=== PATIENT | female | born 1960 | race Caucasian/White ===

== ENCOUNTER → 2019-10-25 09:19 | Outpatient (CLI) | payer BC, SELFPAY | PROVIDERS: PCP Family Medicine; Referring Provider Urology; Visit Provider Urology | DX: R30.0 Dysuria (principal) | CPT/HCPCS: 87086; 87088 ==

== ENCOUNTER 2021-04-03 06:16 | Day surgery (SDC) | payer BC, SELFPAY ==
[2021-04-03] VITALS (7 sets, daily range): BP systolic 119–138; BP diastolic 66–76; PULSE 67–78; RESP 16; TEMP 36.2–36.6; O2SAT 93–96; BMI 23.5
[2021-04-03] MEDS: Lactated Ringers 1,000 ML 100 ML IV (06:46)
--- NOTE | 2021-04-03 07:21 | PCM.HP.BLA ---
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 Accompanied by: self Is patient in pain?: No Allergies methenamine Allergy (Intermediate, Verified 03/20/21 14:17) unknown Medications albuterol sulfate 90 mcg/actuation aerosol inhaler 1 inh INHALATION ONCE 01/07/20 [History Confirmed 03/20/21] ascorbate calcium (vitamin C) 500 mg tablet 500 mg PO DAILY 01/07/20 [History Confirmed 03/20/21] budesonide-formoterol HFA 160 mcg-4.5 mcg/actuation aerosol inhaler INHALATION 01/07/20 [History Confirmed 03/20/21] famotidine 20 mg tablet 20 mg PO DAILY 01/07/20 [History Confirmed 01/07/20] loratadine 5 mg-pseudoephedrine ER 120 mg tablet,extended release,12hr 1 tab PO Q12H 01/07/20 [History Confirmed 01/07/20] montelukast 10 mg tablet 10 mg PO DAILY 01/07/20 [History Confirmed 01/07/20] estradiol 1 appful VAGINAL ONCE 03/20/21 [History Confirmed 03/20/21] gabapentin 800 mg tablet 800 mg PO DAILY 03/20/21 [History Confirmed 03/20/21] verapamil 240 mg tablet,extended release 240 mg PO DAILY 03/20/21 [History Confirmed 03/20/21] PFSH Medical History Abnormal bruising Anemia Arthritis Asthma Environmental allergies Fatigue Hay fever HTN (hypertension) Kidney disease Knee pain Neck pain Seasonal allergies Severe headache Shoulder pain SOB (shortness of breath) Surgical History History of bladder surgery History of carpal tunnel release History of cholecystectomy History of hysterectomy History of neck surgery Hx of section Family History (Updated 03/20/21 @ 14:10 by Casie Roy) Mother Arthritis Cancer bladder Diabetes Heart disease Hypertension High cholesterol Father Cancer Bladder Social History Smoking Status: Never smoker alcohol intake: never HPI HPI HPI: DENNY OWENS, is a 60 F who presents to the office today for colonoscopy due to fecal incontinence. Patient states her last colonoscopy she believes was about 5 to 6 years ago states she gets on every 5 to 6 years denies any family history of colon cancer denies history of polyps. Patient did see Dr. Rainey due to frequent UTIs and mentioned having some fecal incontinence over the last year. Patient states that she does have urgency to go if she is unable to make it to the restroom she will have incontinence. Patient states she will especially have incontinence if her stools are soft or diarrhea. If her stools are hard/formed she will not have the incontinence. Patient states she will occasionally have incontinence without the urgency as well. Patient is unsure where she last had a colonoscopy previously. Patient denies any immediate family history of colon cancer states her maternal aunt did have colon cancer. Patient states she has had 3-4 previous colonoscopies in the past. Patient is not sure how much fiber she gets in her diet. ROS General General: Yes fatigue; No weight change, appetite, colon cancer, breast cancer or weakness HEENT HEENT: No difficulty swallowing, eye injury, eye surgery, swollen glands or hoarseness Endo Endocrine: No thyroid disease, diabetes mellitus, thyroid cancer, Hair loss, heat intolerance or cold intolerance Skin Skin: No rash or changing moles Breast Breast: No left breast lump, right breast lump, nipple discharge, breast pain, abnormal mammogram, abnormal US or breast enlargement Musc Musculoskeletal: Yes arthritis; No back problems, rheumatoid arthritis, gout or joint pain Cardio Cardiovascular: Yes high blood pressure; No murmur, pacemaker, heart disease, atrial fibrillation, heart attack, heart stent, palpitations, shortness of breat with exertion or chest pain Psych Psychiatric: No depression, anxiety or hearing voices Resp Respiratory: No shortness of breath, No sleep apnea, No cough, No COPD, Yes asthma, No emphysema and No wheezing Gastro Gastrointestinal: No abdominal pain, Yes nausea or vomiting, Yes diarrhea, Yes constipation, No blood in stool, Yes acid reflux, No hemorrhoids, No ulcers, No gallbladder problem and Yes black,tarry stools Rafael Hematologic: No blood thinners, No blood disorders, No bleeding, Yes anemia and No blood clots Neuro Neurologic: No system reviewed and no additional complaints, except as documented, No as per HPI, No abnormal gait, No abnormal hearing, No abnormal movements, No abnormal speech, No behavioral changes, No burning sensations, No confusion, No convulsions, No disequilibrium, No dizziness, No localized weakness, No frequent falls, No headache(s), No lack of coordination, No loss of vision, No memory loss, No numbness, No other visual disturbances, No radicular pain, No restless legs, No sensory deficit, No syncope, No tingling, No tremor(s), No weakness and No other Exam Const General: cooperative, healthy appearing, comfortable and no acute distress Neck Neck: normal visual inspection Resp Effort & Inspection: normal respiratory effort Cardio Rate: regular rate GI Inspection: non-distended Palpation: soft, no guarding and nontender Rectal Exam: abnormal sphincter tone decreased, No hemorrhoids and No mass Skin General: no rashes or lesions noted Neuro General: patient oriented x3 Psych Affect: normal affect Assessment and Plan Assessment and Plan (1) Fecal incontinence: Status: Acute Plan - Dr. Yue Briggs MD: On exam patient does have a weak anal sphincter. Patient states her last colonoscopy was 5 years ago discussed with patient she normally does not need colonoscopies every 5 years as she does not have a family history however since she is having a new problem it is worth taking a look with a colonoscopy. Discussed with patient that if there is no obvious cause on colonoscopy would recommend a physical therapy for pelvic floor strengthening which Dr. Rainey has already recommended. If that still would not work would recommend a referral to a colorectal surgeon if it continues. Did give patient sheet going over fiber recommend getting 20 g of fiber daily. Did caution patient about not advancing too quickly as that could give her abdominal pain/bloating/diarrhea. I have discussed the above with the patient. I have offered the patient colonoscopy for evaluation. We will plan to try to arrange the same time as procedure with Dr. Rainey I have explained the risks/benefits of the procedure and described the procedure. I have discussed the risks with the patient, including but not limited to: infection, bleeding, perforation of the GI tract requiring emergency surgery, inability to complete the procedure, injury to any internal organs, complications of anesthesia, etc. - the patient understands and agrees to proceed. I have answered all the patient's questions to the patient's satisfaction and the patient has no further questions. The patient has been given instructions for the colon cleansing preparation. MiraLAX Dulcolax prep, 1 day of clears Yue Briggs M.D. Pager: [phone] [facility] [address] [place] [address], [address] [place] [address] Office: [phone] Plan Details Other Orders: Orders: Colonoscopy Today Coding Level of Care Code Off vis,new,level 3 Diagnoses Fecal incontinence R15.9 03/20/21 1514<Electronically signed by Yue Briggs MD>Date Yue Briggs MD
--- NOTE | 2021-04-03 08:03 | OP.CCLET_ITS ---
04/03/2021 Esha Rodriguez Re : Colonoscopy procedure for Maria Teresa Torrez Dear Michael This procedure was performed on March. My impressions and recommendations are as follows: Impressions : - Diverticulosis in the sigmoid colon. - The entire examined colon is normal on direct and retroflexion views. - No specimens collected. Recommendations : - Discharge patient to home. - High fiber diet. - Continue present medications. - Repeat colonoscopy 7-8 years for screening purposes due to fibrous debris in part of transverse and descending colon. My findings are described in the full procedure note, which is enclosed. If I can be of further assistance, please feel free to contact me at Doctor phone number(s): , Work: . Sincerely, MD Yue Gomez MD 04/03/2021 8:02:38 AM This report has been signed electronically.
--- NOTE | 2021-04-03 08:03 | OP.COLON_ITS ---
Patient Name: Maria Teresa Torrez Procedure Date: 04/03/2021 7:16 AM Date of : 1960 Age: 60 Procedure: Colonoscopy Indications: Fecal incontinence Providers: Yue Briggs MD Referring MD: Yue Briggs MD Medicines: Monitored Anesthesia Care Patient Profile: This is a 60 year old female. Last Colonoscopy: 5 years ago. Complications: No immediate complications. Procedure: Pre-Anesthesia Assessment: - Prior to the procedure, a History and Physical was performed, and patient medications and allergies were reviewed. The patient's tolerance of previous anesthesia was also reviewed. The risks and benefits of the procedure and the sedation options and risks were discussed with the patient. All questions were answered, and informed consent was obtained. Prior Anticoagulants: The patient has taken no previous anticoagulant or antiplatelet agents. ASA Grade Assessment: Per anesthesia. After reviewing the risks and benefits, the patient was deemed in satisfactory condition to undergo the procedure. After I obtained informed consent, the scope was passed under direct vision. Throughout the procedure, the patient's blood pressure, pulse, and oxygen saturations were monitored continuously. The Colonoscope was introduced through the anus and advanced to the cecum, identified by the appendiceal orifice, ileocecal valve and palpation. The colonoscopy was somewhat difficult due to a tortuous colon. The patient tolerated the procedure well. The quality of the bowel preparation was good except there was fibrous debris in transverse & descending. Scope In: 7:26:29 AM Scope Withdrawal Time 0 hours 8 minutes 47 seconds Scope Out: 7:53:02 AM Total Procedure Duration Time 0 hours 26 minutes 33 seconds Findings: The perianal examination was normal. Multiple small-mouthed diverticula were found in the sigmoid colon. The entire examined colon appeared normal on direct and retroflexion views. Impression: - Diverticulosis in the sigmoid colon. - The entire examined colon is normal on direct and retroflexion views. - No specimens collected. Recommendation: - Discharge patient to home. - High fiber diet. - Continue present medications. - Repeat colonoscopy 7-8 years for screening purposes due to fibrous debris in part of transverse and descending colon. Procedure Code(s): --- Professional --- 45377, Colonoscopy, flexible; diagnostic, including collection of specimen(s) by brushing or washing, when performed (separate procedure) Diagnosis Code(s): --- Professional --- R15.9, Full incontinence of feces K57.30, Diverticulosis of large intestine without perforation or abscess without bleeding CPT copyright 2017 [employer]. All rights reserved. The codes documented in this report are preliminary and upon certified medical coder review may be revised to meet current compliance requirements. MD Yue Gomez MD 04/03/2021 8:02:38 AM This report has been signed electronically. Number of Addenda: 0 Note Initiated On: 04/03/2021 7:16 AM
== END 2021-04-03 09:00 ==
LOC: EN 06:16 → AC 06:16
PROVIDERS: PCP Family Medicine; Referring Provider Surgery; Visit Provider Surgery
PROC: 0DJD8ZZ Inspection of Lower Intestinal Tract, Via Natural or Artificial Opening Endoscopic (ICD-10-PCS; CPT 45378; principal; 2021-04-03 07:25)
DX: K57.30 Diverticulosis of large intestine without perforation or abscess without bleeding (principal); R15.9 Full incontinence of feces; I10 Essential (primary) hypertension; Z87.440 Personal history of urinary (tract) infections
CPT/HCPCS: 45378; 87426; C9803; J7120

== ENCOUNTER 2021-05-26 07:04 | Day surgery (SDC) | payer BC, SELFPAY ==
[2021-05-26] VITALS (7 sets, daily range): BP systolic 105–142; BP diastolic 66–86; PULSE 69–85; RESP 16; TEMP 36.3–36.8; O2SAT 93–97; BMI 23.8
[2021-05-26] MEDS: Lactated Ringers 1,000 ML 15 ML IV (07:15)
[2021-05-26] MEDS: Cefazolin 2 GM in 0.9% Normal Saline 100 ML IV (09:43)
--- NOTE | 2021-05-26 10:10 | PCM.DC ---
Discharge Instructions Diet Discharge Diet: No restrictions Activity Discharge Activity: Return to Normal Activity May resume sexual activity in: No Restrictions Dressing / Incision Call your doctor if you observe: Fever of 101 or Higher, Inability to urinate, Inability to have a bowel movement and Uncontrolled pain Follow Up Care Please Follow Up With: Radha Rainey MD When: 2-3 weeks Test Results: Test results from this visit will be discussed in further detail at your follow-up appointment, if applicable. Discharge Plan Admission Attending Provider: Radha Rainey Primary Care Provider: Esha Rodriguez Discharge Orders/Prescriptions Prescriptions: New phenazopyridine [Pyridium] 200 MG tablet 200 mg PO TID PRN PRN (Reason: Bladder Spasms) 7 Days Qty: 30 RF: 0 acetaminophen-codeine [acetaminophen-codeine] 1 TABLET tablet 1 - 2 tab PO Q6H PRN PRN (Reason: Pain Score 6-10/10) 3 Days Qty: 10 RF: 0 Continued budesonide-formoterol [Symbicort] 160-4.5 mcg/actuation HFA aerosol inhaler 1 puff INHALATION BID RF: 0 albuterol sulfate [ProAir HFA] 90 mcg/actuation HFA aerosol inhaler 1 inh INHALATION DAILY RF: 0 Claritin-D 12 Hour 5-120 mg tablet extended release 12 hr 1 tab PO Q12H PRN (Reason: ALLERGIES) RF: 0 estradiol 0.01 % (0.1 mg/gram) cream 1 appful vaginal ONCE RF: 0 verapamil 240 mg tablet extended release 240 mg PO DAILY RF: 0 gabapentin 800 mg tablet 800 mg PO TID RF: 0 azelastine 137 mcg (0.1 %) aerosol,spray 1 spray INTRANASAL DAILY PRN PRN (Reason: seasonal allergies) RF: 0 d-mannose 500 mg Capsule 500 mg PO DAILY RF: 0 amoxicillin-pot clavulanate 875-125 mg tablet PO DAILY RF: 0 Referrals / Follow Up: Esha Rodriguez DO [Primary Care Provider] - Disposition Disposition (needs filled in before D/C Order can be placed): Home, Self Care
--- NOTE | 2021-05-26 10:14 | PCM.OPRPT ---
Problems Associated Problem List Diagnoses (1) Urinary tract infection: (2) Interstitial cystitis: Report of Operation Date of Procedure: 05/26/21 Pre-Operative Diagnosis: Recurrent urinary tract infections, interstitial cystitis Post-Operative Diagnosis: Same Surgery/Procedure Performed:: Cystoscopy, hydrodistention Surgeon: Radha Rainey Type of Anesthesia: MAC Description of Procedure: The patient is a 60-year-old female with recurrent urinary tract infections and a working diagnosis of interstitial cystitis who presents for further evaluation under anesthesia. Informed consent was obtained. The patient was taken in the operating room and placed on the operating room table. Anesthesia monitored the head, neck, airway, IV access and vital signs throughout the case. Once anesthesia was appropriately administered, the patient was positioned in dorsal lithotomy and was prepped and draped in usual sterile fashion. At this time the cystoscope was inserted through the urethra under direct visualization into the urinary bladder. The bladder mucosa was injected but there were no Hunner's ulcers, masses areas of abnormality or foreign body identified. The bladder mucosa was visualized in its entirety with a 70 degree lens. At this time the bladder was filled to capacity and was allowed to sit for 2 minutes. It was then measured at 1 L. No further hydrodistention was performed. The cystoscope was reinserted through the urethra and the bladder mucosa was visualized again. No changes were identified. Patient's bladder was then emptied and the case was terminated. She was awakened and taken to the recovery room in good condition. There were no complications during this procedure. Grafts/Implants Used: None Complications None Admit VTE Documentation VTE Present on Admission: Yes VTE Mechan Device Prophylaxis: SCD's VTE Pharm Prophylaxis ordered?: No Reason prophylaxis not ordered:: Treatment Not Indicated
[2021-05-26] MEDS: Acetaminophen/Codeine #3 Tablet PO (11:54)
== END 2021-05-26 12:10 ==
LOC: SDC 07:06 → AC 07:06
PROVIDERS: PCP Family Medicine; Referring Provider Urology; Visit Provider Urology
PROC: 0T7B7ZZ Dilation of Bladder, Via Natural or Artificial Opening (ICD-10-PCS; CPT 52260; principal; 2021-05-26 08:30)
DX: N30.10 Interstitial cystitis (chronic) without hematuria (principal); Z87.440 Personal history of urinary (tract) infections; Z87.891 Personal history of nicotine dependence; I10 Essential (primary) hypertension; J45.909 Unspecified asthma, uncomplicated; N95.2 Postmenopausal atrophic vaginitis; R15.1 Fecal smearing
CPT/HCPCS: 00910; 52260; 87426; C9803; J7120; J2405

== ENCOUNTER → 2021-11-03 | Outpatient (CLI) | payer BC, SELFPAY ==
[2021-11-03 10:29] LABS: Mucous, Urine 0 SEEN /hpf (<or=2+)
[2021-11-03 10:32] LABS: Color, Urine Yellow (Yellow); Glucose, Dipstick Normal (Normal); Ketone-Dipstick Negative (Negative); Leukocyte Esterase-Dipstick 500 /ul (Negative); Nitrite-Dipstick Positive (Negative); Occult Blood-Urine 10 /ul (Negative); Protein-Dipstick Negative (Negative); Specific Gravity, Urine 1.005 (1.002-1.030); Urine Bilirubin Dipstick 1 mg/dL (Negative); Urine Clarity Sl. Cloudy (Clear); Urine Urobilinogen 1 mg/dl (Normal)
[2021-11-03 10:44] LABS: Bacteria 1+ /hpf (None Seen); Red Blood Cells-Urine 0-5 SEEN /hpf (0-5); Squamous Epithelial Cells - UA 0-5 SEEN /hpf (5-10); White Blood Cells 25-50 SEEN /hpf (0-5)
== END | disposition home or self-care (01) ==
LOC: LABSPEC 10:25
PROVIDERS: PCP Family Medicine; Visit Provider Physician Assistant
DX: R30.9 Painful micturition, unspecified (principal)
CPT/HCPCS: 81001; 87077; 87086; 87088; 87186

== ENCOUNTER → 2023-07-30 | Outpatient (CLI) | payer BC, SELFPAY ==
--- OUTSIDE RECORDS SUMMARY | 2023-07-30 17:37 | XMS RPT_ITS | CCD ---
Author Name Unknown Address [id number] [place] [address] Organization [facility] Care Team Providers Care Chassis Engineer Name Role Phone MichaelMaria Esther mata Primary Care Provider Betina Sifuentes Attending Unavailable PROVIDER, UNKNOWN Referring Unavailable [facility] [place] [facility] Unavailable [facility] [place] [facility] Unavailable [facility] [place] Attending Unavailable PROVIDER, UNKNOWN Referring Unavailable [facility] [place] [facility] Unavailable Michael, [place] Attending Unavailable PROVIDER, UNKNOWN Referring Unavailable Betina Sifuentes Attending Unavailable PROVIDER, UNKNOWN Referring Unavailable [facility] [place] Primary Care Unavailable Michael, [place] Primary [facility] Unavailable Betina Sifuentes Attending Unavailable PROVIDER, UNKNOWN Referring Unavailable Michael NICK [place] S[place] Primary Care Provid er Michael NICK [place] Primary Care Provider Brendon COSTA - MINING ENGINEER, Nura Unavailable [facility] [place] Primary Care Provider Brendon SALES COMMUNICATIONS MANAGER - MINING ENGINEER, Nura Unavailable [phone] Brendon SALES COMMUNICATIONS MANAGER - MINING ENGINEER, Nura Unavailable MICHAEL, [facility] Primary Care Unavanima labamol RODRIGUEZ, [employer] [employer] Attending Unamilton RODRIGUEZ, [facility] Primary Care Unavanima RODRIGUEZ [facility] Referring Unavanima labamol RODRIGUEZ, [facility] [employer] Primary Care Unavanima labamol RODRIGUEZ, [facility] [employer] [employer] Attending Unamilton RODRIGUEZ, [facility] [employer] [employer] Attending Unavanima labamol RODRIGUEZ, [facility] [employer] Primary Care Unavanima labamol RODRIGUEZ, [employer] [employer] Attending Unavanima RODRIGUEZ [facility] Primary Care Unavai lable MICHAEL, [facility] Attending Unavai lable [facility] Unavai lable MICHAEL, [facility] [employer] Attending Unavai lable MICHAEL, [facility] Primary Care Unavai lable MICHAEL, [facility] Primary Care Unavai lable MICHAEL, [facility] [employer] [employer] Attending PAO Gómez Referring Unavailable [facility] PAO Gómez Referring Unavailable [facility], [facility] NURA Schaeffer Attending Unavailable NURA JAIN Referring Unavailable [facility] Unavailable [facility] Unavailable ANA PAULA CASTANEDA Admitting Unavailable BETH ARMSTRONG Consulting Unavailable CINTIA SILVA Attending Unavailable [facility] Unavailable GIANNA ELLIS Attending Unavailable [facility] Attending Unavailable [facility] Referring Unavailable [facility] Unavailable [facility] Referring Unavailable [facility] Unavailable NURA JAIN Attending Unavailable NURA JAIN Referring Unavailable [facility] Unavailable NURA JAIN Attending Unavailable [facility] Unavailable [facility] UnavaENID Aguilera Referring Unavailable [facility] Referring Unavai lable MICHAEL, [facility] Noei ENID Connell Attending Unavailable [facility] Referring Unavai lable MICHAEL, [facility] Primary Care Unavai lable MICHAEL, [facility] Primary Care Unavai ENID Connell Referring Unavailable [facility] Primary Care ENID Herrera Attending Unavailable PAO ROSA Referring Unavailable [facility] Primary Care NIMCO Bah Attending Unavaila PAO Lisa Attending Unavailable [facility] Unavai lable MICHAEL, [facility] Primary Care Noei labENID Wooten Attending Unavailable Allergies Allergy Classification Reported Allergen(s) Allergy Type Date of Onset Reaction(s) Facility (20 sources) Methenamine; Translations: [METHENAMINE HIPPURATE] Drug Allergy 07-03-2020 [facility] (20 sources) Methenamine; Translations: [METHENAMINE] Drug Allergy 07-03-2020 Unknown, [facility] Medications Current Medications Medication Drug Class(es) Dates Sig (Normalized) Sig (Original) acetaminophen 325 mg / HYDROcodone bitartrate 5 mg oral tablet (2 sources) Opioid Agonist take 1 tablet by mouth every six hours as needed for pain HYDROcodone-acet aminophen (NORCO) 5-325 MG per tablet Take 1 tablet by mouth every 6 hours as needed for Pain 0 Active amoxicillin 875 mg / clavulanate 125 mg oral tablet (5 sources) Penicillin-class Antibacterial Start: 10-15-2022 End: 10-18-2022 take 1 tablet by mouth in the morning amoxicillin-clav ulanate (Augmentin) 875-125 MG tablet Take 1 tablet by mouth in the morning and 1 tablet before bedtime. Do all this for 3 days. 6 tablet 0 10/15/2022 10/18/2022 Active Completed/Discontinued Medications Medication Drug Class(es) Dates Sig (Normalized) Sig (Original) Acetaminophen (2 sources) Start: 10-11-2022 End: 10-15-2022 take 1 tablet by mouth every six hours as needed for pain and fever acetaminophen (Tylenol) tablet 650 mg [id number] actuat albuterol 0.09 mg/actuat metered dose inhaler (20 sources) beta2-Adrenergic Agonist Start: 10-13-2022 End: 10-15-2022 take 2 puff(s) by inhalation every six hours as needed for wheezing 2 puff, Inhalation, Every 6 hours PRN, shortness of breath, wheezing, Starting on Wed10/13/22 at 0959 Problems Active Problems Problem Classification Problem Date Documented Da te Episodic/Chronic Abdominal pain (4 sources) Recurrent abdominal pain; Translations: [Unspecified abdominal pain] Onset: 3 Episodic Anxiety disorders (20 sources) Generalized anxiety disorder; Translations: [Generalized anxiety disorder] Onset: 1 11-28-2020 Chronic Aortic; peripheral; and visceral artery aneurysms (20 sources) Aneurysm of renal artery; Translations: [Aneurysm of renal artery] Onset: 5 05-16-2015 Chronic Asthma (20 sources) Mild intermittent asthma; Translations: [Mild intermittent asthma with (acute) exacerbation] Onset: 0 07-03-2020 Chronic Deficiency and other anemia (1 source) Anemia; Translations: [Anemia, unspecified] Episodic Disorders of lipid metabolism (20 sources) Mixed hyperlipidemia; Translations: [Mixed hyperlipidemia] Onset: 2 Chronic Esophageal disorders (4 sources) Gastroesophageal reflux disease without esophagitis; Translations: [Gastro-esophageal reflux disease without esophagitis] Chronic Essential hypertension (20 sources) Essential hypertension; Translations: [Essential (primary) hypertension] Onset: 0 07-03-2020 Chronic Miscellaneous mental health disorders (9 sources) Feeling of lump in throat; Translations: [Other somatoform disorders] Onset: 1 11-28-2020 Chronic Osteoarthritis (20 sources) Arthritis; Translations: [Unspecified osteoarthritis, unspecified site] Onset: 2 Chronic Other connective tissue disease (2 sources) Swelling of left lower limb; Translations: [Other specified soft tissue disorders] Episodic Other connective tissue disease (1 source) Pain of toe of left foot; Translations: [Pain in left toe(s)] 04-05-2023 Episodic Other female genital disorders (2 sources) Other specified conditions associated with female genital organs and menstrual cycle; Translations: [Oth cond assoc w female genital organs and menstrual cycle] Onset: 2 Episodic Other gastrointestinal disorders (3 sources) Irritable bowel syndrome characterized by constipation; Translations: [Irritable bowel syndrome with constipation] Chronic Other gastrointestinal disorders (2 sources) Irritable bowel syndrome with constipation; Translations: [Irritable bowel syndrome with constipation] Onset: 3 Chronic Other gastrointestinal disorders (2 sources) Irritable bowel syndrome; Translations: [Mixed irritable bowel syndrome] Onset: 3 06-02-2023 Chronic Other gastrointestinal disorders (5 sources) Chronic constipation; Translations: [Other constipation] Episodic Other gastrointestinal disorders (2 sources) Pharyngeal dysphagia; Translations: [Dysphagia, pharyngeal phase] 04-27-2023 Episodic Other gastrointestinal disorders (1 source) Dysphagia, pharyngeal phase; Translations: [Pharyngeal dysphagia] Onset: 3 Episodic Other gastrointestinal disorders (1 source) Abdominal distension (gaseous); Translations: [Abdominal bloating] Onset: 3 Episodic Other liver diseases (1 source) Elevated liver enzymes level; Translations: [Abnormal levels of other serum enzymes] Episodic Other lower respiratory disease (1 source) Wheezing; Translations: [Wheezing] Episodic Other nervous system disorders (20 sources) Neuropathy; Translations: [Polyneuropathy, unspecified] Onset: 1 11-28-2020 Chronic Other screening for suspected conditions (not mental disorders or infectious disease) (4 sources) Encounter for screening mammogram for malignant neoplasm of breast; Translations: [Encntr screen mammogram for malignant neoplasm of breast] Onset: 2 Episodic Other upper respiratory disease (20 sources) Allergic rhinitis due to pollen; Translations: [Allergic rhinitis due to pollen] 01-02-2021 Chronic Peripheral and visceral atherosclerosis (2 sources) Atherosclerosis of other arteries; Translations: [Atherosclerosis of other arteries] Onset: 2 Chronic Residual codes; unclassified (2 sources) Acquired absence of other specified parts of digestive tract; Translations: [Acquired absence of other specified parts of digestive tract] Onset: 2 Episodic Residual codes; unclassified (1 source) Body mass index (BMI) 23.0-23.9, adult; Translations: [BMI 23.0-23.9, adult] Onset: 3 Episodic Spondylosis; intervertebral disc disorders; other back problems (4 sources) Spondylosis, unspecified; Translations: [Lumbar arthritis] Onset: 2 Chronic Spondylosis; intervertebral disc disorders; other back problems (2 sources) Spasm of back muscles; Translations: [Muscle spasm of back] Onset: 3 04-05-2023 Episodic Unclassified (2 sources) Acute cough; Translations: [Acute cough] Onset: 2 Unclassified (1 source) Recurrent cough; Translations: [Recurrent cough] Onset: 2 Past or Other Problems Problem Classification Problem Date Documented Da te Episodic/Chronic Acute bronchitis (3 sources) Acute bronchitis; Translations: [Acute bronchitis, unspecified] Onset: 10-02-2022 Episodic Deficiency and other anemia (2 sources) Anemia, unspecified; Translations: [Anemia, unspecified type] Onset: 10-20-2022 Episodic Immunizations and screening for infectious disease (20 sources) Patient encounter status; Translations: [Encounter for immunization] Onset: 07-03-2020 07-03-2020 Episodic Other circulatory disease (20 sources) Feeling of lump in throat; Translations: [Other specified symptoms and signs involving the circulatory and respiratory systems] Onset: 11-28-2020 11-28-2020 Episodic Other connective tissue disease (20 sources) Cramp in lower limb; Translations: [Cramp and spasm] Onset: 07-03-2020 07-03-2020 Episodic Other connective tissue disease (20 sources) Pain in left lower limb; Translations: [Pain in left leg] Onset: 02-05-2021 02-05-2021 Episodic Other connective tissue disease (1 source) Pain in left leg; Translations: [Left leg pain] Onset: 01-15-2023 Episodic Other connective tissue disease (1 source) Other specified soft tissue disorders; Translations: [Left leg swelling] Onset: 01-15-2023 Episodic Other gastrointestinal disorders (20 sources) Incontinence of feces; Translations: [Full incontinence of feces] Onset: 07-07-2021 07-07-2021 Episodic Other infections; including parasitic (20 sources) Personal history of other infectious and parasitic diseases; Translations: [History of COVID-19] Onset: 10-22-2020 10-22-2020 Episodic Other liver diseases (2 sources) Abnormal levels of other serum enzymes; Translations: [Elevated liver enzymes] Onset: 10-20-2022 Episodic Other lower respiratory disease (20 sources) Cough; Translations: [Cough] Onset: 07-31-2021 07-31-2021 Episodic Other lower respiratory disease (20 sources) Cough; 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] Onset: 10-08-2021 Episodic Other lower respiratory disease (1 source) Wheezing; Translations: [Wheezing] Onset: 06-08-2022 Episodic Other skin disorders (1 source) Other nail disorders; Translations: [Discolored nails] Onset: 09-14-2022 Episodic Other skin disorders (1 source) Onychogryphosis; Translations: [Thickened nails] Onset: 09-14-2022 Episodic Other upper respiratory infections (20 sources) Acute maxillary sinusitis; Translations: [Acute maxillary sinusitis, unspecified] Onset: 12-17-2021 12-17-2021 Episodic Phlebitis; thrombophlebitis and thromboembolism (20 sources) Deep venous thrombosis; Translations: [Acute embolism and thrombosis of unspecified deep veins of unspecified lower extremity] Onset: 02-05-2021 02-05-2021 Episodic Septicemia (except in labor) (17 sources) Sepsis; Translations: [Sepsis, unspecified organism] Onset: 10-11-2022 Episodic Superficial injury; contusion (20 sources) Abrasion and/or friction burn of lower limb without infection; Translations: [Abrasion, unspecified lower leg, initial encounter] Onset: 02-05-2021 02-05-2021 Episodic Unclassified (1 source) Acute cough; Translations: [Acute cough] Onset: 10-02-2022 Urinary tract infections (20 sources) Acute urinary tract infection; Translations: [Urinary tract infection, site not specified] Onset: 12-17-2021 12-17-2021 Episodic Viral infection (20 sources) Disease caused by 2019-nCoV; Translations: [COVID-19] Onset: 07-31-2021 07-31-2021 Episodic Results Test Name Value Interpretation Reference Range Facil ity Vital Signs Date Time Vital Sign Value Performing Clinician Loren [email or web address] 06-29-2023 14:24-0500 Body height 160 cm Enid Milligan PA-C Work Phone: [facility] 06-29-2023 14:24-0500 Body weight 60.69 kg Enid Milligan PA-C Work Phone: [facility] 06-29-2023 14:24-0500 Diastolic blood pressure 70 mm[Hg] Enid Milligan PA-C Work Phone: [facility] 06-29-2023 14:24-0500 Heart rate 70 /min Enid Milligan PA-C Work Phone: [facility] 06-29-2023 14:24-0500 Systolic blood pressure 124 mm[Hg] Enid Milligan PA-C Work Phone: [facility] 06-22-2023 14:05-0500 Body height 160 cm Nura Jain SALES COMMUNICATIONS MANAGER - MINING ENGINEER Work Phone: [facility] 06-22-2023 14:05-0500 Body mass index (BMI) [Ratio] 23.03 kg/m2 Nura Jain SALES COMMUNICATIONS MANAGER - MINING ENGINEER Work Phone: [facility] 06-22-2023 14:05-0500 Body weight 58.97 kg Nura Jain SALES COMMUNICATIONS MANAGER - MINING ENGINEER Work Phone: [facility] 06-22-2023 14:05-0500 Diastolic blood pressure 68 mm[Hg] Nura Jain SALES COMMUNICATIONS MANAGER - MINING ENGINEER Work Phone: [facility] 06-22-2023 14:05-0500 Respiratory rate 18 /min Nura Jain SALES COMMUNICATIONS MANAGER - MINING ENGINEER Work Phone: [facility] 06-22-2023 14:05-0500 Systolic blood pressure 122 mm[Hg] Nura Jain SALES COMMUNICATIONS MANAGER - MINING ENGINEER Work Phone: [facility] 06-08-2023 11:34-0500 Body height 160 cm Maria Esther Michael DO Work Phone: [facility] 06-08-2023 11:34-0500 Body mass index (BMI) [Ratio] 23.03 kg/m2 Maria Esther Michael DO Work Phone: [facility] 06-08-2023 11:34-0500 Body weight 58.97 kg [place] Michael DO Work Phone: [facility] 04-05-2023 09:00-0400 Body height 160 cm [place] Michael DO Work Phone: [facility] 04-05-2023 09:00-0400 Body temperature 98.01 [degF] Maria Esther Michael DO Work Phone: [facility] 04-05-2023 09:00-0400 Body weight 59.88 kg [place] Michael DO Work Phone: [facility] 04-05-2023 09:00-0400 Diastolic blood pressure 92 mm[Hg] Maria Esther Mihcael DO Work Phone: [facility] 04-05-2023 09:00-0400 Heart rate 85 /min Maria Esther Michael DO Work Phone: [facility] 04-05-2023 09:00-0400 SaO2% (BldA) [Mass fraction] 97 % Maria Esther Michael DO Work Phone: [facility] 04-05-2023 09:00-0400 Systolic blood pressure 150 mm[Hg] Maria Esther Michael DO Work Phone: [facility] 03-16-2023 14:37-0400 Body height [address] PA-C Work Phone: [facility] 03-16-2023 14:37-0400 Body weight 60.[address] PA-C Work Phone: [facility] 03-16-2023 14:37-0400 Diastolic blood pressure 72 mm[Hg] [address] Rd PA-C Work Phone: [facility] 03-16-2023 14:37-0400 Heart rate 76 /min [address] PA-C Work Phone: [facility] 03-16-2023 14:37-0400 Systolic blood pressure 130 mm[Hg] [address] Rd PA-C Work Phone: [facility] 01-14-2023 15:07-0400 Body height 160 cm [place] Michael DO Work Phone: [facility] 01-14-2023 15:07-0400 Body weight 57.61 kg [place] Michael DO Work Phone: [facility] 01-14-2023 15:07-0400 Diastolic blood pressure 70 mm[Hg] [place] Michael DO Work Phone: [facility] 01-14-2023 15:07-0400 Heart rate 89 /min [place] Michael DO Work Phone: [facility] 01-14-2023 15:07-0400 SaO2% (BldA) [Mass fraction] 94 % [place] Michael DO Work Phone: [facility] 01-14-2023 15:07-0400 Systolic blood pressure 120 mm[Hg] [place] Michael DO Work Phone: [facility] 10-20-2022 10:40-0400 Body height 160 cm [place] Michael DO Work Phone: [facility] 10-20-2022 10:40-0400 Body weight 58.06 kg Maria Esther Michael DO Work Phone: [facility] 10-20-2022 10:40-0400 Diastolic blood pressure 70 mm[Hg] Maria Esther Michael DO Work Phone: [facility] 10-20-2022 10:40-0400 Heart rate 92 /min Maria Esther Michael DO Work Phone: [facility] 10-20-2022 10:40-0400 SaO2% (BldA) [Mass fraction] 97 % Maria Esther Michael DO Work Phone: [facility] 10-20-2022 10:40-0400 Systolic blood pressure 102 mm[Hg] Maria Esther Michael DO Work Phone: [facility] 10-15-2022 11:10-0400 Body temperature 98.6 [degF] Clarence Pinto MD Work Phone: [facility] 10-15-2022 11:10-0400 Diastolic blood pressure 90 mm[Hg] Clarence Pinto MD Work Phone: [facility] 10-15-2022 11:10-0400 Heart rate 74 /min Clarence Pinto MD Work Phone: [facility] 10-15-2022 11:10-0400 Respiratory rate 18 /min Clarence Pinto MD Work Phone: [facility] 10-15-2022 11:10-0400 Systolic blood pressure 151 mm[Hg] Clarence Pinto MD Work Phone: [facility] 10-15-2022 08:37-0400 SaO2% (BldA) [Mass fraction] 97 % Clarence Pinto MD Work Phone: [facility] 10-15-2022 05:00-0400 Body mass index (BMI) [Ratio] 23.42 kg/m2 Clarence Pinto MD Work Phone: [facility] 10-15-2022 05:00-0400 Body weight 59.96 kg Clarence Pinto MD Work Phone: [facility] 10-14-2022 09:09-0400 Body height 160 cm Clarence Pinto MD Work Phone: [facility] 10-02-2022 11:02-0400 Body height 160 cm Maria Esther Michael DO Work Phone: [facility] 10-02-2022 11:02-0400 Body temperature 98.49 [degF] Maria Esther Michael DO Work Phone: [facility] 10-02-2022 11:02-0400 Body weight 58.06 kg Maria Esther Michael DO Work Phone: [facility] 10-02-2022 11:02-0400 Diastolic blood pressure 84 mm[Hg] Maria Esther Michael DO Work Phone: [facility] 10-02-2022 11:02-0400 Heart rate 87 /min [place] Michael DO Work Phone: [facility] 10-02-2022 11:02-0400 SaO2% (BldA) [Mass fraction] 94 % Maria Esther Michael DO Work Phone: [facility] 10-02-2022 11:02-0400 Systolic blood pressure 130 mm[Hg] Maria Esther Michael DO Work Phone: [facility] 06-08-2022 13:10-0500 Body height 160 cm [place] Michael DO Work Phone: [facility] 06-08-2022 13:10-0500 Body temperature 98.2 [degF] [place] Michael DO Work Phone: [facility] 06-08-2022 13:10-0500 Body weight 57.15 kg Maria Esther Michael DO Work Phone: [facility] 06-08-2022 13:10-0500 Diastolic blood pressure 78 mm[Hg] [place] Michael DO Work Phone: [facility] 06-08-2022 13:10-0500 Heart rate 82 /min [place] Michael DO Work Phone: [facility] 06-08-2022 13:10-0500 Respiratory rate 24 /min Maria Esther Michael DO Work Phone: [facility] 06-08-2022 13:10-0500 SaO2% (BldA) [Mass fraction] 94 % [place] Michael DO Work Phone: [facility] 06-08-2022 13:10-0500 Systolic blood pressure 120 mm[Hg] [place] Michael DO Work Phone: [facility] 05-26-2022 14:07-0500 Body height 160 cm [employer] SALES COMMUNICATIONS MANAGER - MINING ENGINEER Work Phone: [facility] 05-26-2022 14:07-0500 Body mass index (BMI) [Ratio] 22.67 kg/m2 Nura Jain SALES COMMUNICATIONS MANAGER - MINING ENGINEER Work Phone: [facility] 05-26-2022 14:07-0500 Body weight 58.06 kg [employer] SALES COMMUNICATIONS MANAGER - MINING ENGINEER Work Phone: [facility] 05-26-2022 14:07-0500 Diastolic blood pressure 69 mm[Hg] [employer] SALES COMMUNICATIONS MANAGER - MINING ENGINEER Work Phone: [facility] 05-26-2022 14:07-0500 Heart rate 71 /min [employer] SALES COMMUNICATIONS MANAGER - MINING ENGINEER Work Phone: [facility] 05-26-2022 14:07-0500 Systolic blood pressure 128 mm[Hg] [employer] SALES COMMUNICATIONS MANAGER - MINING ENGINEER Work Phone: [facility] 03-18-2022 10:19-0400 Body height 160 cm Maria Esther Michael DO Work Phone: [facility] 03-18-2022 10:19-0400 Body temperature 97.39 [degF] Maria Esther Michael DO Work Phone: [facility] 03-18-2022 10:19-0400 Body weight 59.88 kg Maria Esther Michael DO Work Phone: [facility] 03-18-2022 10:19-0400 Diastolic blood pressure 82 mm[Hg] Maria Esther Michael DO Work Phone: [facility] 03-18-2022 10:19-0400 Heart rate 77 /min Maria Esther Michael DO Work Phone: [facility] 03-18-2022 10:19-0400 SaO2% (BldA) [Mass fraction] 94 % [place] Michael DO Work Phone: [facility] 03-18-2022 10:19-0400 Systolic blood pressure 136 mm[Hg] [place] Michael DO Work Phone: [facility] 10-08-2021 09:18-0400 Body height 160 cm [place] Michael DO Work Phone: [facility] 10-08-2021 09:18-0400 Body temperature 97.59 [degF] [place] Michael DO Work Phone: [facility] 10-08-2021 09:18-0400 Body weight 58.97 kg Maria Esther Michael DO Work Phone: [facility] 10-08-2021 09:18-0400 Diastolic blood pressure 78 mm[Hg] Maria Esther Michael DO Work Phone: [facility] 10-08-2021 09:18-0400 Heart rate 83 /min Maria Esther Michael DO Work Phone: [facility] 10-08-2021 09:18-0400 SaO2% (BldA) [Mass fraction] 93 % Maria Esther Michael DO Work Phone: [facility] 10-08-2021 09:18-0400 Systolic blood pressure 130 mm[Hg] [facility] DO Work Phone: [facility] 04-04-2020 09:04-0400 Body Temperature 96.69 [degF] [facility] 04-04-2020 09:04-0400 Body weight 60.33 kg [facility] ic 04-04-2020 09:04-0400 BP Diastolic 70 mm[Hg] [facility] ic 04-04-2020 09:04-0400 BP Systolic 120 mm[Hg] [facility] ic 04-04-2020 09:04-0400 Height 160 cm [facility] ic 04-04-2020 09:04-0400 Pulse (Heart Rate) 93 /min [facility] 04-04-2020 09:04-0400 Pulse Oximetry 98 % [facility] ic 04-04-2020 09:04-0400 Respiratory Rate 24 /min [facility] sammy Encounters Encounter Date Encounter Type Care Provider Facility Start: 07-05-2023 End: 07-05-[address] [facility] Facility:[facility] Start: 06-29-2023 End: 06-29-[address] [facility] Facility:[facility] Start: 06-29-2023 End: 06-29-2023 Patient encounter procedure Enid Milligan PA-C Work Phone: [facility] [place] Procedures Date Procedure Procedure Detail Performing Clinician Start: 06-22-2023 Follow-up visit Follow-up NURA JAIN Start: 06-08-2023 End: 06-08-2023 Screening digital breast tomosynthesis bi [facility] Work Phone: Start: 05-26-2023 Ct angiography abdom en w/contrast/noncontrast Nura Jain SALES COMMUNICATIONS MANAGER - MINING ENGINEER Work Phone: Start: 04-27-2023 Radiologic exam esop hagus single contrast study Pao Rosa PA-C Work Phone: Start: 01-15-2023 Dup-scan xtr veins unilateral/limited study [place] Suleiman Rodriguez DO Work Phone: Start: 10-15-2022 Comprehensive metabo lic panel Cintia Silva MD Work Phone: Start: 10-14-2022 Comprehensive metabo lic panel Cintia Silva MD Work Phone: Start: 10-13-2022 Culture bacterial quanttative colony count urine Tiffany Updyke PA-C Work Phone: Start: 10-13-2022 Comprehensive metabo lic panel Cintia Silva MD Work Phone: Start: 10-13-2022 Hepatitis b surf ant ibody hbsab Tiffany Wheelrightyke PA-C Work Phone: Start: 10-12-2022 Us retroperitoneal r eal time w/image complete Beba Michele SALES COMMUNICATIONS MANAGER - MINING ENGINEER Work Phone: Start: 10-12-2022 End: 10-12-2022 Comprehensive metabolic panel Beba Ortizs SALES COMMUNICATIONS MANAGER - MINING ENGINEER Work Phone: Start: 10-12-2022 Drug screen quantita tive vancomycin Beba Michele SALES COMMUNICATIONS MANAGER - MINING ENGINEER Work Phone: Start: 10-12-2022 EXTRA TUBES Ana Paula subramanian MD Work Phone: Start: 10-12-2022 LAVENDER TOP Ana Paula subramanian MD Work Phone: Start: 10-12-2022 LIGHT GREEN TOP Ana Paula Castaneda MD Work Phone: Start: 10-11-2022 Assay of lactate Beba Ortizs SALES COMMUNICATIONS MANAGER - MINING ENGINEER Work Phone: Start: 10-11-2022 SARS-COV-2, FLU A/B, AND RSV COMBO Clarence Pinto MD Work Phone: Start: 10-11-2022 Urinalysis complete panel - Urine Clarence Pinto MD Work Phone: Start: 10-11-2022 Urnls dip stick/tabl et rgnt auto w/o microscopy Clarence Pinto MD Work Phone: Start: 10-11-2022 Ct abdomen & pelvis w/o contrast material Clarence Pinto MD Work Phone: Start: 10-11-2022 Ecg routine ecg w/le ast 12 lds trcg only w/o i&r Clarence Pinto MD Work Phone: Start: 10-11-2022 End: 10-11-2022 Bacteria identified in Blood by Culture Clarence Pinto MD Work Phone: Start: 10-11-2022 Comprehensive metabo lic panel Clarence Pinto MD Work Phone: Start: 05-11-2022 Creatinine blood Betina Sifuentes MD Work Phone: Start: 05-01-2022 Mammography Clarence grajeda MD Work Phone: Start: 04-30-2022 Mammography [place] O liverio DO Work Phone: Start: 03-18-2022 Adult depression scr eening assessment Maria Esther Michael DO Work Phone: Start: 03-22-2021 Dup-scan artl trent abdl/pel/scrot&/rpr orgn com Betina Sifuentes MD Work Phone: Start: 11-28-2020 Adult depression scr eening assessment Maria Esther Michael DO Work Phone: Start: 02-24-2020 Mammography [place] O liverio Start: 02-21-2020 Dup-scan artl trent abdl/pel/scrot&/rpr orgn com Betina Sifuentes Work Phone: Start: 06-07-2019 CMP EXTERNAL QAI [facility] Start: 06-07-2019 Lipid panel [facility] Start: 06-07-2019 Lipid 1996 [facility] - [facility] Work Phone: Start: 07-23-2017 Colonoscopy [place] O liverio DO Work Phone: Plan of Treatment Date Care Activity Detail Author Start: 07-23-2027 Screening for malign ant neoplasm of colon [facility] Start: 10-20-2025 [facility]AB[facility] Start: 10-20-2025 Diabetes Screening Diabetes Screenin g [facility] Start: 06-29-2024 BP Controlled (<130/80) BP Controlle d (<130/80) [facility] Start: 06-08-2024 Screening for malign ant neoplasm of breast [facility] Start: 06-07-2024 Lipid 1996 panel - S raquel or Plasma Lipid Screening [facility] Start: 06-07-2024 Lipid panel Lipid Screening [facility] Start: 06-07-2024 LIPID SCREEN LIPID SCREEN [facility] Start: 06-01-2024 End: 06-01-2024 Creatinine [Mass/volume] in Serum or Plasma Creatinine, Serum Lab Routine 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) Expected: 06/01/2024 (Approximate), Expires: 06/01/2024 [facility] Immunizations Immunization Date Immunization Notes Care Provider Mally vasquez 07-03-2020 influenza, injectabl e, quadrivalent, contains preservative Maria Esther Michael DO Work Phone: [facility] 07-03-2020 influenza virus vacc ine, unspecified formulation Clarence Pinto MD Work Phone: [facility] 05-27-2019 influenza, injectabl e, quadrivalent, contains preservative [place] Michael DO Work Phone: [facility] 05-26-2019 Influenza, injectabl e, Madin Moosic Canine Kidney, preservative free, quadrivalent Maria Esther Michael DO Work Phone: [facility] 05-09-2018 influenza, injectabl e, quadrivalent, preservative free [place] Michael DO Work Phone: [facility] 06-30-2017 influenza, injectabl e, quadrivalent, preservative free [place] Michael DO Work Phone: [facility] 05-18-2016 influenza, seasonal, injectable, preservative free [place] Michael DO Work Phone: [facility] 05-02-2015 influenza, injectabl e, quadrivalent, preservative free [facility] 04-30-2014 influenza, seasonal, injectable, preservative free [facility] 04-12-2013 influenza, seasonal, injectable, preservative free [facility] 04-29-2012 influenza, seasonal, injectable, preservative free [facility] 04-15-2011 influenza, seasonal, injectable, preservative free [facility] Payers Date Payer Category Payer Unknown [id number] 2019 Unknown [id number] 2019 Unknown BCBS [place] P PO [id number] 2019-Present [address] [place] [address] [id number] 2019 Unknown [id number] 1959 Unknown [id number] 1959 Unknown [id number] 1959 Unknown [id number] 1959 Unknown [id number] 1959 Unknown [id number] Social History Date Type Detail Facility Start: 12-24-2017 End: 03-20-2020 Tobacco smoking status MNIS Never smoker [facility] Start: 12-24-2017 End: 12-08-2022 Tobacco use and exposure Never used [facility] Start: 12-24-2017 End: 06-22-2023 Alcohol intake [facility] Start: 1960 [facility]igned At [facility] Start: 06-10-2020 End: 12-08-2022 Tobacco smoking status NHIS Former smoker [facility] Start: 06-10-2020 End: 06-29-2023 Alcohol intake Lifetime non-drinker (finding) [facility] Start: 06-10-2020 End: 10-01-2022 History SDOH Alcohol Frequency 1 [facility] Start: 09-28-2021 End: 10-11-2022 Exposure to SARS-CoV-2 (event) Not sure [facility] Start: 07-03-2020 End: 12-08-2022 Tobacco Comment smoked for 9 months as a teenager [facility] History of tobacco use Current smoker [facility] Start: 10-01-2022 History SDOH Alcohol Std Drinks 0 [facility] Start: 10-12-2022 History SDOH Transport Med 2 [facility] Start: 10-01-2022 End: 12-08-2022 History of Social function [facility] Start: 10-01-2022 End: 12-08-2022 Alcohol Use Disorder Identification Test - Consumption [AUDIT-C] [facility] How often to you hav e a drink containing alcohol? Never [facility] How many standard dr inks containing alcohol do you have on a typical day? Patient does not drink [facility] In the past 12 month s, was there a time when you were not able to pay the mortgage or rent on time? No [facility] Clinical Notes 07-07-2021 to 07-05-2023 Enid Milligan PA-C - 06/29/2023 2:23 PM JULISSA Mendiola CNP - 06/22/2023 2:00 PM ESTTelephone Encounter - Mary White - 05/27/2023 1:46 PM ESTPatient InstructionsAttachments Note Date & Type Note Facility 07-05-2023 Note HNO ID: [id number] Author: TierraAle james RT(R) Service: ? Author Type: Tug Captain Type: Progress Notes Filed: 07/05/2023 3:38 PM Note Text: Radiology Service Progress Note PATIENT NAME: Denny Owens DATE OF SERVICE: July 05, 2023 TIME: 3:15 PM PATIENT IDENTITY VERIFICATION COMPLETED USING TWO (2) IDENTIFIERS: Name and Date of confirmed by patient verbally. FALL SCREENING: Has the patient had 2 falls in the last year or 1 fall with injury or currently using an Ambulatory Assistive Device (Walker, Cane, Wheelchair, Crutches, etc.)? No PATIENT GENDER DATA: Female. status: : No status: NO. PATIENT RELEVANT IMPLANT DATA REVIEWED: Yes RADIOLOGY DEPARTMENT: General X-ray: Exam(s) Completed: Abdomen X-Ray: Abdomen PERIPHERAL IV DATA: Not applicable SIGNED BY: RT Rose(R) July 05, 2023 3:15 PM [facility] 06-29-2023 Note HNO ID: [id number] Author: Enid Milligan PA-C Service: ? Author Type: Physician Database Security Administrator Type: Progress Notes Filed: 06/29/2023 3:04 PM Note Text: CHIEF COMPLAINT: Patient presents with: Recheck: Constipation HPI Denny Owens is a 62 year old female here today for Recheck (Constipation ) Patient tells me that she developed severe diarrhea with the IBSRELA 50 mg BID. Stopped taking this. Only going like once every few weeks. Notes she gets severely bloated when she doesn't go. Eating very bland. Notes she is still having trouble swallowing but this is not frequently. Thinks this is the way she eats. Last OV with Pao Rosa PA-C 04/20/2023: Assessment/Plan (R10.10) Upper abdominal pain (primary encounter diagnosis) (R14.0) Abdominal bloating (R13.13) Pharyngeal dysphagia (K58.1) Irritable bowel syndrome with constipation 1. Upper abdominal pain - EGD DIAGNOSTIC; Future - Likely 2/2 uncontrolled constipation. However due to h/o bloating, chronic GERD, dysphagia, will plan for updated EGD to r/o PUD, H. Pylori, Celiac - Discussed swallowing, GERD precautions and provided printed edu handout - Has chronically been on Prilosec 40 mg daily with relief in GERD - Consider GES pending results of EGD 2. Abdominal bloating - EGD DIAGNOSTIC; Future 3. Pharyngeal dysphagia - XR ESOPHAGRAM; Future - Check esophagram 4. Irritable bowel syndrome with constipation - XR ABDOMEN 1V SUPINE; Future - tenapanor (IBSRELA) 50 mg tablet; Take 1 tablet (50 mg) by mouth two times a day. Take 5-10 minutes before eating. Dispense: 180 tablet; Refill: 2 - Obtain KUB to assess stool burden - Start Ibsrela BID, is to continue Linzess until approved for new med - Drink plenty of fluids - Pt will mychart with updates Current Outpatient Medications Medication Sig gabapentin (NEURONTIN) 100 mg capsule Take 1 capsule by mouth three times a day for 90 days. verapamil SR (CALAN SR) 240 mg CR tablet Take 1 tablet by mouth daily at bedtime. gabapentin (NEURONTIN) 800 mg tablet take 1 tablet by mouth three times a day omeprazole (PRILOSEC) 40 mg capsule TAKE 1 CAPSULE BY MOUTH EVERY DAY naproxen (NAPROSYN) 500 mg tablet Take 1 tablet by mouth twice daily as needed for breakthrough pain or pain (FOR PAIN - TAKE WITH FOOD.). cyclobenzaprine (FLEXERIL) 10 mg tablet Take 1 tablet by mouth three times daily as needed for muscle spasm. nitrofurantoin monohydrate and macrocrystal (MACROBID) 100 mg capsule TAKE 1 BY MOUTH BEFORE BED ascorbic acid, vitamin C, (VITAMIN C) 500 mg tablet Take 500 mg by mouth once daily. Lactobac no.41/Bifidobact no.7 (PROBIOTIC-10 ORAL) Take by mouth. ferrous sulfate (FEOSOL) 325 mg (65 mg iron) tablet Take 1 tablet by mouth once daily. SYMBICORT 160-4.5 mcg/actuation inhaler INHALE 2 PUFFS INSTRUCTED TWICE DAILY. ipratropium-albuterol (DUONEB) 0.5 mg-3 mg(2.5 mg base)/3 mL nebu Inhale 3 mL as instructed every 4 hours as needed (tightness in chest, coughing, wheezing, shortness of breath). tenapanor (IBSRELA) 50 mg tablet Take 1 tablet (50 mg) by mouth two times a day. Take 5-10 minutes before eating. (Patient not taking: Reported on 06/29/2023) linaCLOtide (LINZESS) 290 mcg capsule Take 1 capsule by mouth once daily. (Patient not taking: Reported on 05/31/2023) azelastine (ASTELIN) 0.1% nasal spray Use 1 [facility] in each nostril twice daily. (Patient not taking: Reported on 06/29/2023) No current facility-administered medications for this visit. Facility-Administered Medications Ordered in Other Visits Medication Dose Route Frequency lidocaine (PF) 10 mg/mL (1 %) 1-2 mg injection (XYLOCAINE) 0.1-0.2 mL INTRADERMAL PRN ALLERGIES Allergen Reactions Methenamine Unknown, Hives Other reaction(s): Unknown Methenamine Hippura* Hives Social History Tobacco Use Smoking status: Former Smokeless tobacco: Never Tobacco comments: smoked for 9 months as a teenager Vaping Use Vaping Use: Never used Substance Use Topics Alcohol use: Never Drug use: Never PAST MEDICAL HISTORY Diagnosis Date Abdominal pain Acute bronchitis due to other specified organisms Acute otitis media Acute upper respiratory infection Allergic rhinitis due to pollen Anemia Blood in urine Body mass index (BMI) 25.0-25.9, adult Cervical disc disorder with myelopathy, high cervical region Cervical radiculitis Cervical spondylosis Cervicalgia Chest pain Constipation Disorder of bursae of shoulder region Disorders of smell Dysuria Essential (primary) hypertension Generalized anxiety disorder Herpes simplex Major depressive disorder, recurrent episode, moderate (HCC) Malaise and fatigue Mild intermittent asthma with acute exacerbation Mixed hyperlipidemia Neck sprain Other fatigue Other insomnia Polyneuropathy, unspecified Primary generalized (osteo)arthritis Psychogenic headache Renal impairment Trigeminal ne (more content not included)... [facility] 06-29-2023 History of Present illness Narrative CHIEF COMPLAINT: Patient presents with: Recheck: Constipation HPI Denny Owens is a 62 year old female here today for Recheck (Constipation ) Patient tells me that she developed severe diarrhea with the IBSRELA 50 mg BID. Stopped taking this. Only going like once every few weeks. Notes she gets severely bloated when she doesn't go. Eating very bland. Notes she is still having trouble swallowing but this is not frequently. Thinks this is the way she eats. Last OV with Pao Rosa PA-C 04/20/2023: Assessment/Plan (R10.10) Upper abdominal pain (primary encounter diagnosis) (R14.0) Abdominal bloating (R13.13) Pharyngeal dysphagia (K58.1) Irritable bowel syndrome with constipation 1. Upper abdominal pain - EGD DIAGNOSTIC; Future - Likely 2/2 uncontrolled constipation. However due to h/o bloating, chronic GERD, dysphagia, will plan for updated EGD to r/o PUD, H. Pylori, Celiac - Discussed swallowing, GERD precautions and provided printed edu handout - Has chronically been on Prilosec 40 mg daily with relief in GERD - Consider GES pending results of EGD 2. Abdominal bloating - EGD DIAGNOSTIC; Future 3. Pharyngeal dysphagia - XR ESOPHAGRAM; Future - Check esophagram 4. Irritable bowel syndrome with constipation - XR ABDOMEN 1V SUPINE; Future - tenapanor (IBSRELA) 50 mg tablet; Take 1 tablet (50 mg) by mouth two times a day. Take 5-10 minutes before eating. Dispense: 180 tablet; Refill: 2 - Obtain KUB to assess stool burden - Start Ibsrela BID, is to continue Linzess until approved for new med - Drink plenty of fluids - Pt will mychart with updates Current Outpatient Medications Medication Sig gabapentin (NEURONTIN) 100 mg capsule Take 1 capsule by mouth three times a day for 90 days. verapamil SR (CALAN SR) 240 mg CR tablet Take 1 tablet by mouth daily at bedtime. gabapentin (NEURONTIN) 800 mg tablet take 1 tablet by mouth three times a day omeprazole (PRILOSEC) 40 mg capsule TAKE 1 CAPSULE BY MOUTH EVERY DAY naproxen (NAPROSYN) 500 mg tablet Take 1 tablet by mouth twice daily as needed for breakthrough pain or pain (FOR PAIN - TAKE WITH FOOD.). cyclobenzaprine (FLEXERIL) 10 mg tablet Take 1 tablet by mouth three times daily as needed for muscle spasm. nitrofurantoin monohydrate and macrocrystal (MACROBID) 100 mg capsule TAKE 1 BY MOUTH BEFORE BED ascorbic acid, vitamin C, (VITAMIN C) 500 mg tablet Take 500 mg by mouth once daily. Lactobac no.41/Bifidobact no.7 (PROBIOTIC-10 ORAL) Take by mouth. ferrous sulfate (FEOSOL) 325 mg (65 mg iron) tablet Take 1 tablet by mouth once daily. SYMBICORT 160-4.5 mcg/actuation inhaler INHALE 2 PUFFS INSTRUCTED TWICE DAILY. ipratropium-albuterol (DUONEB) 0.5 mg-3 mg(2.5 mg base)/3 mL nebu Inhale 3 mL as instructed every 4 hours as needed (tightness in chest, coughing, wheezing, shortness of breath). tenapanor (IBSRELA) 50 mg tablet Take 1 tablet (50 mg) by mouth two times a day. Take 5-10 minutes before eating. (Patient not taking: Reported on 06/29/2023) linaCLOtide (LINZESS) 290 mcg capsule Take 1 capsule by mouth once daily. (Patient not taking: Reported on 05/31/2023) azelastine (ASTELIN) 0.1% nasal spray Use 1 [facility] in each nostril twice daily. (Patient not taking: Reported on 06/29/2023) No current facility-administered medications for this visit. Facility-Administered Medications Ordered in Other Visits Medication Dose Route Frequency lidocaine (PF) 10 mg/mL (1 %) 1-2 mg injection (XYLOCAINE) 0.1-0.2 mL INTRADERMAL PRN ALLERGIES Allergen Reactions Methenamine Unknown, Hives Other reaction(s): Unknown Methenamine Hippura* Hives Social History Tobacco Use Smoking status: Former Smokeless tobacco: Never Tobacco comments: smoked for 9 months as a teenager Vaping Use Vaping Use: Never used Substance Use Topics Alcohol use: Never Drug use: Never PAST MEDICAL HISTORY Diagnosis Date Abdominal pain Acute bronchitis due to other specified organisms Acute otitis media Acute upper respiratory infection Allergic rhinitis due to pollen Anemia Blood in urine Body mass index (BMI) 25.0-25.9, adult Cervical disc disorder with myelopathy, high cervical region Cervical radiculitis Cervical spondylosis Cervicalgia Chest pain Constipation Disorder of bursae of shoulder region Disorders of smell Dysuria Essential (primary) hypertension Generalized anxiety disorder Herpes simplex Major depressive disorder, recurrent episode, moderate (HCC) Malaise and fatigue Mild intermittent asthma with acute exacerbation Mixed hyperlipidemia Neck sprain Other fatigue Other insomnia Polyneuropathy, unspecified Primary generalized (osteo)arthritis Psychogenic headache Renal impairment Trigeminal neuralgia Urinary tract infection, site not specified Vertigo Vitamin D deficiency PAST SURGICAL HISTORY Procedure Laterality Date CARPAL TUNNEL SECTION HX x 3 COLONOSCOPY 02/09/2012 loose anal sphincter, unremarkable random biopsies COLONOSCOPY SCREENING 04/03/2021 CYSTOSCOPY 11/16/2016 EGD W/O BRSH SPEC VARICIES INJ 05/19/2023 HYSTERECTOMY HX FAMILY HISTORY Problem Relation Age of Onset Heart disease Mother Diabetes Mother Colon Cancer Maternal Aunt REVIEW OF SYSTEMS Review of Systems Constitutional: Positive for appetite change. Respiratory: Positive for cough, shortness of breath and wheezing. Cardiovascular: Positive for leg swelling. Gastrointestinal: Positive for abdominal distention, abdominal pain, constipation, diarrhea and nausea. Gas, Heartburn All other systems reviewed and are negative. PHYSICAL EXAM BP 124/70 Pulse 70 Ht 5' 3 (1.60m) Wt 133 lb 12.8 oz (60.7kg) BMI 23.71 kg/(m^2). Physical Exam Constitutional: Appearance: Normal appearance. She is normal weight. HENT: Head: Normocephalic and atraumatic. Eyes: General: No scleral icterus. Extraocular Movements: Extraocular movements intact. Conjunctiva/sclera: Conjunctivae normal. Pupils: Pupils are equal, round, and reactive to light. Cardiovascular: Rate and Rhythm: Normal rate and regular rhythm. Pulses: Normal pulses. Heart sounds: Normal heart sounds. Pulmonary: Effort: Pulmonary effort is normal. Breath sounds: Normal breath sounds. Abdominal: General: Abdomen is flat. Bowel sounds are normal. Palpations: Abdomen is soft. Tenderness: There is no abdominal tenderness. Musculoskeletal: General: Normal range of motion. Cervical back: Normal range of motion and neck supple. Skin: General: Skin is warm and dry. Coloration: Skin is not jaundiced. Neurological: General: No focal deficit present. Mental Status: She is alert and oriented to person, place, and time. Psychiatric: Mood and Affect: Mood normal. Behavior: Behavior normal. Thought Content: Thought content normal. Judgment: Judgment normal. Assessment/Plan (K58.1) Irritable bowel syndrome with constipation (primary encounter diagnosis) (R13.13) Pharyngeal dysphagia 1. Irritable bowel syndrome with constipation -- Patient with ongoing constipation. Did try the IBSRELA BID but caused severe diarrhea. -- I am going to get a sitz marker test, KUB ordered -- Plan to restart IBSRELA once daily once sitz marker test is done. - XR ABDOMEN 1V SUPINE; Future 2. Pharyngeal dysphagia -- Discussed esophagram/EGD in detail. Still having some dysphagia but thinks it is lifestyle. -- Discussed esophageal manometry, she would like to hold off. Follow up in office 3 months/PRN. Recommended to please call office/go to ER if fever, chills, chest pain, SOB, diarrhea, nausea, emesis, worsening abdominal pain, dehydration occurs I spent a total of 25 minutes on the date of the service which included preparing to see the patient, [id number] patient care, completing clinical documentation, obtaining and/or reviewing separately obtained history, performing a medically appropriate examination, counseling and educating the patient/family/caregiver, ordering medications, tests, or procedures, and communicating results to the patient/family/caregiver. Enid Milligan PA-C June 29, 2023 2:55 PM documented in this encounter [facility] 06-22-2023 History of Present illness Narrative [facility] Vascular Surgery Follow-up Office Visit CHIEF COMPLAINT: Chief Complaint Patient presents with Follow-up recall CTA abdomen 05/26/23 HISTORY OF PRESENT ILLNESS: Denny Owens is a 62 y.o. 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 Pt here for recall appointment. Pt was hospitalized earlier this year with UTI/URI. She states it took a lot out of her and she used a lot of her sick days at work. She is doing much better now. 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 She is hoping to find a new job with better hours in the upcoming year. She is asking if we can push out repeat CT scans to every 2 years if everything is remaining stable. Recent CTA abdomen notes stable left renal artery and splenic artery aneurysms. BP today 122/68 Recent creatinine 04/28/23 0.69 with a GFR >90.0 She has never smoked Past Medical History: Past Medical History: Diagnosis Date Arthritis Asthma Hematuria Hypertension Renal artery aneurysm (HCC) UTI (urinary tract infection) Past Surgical History: Past Surgical History: Procedure Laterality Date BLADDER SURGERY 11/23/2016 hydrodistension BLADDER SUSPENSION CARPAL TUNNEL RELEASE Bilateral CATARACT EXTRACTION Bilateral 2022-mar SECTION (HISTORICAL) CHOLECYSTECTOMY CYSTOSCOPY with hydrodistention HYSTERECTOMY N/A 1998 NECK SURGERY 05/28/2015 ACDF RECTOCELE REPAIR TONSILLECTOMY (HISTORICAL) Current Medications: Current Outpatient Medications: albuterol 108 (90 Base) MCG/ACT inhaler, Inhale 2 puffs every 6 hours as needed., Disp: , Rfl: budesonide-formoterol (Symbicort) 160-4.5 MCG/ACT inhaler, Inhale 2 puffs in the morning and 2 puffs before bedtime., Disp: , Rfl: cephalexin (Keflex) 500 MG capsule, Take 500 mg by mouth 3 times daily., Disp: , Rfl: cyclobenzaprine (Flexeril) 10 MG tablet, Take 10 mg by mouth 3 times daily as needed., Disp: , Rfl: ferrous sulfate 325 (65 Fe) MG tablet, Take 1 tablet by mouth daily., Disp: , Rfl: gabapentin (Neurontin) 300 MG capsule, 800 mg 3 times daily., Disp: , Rfl: naproxen (Naprosyn) 500 MG tablet, TAKE 1 TABLET BY MOUTH TWICE DAILY NEEDED FOR BREAKTHROUGH PAIN OR FOR PAIN TAKE WITH FOOD, Disp: , Rfl: omeprazole (PriLOSEC) [address] capsule, Take 40 mg by mouth daily., Disp: , Rfl: verapamil SR (Calan SR) 240 MG ER tablet, , Disp: , Rfl: Allergies: Methenamine Social History: Social History Socioeconomic History Marital status: Spouse name: Not on file Number of children: Not on file Years of education: Not on file Highest education level: Not on file Occupational History Not on file Tobacco Use Smoking status: Never Smokeless tobacco: Never Vaping Use Vaping Use: Never used Substance and Sexual Activity Alcohol use: No Drug use: No Sexual activity: Not on file Other Topics Concern Not on file Social History Narrative Not on file Social Determinants of Health Financial Resource Strain: Not on file Food Insecurity: Not on file Transportation Needs: No Transportation Needs (10/11/2022) PRAPARE - Transportation Lack of Transportation (Medical): No Lack of Transportation (Non-Medical): No Physical Activity: Not on file Stress: Not on file Social Connections: Not on file Intimate Partner Violence: Not on file Housing Stability: Unknown (10/11/2022) Housing Stability Vital Sign Unable to Pay for Housing in the Last Year: No Number of Places Lived in the Last Year: Not on file Unstable Housing in the Last Year: No Family History: Family History Problem Relation Name Age of Onset Diabetes Mother Heart disease Mother Bladder Cancer Mother 70 Cancer Father unknown type and age? Colon cancer Mother's Sister 60 REVIEW OF SYSTEMS: Review of Systems Constitutional: Negative. HENT: Negative. Eyes: Negative. Respiratory: Positive for shortness of breath (asthma). Cardiovascular: Positive for palpitations ( flutters ) and leg swelling. Gastrointestinal: Negative. Endocrine: Negative. Genitourinary: Negative. Musculoskeletal: Positive for back pain. Skin: Negative. Allergic/Immunologic: Negative. Neurological: Positive for weakness (legs, occasional). Hematological: Negative. Psychiatric/Behavioral: Negative. LABS: Lab Results Component Value Date CREATININE 0.69 04/28/2023 Lab Results Component Value Date WBC 4.8 10/15/2022 HGB 10.9 (L) 10/15/2022 HCT 33.6 (L) 10/15/2022 MCV 88.4 10/15/2022 PLT 226 10/15/2022 No results found for: INR , PROTIME No results found for: VLDL PHYSICAL EXAM: Vitals: 06/22/23 1405 BP: 122/68 Resp: 18 Physical Exam Constitutional: Appearance: Normal appearance. She is well-groomed. Neck: Vascular: No carotid bruit. Cardiovascular: Rate and Rhythm: Normal rate and regular rhythm. Pulses: Carotid pulses are 2+ on the right side and 2+ on the left side. Radial pulses are 2+ on the right side and 2+ on the left side. Popliteal pulses are 0 on the right side and 0 on the left side. Dorsalis pedis pulses are 2+ on the right side and 2+ on the left side. Posterior tibial pulses are 2+ on the right side and 2+ on the left side. Pulmonary: Effort: Pulmonary effort is normal. No respiratory distress. Breath sounds: Normal breath sounds. Abdominal: General: Abdomen is flat. There is no distension. Palpations: There is no pulsatile mass. Tenderness: There is no abdominal tenderness. There is no guarding. Musculoskeletal: General: Normal range of motion. Cervical back: Normal range of motion and neck supple. Skin: General: Skin is warm and dry. Neurological: Mental Status: She is alert and oriented to person, place, and time. Psychiatric: Mood and Affect: Mood normal. Behavior: Behavior normal. Behavior is cooperative. Imaging CTA Abd 05/26/2023 IMPRESSION: 1. 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 2. Stable subcentimeter distal splenic artery aneurysms of the splenic hilum, unchanged from prior exams. 3. Hepatic cysts. ASSESSMENT/PLAN: Problem List Items Addressed This Visit Circulatory Splenic artery aneurysm (HCC) Renal artery aneurysm (HCC) - Primary 1. Stable follow up of left renal artery aneurysm and splenic artery aneurysm -Small left renal and splenic artery aneurysms have been stable for several years. Given stability plan repeat CTA Abdomen in 2 years. -Discussed importance of maintaining normal blood pressure -Advised at least 30 minutes of safe aerobic activity daily. -Discussed signs and symptoms of aneurysm rupture and the patient understands that they should call 911 and immediately to the emergency department if they develop. . documented in this encounter [facility] 05-31-2023 Note HNO ID: [id number] Author: Maria Esther Rodriguez DO Service: ? Author Type: Physician Type: Progress Notes Filed: 06/02/2023 7:10 PM Note Text: [facility] Lucien Maria Esther Rodriguez DO [address] [place] [address] Date of Evaluation: 05/31/2023 Patient Name: Denny Owens : 1960 Chief Complaint: Patient presents with: Hypertension Follow Up: After testing. Still having bowel issues. Mostly constipation. Sometimes diarrhea Nursing Intake: There are no exam notes on file for this visit. Subjective Ms. Owens is a 62 year old female who presents with the following complaint(s): The history is provided by the patient. No speech language pathologist travel was used. Hypertension This is a chronic problem. The current episode started more than 1 year ago. Pertinent negatives include no chest pain, headaches, palpitations or shortness of breath. Review of Systems Constitutional: Negative for fatigue and unexpected weight change. HENT: Negative for nosebleeds. Eyes: Negative for redness and visual disturbance. Respiratory: Negative for apnea, cough and shortness of breath. Cardiovascular: Negative for chest pain, palpitations and leg swelling. Genitourinary: Negative for hematuria. Neurological: Negative for dizziness, weakness, light-headedness, numbness and headaches. Hematological: Does not bruise/bleed easily. Psychiatric/Behavioral: The patient is not nervous/anxious. PAST MEDICAL HISTORY Diagnosis Date Abdominal pain Acute bronchitis due to other specified organisms Acute otitis media Acute upper respiratory infection Allergic rhinitis due to pollen Anemia Blood in urine Body mass index (BMI) 25.0-25.9, adult Cervical disc disorder with myelopathy, high cervical region Cervical radiculitis Cervical spondylosis Cervicalgia Chest pain Constipation Disorder of bursae of shoulder region Disorders of smell Dysuria Essential (primary) hypertension Generalized anxiety disorder Herpes simplex Major depressive disorder, recurrent episode, moderate (HCC) Malaise and fatigue Mild intermittent asthma with acute exacerbation Mixed hyperlipidemia Neck sprain Other fatigue Other insomnia Polyneuropathy, unspecified Primary generalized (osteo)arthritis Psychogenic headache Renal impairment Trigeminal neuralgia Urinary tract infection, site not specified Vertigo Vitamin D deficiency PAST SURGICAL HISTORY Procedure Laterality Date CARPAL TUNNEL SECTION HX x 3 COLONOSCOPY 02/09/2012 loose anal sphincter, unremarkable random biopsies COLONOSCOPY SCREENING 04/03/2021 CYSTOSCOPY 11/16/2016 HYSTERECTOMY HX FAMILY HISTORY Problem Relation Age of Onset Heart disease Mother Diabetes Mother Colon Cancer Maternal Aunt Social History Tobacco Use Smoking status: Former Smokeless tobacco: Never Tobacco comments: smoked for 9 months as a teenager Vaping Use Vaping Use: Never used Substance Use Topics Alcohol use: Never Drug use: Never Current Outpatient Medications Medication Sig gabapentin (NEURONTIN) 800 mg tablet take 1 tablet by mouth three times a day omeprazole (PRILOSEC) 40 mg capsule TAKE 1 CAPSULE BY MOUTH EVERY DAY tenapanor (IBSRELA) 50 mg tablet Take 1 tablet (50 mg) by mouth two times a day. Take 5-10 minutes before eating. naproxen (NAPROSYN) 500 mg tablet Take 1 tablet by mouth twice daily as needed for breakthrough pain or pain (FOR PAIN - TAKE WITH FOOD.). cyclobenzaprine (FLEXERIL) 10 mg tablet Take 1 tablet by mouth three times daily as needed for muscle spasm. nitrofurantoin monohydrate and macrocrystal (MACROBID) 100 mg capsule TAKE 1 BY MOUTH BEFORE BED gabapentin (NEURONTIN) 100 mg capsule Take 1 capsule by mouth three times daily for 90 days. ascorbic acid, vitamin C, (VITAMIN C) 500 mg tablet Take 500 mg by mouth once daily. Lactobac no.41/Bifidobact no.7 (PROBIOTIC-10 ORAL) Take by mouth. ferrous sulfate (FEOSOL) 325 mg (65 mg iron) tablet Take 1 tablet by mouth once daily. SYMBICORT 160-4.5 mcg/actuation inhaler INHALE 2 PUFFS INSTRUCTED TWICE DAILY. azelastine (ASTELIN) 0.1% nasal spray Use 1 [facility] in each nostril twice daily. ipratropium-albuterol (DUONEB) 0.5 mg-3 mg(2.5 mg base)/3 mL nebu Inhale 3 mL as instructed every 4 hours as needed (tightness in chest, coughing, wheezing, shortness of breath). verapamil SR (CALAN SR) 240 mg CR tablet Take 1 tablet by mouth daily at bedtime. linaCLOtide (LINZESS) 290 mcg capsule Take 1 capsule by mouth once daily. (Patient not taking: Reported on 05/31/2023) No current facility-administered medications for this visit. Facility-Administered Medications Ordered in Other Visits Medication Dose Route Frequency lidocaine (PF) 10 mg/mL (1 %) 1-2 mg injection (XYLOCAINE) 0.1-0.2 mL INTRADERMAL PRN (more content not included)... [facility] 05-27-2023 Miscellaneous Notes Spoke to Denny 05/27/2023 she should have verapamil and gabapentin is back with doc for approval. Mary White ----- Message from Jorge Luis Woodall sent at 05/27/2023 12:00 PM EST ----- [facility]/ [facility]/ med refill Subject Line Format: [facility] / michael negro / Medication Question Select Primary Care Department For Pool Routing Assistance: [facility] [place] [facility] [place] [facility] [[id number]] Patient: Denny Owens Date of : 1960 Primary Care Provider: Maria Esther Rodriguez DO Patient called to request a refill for his/her medication(s). Patient was advised that the refill should be called into the pharmacy. Patient advised they had already done so and over 24 hours has passed since doing so and they are following up: Y/N? Y. Please contact the patient for additional information at [phone] (home) [phone] (cell). Thank you, Jorge Luis Woodall May 27, 2023 12:01 PM documented in this encounter [facility] 05-27-2023 Miscellaneous Notes Pharmacy faxed requesting the following refill Refill(s) Requested: Requested Prescriptions Pending Prescriptions Disp Refills gabapentin (NEURONTIN) 800 mg tablet [Pharmacy Med Name: GABAPENTIN 800 MG TABLET] 90 tablet 5 Sig: take 1 tablet by mouth three times a day ALLERGIES Allergen Reactions Methenamine Unknown, Hives Other reaction(s): Unknown Methenamine Hippura* Hives (home) [phone] (cell) Last Office Visit Date: 04/05/2023 Last Distance Health Visit: Visit date not found Future Appointment: 05/31/2023 The patients preferred pharmacy has been captured for this encounter? yes Request is for script(s) to be escript to pharmacy. Kenisha Ross LPN documented in this encounter [facility] 05-19-2023 Note HNO ID: [id number] Author: Jessica Mendosa, ANUM Service: ? Author Type: Registered Nurse Type: Nursing Progress Note Filed: 05/19/2023 9:37 AM Note Text: Physician at bedside to disucss procedure/findngs with patient. [facility] 04-27-2023 Note HNO ID: [id number] Author: Luna Rodriguez RT(R) Service: ? Author Type: Tug Captain Type: Progress Notes Filed: 04/27/2023 11:13 AM Note Text: Radiology Service Progress Note PATIENT NAME: Denny Owens DATE OF SERVICE: April 27, 2023 TIME: 11:12 AM PATIENT IDENTITY VERIFICATION COMPLETED USING TWO (2) IDENTIFIERS: Name and Date of confirmed by patient verbally. FALL SCREENING: Has the patient had 2 falls in the last year or 1 fall with injury or currently using an Ambulatory Assistive Device (Walker, Cane, Wheelchair, Crutches, etc.)? No PATIENT GENDER DATA: Female. status: : No status: NO. PATIENT RELEVANT IMPLANT DATA REVIEWED: Not Applicable RADIOLOGY DEPARTMENT: General X-ray: Exam(s) Completed: Abdomen X-Ray: Abdomen PERIPHERAL IV DATA: Not applicable SIGNED BY: RT Astrid(R) April 27, 2023 11:12 AM [facility] 04-27-2023 Note HNO ID: [id number] Author: Nasreen Coats RT(R) Service: Radiology Author Type: Technologist Type: Progress Notes Filed: 04/27/2023 10:58 AM Note Text: Radiology Service Progress Note PATIENT NAME: Denny Owens DATE OF SERVICE: April 27, 2023 TIME: 10:52 AM PATIENT IDENTITY VERIFICATION COMPLETED USING TWO (2) IDENTIFIERS: Name and Date of confirmed by patient verbally. FALL SCREENING: Has the patient had 2 falls in the last year or 1 fall with injury or currently using an Ambulatory Assistive Device (Walker, Cane, Wheelchair, Crutches, etc.)? No PATIENT GENDER DATA: Female. status: : No status: NO. PATIENT RELEVANT IMPLANT DATA REVIEWED: Not Applicable RADIOLOGY DEPARTMENT: General X-ray: Exam(s) Completed: GI/ Procedure(s): Esophogram with barium contrast PERIPHERAL IV DATA: Not applicable SIGNED BY: RT Sami(R) April 27, 2023 10:52 AM [facility] 04-27-2023 History of Present illness Narrative Radiology Service Progress Note PATIENT NAME: Denny Owens DATE OF SERVICE: April 27, 2023 TIME: 11:12 AM PATIENT IDENTITY VERIFICATION COMPLETED USING TWO (2) IDENTIFIERS: Name and Date of confirmed by patient verbally. FALL SCREENING: Has the patient had 2 falls in the last year or 1 fall with injury or currently using an Ambulatory Assistive Device (Walker, Cane, Wheelchair, Crutches, etc.)? No PATIENT GENDER DATA: Female. status: : No status: NO. PATIENT RELEVANT IMPLANT DATA REVIEWED: Not Applicable RADIOLOGY DEPARTMENT: General X-ray: Exam(s) Completed: Abdomen X-Ray: Abdomen PERIPHERAL IV DATA: Not applicable SIGNED BY: RT Astrid(R) April 27, 2023 11:12 AM documented in this encounter [facility] 04-27-2023 History of Present illness Narrative Radiology Service Progress Note PATIENT NAME: Denny Owens DATE OF SERVICE: April 27, 2023 TIME: 10:52 AM PATIENT IDENTITY VERIFICATION COMPLETED USING TWO (2) IDENTIFIERS: Name and Date of confirmed by patient verbally. FALL SCREENING: Has the patient had 2 falls in the last year or 1 fall with injury or currently using an Ambulatory Assistive Device (Walker, Cane, Wheelchair, Crutches, etc.)? No PATIENT GENDER DATA: Female. status: : No status: NO. PATIENT RELEVANT IMPLANT DATA REVIEWED: Not Applicable RADIOLOGY DEPARTMENT: General X-ray: Exam(s) Completed: GI/ Procedure(s): Esophogram with barium contrast PERIPHERAL IV DATA: Not applicable SIGNED BY: RT Sami(R) April 27, 2023 10:52 AM documented in this encounter [facility] 04-22-2023 Miscellaneous Notes MARIA C Case: [id number], Status: Approved, Coverage Starts on: 04/21/2023 12:00:00 AM, Coverage Ends on: 04/20/2024 12:00:00 AM. Received approval letter for I[employer]rel[employer]. Letter placed in scanning. documented in this encounter [facility] 04-20-2023 Note HNO ID: [id number] Author: Pao Rosa PA-C Service: ? Author Type: Physician Database Security Administrator Type: Progress Notes Filed: 04/20/2023 8:39 AM Note Text: CHIEF COMPLAINT: Patient presents with: Recheck: On Linzess 290mcg, feels very full when eating, very constipated and not able to eat well HPI Dneny Owens is a 62 year old female PMHx of neuropathy, HTN, HLD, asthma, DVT, arthritis, EMANUEL here today for Recheck (On Linzess 290mcg, feels very full when eating, very constipated and not able to eat well ). Surg hx positive for hysterectomy, cholecystectomy. Previously seen for constipation. Started on Linzess 72, 145 with minimal relief. Now on Linzess 290 mcg daily. Bms are one per week, starts off as hard/pebble-like, transitions to loose/watery, no blood. Still struggling with generalized abd pain, bloating, early satiety. Lost 4 lbs since last OV. On Prilosec 40 mg daily for years with good relief. Chronic issues with pharyngeal dysphagia with solids. No recent EGD. Denies emesis. Colon 2020 diverticulosis, no specimens CT abd w/o IV contrast 09/2022 Impression 1. No definite acute abdominopelvic process identified. 2. Stable simple appearing hepatic cysts. 3. Status post cholecystectomy. 4. Renal and splenic aneurysms better delineated on prior contrasted examinations. OV 02/2023 Denny Owens is a 62 year old female here today for Recheck (Elevated liver enzymes, Labs done at [facility], Abdominal Pain, constipation ) PMHx of neuropathy, HTN, HLD, asthma, DVT, arthritis, EMANUEL Patient tells me that's she is doing okay today. Notes that she has the constant urge to the bathroom but will not be able to. Going more frequent but never feels like she is fully emptying. Notes a lot of bloating with eating. Notes early satiety and some nausea. Appetite is okay. Weight is increased some. Notes some LE edema, wearing compression socks. Current Outpatient Medications Medication Sig naproxen (NAPROSYN) 500 mg tablet Take 1 tablet by mouth twice daily as needed for breakthrough pain or pain (FOR PAIN - TAKE WITH FOOD.). cyclobenzaprine (FLEXERIL) 10 mg tablet Take 1 tablet by mouth three times daily as needed for muscle spasm. omeprazole (PRILOSEC) 40 mg capsule TAKE 1 CAPSULE BY MOUTH EVERY DAY nitrofurantoin monohydrate and macrocrystal (MACROBID) 100 mg capsule TAKE 1 BY MOUTH BEFORE BED linaCLOtide (LINZESS) 290 mcg capsule Take 1 capsule by mouth once daily. gabapentin (NEURONTIN) 100 mg capsule Take 1 capsule by mouth three times daily for 90 days. gabapentin (NEURONTIN) 800 mg tablet TAKE 1 TABLET BY MOUTH THREE TIMES A DAY ascorbic acid, vitamin C, (VITAMIN C) 500 mg tablet Take 500 mg by mouth once daily. Lactobac no.41/Bifidobact no.7 (PROBIOTIC-10 ORAL) Take by mouth. ferrous sulfate (FEOSOL) 325 mg (65 mg iron) tablet Take 1 tablet by mouth once daily. SYMBICORT 160-4.5 mcg/actuation inhaler INHALE 2 PUFFS INSTRUCTED TWICE DAILY. verapamil SR (CALAN SR, ISOPTIN SR) 240 mg CR tablet TAKE 1 TABLET BY MOUTH EVERYDAY AT BEDTIME azelastine (ASTELIN) 0.1% nasal spray Use 1 [facility] in each nostril twice daily. ipratropium-albuterol (DUONEB) 0.5 mg-3 mg(2.5 mg base)/3 mL nebu Inhale 3 mL as instructed every 4 hours as needed (tightness in chest, coughing, wheezing, shortness of breath). No current facility-administered medications for this visit. ALLERGIES Allergen Reactions Methenamine Unknown, Hives Other reaction(s): Unknown Methenamine Hippura* Hives Social History Tobacco Use Smoking status: Former Smokeless tobacco: Never Tobacco comments: smoked for 9 months as a teenager Vaping Use Vaping Use: Never used Substance Use Topics Alcohol use: Never Drug use: Never PAST MEDICAL HISTORY Diagnosis Date Abdominal pain Acute bronchitis due to other specified organisms Acute otitis media Acute upper respiratory infection Allergic rhinitis due to pollen Anemia Blood in urine Body mass index (BMI) 25.0-25.9, adult Cervical disc disorder with myelopathy, high cervical region Cervical radiculitis Cervical spondylosis Cervicalgia Chest pain Constipation Disorder of bursae of shoulder region Disorders of smell Dysuria Essential (primary) hypertension Generalized anxiety disorder Herpes simplex Major depressive disorder, recurrent episode, moderate (HCC) Malaise and fatigue Mild intermittent asthma with acute exacerbation Mixed hyperlipidemia Neck sprain Other fatigue Other insomnia Polyneuropathy, unspecified Primary generalized (osteo)arthritis Psychogenic headache Renal impairment Trigeminal neuralgia Urinary tract infection, site not specified Vertigo Vitamin D deficiency PAST SURGICAL HISTORY Procedure Laterality Date CARPAL TUNNEL SECTION HX x 3 COLONOSCOPY 02/09/2012 loose anal sphincter, unremarkable random biopsies COLONOSCOPY SCREENING 04/03/2021 CYSTOSCO (more content not included)... [facility] 04-05-2023 Note HNO ID: [id number] Author: Maria Esther Rodriguez DO Service: ? Author Type: Physician Type: Progress Notes Filed: 04/11/2023 5:12 PM Note Text: [facility] Lucien Maria Esther Rodriguez DO [address] [place] [address] Date of Evaluation: 04/05/2023 Patient Name: Denny Owens : 1960 Chief Complaint: Patient presents with: Back Pain: Lower back x 2 months Toe Pain (Toe): Toe on left foot painful needs a paper for work Nursing Intake: There are no exam notes on file for this visit. Subjective Ms. Owens is a 62 year old female who presents with the following complaint(s): The history is provided by the patient. No speech language pathologist travel was used. Back Pain This is a recurrent problem. The current episode started more than 1 week ago. The problem occurs daily. The problem has not changed since onset.The pain is associated with no known injury. The pain is present in the lumbar spine. The quality of the pain is described as aching and burning. Pertinent negatives include no chest pain, no numbness, no headaches and no weakness. Review of Systems Constitutional: Negative for fatigue and unexpected weight change. HENT: Negative for nosebleeds. Eyes: Negative for redness and visual disturbance. Respiratory: Negative for apnea, cough and shortness of breath. Cardiovascular: Negative for chest pain, palpitations and leg swelling. Genitourinary: Negative for hematuria. Musculoskeletal: Positive for back pain. Neurological: Negative for dizziness, weakness, light-headedness, numbness and headaches. Hematological: Does not bruise/bleed easily. Psychiatric/Behavioral: The patient is not nervous/anxious. PAST MEDICAL HISTORY Diagnosis Date Abdominal pain Acute bronchitis due to other specified organisms Acute otitis media Acute upper respiratory infection Allergic rhinitis due to pollen Anemia Blood in urine Body mass index (BMI) 25.0-25.9, adult Cervical disc disorder with myelopathy, high cervical region Cervical radiculitis Cervical spondylosis Cervicalgia Chest pain Constipation Disorder of bursae of shoulder region Disorders of smell Dysuria Essential (primary) hypertension Generalized anxiety disorder Herpes simplex Major depressive disorder, recurrent episode, moderate (HCC) Malaise and fatigue Mild intermittent asthma with acute exacerbation Mixed hyperlipidemia Neck sprain Other fatigue Other insomnia Polyneuropathy, unspecified Primary generalized (osteo)arthritis Psychogenic headache Renal impairment Trigeminal neuralgia Urinary tract infection, site not specified Vertigo Vitamin D deficiency PAST SURGICAL HISTORY Procedure Laterality Date CARPAL TUNNEL SECTION HX x 3 COLONOSCOPY 02/09/2012 loose anal sphincter, unremarkable random biopsies COLONOSCOPY SCREENING 04/03/2021 CYSTOSCOPY 11/16/2016 HYSTERECTOMY HX FAMILY HISTORY Problem Relation Age of Onset Heart disease Mother Diabetes Mother Colon Cancer Maternal Aunt Social History Tobacco Use Smoking status: Former Smokeless tobacco: Never Tobacco comments: smoked for 9 months as a teenager Vaping Use Vaping Use: Never used Substance Use Topics Alcohol use: Never Drug use: Never Current Outpatient Medications Medication Sig omeprazole (PRILOSEC) 40 mg capsule TAKE 1 CAPSULE BY MOUTH EVERY DAY nitrofurantoin monohydrate and macrocrystal (MACROBID) 100 mg capsule TAKE 1 BY MOUTH BEFORE BED linaCLOtide (LINZESS) 290 mcg capsule Take 1 capsule by mouth once daily. gabapentin (NEURONTIN) 100 mg capsule Take 1 capsule by mouth three times daily for 90 days. gabapentin (NEURONTIN) 800 mg tablet TAKE 1 TABLET BY MOUTH THREE TIMES A DAY ascorbic acid, vitamin C, (VITAMIN C) 500 mg tablet Take 500 mg by mouth once daily. Lactobac no.41/Bifidobact no.7 (PROBIOTIC-10 ORAL) Take by mouth. ferrous sulfate (FEOSOL) 325 mg (65 mg iron) tablet Take 1 tablet by mouth once daily. SYMBICORT 160-4.5 mcg/actuation inhaler INHALE 2 PUFFS INSTRUCTED TWICE DAILY. albuterol HFA (PROVENTIL HFA, VENTOLIN HFA) 90 mcg/actuation inhaler verapamil SR (CALAN SR, ISOPTIN SR) 240 mg CR tablet TAKE 1 TABLET BY MOUTH EVERYDAY AT BEDTIME azelastine (ASTELIN) 0.1% nasal spray Use 1 [facility] in each nostril twice daily. ipratropium-albuterol (DUONEB) 0.5 mg-3 mg(2.5 mg base)/3 mL nebu Inhale 3 mL as instructed every 4 hours as needed (tightness in chest, coughing, wheezing, shortness of breath). Albuterol Sulfate 1.25 mg/3 mL nebulizer solution albuterol sulfate 1.25 mg/3 mL solution for nebulization INHALE 3 ML EVERY 4 HOURS BY INHALATION ROUTE NEEDED FOR 30 DAYS. naproxen (NAPROSYN) 500 mg tablet Take 1 tablet by mouth twice daily as needed for breakthrough pain or pain (FOR PAIN - TAKE WITH FOOD.). cyclobenzap (more content not included)... [facility] 04-05-2023 History of Present illness Narrative Images from the original note were not included. [facility] Medicine Stuart Rodriguez DO [address] [place] [address] Date of Evaluation: 04/05/2023 Patient Name: Denny Owens : 1960 Chief Complaint: Patient presents with: Back Pain: Lower back x 2 months Toe Pain (Toe): Toe on left foot painful needs a paper for work Nursing Intake: There are no exam notes on file for this visit. Subjective Ms. Owens is a 62 year old female who presents with the following complaint(s): The history is provided by the patient. No speech language pathologist travel was used. Back Pain This is a recurrent problem. The current episode started more than 1 week ago. The problem occurs daily. The problem has not changed since onset.The pain is associated with no known injury. The pain is present in the lumbar spine. The quality of the pain is described as aching and burning. Pertinent negatives include no chest pain, no numbness, no headaches and no weakness. Review of Systems Constitutional: Negative for fatigue and unexpected weight change. HENT: Negative for nosebleeds. Eyes: Negative for redness and visual disturbance. Respiratory: Negative for apnea, cough and shortness of breath. Cardiovascular: Negative for chest pain, palpitations and leg swelling. Genitourinary: Negative for hematuria. Musculoskeletal: Positive for back pain. Neurological: Negative for dizziness, weakness, light-headedness, numbness and headaches. Hematological: Does not bruise/bleed easily. Psychiatric/Behavioral: The patient is not nervous/anxious. PAST MEDICAL HISTORY Diagnosis Date Abdominal pain Acute bronchitis due to other specified organisms Acute otitis media Acute upper respiratory infection Allergic rhinitis due to pollen Anemia Blood in urine Body mass index (BMI) 25.0-25.9, adult Cervical disc disorder with myelopathy, high cervical region Cervical radiculitis Cervical spondylosis Cervicalgia Chest pain Constipation Disorder of bursae of shoulder region Disorders of smell Dysuria Essential (primary) hypertension Generalized anxiety disorder Herpes simplex Major depressive disorder, recurrent episode, moderate (HCC) Malaise and fatigue Mild intermittent asthma with acute exacerbation Mixed hyperlipidemia Neck sprain Other fatigue Other insomnia Polyneuropathy, unspecified Primary generalized (osteo)arthritis Psychogenic headache Renal impairment Trigeminal neuralgia Urinary tract infection, site not specified Vertigo Vitamin D deficiency PAST SURGICAL HISTORY Procedure Laterality Date CARPAL TUNNEL SECTION HX x 3 COLONOSCOPY 02/09/2012 loose anal sphincter, unremarkable random biopsies COLONOSCOPY SCREENING 04/03/2021 CYSTOSCOPY 11/16/2016 HYSTERECTOMY HX FAMILY HISTORY Problem Relation Age of Onset Heart disease Mother Diabetes Mother Colon Cancer Maternal Aunt Social History Tobacco Use Smoking status: Former Smokeless tobacco: Never Tobacco comments: smoked for 9 months as a teenager Vaping Use Vaping Use: Never used Substance Use Topics Alcohol use: Never Drug use: Never Current Outpatient Medications Medication Sig omeprazole (PRILOSEC) 40 mg capsule TAKE 1 CAPSULE BY MOUTH EVERY DAY nitrofurantoin monohydrate and macrocrystal (MACROBID) 100 mg capsule TAKE 1 BY MOUTH BEFORE BED linaCLOtide (LINZESS) 290 mcg capsule Take 1 capsule by mouth once daily. gabapentin (NEURONTIN) 100 mg capsule Take 1 capsule by mouth three times daily for 90 days. gabapentin (NEURONTIN) 800 mg tablet TAKE 1 TABLET BY MOUTH THREE TIMES A DAY ascorbic acid, vitamin C, (VITAMIN C) 500 mg tablet Take 500 mg by mouth once daily. Lactobac no.41/Bifidobact no.7 (PROBIOTIC-10 ORAL) Take by mouth. ferrous sulfate (FEOSOL) 325 mg (65 mg iron) tablet Take 1 tablet by mouth once daily. SYMBICORT 160-4.5 mcg/actuation inhaler INHALE 2 PUFFS INSTRUCTED TWICE DAILY. albuterol HFA (PROVENTIL HFA, VENTOLIN HFA) 90 mcg/actuation inhaler verapamil SR (CALAN SR, ISOPTIN SR) 240 mg CR tablet TAKE 1 TABLET BY MOUTH EVERYDAY AT BEDTIME azelastine (ASTELIN) 0.1% nasal spray Use 1 [facility] in each nostril twice daily. ipratropium-albuterol (DUONEB) 0.5 mg-3 mg(2.5 mg base)/3 mL nebu Inhale 3 mL as instructed every 4 hours as needed (tightness in chest, coughing, wheezing, shortness of breath). Albuterol Sulfate 1.25 mg/3 mL nebulizer solution albuterol sulfate 1.25 mg/3 mL solution for nebulization INHALE 3 ML EVERY 4 HOURS BY INHALATION ROUTE NEEDED FOR 30 DAYS. naproxen (NAPROSYN) 500 mg tablet Take 1 tablet by mouth twice daily as needed for breakthrough pain or pain (FOR PAIN - TAKE WITH FOOD.). cyclobenzaprine (FLEXERIL) 10 mg tablet Take 1 tablet by mouth three times daily as needed for muscle spasm. magnesium oxide (MAG-OX) 400 mg (241.3 mg magnesium) tablet TAKE 1 TABLET BY MOUTH ONCE A DAY (Patient not taking: Reported on 03/16/2023) No current facility-administered medications for this visit. I have confirmed and edited as necessary the past medical, family and social histories, HPI, and ROS obtained by others. Objective BP 150/92 Pulse 85 Temp 98 Ht 5' 3 (1.60m) Wt 132 lb (59.9kg) SpO2 97% BMI 23.39 kg/(m^2). Physical Exam Vitals and nursing note reviewed. Constitutional: General: She is not in acute distress. Appearance: Normal appearance. She is well-developed. She is not ill-appearing. HENT: Head: Normocephalic. Right Ear: Tympanic membrane, ear canal and external ear normal. There is no impacted cerumen. Left Ear: Tympanic membrane, ear canal and external ear normal. There is no impacted cerumen. Nose: Nose normal. Mouth/Throat: Mouth: Mucous membranes are moist. Pharynx: Oropharynx is clear. Uvula midline. No oropharyngeal exudate or posterior oropharyngeal erythema. Eyes: General: Lids are normal. Vision grossly intact. Gaze aligned appropriately. No scleral icterus. Right eye: No discharge. Left eye: No discharge. Extraocular Movements: Extraocular movements intact. Conjunctiva/sclera: Conjunctivae normal. Pupils: Pupils are equal, round, and reactive to light. Neck: Thyroid: No thyroid mass, thyromegaly or thyroid tenderness. Vascular: No carotid bruit. Trachea: Trachea and phonation normal. Cardiovascular: Rate and Rhythm: Normal rate and regular rhythm. Pulses: Normal pulses. Heart sounds: Normal heart sounds. Pulmonary: Effort: Pulmonary effort is normal. Breath sounds: Normal breath sounds. Abdominal: General: Abdomen is flat. Bowel sounds are normal. Palpations: Abdomen is soft. Musculoskeletal: General: Normal range of motion. Right shoulder: Normal. Left shoulder: Normal. Cervical back: Normal, full passive range of motion without pain and neck supple. No tenderness. No spinous process tenderness. Thoracic back: Normal. Lumbar back: Normal. Right knee: Normal. Left knee: Normal. Right lower leg: No edema. Left lower leg: No edema. Lymphadenopathy: Cervical: No cervical adenopathy. Skin: General: Skin is warm and dry. Neurological: General: No focal deficit present. Mental Status: She is alert and oriented to person, place, and time. Mental status is at baseline. Sensory: Sensation is intact. Motor: Motor function is intact. Psychiatric: Attention and Perception: Attention and perception normal. Mood and Affect: Mood normal. Speech: Speech normal. Behavior: Behavior normal. Thought Content: Thought content normal. Judgment: Judgment normal. Data Reviewed: No new labs ASSESSMENT/PLAN: 1. Arthritis, lumbar spine - ICD9: 721.3, ICD10: M47.816 (primary diagnosis) - Start Naproxen - Letter written for patient to abstain from doing lifting/holds at work. - NAPROXEN 500 MG TABLET 2. Back spasm - ICD9: 724.8, ICD10: M62.830 - Start Flexeril as needed - CYCLOBENZAPRINE 10 MG TABLET 3. Toe pain, left - ICD9: 729.5, ICD10: M79.675 - No sign of infection- pain following stubbing toe Maria Esther Rodriguez DO Return if symptoms worsen or fail to improve. Attestation: Scribe Statement: Nima Winston am scribing for, and in the presence of, Maria Esther Rodriguez DO April 05, 2023 9:18 AM. Physician Statement: IMaria Esther DO, personally performed the services described in the documentation, as scribed by Kathia Winston in my presence, and it is both accurate and complete April 05, 2023 9:19 AM. documented in this encounter [facility] 03-16-2023 Note HNO ID: [id number] Author: Enid Sultana PA-C Service: ? Author Type: Physician Database Security Administrator Type: Progress Notes Filed: 03/16/2023 3:09 PM Note Text: CHIEF COMPLAINT: Patient presents with: Recheck: Elevated liver enzymes, Labs done at [facility], Abdominal Pain, constipation HPI Denny Owens is a 62 year old female here today for Recheck (Elevated liver enzymes, Labs done at [facility], Abdominal Pain, constipation ) PMHx of neuropathy, HTN, HLD, asthma, DVT, arthritis, EMANUEL Patient tells me that's she is doing okay today. Notes that she has the constant urge to the bathroom but will not be able to. Going more frequent but never feels like she is fully emptying. Notes a lot of bloating with eating. Notes early satiety and some nausea. Appetite is okay. Weight is increased some. Notes some LE edema, wearing compression socks. Last OV with me 12/08/2022: Assessment/Plan (R74.8) Elevated liver enzymes (primary encounter diagnosis) (K59.09) Chronic constipation 1. Elevated liver enzymes -- Patient with elevated LFTs during a hospital stay for sepsis. Seeing improvement with this. -- Recommend repeat HFP, consider autoimmune testing - HEPATIC FUNCTION PNL; Future 2. Chronic constipation -- Patient with chronic constipation, can go three weeks without a normal bowel movement. -- Has tried numerous OTC stool softeners, laxatives, Miralax. -- Will start Linzess 72 mcg daily, script sent to pharmacy -- Recommend increasing water intake, high fiber diet. - linaCLOtide (LINZESS) 72 mcg capsule; Take 1 capsule by mouth once daily. Administer on an empty stomach. Swallow whole; DO NOT crush or chew. Dispense: 30 capsule; Refill: 3 Follow up in office 3 months/PRN. Component Latest Ref Rng AND Units 12/10/2022 Albumin 3.9 - 4.9 g/dL 4.3 Bilirubin, Total 0.2 - 1.3 mg/dL 0.2 Bilirubin, Conjug <0.2 mg/dL <0.2 Alkaline Phosphatase 34 - 123 U/L 76 AST 13 - 35 U/L 17 ALT 7 - 38 U/L 15 Protein, Total 6.3 - 8.0 g/dL 6.6 Current Outpatient Medications Medication Sig nitrofurantoin monohydrate and macrocrystal (MACROBID) 100 mg capsule TAKE 1 BY MOUTH BEFORE BED gabapentin (NEURONTIN) 100 mg capsule Take 1 capsule by mouth three times daily for 90 days. omeprazole (PRILOSEC) 40 mg capsule TAKE 1 CAPSULE BY MOUTH ONCE DAILY linaclotide (LINZESS) 145 mcg capsule Take 1 capsule by mouth once daily. gabapentin (NEURONTIN) 800 mg tablet TAKE 1 TABLET BY MOUTH THREE TIMES A DAY ascorbic acid, vitamin C, (VITAMIN C) 500 mg tablet Take 500 mg by mouth once daily. Lactobac no.41/Bifidobact no.7 (PROBIOTIC-10 ORAL) Take by mouth. ferrous sulfate (FEOSOL) 325 mg (65 mg iron) tablet Take 1 tablet by mouth once daily. SYMBICORT 160-4.5 mcg/actuation inhaler INHALE 2 PUFFS INSTRUCTED TWICE DAILY. verapamil SR (CALAN SR, ISOPTIN SR) 240 mg CR tablet TAKE 1 TABLET BY MOUTH EVERYDAY AT BEDTIME azelastine (ASTELIN) 0.1% nasal spray Use 1 [facility] in each nostril twice daily. ipratropium-albuterol (DUONEB) 0.5 mg-3 mg(2.5 mg base)/3 mL nebu Inhale 3 mL as instructed every 4 hours as needed (tightness in chest, coughing, wheezing, shortness of breath). Albuterol Sulfate 1.25 mg/3 mL nebulizer solution albuterol sulfate 1.25 mg/3 mL solution for nebulization INHALE 3 ML EVERY 4 HOURS BY INHALATION ROUTE NEEDED FOR 30 DAYS. magnesium oxide (MAG-OX) 400 mg (241.3 mg magnesium) tablet TAKE 1 TABLET BY MOUTH ONCE A DAY (Patient not taking: Reported on 03/16/2023) albuterol HFA (PROVENTIL HFA, VENTOLIN HFA) 90 mcg/actuation inhaler TAKE 2 APPLICATION (INHALATION) EVERY 4-6 HOURS FOR 7 DAYS (Patient not taking: Reported on 03/16/2023) No current facility-administered medications for this visit. ALLERGIES Allergen Reactions Methenamine Unknown, Hives Other reaction(s): Unknown Methenamine Hippura* Hives Social History Tobacco Use Smoking status: Former Smokeless tobacco: Never Tobacco comments: smoked for 9 months as a teenager Vaping Use Vaping Use: Never used Substance Use Topics Alcohol use: Never Drug use: Never PAST MEDICAL HISTORY Diagnosis Date Abdominal pain Acute bronchitis due to other specified organisms Acute otitis media Acute upper respiratory infection Allergic rhinitis due to pollen Anemia Blood in urine Body mass index (BMI) 25.0-25.9, adult Cervical disc disorder with myelopathy, high cervical region Cervical radiculitis Cervical spondylosis Cervicalgia Chest pain Constipation Disorder of bursae of shoulder region Disorders of smell Dysuria Essential (primary) hypertension Generalized anxiety disorder Herpes simplex Major depressive disorder, recurrent episode, moderate (HCC) Malaise and fatigue Mild intermittent asthma with acute exacerbation Mixed hyperlipidemia Neck sprain Other fatigue Other insomnia Polyneuropathy, unspecified Primary generalized (osteo)arthritis Psychogenic headache Norma (more content not included)... [facility] 03-16-2023 Instructions Enid Sultana PA-C - 03/16/2023 3:01 PM EDT -- Consider gastric emptying study for bloating, abdominal pain -- Please let me know in two weeks how the Linzess 290 mcg is working for you. documented in this encounter [facility] 03-16-2023 History of Present illness Narrative CHIEF COMPLAINT: Patient presents with: Recheck: Elevated liver enzymes, Labs done at [facility], Abdominal Pain, constipation HPI Denny Owens is a 62 year old female here today for Recheck (Elevated liver enzymes, Labs done at [facility], Abdominal Pain, constipation ) PMHx of neuropathy, HTN, HLD, asthma, DVT, arthritis, EMANUEL Patient tells me that's she is doing okay today. Notes that she has the constant urge to the bathroom but will not be able to. Going more frequent but never feels like she is fully emptying. Notes a lot of bloating with eating. Notes early satiety and some nausea. Appetite is okay. Weight is increased some. Notes some LE edema, wearing compression socks. Last OV with me 12/08/2022: Assessment/Plan (R74.8) Elevated liver enzymes (primary encounter diagnosis) (K59.09) Chronic constipation 1. Elevated liver enzymes -- Patient with elevated LFTs during a hospital stay for sepsis. Seeing improvement with this. -- Recommend repeat HFP, consider autoimmune testing - HEPATIC FUNCTION PNL; Future 2. Chronic constipation -- Patient with chronic constipation, can go three weeks without a normal bowel movement. -- Has tried numerous OTC stool softeners, laxatives, Miralax. -- Will start Linzess 72 mcg daily, script sent to pharmacy -- Recommend increasing water intake, high fiber diet. - linaCLOtide (LINZESS) 72 mcg capsule; Take 1 capsule by mouth once daily. Administer on an empty stomach. Swallow whole; DO NOT crush or chew. Dispense: 30 capsule; Refill: 3 Follow up in office 3 months/PRN. Component Latest Ref Rng & Units 12/10/2022 Albumin 3.9 - 4.9 g/dL 4.3 Bilirubin, Total 0.2 - 1.3 mg/dL 0.2 Bilirubin, Conjug <0.2 mg/dL <0.2 Alkaline Phosphatase 34 - 123 U/L 76 AST 13 - 35 U/L 17 ALT 7 - 38 U/L 15 Protein, Total 6.3 - 8.0 g/dL 6.6 Current Outpatient Medications Medication Sig nitrofurantoin monohydrate and macrocrystal (MACROBID) 100 mg capsule TAKE 1 BY MOUTH BEFORE BED gabapentin (NEURONTIN) 100 mg capsule Take 1 capsule by mouth three times daily for 90 days. omeprazole (PRILOSEC) 40 mg capsule TAKE 1 CAPSULE BY MOUTH ONCE DAILY linaclotide (LINZESS) 145 mcg capsule Take 1 capsule by mouth once daily. gabapentin (NEURONTIN) 800 mg tablet TAKE 1 TABLET BY MOUTH THREE TIMES A DAY ascorbic acid, vitamin C, (VITAMIN C) 500 mg tablet Take 500 mg by mouth once daily. Lactobac no.41/Bifidobact no.7 (PROBIOTIC-10 ORAL) Take by mouth. ferrous sulfate (FEOSOL) 325 mg (65 mg iron) tablet Take 1 tablet by mouth once daily. SYMBICORT 160-4.5 mcg/actuation inhaler INHALE 2 PUFFS INSTRUCTED TWICE DAILY. verapamil SR (CALAN SR, ISOPTIN SR) 240 mg CR tablet TAKE 1 TABLET BY MOUTH EVERYDAY AT BEDTIME azelastine (ASTELIN) 0.1% nasal spray Use 1 [facility] in each nostril twice daily. ipratropium-albuterol (DUONEB) 0.5 mg-3 mg(2.5 mg base)/3 mL nebu Inhale 3 mL as instructed every 4 hours as needed (tightness in chest, coughing, wheezing, shortness of breath). Albuterol Sulfate 1.25 mg/3 mL nebulizer solution albuterol sulfate 1.25 mg/3 mL solution for nebulization INHALE 3 ML EVERY 4 HOURS BY INHALATION ROUTE NEEDED FOR 30 DAYS. magnesium oxide (MAG-OX) 400 mg (241.3 mg magnesium) tablet TAKE 1 TABLET BY MOUTH ONCE A DAY (Patient not taking: Reported on 03/16/2023) albuterol HFA (PROVENTIL HFA, VENTOLIN HFA) 90 mcg/actuation inhaler TAKE 2 APPLICATION (INHALATION) EVERY 4-6 HOURS FOR 7 DAYS (Patient not taking: Reported on 03/16/2023) No current facility-administered medications for this visit. ALLERGIES Allergen Reactions Methenamine Unknown, Hives Other reaction(s): Unknown Methenamine Hippura* Hives Social History Tobacco Use Smoking status: Former Smokeless tobacco: Never Tobacco comments: smoked for 9 months as a teenager Vaping Use Vaping Use: Never used Substance Use Topics Alcohol use: Never Drug use: Never PAST MEDICAL HISTORY Diagnosis Date Abdominal pain Acute bronchitis due to other specified organisms Acute otitis media Acute upper respiratory infection Allergic rhinitis due to pollen Anemia Blood in urine Body mass index (BMI) 25.0-25.9, adult Cervical disc disorder with myelopathy, high cervical region Cervical radiculitis Cervical spondylosis Cervicalgia Chest pain Constipation Disorder of bursae of shoulder region Disorders of smell Dysuria Essential (primary) hypertension Generalized anxiety disorder Herpes simplex Major depressive disorder, recurrent episode, moderate (HCC) Malaise and fatigue Mild intermittent asthma with acute exacerbation Mixed hyperlipidemia Neck sprain Other fatigue Other insomnia Polyneuropathy, unspecified Primary generalized (osteo)arthritis Psychogenic headache Renal impairment Trigeminal neuralgia Urinary tract infection, site not specified Vertigo Vitamin D deficiency PAST SURGICAL HISTORY Procedure Laterality Date CARPAL TUNNEL SECTION HX x 3 COLONOSCOPY 02/09/2012 loose anal sphincter, unremarkable random biopsies COLONOSCOPY SCREENING 04/03/2021 CYSTOSCOPY 11/16/2016 HYSTERECTOMY HX FAMILY HISTORY Problem Relation Age of Onset Heart disease Mother Diabetes Mother Colon Cancer Maternal Aunt REVIEW OF SYSTEMS Review of Systems Respiratory: Positive for cough and shortness of breath. Cardiovascular: Positive for palpitations and leg swelling. Gastrointestinal: Positive for abdominal distention, abdominal pain and constipation. Gas All other systems reviewed and are negative. PHYSICAL EXAM BP 130/72 Pulse 76 Ht 5' 3 (1.60m) Wt 132 lb 12.8 oz (60.2kg) BMI 23.53 kg/(m^2). Physical Exam Constitutional: Appearance: Normal appearance. She is normal weight. HENT: Head: Normocephalic and atraumatic. Eyes: General: No scleral icterus. Extraocular Movements: Extraocular movements intact. Conjunctiva/sclera: Conjunctivae normal. Pupils: Pupils are equal, round, and reactive to light. Cardiovascular: Rate and Rhythm: Normal rate and regular rhythm. Pulses: Normal pulses. Heart sounds: Normal heart sounds. Pulmonary: Effort: Pulmonary effort is normal. Breath sounds: Normal breath sounds. Abdominal: General: Abdomen is flat. Bowel sounds are normal. Palpations: Abdomen is soft. Tenderness: There is abdominal tenderness (mild generalized TTP). Musculoskeletal: General: Normal range of motion. Cervical back: Normal range of motion and neck supple. Skin: General: Skin is warm and dry. Coloration: Skin is not jaundiced. Neurological: General: No focal deficit present. Mental Status: She is alert and oriented to person, place, and time. Psychiatric: Mood and Affect: Mood normal. Behavior: Behavior normal. Thought Content: Thought content normal. Judgment: Judgment normal. Assessment/Plan (K59.09) Chronic constipation (primary encounter diagnosis) 1. Chronic constipation -- Patient notes some improvement with the Linzess 145 mcg however still has the urge to go and cannot. Doesn't feel like she is fully emptying. -- Will try Linzess 290 mcg daily -- Recommend low FODMAP diet -- Consider GES - linaCLOtide (LINZESS) 290 mcg capsule; Take 1 capsule by mouth once daily. Dispense: 30 capsule; Refill: 2 Follow up in office 3 months/PRN. Recommended to please call office/go to ER if fever, chills, chest pain, SOB, diarrhea, nausea, emesis, worsening abdominal pain, dehydration occurs I spent a total of 25 minutes on the date of the service which included preparing to see the patient, [id number] patient care, completing clinical documentation, obtaining and/or reviewing separately obtained history, performing a medically appropriate examination, counseling and educating the patient/family/caregiver, and ordering medications, tests, or procedures. Enid Sultana PA-C March 16, 2023 2:59 PM documented in this encounter [facility] 03-02-2023 Miscellaneous Notes Pharmacy faxed requesting the following refill Refill(s) Requested: Requested Prescriptions Pending Prescriptions Disp Refills omeprazole (PRILOSEC) 40 mg capsule [Pharmacy Med Name: OMEPRAZOLE DR 40 MG CAPSULE] 90 capsule 3 Sig: TAKE 1 CAPSULE BY MOUTH ONCE DAILY ALLERGIES Allergen Reactions Methenamine Unknown, Hives Other reaction(s): Unknown Methenamine Hippura* Hives (home) [phone] (cell) Last Office Visit Date: 01/14/2023 Last [facility] [place] [facility] Visit: Visit date not found Future Appointment: Visit date not found The patients preferred pharmacy has been captured for this encounter? yes Request is for script(s) to be escript to pharmacy. Kenisha Ross LPN documented in this encounter [facility] 02-02-2023 Miscellaneous Notes Faxed ----- Message from Sabiha Anderson sent at 02/02/2023 10:10 AM EDT ----- Regarding: Medicine/Maria Esther Rodriguez DO/Patient is requesting new prescription for compression stockings Subject Line Format: Medicine / [Provider Name] / [Issue] Patient has been identified by name and Date of (Y/N): y Patient: Denny Owens Date of : 1960 Provider for this encounter: Maria Esther Rodriguez DO Reason for the call/escalation: patient received a prescription for small compression stockings, but they keep falling down. Patient is requesting a new prescription because they wont stay up and need a smaller pair but pharmacy says she needs a new prescription. Fax number for prescription to be faxed to is [phone] Was Patient Referred to [facility]/Seek Emergency Treatment (Y/N): n Did Patient Agree (Y/N): n Was An Attempt Made To Transfer The Patient To The Office (Y/N): n Were You Able To Reach Someone At The Office (Y/N): n If Yes - Patient Was Transferred To (Caregivers Name): n If No - Which [facility] [employer] Engineer Did You Speak With Regarding This Patient: n Was an appointment scheduled (Y/N): n Reason patient was requesting visit (RFV/signs and symptoms/diagnosis) : patient received a prescription for small compression stockings, but they keep falling down. Patient is requesting a new prescription because they wont stay up and need a smaller pair but pharmacy says she needs a new prescription. Fax number for prescription to be faxed to is [phone] Person calling if other than patient: na Return call to if other than patient: na Best contact number: [phone] Thank you, Sabiha Anderson February 02, 2023 10:11 AM documented in this encounter [facility] 01-21-2023 Miscellaneous Notes Patient phones requesting local pharmacy as follows: Requested Prescriptions Pending Prescriptions Disp Refills linaclotide (LINZESS) 145 mcg capsule 30 capsule 1 Sig: Take 1 capsule by mouth once daily. Please review and advise. Toma Zheng Ma documented in this encounter [facility] 01-15-2023 Note HNO ID: [id number] Author: RT Dedra(R) Service: Radiology Author Type: Technologist Type: Progress Notes Filed: 01/15/2023 4:01 PM Note Text: Radiology Service Progress Note PATIENT NAME: Denny Owens DATE OF SERVICE: January 15, 2023 TIME: 4:01 PM PATIENT IDENTITY VERIFICATION COMPLETED USING TWO (2) IDENTIFIERS: Name and Date of confirmed by patient verbally. FALL SCREENING: Has the patient had 2 falls in the last year or 1 fall with injury or currently using an Ambulatory Assistive Device (Walker, Cane, Wheelchair, Crutches, etc.)? No PATIENT GENDER DATA: Female. status: : No status: N/A PATIENT RELEVANT IMPLANT DATA REVIEWED: Not Applicable RADIOLOGY DEPARTMENT: Ultrasound PERIPHERAL IV DATA: Not applicable SIGNED BY: RT Dedra(R) January 15, 2023 4:01 PM [facility] 01-15-2023 History of Present illness Narrative Radiology Service Progress Note PATIENT NAME: Denny Owens DATE OF SERVICE: January 15, 2023 TIME: 4:01 PM PATIENT IDENTITY VERIFICATION COMPLETED USING TWO (2) IDENTIFIERS: Name and Date of confirmed by patient verbally. FALL SCREENING: Has the patient had 2 falls in the last year or 1 fall with injury or currently using an Ambulatory Assistive Device (Walker, Cane, Wheelchair, Crutches, etc.)? No PATIENT GENDER DATA: Female. status: : No status: N/A PATIENT RELEVANT IMPLANT DATA REVIEWED: Not Applicable RADIOLOGY DEPARTMENT: Ultrasound PERIPHERAL IV DATA: Not applicable SIGNED BY: RT Dedra(R) January 15, 2023 4:01 PM documented in this encounter [facility] 01-14-2023 Note HNO ID: [id number] Author: Maria Esther Rodriguez DO Service: ? Author Type: Physician Type: Progress Notes Filed: 01/24/2023 9:10 PM Note Text: [facility] Luciennoemí Rodriguez DO [address] [place] [address] Date of Evaluation: 01/14/2023 Patient Name: Denny Owens : 1960 Chief Complaint: Patient presents with: Swelling: Left leg - noticed on Sat Nursing Intake: There are no exam notes on file for this visit. Subjective Ms. Owens is a 62 year old female who presents with the following complaint(s): The history is provided by the patient. No speech language pathologist travel was used. Leg Pain The pain is present in the left lower leg. This is a new problem. The current episode started in the past 7 days. The problem occurs daily. The problem has been unchanged. Pertinent negatives include no numbness. Associated symptoms comments: Swelling . Review of Systems Constitutional: Negative for fatigue and unexpected weight change. HENT: Negative for nosebleeds. Eyes: Negative for redness and visual disturbance. Respiratory: Negative for apnea, cough and shortness of breath. Cardiovascular: Negative for chest pain, palpitations and leg swelling. Genitourinary: Negative for hematuria. Neurological: Negative for dizziness, weakness, light-headedness, numbness and headaches. Hematological: Does not bruise/bleed easily. Psychiatric/Behavioral: The patient is not nervous/anxious. PAST MEDICAL HISTORY Diagnosis Date Abdominal pain Acute bronchitis due to other specified organisms Acute otitis media Acute upper respiratory infection Allergic rhinitis due to pollen Anemia Blood in urine Body mass index (BMI) 25.0-25.9, adult Cervical disc disorder with myelopathy, high cervical region Cervical radiculitis Cervical spondylosis Cervicalgia Chest pain Constipation Disorder of bursae of shoulder region Disorders of smell Dysuria Essential (primary) hypertension Generalized anxiety disorder Herpes simplex Major depressive disorder, recurrent episode, moderate (HCC) Malaise and fatigue Mild intermittent asthma with acute exacerbation Mixed hyperlipidemia Neck sprain Other fatigue Other insomnia Polyneuropathy, unspecified Primary generalized (osteo)arthritis Psychogenic headache Renal impairment Trigeminal neuralgia Urinary tract infection, site not specified Vertigo Vitamin D deficiency PAST SURGICAL HISTORY Procedure Laterality Date CARPAL TUNNEL SECTION HX x 3 COLONOSCOPY 02/09/2012 loose anal sphincter, unremarkable random biopsies COLONOSCOPY SCREENING 04/03/2021 CYSTOSCOPY 11/16/2016 HYSTERECTOMY HX FAMILY HISTORY Problem Relation Age of Onset Heart disease Mother Diabetes Mother Colon Cancer Maternal Aunt Social History Tobacco Use Smoking status: Former Smokeless tobacco: Never Tobacco comments: smoked for 9 months as a teenager Vaping Use Vaping Use: Never used Substance Use Topics Alcohol use: Never Drug use: Never Current Outpatient Medications Medication Sig linaclotide (LINZESS) 145 mcg capsule Take 1 capsule by mouth once daily. gabapentin (NEURONTIN) 800 mg tablet TAKE 1 TABLET BY MOUTH THREE TIMES A DAY nitrofurantoin macrocrystal (MACRODANTIN) 100 mg capsule 100 mg by ORAL/FEEDING TUBE route four times daily. ascorbic acid, vitamin C, (VITAMIN C) 500 mg tablet Take 500 mg by mouth once daily. ferrous sulfate (FEOSOL) 325 mg (65 mg iron) tablet Take 1 tablet by mouth once daily. gabapentin (NEURONTIN) 100 mg capsule TAKE 1 CAPSULE BY MOUTH THREE TIMES DAILY FOR 90 DAYS. SYMBICORT 160-4.5 mcg/actuation inhaler INHALE 2 PUFFS INSTRUCTED TWICE DAILY. magnesium oxide (MAG-OX) 400 mg (241.3 mg magnesium) tablet Take 1 tablet by mouth once daily. verapamil SR (CALAN SR, ISOPTIN SR) 240 mg CR tablet TAKE 1 TABLET BY MOUTH EVERYDAY AT BEDTIME omeprazole (PRILOSEC) 40 mg capsule Take 1 capsule by mouth once daily. azelastine (ASTELIN) 0.1% nasal spray Use 1 [facility] in each nostril twice daily. Lactobac no.41/Bifidobact no.7 (PROBIOTIC-10 ORAL) Take by mouth. ferrous sulfate (FEOSOL) 325 mg (65 mg iron) tablet Take 1 tablet by mouth once daily. magnesium oxide (MAG-OX) 400 mg (241.3 mg magnesium) tablet TAKE 1 TABLET BY MOUTH ONCE A DAY cefpodoxime (VANTIN) 200 mg tablet Take 200 mg by mouth twice daily. (Patient not taking: Reported on 10/20/2022) albuterol HFA (PROVENTIL HFA, VENTOLIN HFA) 90 mcg/actuation inhaler TAKE 2 APPLICATION (INHALATION) EVERY 4-6 HOURS FOR 7 DAYS predniSONE (DELTASONE) 10 mg tablet Take 3 tablets by mouth for 3 days, then take 2 tablets by mouth for 3 days, then take 1 tablet by mouth for 3 days. (Patient not taking: Reported on 10/20/2022) trimethoprim (PROLOPRIM) 100 mg tablet Take 100 mg by mouth daily at bedti (more content not included)... [facility] 01-14-2023 History of Present illness Narrative Images from the original note were not included. [facility] [address] [place] [address] Date of Evaluation: 01/14/2023 Patient Name: Denny Owens : 1960 Chief Complaint: Patient presents with: Swelling: Left leg - noticed on Sat Nursing Intake: There are no exam notes on file for this visit. Subjective Ms. Owens is a 62 year old female who presents with the following complaint(s): The history is provided by the patient. No speech language pathologist travel was used. Leg Pain The pain is present in the left lower leg. This is a new problem. The current episode started in the past 7 days. The problem occurs daily. The problem has been unchanged. Pertinent negatives include no numbness. Associated symptoms comments: Swelling . Review of Systems Constitutional: Negative for fatigue and unexpected weight change. HENT: Negative for nosebleeds. Eyes: Negative for redness and visual disturbance. Respiratory: Negative for apnea, cough and shortness of breath. Cardiovascular: Negative for chest pain, palpitations and leg swelling. Genitourinary: Negative for hematuria. Neurological: Negative for dizziness, weakness, light-headedness, numbness and headaches. Hematological: Does not bruise/bleed easily. Psychiatric/Behavioral: The patient is not nervous/anxious. PAST MEDICAL HISTORY Diagnosis Date Abdominal pain Acute bronchitis due to other specified organisms Acute otitis media Acute upper respiratory infection Allergic rhinitis due to pollen Anemia Blood in urine Body mass index (BMI) 25.0-25.9, adult Cervical disc disorder with myelopathy, high cervical region Cervical radiculitis Cervical spondylosis Cervicalgia Chest pain Constipation Disorder of bursae of shoulder region Disorders of smell Dysuria Essential (primary) hypertension Generalized anxiety disorder Herpes simplex Major depressive disorder, recurrent episode, moderate (HCC) Malaise and fatigue Mild intermittent asthma with acute exacerbation Mixed hyperlipidemia Neck sprain Other fatigue Other insomnia Polyneuropathy, unspecified Primary generalized (osteo)arthritis Psychogenic headache Renal impairment Trigeminal neuralgia Urinary tract infection, site not specified Vertigo Vitamin D deficiency PAST SURGICAL HISTORY Procedure Laterality Date CARPAL TUNNEL SECTION HX x 3 COLONOSCOPY 02/09/2012 loose anal sphincter, unremarkable random biopsies COLONOSCOPY SCREENING 04/03/2021 CYSTOSCOPY 11/16/2016 HYSTERECTOMY HX FAMILY HISTORY Problem Relation Age of Onset Heart disease Mother Diabetes Mother Colon Cancer Maternal Aunt Social History Tobacco Use Smoking status: Former Smokeless tobacco: Never Tobacco comments: smoked for 9 months as a teenager Vaping Use Vaping Use: Never used Substance Use Topics Alcohol use: Never Drug use: Never Current Outpatient Medications Medication Sig linaclotide (LINZESS) 145 mcg capsule Take 1 capsule by mouth once daily. gabapentin (NEURONTIN) 800 mg tablet TAKE 1 TABLET BY MOUTH THREE TIMES A DAY nitrofurantoin macrocrystal (MACRODANTIN) 100 mg capsule 100 mg by ORAL/FEEDING TUBE route four times daily. ascorbic acid, vitamin C, (VITAMIN C) 500 mg tablet Take 500 mg by mouth once daily. ferrous sulfate (FEOSOL) 325 mg (65 mg iron) tablet Take 1 tablet by mouth once daily. gabapentin (NEURONTIN) 100 mg capsule TAKE 1 CAPSULE BY MOUTH THREE TIMES DAILY FOR 90 DAYS. SYMBICORT 160-4.5 mcg/actuation inhaler INHALE 2 PUFFS INSTRUCTED TWICE DAILY. magnesium oxide (MAG-OX) 400 mg (241.3 mg magnesium) tablet Take 1 tablet by mouth once daily. verapamil SR (CALAN SR, ISOPTIN SR) 240 mg CR tablet TAKE 1 TABLET BY MOUTH EVERYDAY AT BEDTIME omeprazole (PRILOSEC) 40 mg capsule Take 1 capsule by mouth once daily. azelastine (ASTELIN) 0.1% nasal spray Use 1 [facility] in each nostril twice daily. Lactobac no.41/Bifidobact no.7 (PROBIOTIC-10 ORAL) Take by mouth. ferrous sulfate (FEOSOL) 325 mg (65 mg iron) tablet Take 1 tablet by mouth once daily. magnesium oxide (MAG-OX) 400 mg (241.3 mg magnesium) tablet TAKE 1 TABLET BY MOUTH ONCE A DAY cefpodoxime (VANTIN) 200 mg tablet Take 200 mg by mouth twice daily. (Patient not taking: Reported on 10/20/2022) albuterol HFA (PROVENTIL HFA, VENTOLIN HFA) 90 mcg/actuation inhaler TAKE 2 APPLICATION (INHALATION) EVERY 4-6 HOURS FOR 7 DAYS predniSONE (DELTASONE) 10 mg tablet Take 3 tablets by mouth for 3 days, then take 2 tablets by mouth for 3 days, then take 1 tablet by mouth for 3 days. (Patient not taking: Reported on 10/20/2022) trimethoprim (PROLOPRIM) 100 mg tablet Take 100 mg by mouth daily at bedtime. (Patient not taking: Reported on 10/02/2022) predniSONE (DELTASONE) 10 mg tablet Take 3 tablets by mouth for 3 days, then take 2 tablets by mouth for 3 days, then take 1 tablet by mouth for 3 days. (Patient not taking: No sig reported) ipratropium-albuterol (DUONEB) 0.5 mg-3 mg(2.5 mg base)/3 mL nebu Inhale 3 mL as instructed every 4 hours while awake. benzonatate (TESSALON PERLES) 100 mg capsule Take 2 capsules by mouth three times daily as needed for cough. (Patient not taking: No sig reported) YUVAFEM 10 mcg vaginal tablet INSERT 1 TABLET VAGINALLY 3 TIMES WEEKLY (Patient not taking: No sig reported) Ascorbate Calcium 500 mg tab Take by mouth. (Patient not taking: No sig reported) cephALEXin (KEFLEX) 250 mg capsule 250 mg. prn (Patient not taking: Reported on 10/02/2022) ipratropium-albuterol (DUONEB) 0.5 mg-3 mg(2.5 mg base)/3 mL nebu Inhale 3 mL as instructed every 4 hours as needed (tightness in chest, coughing, wheezing, shortness of breath). (Patient not taking: No sig reported) Albuterol Sulfate 1.25 mg/3 mL nebulizer solution albuterol sulfate 1.25 mg/3 mL solution for nebulization INHALE 3 ML EVERY 4 HOURS BY INHALATION ROUTE NEEDED FOR 30 DAYS. phenazopyridine (PYRIDIUM) 200 mg tablet Take 1 tablet by mouth three times daily as needed for Pain. (Patient not taking: No sig reported) No current facility-administered medications for this visit. I have confirmed and edited as necessary the past medical, family and social histories, HPI, and ROS obtained by others. Objective BP 120/70 Pulse 89 Ht 5' 3 (1.60m) Wt 127 lb (57.6kg) SpO2 94% BMI 22.50 kg/(m^2). Physical Exam Vitals and nursing note reviewed. Constitutional: General: She is not in acute distress. Appearance: Normal appearance. She is well-developed. She is not ill-appearing. HENT: Head: Normocephalic. Right Ear: Tympanic membrane, ear canal and external ear normal. There is no impacted cerumen. Left Ear: Tympanic membrane, ear canal and external ear normal. There is no impacted cerumen. Nose: Nose normal. Mouth/Throat: Mouth: Mucous membranes are moist. Pharynx: Oropharynx is clear. Uvula midline. No oropharyngeal exudate or posterior oropharyngeal erythema. Eyes: General: Lids are normal. Vision grossly intact. Gaze aligned appropriately. No scleral icterus. Right eye: No discharge. Left eye: No discharge. Extraocular Movements: Extraocular movements intact. Conjunctiva/sclera: Conjunctivae normal. Pupils: Pupils are equal, round, and reactive to light. Neck: Thyroid: No thyroid mass, thyromegaly or thyroid tenderness. Vascular: No carotid bruit. Trachea: Trachea and phonation normal. Cardiovascular: Rate and Rhythm: Normal rate and regular rhythm. Pulses: Normal pulses. Heart sounds: Normal heart sounds. Pulmonary: Effort: Pulmonary effort is normal. Breath sounds: Normal breath sounds. Abdominal: General: Abdomen is flat. Bowel sounds are normal. Palpations: Abdomen is soft. Musculoskeletal: General: Normal range of motion. Right shoulder: Normal. Left shoulder: Normal. Cervical back: Normal, full passive range of motion without pain and neck supple. No tenderness. No spinous process tenderness. Thoracic back: Normal. Lumbar back: Normal. Right knee: Normal. Left knee: Normal. Right lower leg: No edema. Left lower leg: No edema. Lymphadenopathy: Cervical: No cervical adenopathy. Skin: General: Skin is warm and dry. Neurological: General: No focal deficit present. Mental Status: She is alert and oriented to person, place, and time. Mental status is at baseline. Sensory: Sensation is intact. Motor: Motor function is intact. Psychiatric: Attention and Perception: Attention and perception normal. Mood and Affect: Mood normal. Speech: Speech normal. Behavior: Behavior normal. Thought Content: Thought content normal. Judgment: Judgment normal. Data Reviewed: No new labs ASSESSMENT/PLAN: 1. Phlebitis - ICD9: 451.9, ICD10: I80.9 (primary diagnosis) - Advised to elevate legs - Wear compression stockings. - Apply warm compresses to left lower leg - Take antiinflammatories as needed - COMPRESSION STOCKINGS 2. Left leg pain - ICD9: 729.5, ICD10: M79.605 - Concern for DVT - Obtain US STAT - US DVT LOWER LEFT 3. Left leg swelling - ICD9: 729.81, ICD10: M79.89 - Concern for DVT - Obtain US STAT - US DVT LOWER LEFT Maria Esther Rodriguez DO Return if symptoms worsen or fail to improve. Attestation: Scribe Statement: Nima Winston am scribing for, and in the presence of, Maria Esther Rodriguez DO January 14, 2023 3:21 PM. Physician Statement: I, Maria Esther Rodriguez DO, personally performed the services described in the documentation, as scribed by Kathia Winston in my presence, and it is both accurate and complete January 14, 2023 3:28 PM. documented in this encounter [facility] 01-14-2023 Miscellaneous Notes Spoke with nurse and I was advised that pt needed a same day appt. Call pt and scheduled same day. Ramona Metcalf ----- Message from Yaima Rasmussen sent at 01/14/2023 12:38 PM EDT ----- Regarding: Medicine/Michael/Swollen Left Leg Subject Line Format: Medicine / [Provider Name] / [Issue] Patient has been identified by name and Date of (Y/N): Y Patient: Denny Owens Date of : 1960 Provider for this encounter: Maria Esther Rodriguez DO Reason for the call/escalation: Pt has swelling, pain, a lump and itchy left leg. 4cq schedules for same day. 1st available is 01/18/23 at 3:45. Pt currently scheduled at that time. Please call pt. Agent advised possible ER, but doesn't want to go. Was Patient Referred to [facility]/Seek Emergency Treatment (Y/N): Y Did Patient Agree (Y/N): N Was An Attempt Made To Transfer The Patient To The Office (Y/N): pt Were You Able To Reach Someone At The Office (Y/N): pt If Yes - Patient Was Transferred To (Caregivers Name): pt If No - Which [facility] Leadership Chassis Engineer Did You Speak With Regarding This Patient: pt Was an appointment scheduled (Y/N): Y 01/18/23 3:45 Reason patient was requesting visit (RFV/signs and symptoms/diagnosis) : see above Person calling if other than patient: pt Return call to if other than patient: pt Best contact number: [phone] Thank you, Yaima Rasmussen January 14, 2023 12:38 PM documented in this encounter [facility] 01-11-2023 Miscellaneous Notes Pt notified Toma Zheng Ma Addended by: ENID SULTANA on: 01/11/2023 01:34 PM Modules accepted: Orders Linzess 145 mcg daily sent to pharmacy. She can take two 72 mcg while waiting for medications. Pt states the Linzess 72mcg is not helping. Asking to increase the dose. Toma Zheng Ma documented in this encounter [facility] 12-08-2022 Note HNO ID: [id number] Author: Enid Sultana PA-C Service: ? Author Type: Physician Database Security Administrator Type: Progress Notes Filed: 12/08/2022 2:24 PM Note Text: CHIEF COMPLAINT: Patient presents with: Elevated liver enzymes: Labs 10/13/22 CT 10/11/22 This consult was requested by Maria Esther Rodriguez* for an opinion regarding elevated LFTs. My final recommendations will be communicated to the requesting health care provider by way of the shared medical record for internal providers or letter via the [employer] for external providers. HPI: Denny Owens is a 62 year old female who presents for Elevated liver enzymes (Labs 10/13/22 CT 10/11/22). PMHx of neuropathy, HTN, HLD, asthma, DVT, arthritis, EMANUEL Patient tells me that she is dealing with constipation, can go up to three weeks without a good bowel movement. Always feels like she has to go. Will take a laxative as needed. Will get severe bloating. Unsure if symptoms improves with a bowel movement. Was doing well on Linzess but was too expensive. Stools are dark. No red blood. CT abd/pelvis 10/11/2022: Impression 1. No definite acute abdominopelvic process identified. 2. Stable simple appearing hepatic cysts. 3. Status post cholecystectomy. 4. Renal and splenic aneurysms better delineated on prior contrasted examinations. Component Latest Ref Rng AND Units 10/20/2022 WBC 3.70 - 11.00 k/uL 7.57 RBC 3.90 - 5.20 m/uL 4.37 Hemoglobin 11.5 - 15.5 g/dL 12.6 Hematocrit 36.0 - 46.0 % 40.7 MCV 80.0 - 100.0 fL 93.1 MCH 26.0 - 34.0 pg 28.8 MCHC 30.5 - 36.0 g/dL 31.0 RDW-CV 11.5 - 15.0 % 14.2 Platelet Count 150 - 400 k/uL 365 MPV 9.0 - 12.7 fL 10.9 Neut% % 53.5 Abs Neut (ANC) 1.45 - 7.50 k/uL 4.04 Lymph% % 29.3 Abs Lymph 1.00 - 4.00 k/uL 2.22 Pennington% % 9.6 Abs Pennington <0.87 k/uL 0.73 Eosin% % 5.8 Abs Eosin <0.46 k/uL 0.44 Baso% % 1.3 Abs Baso <0.11 k/uL 0.10 Immature Gran % % 0.5 IMMATURE GRANS (ABS) <0.10 k/uL 0.04 NRBC /100 WBC 0.0 Absolute nRBC <0.01 k/uL <0.01 DTYPE Auto Protein, Total 6.3 - 8.0 g/dL 7.3 Albumin 3.9 - 4.9 g/dL 4.5 Calcium 8.5 - 10.2 mg/dL 9.9 Bilirubin, Total 0.2 - 1.3 mg/dL 0.3 Alkaline Phosphatase 34 - 123 U/L 123 AST 13 - 35 U/L 33 ALT 7 - 38 U/L 65 (H) Glucose 74 - 99 mg/dL 79 BUN 7 - 21 mg/dL 11 Creatinine 0.58 - 0.96 mg/dL 0.66 Sodium 136 - 144 mmol/L 137 Potassium 3.7 - 5.1 mmol/L 4.6 Chloride 97 - 105 mmol/L 101 CO2 22 - 30 mmol/L 25 Anion Gap 9 - 18 mmol/L 11 eGFR >=60 mL/min/1.73mA? 99 Iron 41 - 186 ug/dL 56 TIBC 232 - 386 ug/dL 414 (H) Transferrin Saturation 15.0 - 57.0 % 13.5 (L) Retic % 0.4 - 2.0 % 1.9 Abs Retic 0.018 - 0.100 M/uL 0.084 Ferritin 14.7 - 205.1 ng/mL 39.9 Folate >4.7 ng/mL 12.5 Vitamin B12 232 - 1,245 pg/mL 440 Record Review: [facility] / Outside records reviewed. PAST MEDICAL HISTORY Diagnosis Date Abdominal pain Acute bronchitis due to other specified organisms Acute otitis media Acute upper respiratory infection Allergic rhinitis due to pollen Anemia Blood in urine Body mass index (BMI) 25.0-25.9, adult Cervical disc disorder with myelopathy, high cervical region Cervical radiculitis Cervical spondylosis Cervicalgia Chest pain Constipation Disorder of bursae of shoulder region Disorders of smell Dysuria Essential (primary) hypertension Generalized anxiety disorder Herpes simplex Major depressive disorder, recurrent episode, moderate (HCC) Malaise and fatigue Mild intermittent asthma with acute exacerbation Mixed hyperlipidemia Neck sprain Other fatigue Other insomnia Polyneuropathy, unspecified Primary generalized (osteo)arthritis Psychogenic headache Renal impairment Trigeminal neuralgia Urinary tract infection, site not specified Vertigo Vitamin D deficiency PAST SURGICAL HISTORY Procedure Laterality Date CARPAL TUNNEL SECTION HX x 3 COLONOSCOPY 02/09/2012 loose anal sphincter, unremarkable random biopsies COLONOSCOPY SCREENING 04/03/2021 CYSTOSCOPY 11/16/2016 HYSTERECTOMY HX Allergies: ALLERGIES Allergen Reactions Methenamine Unknown, Hives Other reaction(s): Unknown Methenamine Hippura* Hives Medications: gabapentin (NEURONTIN) 800 mg tablet TAKE 1 TABLET BY MOUTH THREE TIMES A DAY nitrofurantoin macrocrystal (MACRODANTIN) 100 mg capsule 100 mg by ORAL/FEEDING TUBE route four times daily. ascorbic acid, vitamin C, (VITAMIN C) 500 mg tablet Take 500 mg by mouth once daily. Lactobac no.41/Bifidobact no.7 (PROBIOTIC-10 ORAL) Take by mouth. ferrous sulfate (FEOSOL) 325 mg (65 mg iron) tablet Take 1 tablet by mouth once daily. gabapentin (NEURONTIN) 100 mg capsule TAKE 1 CAPSULE BY MOUTH THREE TIMES DAILY FOR 90 DAYS. magnesium oxide (MAG-OX) 400 mg (241.3 mg magnesium) tablet TAKE 1 TABLET BY MOUTH ONCE A DAY ipratropium-albuterol (DUONEB) 0.5 mg-3 mg(2.5 mg base)/3 mL nebu Inhale 3 mL as instructed every 4 hours while awake. (more content not included)... [facility] 10-28-2022 Miscellaneous Notes Patient called in and left a voicemail stating she was admitted to the hospital on 10/11/22 and her insurance is denying 2 days of her stay. The patient states she was in the office and spoke with Dr. Rodriguez and he advised she appeal it. States she did appeal it and insurance denied it. Patient states they told her Dr. Rodriguez needs to call . documented in this encounter [facility] 10-26-2022 Miscellaneous Notes Pharmacy faxed requesting the following refill Refill(s) Requested: Requested Prescriptions Pending Prescriptions Disp Refills gabapentin (NEURONTIN) 100 mg capsule [Pharmacy Med Name: GABAPENTIN 100 MG CAPSULE] 90 capsule 3 Sig: TAKE 1 CAPSULE BY MOUTH THREE TIMES DAILY FOR 90 DAYS. ALLERGIES Allergen Reactions Methenamine Unknown, Hives Other reaction(s): Unknown Methenamine Hippura* Hives (home) [phone] (cell) Last Office Visit Date: 10/20/2022 Last [facility] Visit: 12/17/2021 Future Appointment: 10/24/2022 The patients preferred pharmacy has been captured for this encounter? yes Request is for script(s) to be escript to pharmacy. Nura Baker LPN documented in this encounter [facility] 10-26-2022 Miscellaneous Notes Pharmacy faxed requesting the following refill Refill(s) Requested: Requested Prescriptions Pending Prescriptions Disp Refills magnesium oxide (MAG-OX) 400 mg (241.3 mg magnesium) tablet [Pharmacy Med Name: MAGNESIUM OXIDE 400 MG TABLET] 90 tablet 11 Sig: TAKE 1 TABLET BY MOUTH ONCE A DAY ALLERGIES Allergen Reactions Methenamine Unknown, Hives Other reaction(s): Unknown Methenamine Hippura* Hives (home) [phone] (cell) Last Office Visit Date: 10/20/2022 Last [facility] [place] [facility] Visit: 12/17/2021 Future Appointment: Visit date not found The patients preferred pharmacy has been captured for this encounter? yes Request is for script(s) to be escript to pharmacy. Nura Baker LPN documented in this encounter [facility] 10-24-2022 Note HNO ID: [id number] Author: Iwona Bolivar MD Service: ? Author Type: Physician Type: Progress Notes Filed: 10/24/2022 2:14 PM Note Text: Virtualist Progress Note Triage Call Triage source: Triage Call (Nurse [employer], [facility] Triage, [facility] Phone Triage) Was patient downgraded (i.e. disposition other than go to the ED was advised)? Yes Mode of contact (phone call, [employer], [employer], [employer], [employer], other): PHONE History/Physical Exam: 61 yo F CC needs a refill of her med HPI has asthma has wheezing ED visit 10/01 for pyelonephritis, sent home on readmitted 10/11 for sepsis, released on has asthma using a nebulizer atrovent no new SOB SOB with activity, has had this has pulse oximeter sat 94% pulse 90 during call no UTI symptoms not on antibiotic wheezing since Wednesday ran out of symbicort bid plan pulse and pulse ox are good, speaking in full sentences, no new symptoms refill of med called in by PCP on 10/23, f/u Wednesday with PCP [facility] med refill, asthma, wheezing, (from old records), postcovid chronic cough, HTn, EMANUEL, DVT, UTI, etc. Nurse Triage Disposition (If call is from Home Care, Home Care nurse triage, or an Express Care, the disposition is Go to ED Now ): See provider within 4 hours Virtualist Recommended Disposition: See Provider within 2 days Signed in as Primary Virtualist, Secondary Virtualist, or [facility] Telehealth provider: Secondary SIGNATURE: Iwona Bolivar MD PATIENT NAME: Denny Owens DATE: October 24, 2022 [facility] 10-24-2022 Miscellaneous Notes Allergies reviewed: Yes ALLERGIES Allergen Reactions Methenamine Unknown, Hives Other reaction(s): Unknown Methenamine Hippura* Hives SYMBICORT 160-4.5 mcg/actuation inhaler 30.6 Each 6 10/23/2022 Sig: INHALE 2 PUFFS INSTRUCTED TWICE DAILY. The prescription(s) were phoned to and read back by Pharmacist Zoie at [facility] Pharmacy; by Dorota Matson LPN. Patient/Family notified: Yes Dorota Matson LPN Patient calling with medication/refill: Patient/caregiver requesting refill of Symbicort inhaler be called to [facility] pharmacy at [phone].. Patient denies any new or worsening symptoms of which a provider is not aware:Yes . Order was sent to pharmacy on 10/23 but when pt called pharmacy they stated they do not have it. Dorota Matson LPN documented in this encounter [facility] 10-24-2022 Note Patient Outreach ([place] RIAG) DENNY OWENS ([id number]) 1960 F Date Time Provider Department 10/24/22 IWONA BOLIVARRIAG During your visit today, we recorded the following information about you: Iwona Bolivar MD 10/24/2022 2:14 PM Signed Virtualist Progress Note Triage Call Triage source: Triage Call (Nurse Soft Water Mechanic, [facility] Triage, [facility] Phone Triage) Was patient downgraded (i.e. disposition other than go to the ED was advised)? Yes Mode of contact (phone call, [employer], [employer], [employer], [employer], other): PHONE History/Physical Exam: 61 yo F CC needs a refill of her med HPI has asthma has wheezing ED visit 10/01 for pyelonephritis, sent home on readmitted 10/11 for sepsis, released on has asthma using a nebulizer atrovent no new SOB SOB with activity, has had this has pulse oximeter sat 94% pulse 90 during call no UTI symptoms not on antibiotic wheezing since Wednesday ran out of symbicort bid plan pulse and pulse ox are good, speaking in full sentences, no new symptoms refill of med called in by PCP on 10/23, f/u Wednesday with PCP [facility] med refill, asthma, wheezing, (from old records), postcovid chronic cough, HTn, EMANUEL, DVT, UTI, etc. Nurse Triage Disposition (If call is from Home Care, Home Care nurse triage, or an Express Care, the disposition is Go to ED Now ): See provider within 4 hours Virtualist Recommended Disposition: See Provider within 2 days Signed in as Primary Virtualist, Secondary Virtualist, or [facility] Telehealth provider: Secondary SIGNATURE: Iwona Bolivar MD PATIENT NAME: Denny Owens DATE: October 24, 2022 Allergies As of Date: 10/24/2022 Noted Allergy Reaction METHENAMINE 07/03/2020 16 - Unknown 4 - Hives Comments: Other reaction(s): Unknown METHENAMINE HIPPURATE 07/03/2020 4 - Hives Date Reviewed: 10/02/2022 Reviewed by: Kenisha Ross LPN - Fully Assessed Reason for Visit: Virtualist [[id number]] Prescriptions as of 10/24/2022 - SYMBICORT 160-4.5 mcg/actuation inhaler INHALE 2 PUFFS INSTRUCTED TWICE DAILY. - cefpodoxime (VANTIN) 200 mg tablet Take 200 mg by mouth twice daily. - albuterol HFA (PROVENTIL HFA, VENTOLIN HFA) 90 mcg/actuation inhaler TAKE 2 APPLICATION (INHALATION) EVERY 4-6 HOURS FOR 7 DAYS - predniSONE (DELTASONE) 10 mg tablet Take 3 tablets by mouth for 3 days, then take 2 tablets by mouth for 3 days, then take 1 tablet by mouth for 3 days. - magnesium oxide (MAG-OX) 400 mg (241.3 mg magnesium) tablet Take 1 tablet by mouth once daily. - trimethoprim (PROLOPRIM) 100 mg tablet Take 100 mg by mouth daily at bedtime. - gabapentin (NEURONTIN) 100 mg capsule TAKE 1 CAPSULE BY MOUTH THREE TIMES DAILY FOR 90 DAYS. - linaCLOtide (LINZESS) 72 mcg capsule TAKE 1 CAPSULE BY MOUTH EVERY OTHER DAY TAKE ON EMPTY STOMACH SWALLOW WHOLE DO NOT CRUSH OR CHEW - predniSONE (DELTASONE) 10 mg tablet Take 3 tablets by mouth for 3 days, then take 2 tablets by mouth for 3 days, then take 1 tablet by mouth for 3 days. - ipratropium-albuterol (DUONEB) 0.5 mg-3 mg(2.5 mg base)/3 mL nebu Inhale 3 mL as instructed every 4 hours while awake. - benzonatate (TESSALON PERLES) 100 mg capsule Take 2 capsules by mouth three times daily as needed for cough. - verapamil SR (CALAN SR, ISOPTIN SR) 240 mg CR tablet TAKE 1 TABLET BY MOUTH EVERYDAY AT BEDTIME - YUVAFEM 10 mcg vaginal tablet INSERT 1 TABLET VAGINALLY 3 TIMES WEEKLY - omeprazole (PRILOSEC) 40 mg capsule Take 1 capsule by mouth once daily. - gabapentin (NEURONTIN) 800 mg tablet TAKE 1 TABLET BY MOUTH THREE TIMES DAILY - Ascorbate Calcium 500 mg tab Take by mouth. - magnesium oxide 400 mg magnesium cap Take 1 capsule by mouth once daily. - azelastine (ASTELIN) 0.1% nasal spray Use 1 [facility] in each nostril twice daily. - cephALEXin (KEFLEX) 250 mg capsule 250 mg. prn - ipratropium-albuterol (DUONEB) 0.5 mg-3 mg(2.5 mg base)/3 mL nebu Inhale 3 mL as instructed every 4 hours as needed (tightness in chest, coughing, wheezing, shortness of breath). - Albuterol Sulfate 1.25 mg/3 mL nebulizer solution albuterol sulfate 1.25 mg/3 mL solution for nebulization INHALE 3 ML EVERY 4 HOURS BY INHALATION ROUTE NEEDED FOR 30 DAYS. - phenazopyridine (PYRIDIUM) 200 mg tablet Take 1 tablet by mouth three times daily as needed for Pain. Problem List As Of Date 10/24/2022 Noted Resolved Essential (primary) hypertension [I10] Mild intermittent asthma with acute exacerbatio* Moderate persistent asthma, uncomplicated [J45.*07/03/2020 Leg cramps [R25.2] 07/03/2020 Encounter for immunization [Z23] 07/03/2020 History of COVID-19 [Z86.16] 10/22/2020 Neuropathy [G62.9] 11/28/2020 Globus hystericus [R09.89] 11/28/2020 EMANUEL (generalized anxiety disorder) [F41.1] 11/28/2020 Allergic rhinitis due to pollen [J30.1] Abrasion, leg w/o infection [S80.819A] (more content not included)... [facility] 10-24-2022 History of Present illness Narrative Virtualist Progress Note Triage Call Triage source: Triage Call (Nurse Soft Water Mechanic, [facility] Triage, [facility] Phone Triage) Was patient downgraded (i.e. disposition other than go to the ED was advised)? Yes Mode of contact (phone call, [employer], [employer], [employer], [employer], other): PHONE History/Physical Exam: 61 yo F CC needs a refill of her med HPI has asthma has wheezing ED visit 10/01 for pyelonephritis, sent home on [place] readmitted 10/11 for sepsis, released on has asthma using a nebulizer atrovent no new SOB SOB with activity, has had this has pulse oximeter sat 94% pulse 90 during call no UTI symptoms not on antibiotic wheezing since Wednesday ran out of symbicort bid plan pulse and pulse ox are good, speaking in full sentences, no new symptoms refill of med called in by PCP on 10/23, f/u Wednesday with PCP [facility] med refill, asthma, wheezing, (from old records), postcovid chronic cough, HTn, EMANUEL, DVT, UTI, etc. Nurse Triage Disposition (If call is from Home Care, Home Care nurse triage, or an Express Care, the disposition is Go to ED Now ): See provider within 4 hours Virtualist Recommended Disposition: See Provider within 2 days Signed in as Primary Virtualist, Secondary Virtualist, or [facility] Telehealth provider: Secondary SIGNATURE: Iwona Bolivar MD PATIENT NAME: Denny Owens DATE: October 24, 2022 documented in this encounter [facility] 10-23-2022 Miscellaneous Notes Pharmacy faxed requesting the following refill Refill(s) Requested: Requested Prescriptions Pending Prescriptions Disp Refills SYMBICORT 160-4.5 mcg/actuation inhaler [Pharmacy Med Name: SYMBICORT 160-4.5 MCG INHALER] 30.6 Each 6 Sig: INHALE 2 PUFFS INSTRUCTED TWICE DAILY. ALLERGIES Allergen Reactions Methenamine Unknown, Hives Other reaction(s): Unknown Methenamine Hippura* Hives (home) [phone] (cell) Last Office Visit Date: 10/20/2022 Last [facility] [place] [facility] Visit: 12/17/2021 Future Appointment: Visit date not found The patients preferred pharmacy has been captured for this encounter? yes Request is for script(s) to be escript to pharmacy. Pallavi Velasquez LPN documented in this encounter [facility] 10-22-2022 Miscellaneous Notes Patient notified that [place] paperwork was completed and scanned into chart and will be at front end developer for pickup. documented in this encounter [facility] 10-22-2022 Miscellaneous Notes I cant go back and forth need to know brian méndez Symbicort will cost the pt $750. Pt requesting something different. Please send to [facility] in [place] Ramona Metcalf documented in this encounter [facility] 10-20-2022 Note HNO ID: [id number] Author: Maria Esther Rodriguez DO Service: ? Author Type: Physician Type: Progress Notes Filed: 10/29/2022 7:00 AM Note Text: [facility] Lucien [place] Michael, DO [address] [place] [address] Date of Evaluation: 10/20/2022 Patient Name: Denny Owens : 1960 Chief Complaint: Patient presents with: ER F/U Nursing Intake: There are no exam notes on file for this visit. Subjective Ms. Owens is a 61 year old female who presents with the following complaint(s): The history is provided by the patient. Abdominal Pain This is a recurrent problem. The problem occurs daily. The pain is located in the generalized abdominal region. Pertinent negatives include hematuria and headaches. Review of Systems Constitutional: Negative for fatigue and unexpected weight change. HENT: Negative for nosebleeds. Eyes: Negative for redness and visual disturbance. Respiratory: Negative for apnea, cough and shortness of breath. Cardiovascular: Negative for chest pain, palpitations and leg swelling. Gastrointestinal: Positive for abdominal pain. Genitourinary: Negative for hematuria. Neurological: Negative for dizziness, weakness, light-headedness, numbness and headaches. Hematological: Does not bruise/bleed easily. Psychiatric/Behavioral: The patient is not nervous/anxious. PAST MEDICAL HISTORY Diagnosis Date Abdominal pain Acute bronchitis due to other specified organisms Acute otitis media Acute upper respiratory infection Allergic rhinitis due to pollen Anemia Blood in urine Body mass index (BMI) 25.0-25.9, adult Cervical disc disorder with myelopathy, high cervical region Cervical radiculitis Cervical spondylosis Cervicalgia Chest pain Constipation Disorder of bursae of shoulder region Disorders of smell Dysuria Essential (primary) hypertension Generalized anxiety disorder Herpes simplex Major depressive disorder, recurrent episode, moderate (HCC) Malaise and fatigue Mild intermittent asthma with acute exacerbation Mixed hyperlipidemia Neck sprain Other fatigue Other insomnia Polyneuropathy, unspecified Primary generalized (osteo)arthritis Psychogenic headache Renal impairment Trigeminal neuralgia Urinary tract infection, site not specified Vertigo Vitamin D deficiency PAST SURGICAL HISTORY Procedure Laterality Date CARPAL TUNNEL SECTION HX x 3 COLONOSCOPY 02/09/2012 CYSTOSCOPY 11/16/2016 HYSTERECTOMY HX FAMILY HISTORY Problem Relation Age of Onset Heart disease Mother Diabetes Mother Social History Tobacco Use Smoking status: Former Smokeless tobacco: Never Tobacco comments: smoked for 9 months as a teenager Vaping Use Vaping Use: Never used Substance Use Topics Alcohol use: Never Drug use: Never Current Outpatient Medications Medication Sig Dispense Refill albuterol HFA (PROVENTIL HFA, VENTOLIN HFA) 90 mcg/actuation inhaler TAKE 2 APPLICATION (INHALATION) EVERY 4-6 HOURS FOR 7 DAYS gabapentin (NEURONTIN) 100 mg capsule TAKE 1 CAPSULE BY MOUTH THREE TIMES DAILY FOR 90 DAYS. 90 capsule 3 verapamil SR (CALAN SR, ISOPTIN SR) 240 mg CR tablet TAKE 1 TABLET BY MOUTH EVERYDAY AT BEDTIME 90 tablet 3 omeprazole (PRILOSEC) 40 mg capsule Take 1 capsule by mouth once daily. 90 capsule 3 gabapentin (NEURONTIN) 800 mg tablet TAKE 1 TABLET BY MOUTH THREE TIMES DAILY 90 tablet 5 magnesium oxide 400 mg magnesium cap Take 1 capsule by mouth once daily. 90 capsule 11 cefpodoxime (VANTIN) 200 mg tablet Take 200 mg by mouth twice daily. (Patient not taking: Reported on 10/20/2022) predniSONE (DELTASONE) 10 mg tablet Take 3 tablets by mouth for 3 days, then take 2 tablets by mouth for 3 days, then take 1 tablet by mouth for 3 days. (Patient not taking: Reported on 10/20/2022) 18 tablet 0 magnesium oxide (MAG-OX) 400 mg (241.3 mg magnesium) tablet Take 1 tablet by mouth once daily. (Patient not taking: No sig reported) trimethoprim (PROLOPRIM) 100 mg tablet Take 100 mg by mouth daily at bedtime. (Patient not taking: Reported on 10/02/2022) linaCLOtide (LINZESS) 72 mcg capsule TAKE 1 CAPSULE BY MOUTH EVERY OTHER DAY TAKE ON EMPTY STOMACH SWALLOW WHOLE DO NOT CRUSH OR CHEW (Patient not taking: Reported on 10/20/2022) 30 capsule 1 budesonide-formoterol (SYMBICORT) 160-4.5 mcg/actuation inhaler Inhale 2 Puffs as instructed twice daily. 30.6 Each 6 predniSONE (DELTASONE) 10 mg tablet Take 3 tablets by mouth for 3 days, then take 2 tablets by mouth for 3 days, then take 1 tablet by mouth for 3 days. (Patient not taking: No sig reported) 18 tablet 1 ipratropium-albuterol (DUONEB) 0.5 mg-3 mg(2.5 mg base)/3 mL nebu Inhale 3 mL as instructed every 4 hours while awake. 360 mL 4 benzonatate (TESSALON PERLES) 100 mg capsule Take 2 capsules by mouth three times daily as ne (more content not included)... [facility] 10-20-2022 History of Present illness Narrative Images from the original note were not included. [facility] Stuart Rodriguez DO [address] [place] [address] Date of Evaluation: 10/20/2022 Patient Name: Denny Owens : 1960 Chief Complaint: Patient presents with: ER F/U Nursing Intake: There are no exam notes on file for this visit. Subjective Ms. Owens is a 61 year old female who presents with the following complaint(s): The history is provided by the patient. Abdominal Pain This is a recurrent problem. The problem occurs daily. The pain is located in the generalized abdominal region. Pertinent negatives include hematuria and headaches. Review of Systems Constitutional: Negative for fatigue and unexpected weight change. HENT: Negative for nosebleeds. Eyes: Negative for redness and visual disturbance. Respiratory: Negative for apnea, cough and shortness of breath. Cardiovascular: Negative for chest pain, palpitations and leg swelling. Gastrointestinal: Positive for abdominal pain. Genitourinary: Negative for hematuria. Neurological: Negative for dizziness, weakness, light-headedness, numbness and headaches. Hematological: Does not bruise/bleed easily. Psychiatric/Behavioral: The patient is not nervous/anxious. PAST MEDICAL HISTORY Diagnosis Date Abdominal pain Acute bronchitis due to other specified organisms Acute otitis media Acute upper respiratory infection Allergic rhinitis due to pollen Anemia Blood in urine Body mass index (BMI) 25.0-25.9, adult Cervical disc disorder with myelopathy, high cervical region Cervical radiculitis Cervical spondylosis Cervicalgia Chest pain Constipation Disorder of bursae of shoulder region Disorders of smell Dysuria Essential (primary) hypertension Generalized anxiety disorder Herpes simplex Major depressive disorder, recurrent episode, moderate (HCC) Malaise and fatigue Mild intermittent asthma with acute exacerbation Mixed hyperlipidemia Neck sprain Other fatigue Other insomnia Polyneuropathy, unspecified Primary generalized (osteo)arthritis Psychogenic headache Renal impairment Trigeminal neuralgia Urinary tract infection, site not specified Vertigo Vitamin D deficiency PAST SURGICAL HISTORY Procedure Laterality Date CARPAL TUNNEL SECTION HX x 3 COLONOSCOPY 02/09/2012 CYSTOSCOPY 11/16/2016 HYSTERECTOMY HX FAMILY HISTORY Problem Relation Age of Onset Heart disease Mother Diabetes Mother Social History Tobacco Use Smoking status: Former Smokeless tobacco: Never Tobacco comments: smoked for 9 months as a teenager Vaping Use Vaping Use: Never used Substance Use Topics Alcohol use: Never Drug use: Never Current Outpatient Medications Medication Sig Dispense Refill albuterol HFA (PROVENTIL HFA, VENTOLIN HFA) 90 mcg/actuation inhaler TAKE 2 APPLICATION (INHALATION) EVERY 4-6 HOURS FOR 7 DAYS gabapentin (NEURONTIN) 100 mg capsule TAKE 1 CAPSULE BY MOUTH THREE TIMES DAILY FOR 90 DAYS. 90 capsule 3 verapamil SR (CALAN SR, ISOPTIN SR) 240 mg CR tablet TAKE 1 TABLET BY MOUTH EVERYDAY AT BEDTIME 90 tablet 3 omeprazole (PRILOSEC) 40 mg capsule Take 1 capsule by mouth once daily. 90 capsule 3 gabapentin (NEURONTIN) 800 mg tablet TAKE 1 TABLET BY MOUTH THREE TIMES DAILY 90 tablet 5 magnesium oxide 400 mg magnesium cap Take 1 capsule by mouth once daily. 90 capsule 11 cefpodoxime (VANTIN) 200 mg tablet Take 200 mg by mouth twice daily. (Patient not taking: Reported on 10/20/2022) predniSONE (DELTASONE) 10 mg tablet Take 3 tablets by mouth for 3 days, then take 2 tablets by mouth for 3 days, then take 1 tablet by mouth for 3 days. (Patient not taking: Reported on 10/20/2022) 18 tablet 0 magnesium oxide (MAG-OX) 400 mg (241.3 mg magnesium) tablet Take 1 tablet by mouth once daily. (Patient not taking: No sig reported) trimethoprim (PROLOPRIM) 100 mg tablet Take 100 mg by mouth daily at bedtime. (Patient not taking: Reported on 10/02/2022) linaCLOtide (LINZESS) 72 mcg capsule TAKE 1 CAPSULE BY MOUTH EVERY OTHER DAY TAKE ON EMPTY STOMACH SWALLOW WHOLE DO NOT CRUSH OR CHEW (Patient not taking: Reported on 10/20/2022) 30 capsule 1 budesonide-formoterol (SYMBICORT) 160-4.5 mcg/actuation inhaler Inhale 2 Puffs as instructed twice daily. 30.6 Each 6 predniSONE (DELTASONE) 10 mg tablet Take 3 tablets by mouth for 3 days, then take 2 tablets by mouth for 3 days, then take 1 tablet by mouth for 3 days. (Patient not taking: No sig reported) 18 tablet 1 ipratropium-albuterol (DUONEB) 0.5 mg-3 mg(2.5 mg base)/3 mL nebu Inhale 3 mL as instructed every 4 hours while awake. 360 mL 4 benzonatate (TESSALON PERLES) 100 mg capsule Take 2 capsules by mouth three times daily as needed for cough. (Patient not taking: No sig reported) 30 capsule 1 YUVAFEM 10 mcg vaginal tablet INSERT 1 TABLET VAGINALLY 3 TIMES WEEKLY (Patient not taking: No sig reported) Ascorbate Calcium 500 mg tab Take by mouth. (Patient not taking: No sig reported) azelastine (ASTELIN) 0.1% nasal spray Use 1 [facility] in each nostril twice daily. 30 mL 11 cephALEXin (KEFLEX) 250 mg capsule 250 mg. prn (Patient not taking: Reported on 10/02/2022) ipratropium-albuterol (DUONEB) 0.5 mg-3 mg(2.5 mg base)/3 mL nebu Inhale 3 mL as instructed every 4 hours as needed (tightness in chest, coughing, wheezing, shortness of breath). (Patient not taking: No sig reported) 120 Vial 3 Albuterol Sulfate 1.25 mg/3 mL nebulizer solution albuterol sulfate 1.25 mg/3 mL solution for nebulization INHALE 3 ML EVERY 4 HOURS BY INHALATION ROUTE NEEDED FOR 30 DAYS. phenazopyridine (PYRIDIUM) 200 mg tablet Take 1 tablet by mouth three times daily as needed for Pain. (Patient not taking: No sig reported) 30 tablet 0 No current facility-administered medications for this visit. I have confirmed and edited as necessary the past medical, family and social histories, HPI, and ROS obtained by others. Objective BP 102/70 Pulse 92 Ht 5' 3 (1.60m) Wt 128 lb (58.1kg) SpO2 97% BMI 22.68 kg/(m^2). Physical Exam Vitals and nursing note reviewed. Constitutional: General: She is not in acute distress. Appearance: Normal appearance. She is well-developed. She is not ill-appearing. HENT: Head: Normocephalic. Right Ear: Tympanic membrane, ear canal and external ear normal. There is no impacted cerumen. Left Ear: Tympanic membrane, ear canal and external ear normal. There is no impacted cerumen. Nose: Nose normal. Mouth/Throat: Mouth: Mucous membranes are moist. Pharynx: Oropharynx is clear. Uvula midline. No oropharyngeal exudate or posterior oropharyngeal erythema. Eyes: General: Lids are normal. Vision grossly intact. Gaze aligned appropriately. No scleral icterus. Right eye: No discharge. Left eye: No discharge. Extraocular Movements: Extraocular movements intact. Conjunctiva/sclera: Conjunctivae normal. Pupils: Pupils are equal, round, and reactive to light. Neck: Thyroid: No thyroid mass, thyromegaly or thyroid tenderness. Vascular: No carotid bruit. Trachea: Trachea and phonation normal. Cardiovascular: Rate and Rhythm: Normal rate and regular rhythm. Pulses: Normal pulses. Heart sounds: Normal heart sounds. Pulmonary: Effort: Pulmonary effort is normal. Breath sounds: Normal breath sounds. Abdominal: General: Abdomen is flat. Bowel sounds are normal. Palpations: Abdomen is soft. Musculoskeletal: General: Normal range of motion. Right shoulder: Normal. Left shoulder: Normal. Cervical back: Normal, full passive range of motion without pain and neck supple. No tenderness. No spinous process tenderness. Thoracic back: Normal. Lumbar back: Normal. Right knee: Normal. Left knee: Normal. Right lower leg: No edema. Left lower leg: No edema. Lymphadenopathy: Cervical: No cervical adenopathy. Skin: General: Skin is warm and dry. Neurological: General: No focal deficit present. Mental Status: She is alert and oriented to person, place, and time. Mental status is at baseline. Sensory: Sensation is intact. Motor: Motor function is intact. Psychiatric: Attention and Perception: Attention and perception normal. Mood and Affect: Mood normal. Speech: Speech normal. Behavior: Behavior normal. Thought Content: Thought content normal. Judgment: Judgment normal. Data Reviewed: Most recent labs ASSESSMENT/PLAN: 1. Elevated liver enzymes - ICD9: 790.5, ICD10: R74.8 (primary diagnosis) - Repeat Cmp - Refer to Gastroenterology - COMP METABOLIC PANEL - CONSULT TO GASTROENTEROLOGY 2. Anemia, unspecified type - ICD9: 285.9, ICD10: D64.9 - Check Blood work - CBC + DIFF - FERRITIN BLD - FOLATE SERUM - IRON + TIBC - RETIC COUNT - VITAMIN B12 BLOOD - MONOTEST, INFECTIOUS MONO 3. Recurrent abdominal pain - ICD9: 789.00, ICD10: R10.9 - Refer to Gastroenterology - CONSULT TO GASTROENTEROLOGY Maria Esther Rodriguez DO Return if symptoms worsen or fail to improve. Attestation: Scribe Statement: Nima Winston am scribing for, and in the presence of, Maria Esther Rodriguez DO October 20, 2022 11:04 AM. Physician Statement: I, Maria Esther Rodriguez DO, personally performed the services described in the documentation, as scribed by Kathia Winston in my presence, and it is both accurate and complete October 20, 2022 11:16 AM. documented in this encounter [facility] 10-18-2022 Telephone encounter Note Date/Time patient contacted: Has a follow up appointment been made with your primary care provider? (If yes, note date/time of appt. If no, are we able to schedule or get patient in contact with provider) : Have your prescriptions been filled?: (If no, why not, contact pharmacist if needed): yes Now that you are home, I want to make sure that you understand the most important things about taking care of yourself. I see that you were discharged with a diagnosis of uro- sepsis , do you know what symptoms or health problems to watch for or when to call your provider? Yes Do you have any other questions about your discharge or follow up care instructions?: (if yes, what) : Are there any caregivers from the hospital that you would like to recognize or compliment? Care was good [facility] 10-18-2022 Miscellaneous Notes Date/Time patient contacted: Has a follow up appointment been made with your primary care provider? (If yes, note date/time of appt. If no, are we able to schedule or get patient in contact with provider) : Have your prescriptions been filled?: (If no, why not, contact pharmacist if needed): yes Now that you are home, I want to make sure that you understand the most important things about taking care of yourself. I see that you were discharged with a diagnosis of uro- sepsis , do you know what symptoms or health problems to watch for or when to call your provider? Yes Do you have any other questions about your discharge or follow up care instructions?: (if yes, what) : Are there any caregivers from the hospital that you would like to recognize or compliment? Care was good documented in this encounter [facility] 10-15-2022 Note [facility] Hospitalist Discharge Summary Denny Owens : 1960 Admit date: 10/11/2022 Discharge date: 10/15/2022 Admitting Physician: Ana Paula Castaneda MD Primary Care Physician: MRAIA ESTHER RODRIGUEZ DO Visit Status: Admission Code Status: Prior Discharge Diagnoses: Right-sided pyelonephritis due to E. Coli Simple sepsis due to above POA Liver transaminitis-improved Recurrent UTIs Essential hypertension Procedures: None Hospital Course: Patient is a 61-year-old female who was admitted for right flank/abdominal pain, she has pyelonephritis, scans showed no abscess on stone, she has a recurrent UTI, recent urine culture showed E. Coli, patient was treated with IV Zosyn and vancomycin initially, vancomycin was stopped, clinically improved in the next few days, patient will finish the course of antibiotic with Augmentin advised to stay well-hydrated, urine culture showed no growth this time due to prior use of antibiotics. Consults: Infectious diseases Discharge Instructions: Diet: No diet orders on file Activity: as tolerated Recommended Outpatient Tests: Disposition: Patient discharged in stable condition to Home. Greater than 30 minutes spent discharging the patient and coming up with patient discharge plan. Vitals: BP (!) 151/90 (BP Location: Left arm, Patient Position: Sitting) Pulse 74 Temp 37 ?C (98.6 ?F) (Temporal) Resp 18 Ht 5' 3 (1.6 m) Wt 132 lb 3 oz (60 kg) SpO2 97% BMI 23.42 kg/m? Pulse Ox: SpO2 Av % Min: 97 % Max: 97 % Supplemental O2: O2 Flow Rate (L/min): 2 L/min General appearance: Up in the chair appears dehydrated but better since admission, no apparent distress, appears stated age and cooperative with exam Respiratory: Normal respiratory effort. Clear to auscultation, bilaterally without Rales/Wheezes/Rhonchi. Cardiovascular: Regular rate and rhythm with normal S1/S2 without murmurs, rubs or gallops. Abdomen: Soft, non-tender, non-distended with normal bowel sounds. No rebound or guarding. Musculoskeletal: No clubbing, cyanosis or edema bilaterally. Full range of motion without deformity. Skin: Skin color, texture, turgor normal. No rashes or lesions. Discharge Medications: Medication List START taking these medications amoxicillin-clavulanate 875-125 MG tablet Commonly known as: Augmentin Take 1 tablet by mouth in the morning and 1 tablet before bedtime. Do all this for 3 days. CONTINUE taking these medications albuterol 108 (90 Base) MCG/ACT inhaler budesonide-formoterol 160-4.5 MCG/ACT inhaler Commonly known as: Symbicort gabapentin 300 MG capsule Commonly known as: Neurontin losartan 25 MG tablet Commonly known as: Cozaar verapamil SR 240 MG ER tablet Commonly known as: Calan SR STOP taking these medications cefpodoxime 200 MG tablet Commonly known as: Vantin cephalexin 250 MG capsule Commonly known as: Keflex ibuprofen 800 MG tablet Where to Get Your Medications These medications were sent to [facility] [address] [facility] [address] Hours: Wednesday to Wednesday 10 am to 6 pm amoxicillin-clavulanate 875-125 MG tablet Recommended Follow-up: Maria Esther Rodriguez DO [address] [place] [id number] Schedule an appointment as soon as possible for a visit Complexity of Follow up: [] Moderate Complexity: follow up within 7-14 calendar days (28304) [x] Severe Complexity: follow up within 7 calendar days (83755) Follow up Testing, Pending results or Referrals at Transitional Care Visit: [x] yes [] No GENERAL ZONES GREEN ZONE: All Clear- Your Symptoms Are Under Control No recurrence of symptoms that led to hospitalization Able to do usual activities No fever No chest pain No shortness of breath This Means You Should: Continue taking your medications as prescribed Continue activity as tolerated Keep all doctor appointments YELLOW ZONE: Caution Recurrence of symptoms that led to hospitalization Fever of 100 degrees or higher Increased fatigue or restlessness Intolerant side-effects of medications Uneasy feeling or that something is wrong This Means You Should: Call your doctor for further instructions Either your PCP or specialist RED ZONE: Medical Alert Severe or unrelieved shortness of breath at rest Unrelieved chest pain Confusion or you can't think clearly This Means You Should Call 911 Immediately Instructions to MA: Please call patient on day after discharge (must document patient contacted within 2 business days of discharge). Follow up questions for MA: 1. Did you get medications filled and taking them as instructed from discharge? 2. Are you following your discharge instructions from your hospital stay? 3. Please confirm patient is scheduled for a follow up appointment within the above time frame. A total of more than 30 mins has been spent in discharging the patient. (more content not included)... [facility] 10-15-2022 Note Care Management Prog ress Note Patient with a discharge order in. No needs from TCC. Discharge Milestones and Delays Expected Date/Time: 10/15/2022 Midday Disposition: Home or Self Care Transport status: No current request Discharge Milestones Completed Place discharge order Complete med reconciliation Request transport Case mgmt discharge readiness Expected Discharge History Expected Date/Time Set By Reviewed At 10/15/2022 Midday Cintia Silva MD 10/15/2022 10:10 AM TCC estimate 10/15/2022 Edith Herndon RN 10/15/2022 8:20 AM 10/15/2022 Edith Herndon RN 10/14/2022 1:31 PM 10/14/2022 Edith Herndon RN 10/14/2022 8:25 AM 10/14/2022 Edith Herndon RN 10/13/2022 8:31 AM 10/14/2022 Edith Herndon RN 10/12/2022 8:45 AM 10/14/2022 Clarence Pinto MD 10/11/2022 8:14 PM 10/14/2022 Clarence Pinto MD 10/11/2022 4:13 PM Length of Stay (Days): 4 GMLOS: No GMLOS Documented [facility] 10-15-2022 Hospital Discharge instructions Olga Barragan RN - 10/15/2022 11:56 AM EDT As tolerated Olga Barragan RN - 10/15/2022 11:56 AM EDT General healthy diet Olga Barragan RN - 10/15/2022 10:07 AM EDT Continuity of Care Form The following attachments cannot be sent through Care Everywhere.Urinary Tract Infection Discharge Instructions, Adult ([place])documented in this encounter [facility] 10-15-2022 Note Formatting of this n ote is different from the original. Images from the original note were not included. Care Management Progress Note Patient with a discharge order in. No needs from TCC. Discharge Milestones and Delays Expected Date/Time: 10/15/2022 Midday Disposition: Home or Self Care Transport status: No current request Discharge Milestones Completed Place discharge order Complete med reconciliation Request transport Case mgmt discharge readiness Expected Discharge History Expected Date/Time Set By Reviewed At 10/15/2022 Midday Cintia Silva MD 10/15/2022 10:10 AM TCC estimate 10/15/2022 Edith Herndon RN 10/15/2022 8:20 AM 10/15/2022 Edith Herndon RN 10/14/2022 1:31 PM 10/14/2022 Edith Herndon RN 10/14/2022 8:25 AM 10/14/2022 Edith Herndon RN 10/13/2022 8:31 AM 10/14/2022 Edith Herndon RN 10/12/2022 8:45 AM 10/14/2022 Clarence Pinto MD 10/11/2022 8:14 PM 10/14/2022 Clarence Pinto MD 10/11/2022 4:13 PM Length of Stay (Days): 4 GMLOS: No GMLOS Documented [facility] 10-15-2022 Note Formatting of this n ote is different from the original. Images from the original note were not included. Care Management Progress Note Patient with a discharge order in. No needs from TCC. Discharge Milestones and Delays Expected Date/Time: 10/15/2022 Midday Disposition: Home or Self Care Transport status: No current request Discharge Milestones Completed Place discharge order Complete med reconciliation Request transport Case mgmt discharge readiness Expected Discharge History Expected Date/Time Set By Reviewed At 10/15/2022 Midday Cintia Silva MD 10/15/2022 10:10 AM TCC estimate 10/15/2022 Edith Herndon RN 10/15/2022 8:20 AM 10/15/2022 Edith Herndon RN 10/14/2022 1:31 PM 10/14/2022 Edith Herndon RN 10/14/2022 8:25 AM 10/14/2022 Edith Herndon RN 10/13/2022 8:31 AM 10/14/2022 Edith Herndon RN 10/12/2022 8:45 AM 10/14/2022 Clarence Pinto MD 10/11/2022 8:14 PM 10/14/2022 Clarence Pinto MD 10/11/2022 4:13 PM Length of Stay (Days): 4 GMLOS: No GMLOS Documented [facility] 10-15-2022 Miscellaneous Notes Images from the original note were not included. Care Management Progress Note Patient with a discharge order in. No needs from TCC. Discharge Milestones and Delays Expected Date/Time: 10/15/2022 Midday Disposition: Home or Self Care Transport status: No current request Discharge Milestones Completed Place discharge order Complete med reconciliation Request transport Case mgmt discharge readiness Expected Discharge History Expected Date/Time Set By Reviewed At 10/15/2022 Midday Cintia Silva MD 10/15/2022 10:10 AM TCC estimate 10/15/2022 Edith Herndon RN 10/15/2022 8:20 AM 10/15/2022 Edith Herndon RN 10/14/2022 1:31 PM 10/14/2022 Edith Herndon RN 10/14/2022 8:25 AM 10/14/2022 Edith Herndon RN 10/13/2022 8:31 AM 10/14/2022 Edith Herndon RN 10/12/2022 8:45 AM 10/14/2022 Clarence Pinto MD 10/11/2022 8:14 PM 10/14/2022 Clarence Pinto MD 10/11/2022 4:13 PM Length of Stay (Days): 4 GMLOS: No GMLOS Documented Images from the original note were not included. Care Management Progress Note TRANSITIONAL CARE DAILY NOTE/UPDATES: Patient remains on 2E due to sepsis. Clinical updates: patient on IV antibiotics. Plans to transition to PO antibiotics. ID following, nephrology following. Discharge plan: Home when medically stable. Discharge obstacles: none noted. TCC to continue to follow. Discharge Milestones and Delays Expected Date/Time: 10/15/[address] discharge order Complete med reconciliation Request transport Case mgmt discharge readiness Expected Discharge History Expected Date/Time Set By Reviewed At 10/15/2022 Edith Herndon RN 10/14/2022 1:31 PM TCC estimate 10/14/2022 Edith Herndon RN 10/14/2022 8:25 AM 10/14/2022 Edith Herndon RN 10/13/2022 8:31 AM 10/14/2022 Edith Herndon RN 10/12/2022 8:45 AM 10/14/2022 Clarence Pinto MD 10/11/2022 8:14 PM 10/14/2022 Clarence Pinto MD 10/11/2022 4:13 PM Length of Stay (Days): 3 GMLOS: No GMLOS Documented Images from the original note were not included. Care Management Progress Note Discharge Milestones and Delays Expected Date/Time: 10/14/[address] discharge order Complete med reconciliation Request transport Case mgmt discharge readiness Expected Discharge History Expected Date/Time Set By Reviewed At 10/14/2022 dEith Herndon RN 10/13/2022 8:31 AM 10/14/2022 Edith Herndon RN 10/12/2022 8:45 AM 10/14/2022 Clarence Pinto MD 10/11/2022 8:14 PM 10/14/2022 Clarence Pinto MD 10/11/2022 4:13 PM Length of Stay (Days): 2 GMLOS: No GMLOS Documented TRANSITIONAL CARE DAILY NOTE/UPDATES: Patient remains on 2E due to sepsis. Clinical updates: patient on IV antibiotics. ID following, nephrology following. Discharge plan: Home when medically stable. Discharge obstacles: none noted. TCC to continue to follow. Care Managment Initial Assessment Date: 10/12/2022 Patient Name: Denny Owens : 1960 Patient Information Source of Information: Patient Cognition/Language: WFL - Within Functional Limits Permission given to speak with patient in home sales representative/caregiver as indicated: Yes (, Harpal) Confirmation of Payer with patient/family: Yes Payer Name: Tomas Price : No Confirmation of Primary Care Physician: Confirmed PCP Name: Maria Esther Rodriguez Seen in last 2 years?: Yes Primary Caregiver: Self If assistance needed, confirmed caregiver ready, willing and able to care for patient at discharge: Confirmed with: Living Arrangements Current Residence: Private Residence Number of Floors 1 Number of Entry Steps: 2 Bed/Bath Levels: Both first floor Facility: Facility Name: Plan to Return: Lives with: Spouse/significant other, Children Support Systems: Spouse/significant other, Children Activities of Daily Living Ambulation: Independent Bathing/Dressing: Independent Elimination/Continence/Toileting: Independent Feeding: Independent Who Assists with Activities of Daily Living: Instrumental Activities of Daily Living Prescription Coverage: Yes Pharmacy Used: [facility] in [place] Medication Management: Independent Transportation/Shopping: Independent Transportation Mode: Car Needs Assistance with Transportation at Discharge: No Meal Preparation: Independent Laundry/Cleaning: Independent Finances/Bill Paying: Independent Communication: Independent Types of Care Services/Equipment Utilized Care Services: Dialysis Type: NA Durable Medical Equipment: Other (Comment) (none) Patient's Goal/Discharge Plan Patient expects to be discharged to: Home Discharge Planning Actions: Continue to follow Patient's Choice Rights and [employer] and Collaborative Relationships Disclosed as Indicated for Post-Acute Care: Interdisciplinary Team Engagement: Social Work Referral for: Additional Information: Spoke with patient at bedside. Introduced self and role. Discharge planning needs discussed. Patient expects to be discharged home with no needs. Patient in hospital due to sepsis. Patient on IV antibiotics. Abnormal labs. Blood cultures pending. ID following. Patient on chemo for cervical cancer. To have renal US today. Patient lives at home with and children, is independent. Denies any needs at this time. TCC will continue to follow. Edith Herndon RN documented in this encounter [facility] 10-15-2022 Note [facility] - Infectious Diseases Advanced Practice Provider Progress Note Subjective: Following for flank pain in setting of recent e coli pyelonephritis s/p 7 day course of levofloxacin. Notes reviewed. Urine cx NG. Liver enzymes down trending. R sided abd and flank pain resolved. No fever, chills, nausea, vomiting or diarrhea. No dysuria. Vitals: Patient Vitals for the past 24 hrs: BP Temp Temp src Pulse Resp SpO2 Height Weight 10/15/22 0837 -- -- -- -- -- 97 % -- -- 10/15/22 0722 125/87 36.7 ?C (98 ?F) Temporal 73 18 97 % -- -- 10/15/22 0500 -- -- -- -- -- -- -- 60 kg (132 lb 3 oz) 10/15/22 0358 124/69 36.9 ?C (98.4 ?F) Temporal 62 18 95 % -- -- 10/14/22 2336 115/68 36.8 ?C (98.3 ?F) Temporal 70 18 94 % -- -- 10/14/22 1946 112/83 37.2 ?C (99 ?F) Temporal 83 16 91 % -- -- 10/14/22 1547 120/74 36.8 ?C (98.3 ?F) Temporal 65 17 96 % -- -- 10/14/22 1139 133/70 37 ?C (98.6 ?F) Temporal 70 16 100 % -- -- 10/14/22 0909 -- -- -- -- -- -- 1.6 m (5' 3 ) -- Physical Exam: Physical Exam Vitals and nursing note reviewed. Constitutional: General: She is not in acute distress. Appearance: She is normal weight. She is ill-appearing. She is not toxic-appearing or diaphoretic. Comments: Patient sitting in bed, NAD. Responds appropriately. Conversant. On room air. HENT: Head: Atraumatic. Right Ear: External ear normal. Left Ear: External ear normal. Nose: Nose normal. Mouth/Throat: Mouth: Mucous membranes are moist. Pharynx: Oropharynx is clear. No oropharyngeal exudate. Eyes: General: Right eye: No discharge. Left eye: No discharge. Extraocular Movements: Extraocular movements intact. Cardiovascular: Rate and Rhythm: Normal rate and regular rhythm. Pulses: Normal pulses. Heart sounds: Normal heart sounds. No murmur heard. Pulmonary: Effort: Pulmonary effort is normal. No respiratory distress. Breath sounds: Normal breath sounds. No wheezing or rhonchi. Abdominal: General: Abdomen is flat. Bowel sounds are normal. There is no distension. Palpations: Abdomen is soft. Tenderness: There is no abdominal tenderness. There is no right CVA tenderness or left CVA tenderness. Musculoskeletal: General: Normal range of motion. Cervical back: Normal range of motion. No rigidity. Right lower leg: No edema. Left lower leg: No edema. Skin: General: Skin is warm and dry. Coloration: Skin is not jaundiced. Findings: No erythema, lesion or rash. Neurological: General: No focal deficit present. Mental Status: She is alert and oriented to person, place, and time. Mental status is at baseline. Motor: No weakness. Psychiatric: Mood and Affect: Mood normal. Behavior: Behavior normal. Thought Content: Thought content normal. Labs: Recent Labs 10/13/22 0233 10/14/22 0010 10/15/22 0249 NA 140 139 140 K 3.2* 3.4* 3.8 CL 111* 111* 112* CO2 25 29 25 BUN 6* 5* 8 CREATININE 0.68 0.67 0.58 GLUCOSE 71 126* 138* CALCIUM 8.1* 7.8* 8.3* PROT 5.1* 5.0* 5.1* BILITOT 0.7 0.2 0.3 ALKPHOS 156* 138* 132* AST 152* 61* 39 ALT 322* 229* 154* PROCAL 0.43* -- -- Recent Labs 10/14/22 0010 10/15/22 0249 WBC 4.4 4.8 HGB 10.7* 10.9* HCT 32.4* 33.6* PLT 230 226 Micro: No results for input(s): COVID19 in the last 72 hours. 10/13 urine cx: NG 10/11 COVID/Flu/RSV: negative 10/11 blood cx 08/20: NGTD 10/01 urine cx: >100K e coli 10/01 blood cx 08/20: NG Lines: PIV Radiography/Echo/Other: 10/12 US renal complete Right Kidney: -Renal length: 10.7 cm -Parenchyma: Normal parenchymal echogenicity. Normal parenchymal thickness. -Collecting system: No hydronephrosis. -Calculus: No echogenic, shadowing calculus. -Lesion: None. Left Kidney: -Renal length: 10.2 cm -Parenchyma: Normal parenchymal echogenicity. Normal parenchymal thickness. -Collecting system: No hydronephrosis. -Calculus: No echogenic, shadowing calculus. -Lesion: None. Other: Known left renal artery aneurysm is not assessed on current study and was better assessed on prior cross-sectional imaging. Bladder: Normal sonographic appearance. 10/11 CT a/p WO contrast 1. No definite acute abdominopelvic process identified. 2. Stable simple appearing hepatic cysts. 3. Status post cholecystectomy. 4. Renal and splenic aneurysms better delineated on prior contrasted examinations. 10/02 CXR Negative chest. Antimicrobials,Start/End Dates: Pip tazo 10/11 - 10/14 Vancomycin 10/11 - 327 Amox clav 10/14 - Impression: R flank/abd pain in setting of recent e coli pyelonephritis s/p 7-9 days atbs Transaminitis - acute hepatitis panel negative Hx of recurrent UTIs Hx of renal and splenic aneurysms Hepatic cysts Plan: Urine cx NG, but after several days of atbs. Previous cx with e coli. Continue amox clav 875-125mg for 7 day course through 10/17/22. Follow blood cx Acute hepatitis panel negative OK to next phase of care from ID standpoint Recomme (more content not included)... [facility] 10-15-2022 History of Present illness Narrative Images from the original note were not included. [facility] - Infectious Diseases Advanced Practice Provider Progress Note Subjective: Following for flank pain in setting of recent e coli pyelonephritis s/p 7 day course of levofloxacin. Notes reviewed. Urine cx NG. Liver enzymes down trending. R sided abd and flank pain resolved. No fever, chills, nausea, vomiting or diarrhea. No dysuria. Vitals: Patient Vitals for the past 24 hrs: BP Temp Temp src Pulse Resp SpO2 Height Weight 10/15/22 0837 -- -- -- -- -- 97 % -- -- 10/15/22 0722 125/87 36.7 C (98 F) Temporal 73 18 97 % -- -- 10/15/22 0500 -- -- -- -- -- -- -- 60 kg (132 lb 3 oz) 10/15/22 0358 124/69 36.9 C (98.4 F) Temporal 62 18 95 % -- -- 10/14/22 2336 115/68 36.8 C (98.3 F) Temporal 70 18 94 % -- -- 10/14/22 1946 112/83 37.2 C (99 F) Temporal 83 16 91 % -- -- 10/14/22 1547 120/74 36.8 C (98.3 F) Temporal 65 17 96 % -- -- 10/14/22 1139 133/70 37 C (98.6 F) Temporal 70 16 100 % -- -- 10/14/22 0909 -- -- -- -- -- -- 1.6 m (5' 3 ) -- Physical Exam: Physical Exam Vitals and nursing note reviewed. Constitutional: General: She is not in acute distress. Appearance: She is normal weight. She is ill-appearing. She is not toxic-appearing or diaphoretic. Comments: Patient sitting in bed, NAD. Responds appropriately. Conversant. On room air. HENT: Head: Atraumatic. Right Ear: External ear normal. Left Ear: External ear normal. Nose: Nose normal. Mouth/Throat: Mouth: Mucous membranes are moist. Pharynx: Oropharynx is clear. No oropharyngeal exudate. Eyes: General: Right eye: No discharge. Left eye: No discharge. Extraocular Movements: Extraocular movements intact. Cardiovascular: Rate and Rhythm: Normal rate and regular rhythm. Pulses: Normal pulses. Heart sounds: Normal heart sounds. No murmur heard. Pulmonary: Effort: Pulmonary effort is normal. No respiratory distress. Breath sounds: Normal breath sounds. No wheezing or rhonchi. Abdominal: General: Abdomen is flat. Bowel sounds are normal. There is no distension. Palpations: Abdomen is soft. Tenderness: There is no abdominal tenderness. There is no right CVA tenderness or left CVA tenderness. Musculoskeletal: General: Normal range of motion. Cervical back: Normal range of motion. No rigidity. Right lower leg: No edema. Left lower leg: No edema. Skin: General: Skin is warm and dry. Coloration: Skin is not jaundiced. Findings: No erythema, lesion or rash. Neurological: General: No focal deficit present. Mental Status: She is alert and oriented to person, place, and time. Mental status is at baseline. Motor: No weakness. Psychiatric: Mood and Affect: Mood normal. Behavior: Behavior normal. Thought Content: Thought content normal. Labs: Recent Labs 10/13/22 0233 10/14/22 0010 10/15/22 0249 NA 140 139 140 K 3.2* 3.4* 3.8 CL 111* 111* 112* CO2 25 29 25 BUN 6* 5* 8 CREATININE 0.68 0.67 0.58 GLUCOSE 71 126* 138* CALCIUM 8.1* 7.8* 8.3* PROT 5.1* 5.0* 5.1* BILITOT 0.7 0.2 0.3 ALKPHOS 156* 138* 132* AST 152* 61* 39 ALT 322* 229* 154* PROCAL 0.43* -- -- Recent Labs 10/14/22 0010 10/15/22 0249 WBC 4.4 4.8 HGB 10.7* 10.9* HCT 32.4* 33.6* PLT 230 226 Micro: No results for input(s): COVID19 in the last 72 hours. 10/13 urine cx: NG 10/11 COVID/Flu/RSV: negative 10/11 blood cx 08/20: NGTD 10/01 urine cx: >100K e coli 10/01 blood cx 08/20: NG Lines: PIV Radiography/Echo/Other: 10/12 US renal complete Right Kidney: -Renal length: 10.7 cm -Parenchyma: Normal parenchymal echogenicity. Normal parenchymal thickness. -Collecting system: No hydronephrosis. -Calculus: No echogenic, shadowing calculus. -Lesion: None. Left Kidney: -Renal length: 10.2 cm -Parenchyma: Normal parenchymal echogenicity. Normal parenchymal thickness. -Collecting system: No hydronephrosis. -Calculus: No echogenic, shadowing calculus. -Lesion: None. Other: Known left renal artery aneurysm is not assessed on current study and was better assessed on prior cross-sectional imaging. Bladder: Normal sonographic appearance. 10/11 CT a/p WO contrast 1. No definite acute abdominopelvic process identified. 2. Stable simple appearing hepatic cysts. 3. Status post cholecystectomy. 4. Renal and splenic aneurysms better delineated on prior contrasted examinations. 10/02 CXR Negative chest. Antimicrobials,Start/End Dates: Pip tazo 10/11 - 10/14 Vancomycin 10/11 - 327 Amox clav 10/14 - Impression: R flank/abd pain in setting of recent e coli pyelonephritis s/p 7-9 days atbs Transaminitis - acute hepatitis panel negative Hx of recurrent UTIs Hx of renal and splenic aneurysms Hepatic cysts Plan: Urine cx NG, but after several days of atbs. Previous cx with e coli. Continue amox clav 875-125mg for 7 day course through 10/17/22. Follow blood cx Acute hepatitis panel negative OK to next phase of care from ID standpoint Recommended PCP and urology follow up outpatiently ID to follow Based on diagnoses and management, combination of acute and chronic problems, exacerbations and/or acuity, this visit should be considered to be of moderate complexity. MARILU Wright PA-C Images from the original note were not included. Hospitalist Progress Note 10/14/2022 [phone]: Please secure chat me for patient care issues. [phone]: Please secure chat [facility] Hospitalist for any issues. Subjective: Admit Date: 10/11/2022 PCP: MARIA ESTHER RODRIGUEZ DO Room#: B2-252/B2-252 A Interval History: Patient feels better, denies any flank pain or dysuria, denies any abdominal pain, no overnight issues. Denies chest pain, sob, abdominal pain, nausea, vomiting, diarrhea, constipation, fevers, or chills. Adult diet Regular @[id number]@ 24HR INTAKE/OUTPUT: Intake/Output Summary (Last 24 hours) at 10/14/2022 1316 Last data filed at 10/14/2022 0147 Gross per 24 hour Intake -- Output 200 ml Net -200 ml Past Medical History: Past Medical History: Diagnosis Date Arthritis Asthma Hematuria Hypertension Renal artery aneurysm (CMS/HCC) (HCC) UTI (urinary tract infection) LABS: CBC: Recent Labs 10/12/22 0609 10/14/22 0010 WBC 5.1 4.4 RBC 3.87 3.71* HGB 11.1* 10.7* HCT 34.1* 32.4* MCV 88.2 87.4 RDW 14.8* 14.3 PLT 221 230 BMP: Recent Labs 10/12/22 0615 10/13/22 0233 10/14/22 0010 NA 135 140 139 K 3.7 3.2* 3.4* CL 110* 111* 111* CO2 23 25 29 BUN 12 6* 5* CREATININE 0.58 0.68 0.67 GLUCOSE 77 71 126* CALCIUM 8.2* 8.1* 7.8* ANIONGAP 2* 4 -1* LIVER PROFILE: Recent Labs 10/12/22 0615 10/13/22 0233 10/14/22 0010 AST 450* 152* 61* ALT 510* 322* 229* BILITOT 1.3 0.7 0.2 ALKPHOS 186* 156* 138* PROT 4.6* 5.1* 5.0* PT/INR: No results for input(s): PROTIME, INR in the last 72 hours. CARDIAC ENZYMES: No results for input(s): TROPONINI in the last 72 hours. Procalcitonin: Lab Results Component Value Date PROCAL 0.43 (H) 10/13/2022 COVID-19 PCR: No results for input(s): COVID19 in the last 72 hours. Objective: Vitals: BP 133/70 (BP Location: Right arm, Patient Position: Sitting) Pulse 70 Temp 37 C (98.6 F) (Temporal) Resp 16 Ht 5' 3 (1.6 m) Wt 133 lb 3 oz (60.4 kg) SpO2 100% BMI 23.59 kg/m Pulse Ox: SpO2 Av % Min: 94 % Max: 100 % Physical Exam Constitutional: General: She is awake. Appearance: Normal appearance. Physical Exam Cardiovascular: Rate and Rhythm: Normal rate and regular rhythm. Heart sounds: Normal heart sounds, S1 normal and S2 normal. Pulmonary: Effort: Pulmonary effort is normal. Breath sounds: Normal breath sounds. Abdominal: General: Bowel sounds are normal. Palpations: Abdomen is soft. Tenderness: There is no abdominal tenderness. There is no right CVA tenderness or left CVA tenderness. Neurological: Mental Status: She is alert. Psychiatric: Behavior: Behavior is cooperative. Medications: amoxicillin-clavulanate, 875 mg, Oral, 2 times per day enoxaparin, 40 mg, SubCUTAneous, Daily gabapentin, 800 mg, Oral, TID losartan, 25 mg, Oral, Daily mometasone-formoterol, 2 puff, Inhalation, BID sodium chloride 0.9%, 10 mL, IntraVENous, 2 times per day verapamil SR, 240 mg, Oral, Nightly Assessment Recurrent UTI Right-sided abdominal/flank pain due to above Elevated LFT's ? Cause - hepatitis panel is negative-improved Hypokalemia-replace Medical Decision Making Patient admitted for apparent UTI, previous urine culture grew E. coli, on Zosyn, recent urine culture showed no growth but patient already received outpatient antibiotics, appreciate ID input, antibiotics switched to Augmentin, will continue to follow -am labs, replace lytes prn -increase activity -DVT prophylaxis: [x] Lovenox [] Heparin [] SCDs [x] Encourage ambulation [] Already on Anticoagulation Anticipated Discharge - Date -24 hours - Location -Home - Pending the following -clinical improvement Total time spent (which include face to face and non face to face encounters) : 36 minutes Toxic drug monitoring/narrow therapeutic index drug monitoring : # Drug name : # Route administered : # Method of monitoring : Extended Emergency Contact Information Primary Emergency Contact: Harpal Owens Relation: Spouse CINTIA SILVA MD, MD Division of Hospitalist Medicine [facility] PAGER: [employer] chat Images from the original note were not included. [facility] - Infectious Diseases Advanced Practice Provider Progress Note Subjective: Following for flank pain in setting of recent e coli pyelonephritis s/p 7 day course of levofloxacin. Notes reviewed. Urine cx NG. Liver enzymes down trending. R sided abd and flank pain resolved. No fever, chills, nausea, vomiting or diarrhea. No dysuria. Vitals: Patient Vitals for the past 24 hrs: BP Temp Temp src Pulse Resp SpO2 Height Weight 10/14/22 0909 -- -- -- -- -- -- 1.6 m (5' 3 ) -- 10/14/22 0846 -- -- -- -- -- 96 % -- -- 10/14/22 0836 (!) 146/86 36.5 C (97.7 F) Temporal 63 16 98 % -- -- 10/14/22 0653 -- -- -- -- -- -- -- 60.4 kg (133 lb 3 oz) 10/14/22 0558 125/70 36.3 C (97.4 F) Temporal 62 18 95 % -- -- 10/14/22 0147 116/65 36.4 C (97.5 F) Temporal 71 16 94 % -- -- 10/13/22 2216 114/59 37 C (98.6 F) Temporal 77 16 95 % -- -- 10/13/22 1452 122/68 36.3 C (97.4 F) Temporal 75 16 94 % -- -- Physical Exam: Physical Exam Vitals and nursing note reviewed. Constitutional: General: She is not in acute distress. Appearance: She is normal weight. She is ill-appearing. She is not toxic-appearing or diaphoretic. Comments: Patient lying in bed, NAD. Responds appropriately. Conversant. On room air. HENT: Head: Atraumatic. Right Ear: External ear normal. Left Ear: External ear normal. Nose: Nose normal. Mouth/Throat: Mouth: Mucous membranes are moist. Pharynx: Oropharynx is clear. No oropharyngeal exudate. Eyes: General: Right eye: No discharge. Left eye: No discharge. Extraocular Movements: Extraocular movements intact. Cardiovascular: Rate and Rhythm: Normal rate and regular rhythm. Pulses: Normal pulses. Heart sounds: Normal heart sounds. No murmur heard. Pulmonary: Effort: Pulmonary effort is normal. No respiratory distress. Breath sounds: Normal breath sounds. No wheezing or rhonchi. Abdominal: General: Abdomen is flat. Bowel sounds are normal. There is no distension. Palpations: Abdomen is soft. Tenderness: There is no abdominal tenderness. There is no right CVA tenderness or left CVA tenderness. Musculoskeletal: General: Normal range of motion. Cervical back: Normal range of motion. No rigidity. Right lower leg: No edema. Left lower leg: No edema. Skin: General: Skin is warm and dry. Coloration: Skin is not jaundiced. Findings: No erythema, lesion or rash. Neurological: General: No focal deficit present. Mental Status: She is alert and oriented to person, place, and time. Mental status is at baseline. Motor: No weakness. Psychiatric: Mood and Affect: Mood normal. Behavior: Behavior normal. Thought Content: Thought content normal. Labs: Recent Labs 10/12/22 0615 10/13/22 0233 10/14/22 0010 NA 135 140 139 K 3.7 3.2* 3.4* CL 110* 111* 111* CO2 BUN 12 6* 5* CREATININE 0.58 0.68 0.67 GLUCOSE 77 71 126* CALCIUM 8.2* 8.1* 7.8* PROT 4.6* 5.1* 5.0* BILITOT 1.3 0.7 0.2 ALKPHOS 186* 156* 138* AST 450* 152* 61* ALT 510* 322* 229* PROCAL -- 0.43* -- Recent Labs 10/11/22 1254 10/12/22 0609 10/14/22 0010 WBC 9.0 5.1 4.4 HGB 12.7 11.1* 10.7* HCT 39.8 34.1* 32.4* PLT 290 221 230 LYMPHOPCT 6.9* -- -- MONOPCT 4.4 -- -- BASOPCT 0.3 -- -- NEUTROABS 7.8* -- -- Micro: No results for input(s): COVID19 in the last 72 hours. 10/13 urine cx: NG 10/11 COVID/Flu/RSV: negative 10/11 blood cx 2/2: NGTD 10/01 urine cx: >100K e coli 10/01 blood cx 22: NG Lines: PIV Radiography/Echo/Other: 10/11 CT a/p WO contrast 1. No definite acute abdominopelvic process identified. 2. Stable simple appearing hepatic cysts. 3. Status post cholecystectomy. 4. Renal and splenic aneurysms better delineated on prior contrasted examinations. 10/02 CXR Negative chest. Antimicrobials,Start/End Dates: Pip tazo 10/11 - 10/14 Vancomycin 10/11 - 327 Amox clav 10/14 - Impression: R flank/abd pain in setting of recent e coli pyelonephritis s/p 7-9 days atbs Transaminitis - acute hepatitis panel negative Hx of recurrent UTIs Hx of renal and splenic aneurysms Hepatic cysts Plan: Urine cx NG, but after several days of atbs. Previous cx with e coli. Will discontinue pip tazo and transition to amox clav 875-125mg for 7 day course through 10/17/22. Follow blood cx Acute hepatitis panel negative ID to follow Based on diagnoses and management, combination of acute and chronic problems, exacerbations and/or acuity, this visit should be considered to be of high complexity. MARILU Wright PA-C Nutrition Assessment Type and Reason for Visit: Initial, Consult (NPOx3) Nutrition Recommendations/Plan: Continue with Adult diet Regular Initiate Ensure Plus high protein chocolate once daily per MNT protocol. Ensure Plus High Protein provides 350 kcals, 20g protein per serving. Please document pt's PO intakes via flowsheet to accurately assess PO intake adequacy. Monitor intakes, weights, and labs weekly. RD will follow. Malnutrition Assessment: Malnutrition Status: At risk for malnutrition (Comment) (Altered GI recently-improving) Context: Acute Illness Findings of the 6 clinical characteristics of malnutrition: Energy Intake: (just advanced from Clear liquids, but on average, pt stated that she does not eat consistent meals at home) Weight Loss: No significant weight loss Body Fat Loss: Mild body fat loss (but denies weight loss- may be baseline for pt) Orbital Muscle Mass Loss: Mild muscle mass loss (but denies weight loss- may be baseline for pt) Temples (temporalis) Fluid Accumulation: No significant fluid accumulation Sand Tester Strength: Not Performed Nutrition Assessment: Pt was admitted with complaints of right flank pain, fevers, nausea/vomiting. Pt was recently treated for pyelonephritis. Pt's diet just advanced to Regular from NPO/clears. Pt has not yet ordered breakfast this AM, but stated that she tolerated mashed potatoes and vegetable soup last night. Pt stated that on average, she does not eat regular three meals a day and eats when she is hungry. Pt also stated that she works third shift and this also throws off her eating schedule. Pt denies any recent weight loss or changes lately. Estimated Daily Nutrient Needs: Energy Requirements Based On: Kcal/kg Weight Used for Energy Requirements: Current Weight for Energy Calculation (kg): 60 kg Total Energy Requirements (kcals/day): 9442-1761 kcals (25-30) Weight Used for Protein Requirements: Current Weight in Kg Used for Protein Requirements: 60 kg Estimated Total Protein (g/day): 60-72 (1-1.2) Estimated Daily Total Fluid (ml/day): 1800 ml/day or per MD Nutrition Related Findings: no edema; K+ 3.4, Cl 111, BUN 5, Glucose 126, 71, 77, Ca++ 7.8, AST 61, ALT 229, Hgb 10.7, Hct 32.4, albumin 2.8 Wound Type: None Current Nutrition Therapies: Adult diet Regular Current Oral Intake Average Meal Intake: (just advanced to regular diet) Average Supplements Intake: None Ordered Anthropometric Measures: Height: 160 cm (5' 3 ) Current Body Weight: 60.3 kg (133 lb) Weight Source: Bed Scale Admission Body Weight: 60.8 kg (134 lb) Usual Body Weight: 58.1 kg (128 lb) (05/26/22) % Weight Change (Calculated): 3.9 [place] Body Weight (lbs) (Calculated): 115 lbs [place] Body Weight (Kg) (Calculated): 52 kg % [place] Body Weight (Calculated): 115.7 % BMI (kg/m2) (Calculated): 23.6 Weight Adjustment For: No Adjustment BMI Categories: Normal Weight (BMI 18.5-24.9) Nutrition Diagnosis: Inadequate oral intake related to altered GI function as evidenced by NPO or clear liquid status due to medical condition, GI abnormality, nausea, vomiting, other (comment) (just advanced from NPO/Clears) Nutrition Interventions: Nutrition Education/Counseling: No recommendation at this time Coordination of Nutrition Care: Continue to monitor while inpatient Plan of Care discussed with: Pt Goals: Goals: PO intake 75% or greater, by next RD assessment Nutrition Monitoring and Evaluation: Behavioral-Environmental Outcomes: None Identified Food/Nutrient Intake Outcomes: Diet Advancement/Tolerance, Food and Nutrient Intake, Supplement Intake Physical Signs/Symptoms Outcomes: Biochemical Data, GI Status, Fluid Status or Edema, Nausea or Vomiting, Nutrition Focused Physical Findings, Skin, Weight Discharge Planning: Continue current diet Estelita Lawson RD Contact: *[phone] or via Secure Chat Images from the original note were not included. Hospitalist Progress Note 10/13/[id number]: Please secure chat me for patient care issues. [phone]: Please secure chat [facility] Hospitalist for any issues. Subjective: Admit Date: 10/11/2022 PCP: MARIA ESTHER RODRIGUEZ DO Room#: B2-252/B2-252 A Interval History: No overnight issues. Denies chest pain, sob, abdominal pain, nausea, vomiting, diarrhea, constipation, fevers, or chills. Adult diet Clear liquid @[id number]@ 24HR INTAKE/OUTPUT: Intake/Output Summary (Last 24 hours) at 10/13/2022 1126 Last data filed at 10/13/2022 0600 Gross per 24 hour Intake 3277.67 ml Output 2300 ml Net 977.67 ml Past Medical History: Past Medical History: Diagnosis Date Arthritis Asthma Hematuria Hypertension Renal artery aneurysm (CMS/HCC) (HCC) UTI (urinary tract infection) LABS: CBC: Recent Labs 10/11/22 1254 10/12/22 0609 WBC 9.0 5.1 RBC 4.54 3.87 HGB 12.7 11.1* HCT 39.8 34.1* MCV 87.6 88.2 RDW 14.8* 14.8* PLT 290 221 BMP: Recent Labs 10/11/22 1254 10/12/22 0615 10/13/22 0233 NA 136 135 140 K 4.0 3.7 3.2* CL 108* 110* 111* CO2 24 23 25 BUN 22* 12 6* CREATININE 0.59 0.58 0.68 GLUCOSE 98 77 71 CALCIUM 8.5 8.2* 8.1* ANIONGAP 4 2* 4 LIVER PROFILE: Recent Labs 10/11/22 1254 10/12/22 0615 10/13/22 0233 AST 25 450* 152* ALT 21 510* 322* BILITOT 0.5 1.3 0.7 ALKPHOS 65 186* 156* PROT 6.2* 4.6* 5.1* PT/INR: No results for input(s): PROTIME, INR in the last 72 hours. CARDIAC ENZYMES: No results for input(s): TROPONINI in the last 72 hours. Procalcitonin: Lab Results Component Value Date PROCAL 0.43 (H) 10/13/2022 COVID-19 PCR: No results for input(s): COVID19 in the last 72 hours. Objective: Vitals: BP (!) 150/75 Pulse 55 Temp 36.4 C (97.5 F) (Temporal) Resp 16 Ht 5' 3 (1.6 m) Wt 134 lb 11.2 oz (61.1 kg) SpO2 96% BMI 23.86 kg/m Pulse Ox: SpO2 Av.5 % Min: 95 % Max: 96 % Physical Exam Cardiovascular: Rate and Rhythm: Normal rate and regular rhythm. Heart sounds: Normal heart sounds, S1 normal and S2 normal. Pulmonary: Effort: Pulmonary effort is normal. Breath sounds: Normal breath sounds. Abdominal: General: Bowel sounds are normal. Palpations: Abdomen is soft. Tenderness: There is no abdominal tenderness. There is no right CVA tenderness or left CVA tenderness. Neurological: Mental Status: She is alert. Psychiatric: Behavior: Behavior is cooperative. Medications: lactated Ringer's, 100 mL/hr, Last Rate: 100 mL/hr (10/12/221810) enoxaparin, 40 mg, SubCUTAneous, Daily gabapentin, 800 mg, Oral, TID losartan, 25 mg, Oral, Daily mometasone-formoterol, 2 puff, Inhalation, BID piperacillin-tazobactam, 3,375 mg, IntraVENous, q8h sodium chloride 0.9%, 10 mL, IntraVENous, 2 times per day verapamil SR, 240 mg, Oral, Nightly Assessment Recurrent UTI Right-sided abdominal/flank pain due to above Elevated LFT's ? Cause - hepatitis panel is negative Hypokalemia-replace Medical Decision Making Patient admitted for abdominal and flank pain suggestive of recurrent UTI with possible pyelonephritis, CT abdomen and ultrasound looked unremarkable, recent urine culture grew E. coli, current urine culture is pending, on Zosyn, clinically improving, ID following -am labs, replace lytes prn -increase activity -DVT prophylaxis: [x] Lovenox [] Heparin [] SCDs [x] Encourage ambulation [] Already on Anticoagulation Anticipated Discharge - Date -2 to 3 days - Location -Home - Pending the following -clinical improvement Total time spent (which include face to face and non face to face encounters) : 36 minutes Toxic drug monitoring/narrow therapeutic index drug monitoring : # Drug name : Lovenox # Route administered : Subcutaneous # Method of monitoring : Platelets Extended Emergency Contact Information Primary Emergency Contact: Harpal Owens Relation: Spouse CINTIA SILVA MD, MD Division of Hospitalist Medicine [facility] PAGER: [employer] Images from the original note were not included. [facility] - Infectious Diseases Advanced Practice Provider Progress Note Subjective: Following for flank pain in setting of recent e coli pyelonephritis s/p 7 day course of levofloxacin. Notes reviewed. No urine cx collected. Liver enzymes are down trending. Pt still with right sided abd pain. No fever, chills, nausea, vomiting or diarrhea. No dysuria. Vitals: Patient Vitals for the past 24 hrs: BP Temp Temp src Pulse Resp SpO2 10/13/22 0819 (!) 150/75 36.4 C (97.5 F) Temporal 55 16 96 % 10/13/22 0004 (!) 146/75 36.9 C (98.4 F) Temporal 67 18 95 % 10/12/22 2009 (!) 156/84 36.6 C (97.8 F) Temporal 73 18 95 % 10/12/22 1130 (!) 167/99 36.7 C (98 F) Temporal 76 16 96 % Physical Exam: Physical Exam Vitals and nursing note reviewed. Constitutional: General: She is not in acute distress. Appearance: She is normal weight. She is ill-appearing. She is not toxic-appearing or diaphoretic. Comments: Patient lying in bed, NAD. Responds appropriately. Conversant. On room air. HENT: Head: Atraumatic. Right Ear: External ear normal. Left Ear: External ear normal. Nose: Nose normal. Mouth/Throat: Mouth: Mucous membranes are moist. Pharynx: Oropharynx is clear. No oropharyngeal exudate. Eyes: General: Right eye: No discharge. Left eye: No discharge. Extraocular Movements: Extraocular movements intact. Cardiovascular: Rate and Rhythm: Normal rate and regular rhythm. Pulses: Normal pulses. Heart sounds: Normal heart sounds. No murmur heard. Pulmonary: Effort: Pulmonary effort is normal. No respiratory distress. Breath sounds: Normal breath sounds. No wheezing or rhonchi. Abdominal: General: Abdomen is flat. Bowel sounds are normal. There is no distension. Palpations: Abdomen is soft. Tenderness: There is abdominal tenderness. There is no right CVA tenderness or left CVA tenderness. Comments: RUQ pain Musculoskeletal: General: Normal range of motion. Cervical back: Normal range of motion. No rigidity. Right lower leg: No edema. Left lower leg: No edema. Skin: General: Skin is warm and dry. Coloration: Skin is not jaundiced. Findings: No erythema, lesion or rash. Neurological: General: No focal deficit present. Mental Status: She is alert and oriented to person, place, and time. Mental status is at baseline. Motor: No weakness. Psychiatric: Mood and Affect: Mood normal. Behavior: Behavior normal. Thought Content: Thought content normal. Labs: Recent Labs 10/11/22 1254 10/12/22 0615 10/13/22 0233 NA 136 135 140 K 4.0 3.7 3.2* CL 108* 110* 111* CO2 24 23 25 BUN 22* 12 6* CREATININE 0.59 0.58 0.68 GLUCOSE 98 77 71 CALCIUM 8.5 8.2* 8.1* PROT 6.2* 4.6* 5.1* BILITOT 0.5 1.3 0.7 ALKPHOS 65 186* 156* AST 25 450* 152* ALT 21 510* 322* PROCAL -- -- 0.43* Recent Labs 10/11/22 1254 10/12/22 0609 WBC 9.0 5.1 HGB 12.7 11.1* HCT 39.8 34.1* PLT 290 221 LYMPHOPCT 6.9* -- MONOPCT 4.4 -- BASOPCT 0.3 -- NEUTROABS 7.8* -- Micro: No results for input(s): COVID19 in the last 72 hours. 10/11 COVID/Flu/RSV: negative 10/11 blood cx 2/2: collected 10/01 urine cx: >100K e coli 10/01 blood cx 2/2: NG Lines: PIV Radiography/Echo/Other: 10/11 CT a/p WO contrast 1. No definite acute abdominopelvic process identified. 2. Stable simple appearing hepatic cysts. 3. Status post cholecystectomy. 4. Renal and splenic aneurysms better delineated on prior contrasted examinations. 10/02 CXR Negative chest. Antimicrobials,Start/End Dates: Pip tazo 10/11 - Vancomycin 10/11 - Impression: R flank/abd pain in setting of recent e coli pyelonephritis s/p 7-9 days atbs Transaminitis - acute hepatitis panel pending Hx of recurrent UTIs Hx of renal and splenic aneurysms Hepatic cysts Plan: Continue pip tazo. No urine cx obtained from UA. Follow blood cx Acute hepatitis panel negative Optimize as able. Likely to transition to PO . ID to follow Based on diagnoses and management, combination of acute and chronic problems, exacerbations and/or acuity, this visit should be considered to be of moderate complexity. MARILU Wright PA-C Nutrition rescreen completed. Patient is NPO/Clear liquid >3 days. Refer to Dietitian. Images from the original note were not included. Hospitalist Progress Note 10/12/[phone]: Please secure chat me for patient care issues. [phone]: Please secure chat [facility] Hospitalist for any issues. Subjective: Admit Date: 10/11/2022 PCP: MARIA ESTHER RODRIGUEZ DO Room#: B2-252/B2-252 A Interval History: Patient admitted for right flank pain this morning she had pain mostly around the right upper quadrant and flank, denies any dysuria, has recurrent UTIs, recent one due to E. coli on October 01, was treated, she also received a 7-day course of Levaquin for UTI and URI subsequently Denies any chest pain or shortness of breath, has mild nausea but no vomiting Adult diet Clear liquid @[id number]@ 24HR INTAKE/OUTPUT: Intake/Output Summary (Last 24 hours) at 10/12/2022 1442 Last data filed at 10/12/2022 1152 Gross per 24 hour Intake 1465 ml Output -- Net 1465 ml Past Medical History: Past Medical History: Diagnosis Date Arthritis Asthma Hematuria Hypertension Renal artery aneurysm (CMS/HCC) (HCC) UTI (urinary tract infection) LABS: CBC: Recent Labs 10/11/22 1254 WBC 9.0 RBC 4.54 HGB 12.7 HCT 39.8 MCV 87.6 RDW 14.8* PLT 290 BMP: Recent Labs 10/11/22 1254 10/12/22 0615 NA 136 135 K 4.0 3.7 CL 108* 110* CO2 24 23 BUN 22* 12 CREATININE 0.59 0.58 GLUCOSE 98 77 CALCIUM 8.5 8.2* ANIONGAP 4 2* LIVER PROFILE: Recent Labs 10/11/22 1254 10/12/22 0615 AST 25 450* ALT 21 510* BILITOT 0.5 1.3 ALKPHOS 65 186* PROT 6.2* 4.6* PT/INR: No results for input(s): PROTIME, INR in the last 72 hours. CARDIAC ENZYMES: No results for input(s): TROPONINI in the last 72 hours. Procalcitonin: No results found for: PROCAL COVID-19 PCR: No results for input(s): COVID19 in the last 72 hours. Objective: Vitals: BP (!) 167/99 Pulse 76 Temp 36.7 C (98 F) (Temporal) Resp 16 Ht 5' 3 (1.6 m) Wt 134 lb 11.2 oz (61.1 kg) SpO2 96% BMI 23.86 kg/m Pulse Ox: SpO2 Av.9 % Min: 90 % Max: 96 % Physical Exam Constitutional: Appearance: She is ill-appearing. HENT: Mouth/Throat: Mouth: Mucous membranes are dry. Cardiovascular: Rate and Rhythm: Normal rate and regular rhythm. Pulmonary: Effort: Pulmonary effort is normal. Breath sounds: Normal breath sounds. Abdominal: Palpations: Abdomen is soft. Tenderness: There is abdominal tenderness (right flank and RUQ, no CVA tenderness). Neurological: Mental Status: She is oriented to person, place, and time. Medications: lactated Ringer's, 100 mL/hr, Last Rate: 100 mL/hr (10/12/22 1152) enoxaparin, 40 mg, SubCUTAneous, Daily piperacillin-tazobactam, 3,375 mg, IntraVENous, q8h sodium chloride 0.9%, 10 mL, IntraVENous, 2 times per day Assessment Recurrent UTI Right-sided abdominal/flank pain due to above Past Medical History: Diagnosis Date Arthritis Asthma Hematuria Hypertension Renal artery aneurysm (CMS/HCC) (HCC) UTI (urinary tract infection) Medical Decision Making Patient currently on Zosyn, vancomycin DC'd, ID following, await urine cultures and sensitivities,, adequate hydration, IVF CT abdomen ultrasound looks unremarkable for stone or abscess -am labs, replace lytes prn -increase activity -DVT prophylaxis: [x] Lovenox [] Heparin [] SCDs [x] Encourage ambulation [] Already on Anticoagulation Anticipated Discharge - Date - - Location - - Pending the following - Total time spent (which include face to face and non face to face encounters) : 36 minutes Toxic drug monitoring/narrow therapeutic index drug monitoring : # Drug name : # Route administered : # Method of monitoring : Extended Emergency Contact Information Primary Emergency Contact: Harpal Owens Relation: Spouse CINTIA SILVA MD, MD Division of Hospitalist Medicine [facility] [employer] PAGER: Epic chat Pharmacy Vancomycin Consult Follow-Up Note Non-[employer]NET MARK[employer] INTER[employer] Patients Current Dosinmg q12hr CREATININE Date Value Ref Range Status 10/12/2022 0.58 0.52 - 1.04 mg/dL Final 05/11/2022 0.84 0.52 - 1.25 mg/dL Final UREA NITROGEN Date Value Ref Range Status 10/12/2022 12 7 - 17 mg/dL Final Auto WBC Date Value Ref Range Status 10/11/2022 9.0 3.6 - 10.7 10*3/uL Final Ht Readings from Last 1 Encounters: 10/11/22 1.6 m (5' 3 ) Wt Readings from Last 1 Encounters: 10/11/22 61.1 kg (134 lb 11.2 oz) Body mass index is Body mass index is 23.86 kg/m . Random: 6.3 mcg/ml drawn 10/12 at 0615 Calculated AUC: 532 mg/L.hr Assessment/Plan: Calculated AUC is 532 mg/L.hr and is within goal range. Renal function stable. Will continue with 1000mg q12hr dosing regimen and follow renal function daily to assess for dose adjustment. documented in this encounter [facility] 10-14-2022 Note Care Management Prog ress Note TRANSITIONAL CARE DAILY NOTE/UPDATES: Patient remains on 2E due to sepsis. Clinical updates: patient on IV antibiotics. Plans to transition to PO antibiotics. ID following, nephrology following. Discharge plan: Home when medically stable. Discharge obstacles: none noted. TCC to continue to follow. Discharge Milestones and Delays Expected Date/Time: 10/15/[address] discharge order Complete med reconciliation Request transport Case mgmt discharge readiness Expected Discharge History Expected Date/Time Set By Reviewed At 10/15/2022 Edith Herndon RN 10/14/2022 1:31 PM TCC estimate 10/14/2022 Edith Herndon RN 10/14/2022 8:25 AM 10/14/2022 Edith Herndon RN 10/13/2022 8:31 AM 10/14/2022 Edith Herndon RN 10/12/2022 8:45 AM 10/14/2022 Clarence Pinto MD 10/11/2022 8:14 PM 10/14/2022 Clarence Pinto MD 10/11/2022 4:13 PM Length of Stay (Days): 3 GMLOS: No GMLOS Documented [facility] 10-14-2022 Note Hospitalist Progress Note 10/14/2022 [phone]: Please secure chat me for patient care issues. [phone]: Please secure chat [facility] [place] night Hospitalist for any issues. Subjective: Admit Date: 10/11/2022 PCP: MARIA ESTHER RODRIGUEZ DO Room#: B2-252/B2-252 A Interval History: Patient feels better, denies any flank pain or dysuria, denies any abdominal pain, no overnight issues. Denies chest pain, sob, abdominal pain, nausea, vomiting, diarrhea, constipation, fevers, or chills. Adult diet Regular @[id number]@ 24HR INTAKE/OUTPUT: Intake/Output Summary (Last 24 hours) at 10/14/2022 1316 Last data filed at 10/14/2022 0147 Gross per 24 hour Intake -- Output 200 ml Net -200 ml Past Medical History: Past Medical History: Diagnosis Date Arthritis Asthma Hematuria Hypertension Renal artery aneurysm (CMS/HCC) (HCC) UTI (urinary tract infection) LABS: CBC: Recent Labs 10/12/22 0609 10/14/22 0010 WBC 5.1 4.4 RBC 3.87 3.71* HGB 11.1* 10.7* HCT 34.1* 32.4* MCV 88.2 87.4 RDW 14.8* 14.3 PLT 221 230 BMP: Recent Labs 10/12/22 0615 10/13/22 0233 10/14/22 0010 NA 135 140 139 K 3.7 3.2* 3.4* CL 110* 111* 111* CO2 23 25 29 BUN 12 6* 5* CREATININE 0.58 0.68 0.67 GLUCOSE 77 71 126* CALCIUM 8.2* 8.1* 7.8* ANIONGAP 2* 4 -1* LIVER PROFILE: Recent Labs 10/12/22 0615 10/13/22 0233 10/14/22 0010 AST 450* 152* 61* ALT 510* 322* 229* BILITOT 1.3 0.7 0.2 ALKPHOS 186* 156* 138* PROT 4.6* 5.1* 5.0* PT/INR: No results for input(s): PROTIME, INR in the last 72 hours. CARDIAC ENZYMES: No results for input(s): TROPONINI in the last 72 hours. Procalcitonin: Lab Results Component Value Date PROCAL 0.43 (H) 10/13/2022 COVID-19 PCR: No results for input(s): COVID19 in the last 72 hours. Objective: Vitals: BP 133/70 (BP Location: Right arm, Patient Position: Sitting) Pulse 70 Temp 37 ?C (98.6 ?F) (Temporal) Resp 16 Ht 5' 3 (1.6 m) Wt 133 lb 3 oz (60.4 kg) SpO2 100% BMI 23.59 kg/m? Pulse Ox: SpO2 Av % Min: 94 % Max: 100 % Physical Exam Constitutional: General: She is awake. Appearance: Normal appearance. Physical Exam Cardiovascular: Rate and Rhythm: Normal rate and regular rhythm. Heart sounds: Normal heart sounds, S1 normal and S2 normal. Pulmonary: Effort: Pulmonary effort is normal. Breath sounds: Normal breath sounds. Abdominal: General: Bowel sounds are normal. Palpations: Abdomen is soft. Tenderness: There is no abdominal tenderness. There is no right CVA tenderness or left CVA tenderness. Neurological: Mental Status: She is alert. Psychiatric: Behavior: Behavior is cooperative. Medications: amoxicillin-clavulanate, 875 mg, Oral, 2 times per day enoxaparin, 40 mg, SubCUTAneous, Daily gabapentin, 800 mg, Oral, TID losartan, 25 mg, Oral, Daily mometasone-formoterol, 2 puff, Inhalation, BID sodium chloride 0.9%, 10 mL, IntraVENous, 2 times per day verapamil SR, 240 mg, Oral, Nightly Assessment Recurrent UTI Right-sided abdominal/flank pain due to above Elevated LFT's ? Cause - hepatitis panel is negative-improved Hypokalemia-replace Medical Decision Making Patient admitted for apparent UTI, previous urine culture grew E. coli, on Zosyn, recent urine culture showed no growth but patient already received outpatient antibiotics, appreciate ID input, antibiotics switched to Augmentin, will continue to follow -am labs, replace lytes prn -increase activity -DVT prophylaxis: [x] Lovenox [] Heparin [] SCDs [x] Encourage ambulation [] Already on Anticoagulation Anticipated Discharge - Date -24 hours - Location -Home - Pending the following -clinical improvement Total time spent (which include face to face and non face to face encounters) : 36 minutes Toxic drug monitoring/narrow therapeutic index drug monitoring : # Drug name : # Route administered : # Method of monitoring : Extended Emergency Contact Information Primary Emergency Contact: Harpal Owens Relation: Spouse CINTIA SALCIDOELIZABETH TURK, Division of Hospitalist Medicine [facility] [employer] PAGER: [employer] [facility] 10-14-2022 Note Formatting of this n ote is different from the original. Images from the original note were not included. Care Management Progress Note TRANSITIONAL CARE DAILY NOTE/UPDATES: Patient remains on 2E due to sepsis. Clinical updates: patient on IV antibiotics. Plans to transition to PO antibiotics. ID following, nephrology following. Discharge plan: Home when medically stable. Discharge obstacles: none noted. TCC to continue to follow. Discharge Milestones and Delays Expected Date/Time: 10/15/[address] discharge order Complete med reconciliation Request transport Case mgmt discharge readiness Expected Discharge History Expected Date/Time Set By Reviewed At 10/15/2022 Edith Herndon RN 10/14/2022 1:31 PM TCC estimate 10/14/2022 Edith Herndon RN 10/14/2022 8:25 AM 10/14/2022 Edith Herndon RN 10/13/2022 8:31 AM 10/14/2022 Edith Herndon RN 10/12/2022 8:45 AM 10/14/2022 Clarence Pinto MD 10/11/2022 8:14 PM 10/14/2022 Clarence Pinto MD 10/11/2022 4:13 PM Length of Stay (Days): 3 GMLOS: No GMLOS Documented [facility] 10-14-2022 Note Formatting of this n ote is different from the original. Images from the original note were not included. Care Management Progress Note TRANSITIONAL CARE DAILY NOTE/UPDATES: Patient remains on 2E due to sepsis. Clinical updates: patient on IV antibiotics. Plans to transition to PO antibiotics. ID following, nephrology following. Discharge plan: Home when medically stable. Discharge obstacles: none noted. TCC to continue to follow. Discharge Milestones and Delays Expected Date/Time: 10/15/[address] discharge order Complete med reconciliation Request transport Case mgmt discharge readiness Expected Discharge History Expected Date/Time Set By Reviewed At 10/15/2022 Edith Herndon RN 10/14/2022 1:31 PM TCC estimate 10/14/2022 Edith Herndon RN 10/14/2022 8:25 AM 10/14/2022 Edith Herndon RN 10/13/2022 8:31 AM 10/14/2022 Edith Herndon RN 10/12/2022 8:45 AM 10/14/2022 Clarence Pinto MD 10/11/2022 8:14 PM 10/14/2022 Clarence Pinto MD 10/11/2022 4:13 PM Length of Stay (Days): 3 GMLOS: No GMLOS Documented [facility] 10-14-2022 Note [facility] - Infectious Diseases Advanced Practice Provider Progress Note Subjective: Following for flank pain in setting of recent e coli pyelonephritis s/p 7 day course of levofloxacin. Notes reviewed. Urine cx NG. Liver enzymes down trending. R sided abd and flank pain resolved. No fever, chills, nausea, vomiting or diarrhea. No dysuria. Vitals: Patient Vitals for the past 24 hrs: BP Temp Temp src Pulse Resp SpO2 Height Weight 10/14/22 0909 -- -- -- -- -- -- 1.6 m (5' 3 ) -- 10/14/22 0846 -- -- -- -- -- 96 % -- -- 10/14/22 0836 (!) 146/86 36.5 ?C (97.7 ?F) Temporal 63 16 98 % -- -- 10/14/22 0653 -- -- -- -- -- -- -- 60.4 kg (133 lb 3 oz) 10/14/22 0558 125/70 36.3 ?C (97.4 ?F) Temporal 62 18 95 % -- -- 10/14/22 0147 116/65 36.4 ?C (97.5 ?F) Temporal 71 16 94 % -- -- 10/13/22 2216 114/59 37 ?C (98.6 ?F) Temporal 77 16 95 % -- -- 10/13/22 1452 122/68 36.3 ?C (97.4 ?F) Temporal 75 16 94 % -- -- Physical Exam: Physical Exam Vitals and nursing note reviewed. Constitutional: General: She is not in acute distress. Appearance: She is normal weight. She is ill-appearing. She is not toxic-appearing or diaphoretic. Comments: Patient lying in bed, NAD. Responds appropriately. Conversant. On room air. HENT: Head: Atraumatic. Right Ear: External ear normal. Left Ear: External ear normal. Nose: Nose normal. Mouth/Throat: Mouth: Mucous membranes are moist. Pharynx: Oropharynx is clear. No oropharyngeal exudate. Eyes: General: Right eye: No discharge. Left eye: No discharge. Extraocular Movements: Extraocular movements intact. Cardiovascular: Rate and Rhythm: Normal rate and regular rhythm. Pulses: Normal pulses. Heart sounds: Normal heart sounds. No murmur heard. Pulmonary: Effort: Pulmonary effort is normal. No respiratory distress. Breath sounds: Normal breath sounds. No wheezing or rhonchi. Abdominal: General: Abdomen is flat. Bowel sounds are normal. There is no distension. Palpations: Abdomen is soft. Tenderness: There is no abdominal tenderness. There is no right CVA tenderness or left CVA tenderness. Musculoskeletal: General: Normal range of motion. Cervical back: Normal range of motion. No rigidity. Right lower leg: No edema. Left lower leg: No edema. Skin: General: Skin is warm and dry. Coloration: Skin is not jaundiced. Findings: No erythema, lesion or rash. Neurological: General: No focal deficit present. Mental Status: She is alert and oriented to person, place, and time. Mental status is at baseline. Motor: No weakness. Psychiatric: Mood and Affect: Mood normal. Behavior: Behavior normal. Thought Content: Thought content normal. Labs: Recent Labs 10/12/22 0615 10/13/22 0233 10/14/22 0010 NA 135 140 139 K 3.7 3.2* 3.4* CL 110* 111* 111* CO2 29 BUN 12 6* 5* CREATININE 0.58 0.68 0.67 GLUCOSE 77 71 126* CALCIUM 8.2* 8.1* 7.8* PROT 4.6* 5.1* 5.0* BILITOT 1.3 0.7 0.2 ALKPHOS 186* 156* 138* AST 450* 152* 61* ALT 510* 322* 229* PROCAL -- 0.43* -- Recent Labs 10/11/22 1254 10/12/22 0609 10/14/22 0010 WBC 9.0 5.1 4.4 HGB 12.7 11.1* 10.7* HCT 39.8 34.1* 32.4* PLT 290 221 230 LYMPHOPCT 6.9* -- -- MONOPCT 4.4 -- -- BASOPCT 0.3 -- -- NEUTROABS 7.8* -- -- Micro: No results for input(s): COVID19 in the last 72 hours. 10/13 urine cx: NG 10/11 COVID/Flu/RSV: negative 10/11 blood cx 08/20: NGTD 10/01 urine cx: >100K e coli 10/01 blood cx 2: NG Lines: PIV Radiography/Echo/Other: 10/11 CT a/p WO contrast 1. No definite acute abdominopelvic process identified. 2. Stable simple appearing hepatic cysts. 3. Status post cholecystectomy. 4. Renal and splenic aneurysms better delineated on prior contrasted examinations. 10/02 CXR Negative chest. Antimicrobials,Start/End Dates: Pip tazo 10/11 - 10/14 Vancomycin 10/11 - Amox clav 10/14 - Impression: R flank/abd pain in setting of recent e coli pyelonephritis s/p 7-9 days atbs Transaminitis - acute hepatitis panel negative Hx of recurrent UTIs Hx of renal and splenic aneurysms Hepatic cysts Plan: Urine cx NG, but after several days of atbs. Previous cx with e coli. Will discontinue pip tazo and transition to amox clav 875-125mg for 7 day course through 10/17/22. Follow blood cx Acute hepatitis panel negative ID to follow Based on diagnoses and management, combination of acute and chronic problems, exacerbations and/or acuity, this visit should be considered to be of high complexity. MARILU Wright, PA-C [facility] 10-13-2022 Note Care Management Prog ress Note Discharge Milestones and Delays Expected Date/Time: 10/14/[address] discharge order Complete med reconciliation Request transport Case mgmt discharge readiness Expected Discharge History Expected Date/Time Set By Reviewed At 10/14/2022 Edith Herndon RN 10/13/2022 8:31 AM 10/14/2022 Edith Herndon RN 10/12/2022 8:45 AM 10/14/2022 Clarence Pinto MD 10/11/2022 8:14 PM 10/14/2022 Clarence Pinto MD 10/11/2022 4:13 PM Length of Stay (Days): 2 GMLOS: No GMLOS Documented TRANSITIONAL CARE DAILY NOTE/UPDATES: Patient remains on 2E due to sepsis. Clinical updates: patient on IV antibiotics. ID following, nephrology following. Discharge plan: Home when medically stable. Discharge obstacles: none noted. TCC to continue to follow. [facility] 10-13-2022 Note Formatting of this n ote is different from the original. Images from the original note were not included. Care Management Progress Note Discharge Milestones and Delays Expected Date/Time: 10/14/[address] discharge order Complete med reconciliation Request transport Case mgmt discharge readiness Expected Discharge History Expected Date/Time Set By Reviewed At 10/14/2022 Edith Herndon RN 10/13/2022 8:31 AM 10/14/2022 Edith Herndon RN 10/12/2022 8:45 AM 10/14/2022 Clarence Pinto MD 10/11/2022 8:14 PM 10/14/2022 Clarence Pinto MD 10/11/2022 4:13 PM Length of Stay (Days): 2 GMLOS: No GMLOS Documented TRANSITIONAL CARE DAILY NOTE/UPDATES: Patient remains on 2E due to sepsis. Clinical updates: patient on IV antibiotics. ID following, nephrology following. Discharge plan: Home when medically stable. Discharge obstacles: none noted. TCC to continue to follow. [facility] 10-13-2022 Note Formatting of this n ote is different from the original. Images from the original note were not included. Care Management Progress Note Discharge Milestones and Delays Expected Date/Time: 10/14/[address] discharge order Complete med reconciliation Request transport Case mgmt discharge readiness Expected Discharge History Expected Date/Time Set By Reviewed At 10/14/2022 Edith Herndon RN 10/13/2022 8:31 AM 10/14/2022 Edith Herndon RN 10/12/2022 8:45 AM 10/14/2022 Clarence Pinto MD 10/11/2022 8:14 PM 10/14/2022 Clarence Pinto MD 10/11/2022 4:13 PM Length of Stay (Days): 2 GMLOS: No GMLOS Documented TRANSITIONAL CARE DAILY NOTE/UPDATES: Patient remains on 2E due to sepsis. Clinical updates: patient on IV antibiotics. ID following, nephrology following. Discharge plan: Home when medically stable. Discharge obstacles: none noted. TCC to continue to follow. T [facility] 10-13-2022 Note Hospitalist Progress Note 10/13/2022 [phone]: Please secure chat me for patient care issues. [phone]: Please secure chat [facility] Hospitalist for any issues. Subjective: Admit Date: 10/11/2022 PCP: MARIA ESTHER RODRIGUEZ DO Room#: B2-252/B2-252 A Interval History: No overnight issues. Denies chest pain, sob, abdominal pain, nausea, vomiting, diarrhea, constipation, fevers, or chills. Adult diet Clear liquid @[id number]@ 24HR INTAKE/OUTPUT: Intake/Output Summary (Last 24 hours) at 10/13/2022 1126 Last data filed at 10/13/2022 0600 Gross per 24 hour Intake 3277.67 ml Output 2300 ml Net 977.67 ml Past Medical History: Past Medical History: Diagnosis Date Arthritis Asthma Hematuria Hypertension Renal artery aneurysm (CMS/HCC) (HCC) UTI (urinary tract infection) LABS: CBC: Recent Labs 10/11/22 1254 10/12/22 0609 WBC 9.0 5.1 RBC 4.54 3.87 HGB 12.7 11.1* HCT 39.8 34.1* MCV 87.6 88.2 RDW 14.8* 14.8* PLT 290 221 BMP: Recent Labs 10/11/22 1254 10/12/22 0615 10/13/22 0233 NA 136 135 140 K 4.0 3.7 3.2* CL 108* 110* 111* CO2 24 23 25 BUN 22* 12 6* CREATININE 0.59 0.58 0.68 GLUCOSE 98 77 71 CALCIUM 8.5 8.2* 8.1* ANIONGAP 4 2* 4 LIVER PROFILE: Recent Labs 10/11/22 1254 10/12/22 0615 10/13/22 0233 AST 25 450* 152* ALT 21 510* 322* BILITOT 0.5 1.3 0.7 ALKPHOS 65 186* 156* PROT 6.2* 4.6* 5.1* PT/INR: No results for input(s): PROTIME, INR in the last 72 hours. CARDIAC ENZYMES: No results for input(s): TROPONINI in the last 72 hours. Procalcitonin: Lab Results Component Value Date PROCAL 0.43 (H) 10/13/2022 COVID-19 PCR: No results for input(s): COVID19 in the last 72 hours. Objective: Vitals: BP (!) 150/75 Pulse 55 Temp 36.4 ?C (97.5 ?F) (Temporal) Resp 16 Ht 5' 3 (1.6 m) Wt 134 lb 11.2 oz (61.1 kg) SpO2 96% BMI 23.86 kg/m? Pulse Ox: SpO2 Av.5 % Min: 95 % Max: 96 % Physical Exam Cardiovascular: Rate and Rhythm: Normal rate and regular rhythm. Heart sounds: Normal heart sounds, S1 normal and S2 normal. Pulmonary: Effort: Pulmonary effort is normal. Breath sounds: Normal breath sounds. Abdominal: General: Bowel sounds are normal. Palpations: Abdomen is soft. Tenderness: There is no abdominal tenderness. There is no right CVA tenderness or left CVA tenderness. Neurological: Mental Status: She is alert. Psychiatric: Behavior: Behavior is cooperative. Medications: lactated Ringer's, 100 mL/hr, Last Rate: 100 mL/hr (10/12/221810) enoxaparin, 40 mg, SubCUTAneous, Daily gabapentin, 800 mg, Oral, TID losartan, 25 mg, Oral, Daily mometasone-formoterol, 2 puff, Inhalation, BID piperacillin-tazobactam, 3,375 mg, IntraVENous, q8h sodium chloride 0.9%, 10 mL, IntraVENous, 2 times per day verapamil SR, 240 mg, Oral, Nightly Assessment Recurrent UTI Right-sided abdominal/flank pain due to above Elevated LFT's ? Cause - hepatitis panel is negative Hypokalemia-replace Medical Decision Making Patient admitted for abdominal and flank pain suggestive of recurrent UTI with possible pyelonephritis, CT abdomen and ultrasound looked unremarkable, recent urine culture grew E. coli, current urine culture is pending, on Zosyn, clinically improving, ID following -am labs, replace lytes prn -increase activity -DVT prophylaxis: [x] Lovenox [] Heparin [] SCDs [x] Encourage ambulation [] Already on Anticoagulation Anticipated Discharge - Date -2 to 3 days - Location -Home - Pending the following -clinical improvement Total time spent (which include face to face and non face to face encounters) : 36 minutes Toxic drug monitoring/narrow therapeutic index drug monitoring : # Drug name : Lovenox # Route administered : Subcutaneous # Method of monitoring : Platelets Extended Emergency Contact Information Primary Emergency Contact: Harpal Owens Relation: Spouse CINTIA SILVA MD, Division of Hospitalist Medicine [facility] PAGER: [employer] [facility] 10-13-[address] [facility] - Infectious Diseases Advanced Practice Provider Progress Note Subjective: Following for flank pain in setting of recent e coli pyelonephritis s/p 7 day course of levofloxacin. Notes reviewed. No urine cx collected. Liver enzymes are down trending. Pt still with right sided abd pain. No fever, chills, nausea, vomiting or diarrhea. No dysuria. Vitals: Patient Vitals for the past 24 hrs: BP Temp Temp src Pulse Resp SpO2 10/13/22 0819 (!) 150/75 36.4 ?C (97.5 ?F) Temporal 55 16 96 % 10/13/22 0004 (!) 146/75 36.9 ?C (98.4 ?F) Temporal 67 18 95 % 10/12/22 2009 (!) 156/84 36.6 ?C (97.8 ?F) Temporal 73 18 95 % 10/12/22 1130 (!) 167/99 36.7 ?C (98 ?F) Temporal 76 16 96 % Physical Exam: Physical Exam Vitals and nursing note reviewed. Constitutional: General: She is not in acute distress. Appearance: She is normal weight. She is ill-appearing. She is not toxic-appearing or diaphoretic. Comments: Patient lying in bed, NAD. Responds appropriately. Conversant. On room air. HENT: Head: Atraumatic. Right Ear: External ear normal. Left Ear: External ear normal. Nose: Nose normal. Mouth/Throat: Mouth: Mucous membranes are moist. Pharynx: Oropharynx is clear. No oropharyngeal exudate. Eyes: General: Right eye: No discharge. Left eye: No discharge. Extraocular Movements: Extraocular movements intact. Cardiovascular: Rate and Rhythm: Normal rate and regular rhythm. Pulses: Normal pulses. Heart sounds: Normal heart sounds. No murmur heard. Pulmonary: Effort: Pulmonary effort is normal. No respiratory distress. Breath sounds: Normal breath sounds. No wheezing or rhonchi. Abdominal: General: Abdomen is flat. Bowel sounds are normal. There is no distension. Palpations: Abdomen is soft. Tenderness: There is abdominal tenderness. There is no right CVA tenderness or left CVA tenderness. Comments: RUQ pain Musculoskeletal: General: Normal range of motion. Cervical back: Normal range of motion. No rigidity. Right lower leg: No edema. Left lower leg: No edema. Skin: General: Skin is warm and dry. Coloration: Skin is not jaundiced. Findings: No erythema, lesion or rash. Neurological: General: No focal deficit present. Mental Status: She is alert and oriented to person, place, and time. Mental status is at baseline. Motor: No weakness. Psychiatric: Mood and Affect: Mood normal. Behavior: Behavior normal. Thought Content: Thought content normal. Labs: Recent Labs 10/11/22 1254 10/12/22 0615 10/13/22 0233 NA 136 135 140 K 4.0 3.7 3.2* CL 108* 110* 111* CO2 24 23 25 BUN 22* 12 6* CREATININE 0.59 0.58 0.68 GLUCOSE 98 77 71 CALCIUM 8.5 8.2* 8.1* PROT 6.2* 4.6* 5.1* BILITOT 0.5 1.3 0.7 ALKPHOS 65 186* 156* AST 25 450* 152* ALT 21 510* 322* PROCAL -- -- 0.43* Recent Labs 10/11/22 1254 10/12/22 0609 WBC 9.0 5.1 HGB 12.7 11.1* HCT 39.8 34.1* PLT 290 221 LYMPHOPCT 6.9* -- MONOPCT 4.4 -- BASOPCT 0.3 -- NEUTROABS 7.8* -- Micro: No results for input(s): COVID19 in the last 72 hours. 10/11 COVID/Flu/RSV: negative 10/11 blood cx 2/2: collected 10/01 urine cx: >100K e coli 10/01 blood cx 2: NG Lines: PIV Radiography/Echo/Other: 10/11 CT a/p WO contrast 1. No definite acute abdominopelvic process identified. 2. Stable simple appearing hepatic cysts. 3. Status post cholecystectomy. 4. Renal and splenic aneurysms better delineated on prior contrasted examinations. 10/02 CXR Negative chest. Antimicrobials,Start/End Dates: Pip tazo 10/11 - Vancomycin 10/11 - Impression: R flank/abd pain in setting of recent e coli pyelonephritis s/p 7-9 days atbs Transaminitis - acute hepatitis panel pending Hx of recurrent UTIs Hx of renal and splenic aneurysms Hepatic cysts Plan: Continue pip tazo. No urine cx obtained from UA. Follow blood cx Acute hepatitis panel negative Optimize as able. Likely to transition to PO . ID to follow Based on diagnoses and management, combination of acute and chronic problems, exacerbations and/or acuity, this visit should be considered to be of moderate complexity. Tiffany Butler, MARILU, PA-C [facility] 10-12-2022 Note Hospitalist Progress Note 10/12/2022 [phone]: Please secure chat id for patient care issues. [phone]: Please secure chat [facility] Hospitalist for any issues. Subjective: Admit Date: 10/11/2022 PCP: MARIA ESTHER RODRIGUEZ DO Room#: B2-177/B2-685 A Interval History: Patient admitted for right flank pain this morning she had pain mostly around the right upper quadrant and flank, denies any dysuria, has recurrent UTIs, recent one due to E. coli on October 01, was treated, she also received a 7-day course of Levaquin for UTI and URI subsequently Denies any chest pain or shortness of breath, has mild nausea but no vomiting Adult diet Clear liquid @[id number]@ 24HR INTAKE/OUTPUT: Intake/Output Summary (Last 24 hours) at 10/12/2022 1442 Last data filed at 10/12/2022 1152 Gross per 24 hour Intake 1465 ml Output -- Net 1465 ml Past Medical History: Past Medical History: Diagnosis Date Arthritis Asthma Hematuria Hypertension Renal artery aneurysm (CMS/HCC) (HCC) UTI (urinary tract infection) LABS: CBC: Recent Labs 10/11/22 1254 WBC 9.0 RBC 4.54 HGB 12.7 HCT 39.8 MCV 87.6 RDW 14.8* PLT 290 BMP: Recent Labs 10/11/22 1254 10/12/22 0615 NA 136 135 K 4.0 3.7 CL 108* 110* CO2 24 23 BUN 22* 12 CREATININE 0.59 0.58 GLUCOSE 98 77 CALCIUM 8.5 8.2* ANIONGAP 4 2* LIVER PROFILE: Recent Labs 10/11/22 1254 10/12/22 0615 AST 25 450* ALT 21 510* BILITOT 0.5 1.3 ALKPHOS 65 186* PROT 6.2* 4.6* PT/INR: No results for input(s): PROTIME, INR in the last 72 hours. CARDIAC ENZYMES: No results for input(s): TROPONINI in the last 72 hours. Procalcitonin: No results found for: PROCAL COVID-19 PCR: No results for input(s): COVID19 in the last 72 hours. Objective: Vitals: BP (!) 167/99 Pulse 76 Temp 36.7 ?C (98 ?F) (Temporal) Resp 16 Ht 5' 3 (1.6 m) Wt 134 lb 11.2 oz (61.1 kg) SpO2 96% BMI 23.86 kg/m? Pulse Ox: SpO2 Av.9 % Min: 90 % Max: 96 % Physical Exam Constitutional: Appearance: She is ill-appearing. HENT: Mouth/Throat: Mouth: Mucous membranes are dry. Cardiovascular: Rate and Rhythm: Normal rate and regular rhythm. Pulmonary: Effort: Pulmonary effort is normal. Breath sounds: Normal breath sounds. Abdominal: Palpations: Abdomen is soft. Tenderness: There is abdominal tenderness (right flank and RUQ, no CVA tenderness). Neurological: Mental Status: She is oriented to person, place, and time. Medications: lactated Ringer's, 100 mL/hr, Last Rate: 100 mL/hr (10/12/22 1152) enoxaparin, 40 mg, SubCUTAneous, Daily piperacillin-tazobactam, 3,375 mg, IntraVENous, q8h sodium chloride 0.9%, 10 mL, IntraVENous, 2 times per day Assessment Recurrent UTI Right-sided abdominal/flank pain due to above Past Medical History: Diagnosis Date Arthritis Asthma Hematuria Hypertension Renal artery aneurysm (CMS/HCC) (HCC) UTI (urinary tract infection) Medical Decision Making Patient currently on Zosyn, vancomycin DC'd, ID following, await urine cultures and sensitivities,, adequate hydration, IVF CT abdomen ultrasound looks unremarkable for stone or abscess -am labs, replace lytes prn -increase activity -DVT prophylaxis: [x] Lovenox [] Heparin [] SCDs [x] Encourage ambulation [] Already on Anticoagulation Anticipated Discharge - Date - - Location - - Pending the following - Total time spent (which include face to face and non face to face encounters) : 36 minutes Toxic drug monitoring/narrow therapeutic index drug monitoring : # Drug name : # Route administered : # Method of monitoring : Extended Emergency Contact Information Primary Emergency Contact: Harpal Owens Relation: Spouse CINTIA SILVA MD, Division of [facility]ist [facility] PAGER: [employer] [facility] 10-12-2022 Note Formatting of this n ote might be different from the original. Care Managment Initial Assessment Date: 10/12/2022 Patient Name: Denny Owens : 1960 Patient Information Source of Information: Patient Cognition/Language: WFL - Within Functional Limits Permission given to speak with patient in home sales representative/caregiver as indicated: Yes (, Harpal) Confirmation of Payer with patient/family: Yes Payer Name: [employer] : No Confirmation of Primary Care Physician: Confirmed PCP Name: Maria Esther Rodriguez Seen in last 2 years?: Yes Primary Caregiver: Self If assistance needed, confirmed caregiver ready, willing and able to care for patient at discharge: Confirmed with: Living Arrangements Current Residence: Private Residence Number of Floors 1 Number of Entry Steps: 2 Bed/Bath Levels: Both first floor Facility: Facility Name: Plan to Return: Lives with: Spouse/significant other, Children Support Systems: Spouse/significant other, Children Activities of Daily Living Ambulation: Independent Bathing/Dressing: Independent Elimination/Continence/Toileting: Independent Feeding: Independent Who Assists with Activities of Daily Living: Instrumental Activities of Daily Living Prescription Coverage: Yes Pharmacy Used: [facility] [place] Medication Management: Independent Transportation/Shopping: Independent Transportation Mode: Car Needs Assistance with Transportation at Discharge: No Meal Preparation: Independent Laundry/Cleaning: Independent Finances/Bill Paying: Independent Communication: Independent Types of Care Services/Equipment Utilized Care Services: Dialysis Type: NA Durable Medical Equipment: Other (Comment) (none) Patient's Goal/Discharge Plan Patient expects to be discharged to: Home Discharge Planning Actions: Continue to follow Patient's Choice Rights and [employer] and Collaborative Relationships Disclosed as Indicated for Post-Acute Care: Interdisciplinary Team Engagement: Social Work Referral for: Additional Information: Spoke with patient at bedside. Introduced self and role. Discharge planning needs discussed. Patient expects to be discharged home with no needs. Patient in hospital due to sepsis. Patient on IV antibiotics. Abnormal labs. Blood cultures pending. ID following. Patient on chemo for cervical cancer. To have renal US today. Patient lives at home with and children, is independent. Denies any needs at this time. TCC will continue to follow. Edith Herndon RN [facility] 10-12-2022 Note Formatting of this n ote might be different from the original. Care Managment Initial Assessment Date: 10/12/2022 Patient Name: Denny Owens : 1960 Patient Information Source of Information: Patient Cognition/Language: WFL - Within Functional Limits Permission given to speak with patient in home sales representative/caregiver as indicated: Yes (, Harpal) Confirmation of Payer with patient/family: Yes Payer Name: [employer] : No Confirmation of Primary Care Physician: Confirmed PCP Name: Maria Esther Rodriguez Seen in last 2 years?: Yes Primary Caregiver: Self If assistance needed, confirmed caregiver ready, willing and able to care for patient at discharge: Confirmed with: Living Arrangements Current Residence: Private Residence Number of Floors 1 Number of Entry Steps: 2 Bed/Bath Levels: Both first floor Facility: Facility Name: Plan to Return: Lives with: Spouse/significant other, Children Support Systems: Spouse/significant other, Children Activities of Daily Living Ambulation: Independent Bathing/Dressing: Independent Elimination/Continence/Toileting: Independent Feeding: Independent Who Assists with Activities of Daily Living: Instrumental Activities of Daily Living Prescription Coverage: Yes Pharmacy Used: [facility] in [place] Medication Management: Independent Transportation/Shopping: Independent Transportation Mode: Car Needs Assistance with Transportation at Discharge: No Meal Preparation: Independent Laundry/Cleaning: Independent Finances/Bill Paying: Independent Communication: Independent Types of Care Services/Equipment Utilized Care Services: Dialysis Type: NA Durable Medical Equipment: Other (Comment) (none) Patient's Goal/Discharge Plan Patient expects to be discharged to: Home Discharge Planning Actions: Continue to follow Patient's Choice Rights and [employer] and Collaborative Relationships Disclosed as Indicated for Post-Acute Care: Interdisciplinary Team Engagement: Social Work Referral for: Additional Information: Spoke with patient at bedside. Introduced self and role. Discharge planning needs discussed. Patient expects to be discharged home with no needs. Patient in hospital due to sepsis. Patient on IV antibiotics. Abnormal labs. Blood cultures pending. ID following. Patient on chemo for cervical cancer. To have renal US today. Patient lives at home with and children, is independent. Denies any needs at this time. TCC will continue to follow. Edith Herndon RN [email or web address] 10-12-2022 Consult note Formatting of th is note might be different from the original. Vancomycin therapy has been discontinued by Tiffany Butler PA-C, on 10/12. Thank you for the consult. Pharmacy signing off for vancomycin dosing. Vishal Martinez RPh, PharmD Date: 10/12/22 Time: 10:06 AM [email or web address] 10-12-2022 Consult note Formatting of th is note might be different from the original. Vancomycin therapy has been discontinued by Tiffany Butler PA-C, on 10/12. Thank you for the consult. Pharmacy signing off for vancomycin dosing. Vishal Martinez [facility], PharmD Date: 10/12/22 Time: 10:06 AM Associated Order(s): IP CONSULT TO INFECTIOUS DISEASES Images from the original note were not included. [facility] - Infectious Diseases Advanced Practice Provider Consult Note Reason for Consult: Sepsis of unknown source History of Present Illness: This is a 61 yo F with a PMH of arthritis, HTN, renal and splenic aneurysm, recurrent UTIs who presented to [facility] on 10/11 for R flank pain, fevers, nausea and vomiting. Recently presented to the ED for R flank pain and dysuria on 10/01 and was diagnosed with pyelonephritis and sent home with 14 days of cefpodoxime. The patient states she saw her PCP 2 days later and was having complaints of an URI, so her PCP switched her atbs to levofloxacin for 7 days. While taking atbs, her flank pain and dysuria resolved, but quickly came back after her course and she later developed fevers and stomach upset. Denies current fever, chills, nausea, vomiting, diarrhea, urinary symptoms but still has some R flank pain, which has improved since being admitted. UA without pyuria, cx pending. No leukocytosis. Has been afebrile. CT with hepatic cysts, renal and splenic aneurysm, no hydronephrosis. Renal US pending. Does have elevated liver enzymes compared to yesterday. AST at 450, ALT at 510. Past Medical History: Past Medical History: Diagnosis Date Arthritis Asthma Hematuria Hypertension Renal artery aneurysm (CMS/HCC) (HCC) UTI (urinary tract infection) Past Surgical History: Past Surgical History: Procedure Laterality Date BLADDER SURGERY 11/23/2016 hydrodistension BLADDER SUSPENSION CARPAL TUNNEL RELEASE Bilateral SECTION (HISTORICAL) CHOLECYSTECTOMY CYSTOSCOPY with hydrodistention HYSTERECTOMY NECK SURGERY 05/28/2015 ACDF RECTOCELE REPAIR TONSILLECTOMY (HISTORICAL) Current Medications: Current Facility-Administered Medications Medication Dose Route Frequency Provider Last Rate Last Admin acetaminophen (Tylenol) tablet 650 mg 650 mg Oral q6h PRN Beba Ryne, SALES COMMUNICATIONS MANAGER - MINING ENGINEER Or acetaminophen (Tylenol) suppository 650 mg 650 mg Rectal q6h PRN Beba Ryne, SALES COMMUNICATIONS MANAGER - MINING ENGINEER enoxaparin (Lovenox) syringe 40 mg 40 mg SubCUTAneous Daily Beba Ryne, SALES COMMUNICATIONS MANAGER - MINING ENGINEER ketorolac (Toradol) injection 30 mg 30 mg IntraVENous q6h PRN Beba Ryne, SALES COMMUNICATIONS MANAGER - MINING ENGINEER 30 mg at 10/11/222111 lactated Ringer's infusion 100 mL/hr IntraVENous Continuous Beba Ryne, SALES COMMUNICATIONS MANAGER - MINING ENGINEER 100 mL/hr at 10/11/222112 100 mL/hr at 10/11/222112 ondansetron ODT (Zofran-ODT) disintegrating tablet 4 mg 4 mg Oral q8h PRN Beba Ryne, SALES COMMUNICATIONS MANAGER - MINING ENGINEER Or ondansetron (Zofran) injection 4 mg 4 mg IntraVENous q6h PRN Beba Ryne, SALES COMMUNICATIONS MANAGER - MINING ENGINEER oxyCODONE (Roxicodone) immediate release tablet 5 mg 5 mg Oral q6h PRN Beab Ryne, SALES COMMUNICATIONS MANAGER - MINING ENGINEER polyethylene glycol (PEG) 3350 (Miralax) packet 17 g 17 g Oral Daily PRN Beba Ryne, SALES COMMUNICATIONS MANAGER - MINING ENGINEER sodium chloride 0.9 % infusion 5-250 mL/hr IntraVENous PRN Beba Ryne, SALES COMMUNICATIONS MANAGER - MINING ENGINEER sodium chloride 0.9% (NS) flush 10 mL 10 mL IntraVENous 2 times per day Beba Ryne, SALES COMMUNICATIONS MANAGER - MINING ENGINEER 10 mL at 10/11/222111 sodium chloride 0.9% (NS) flush 10 mL 10 mL IntraVENous PRN Beba Ryne, SALES COMMUNICATIONS MANAGER - MINING ENGINEER vancomycin (Vancocin) 1,000 mg in sodium chloride 0.9 % 250 mL IVPB 1,000 mg IntraVENous q12h Beba Ryne, SALES COMMUNICATIONS MANAGER - MINING ENGINEER Stopped at 10/11/222211 Allergies: Allergies Allergen Reactions Methenamine Hives Other reaction(s): Unknown Social History: Social History Socioeconomic History Marital status: Spouse name: Not on file Number of children: Not on file Years of education: Not on file Highest education level: Not on file Occupational History Not on file Tobacco Use Smoking status: Never Smokeless tobacco: Never Substance and Sexual Activity Alcohol use: No Drug use: No Sexual activity: Not on file Other Topics Concern Not on file Social History Narrative Not on file Social Determinants of Health Financial Resource Strain: Not on file Food Insecurity: Not on file Transportation Needs: No Transportation Needs Lack of Transportation (Medical): No Lack of Transportation (Non-Medical): No Physical Activity: Not on file Stress: Not on file Social Connections: Not on file Intimate Partner Violence: Not on file Housing Stability: Unknown Unable to Pay for Housing in the Last Year: No Number of Places Lived in the Last Year: Not on file Unstable Housing in the Last Year: No Family History: Family History Problem Relation Name Age of Onset Diabetes Mother Heart disease Mother Cancer Father Review of Systems: Review of Systems Constitutional: Positive for fever. Negative for activity change, appetite change and chills. HENT: Negative for ear discharge, facial swelling, hearing loss, sore throat, trouble swallowing and voice change. Eyes: Negative for photophobia, discharge, redness, itching and visual disturbance. Respiratory: Negative for apnea, cough, shortness of breath and wheezing. Cardiovascular: Negative for chest pain, palpitations and leg swelling. Gastrointestinal: Positive for nausea and vomiting. Negative for abdominal distention, abdominal pain, blood in stool, constipation and diarrhea. Genitourinary: Positive for dysuria and flank pain. Negative for difficulty urinating, frequency, hematuria and urgency. Musculoskeletal: Negative for arthralgias, back pain, gait problem, joint swelling, neck pain and neck stiffness. Skin: Negative for color change, rash and wound. Neurological: Negative for dizziness, weakness, light-headedness, numbness and headaches. Hematological: Negative for adenopathy. Does not bruise/bleed easily. Psychiatric/Behavioral: Negative for agitation, behavioral problems and confusion. Vitals: Patient Vitals for the past 24 hrs: BP Temp Temp src Pulse Resp SpO2 Height Weight 10/12/22 0809 (!) 149/80 36.9 C (98.5 F) Temporal 75 16 95 % -- -- 10/12/22 0040 116/66 37.1 C (98.8 F) Temporal 72 16 96 % -- -- 10/11/22 1955 126/83 38.1 C (100.5 F) Temporal (!) 115 18 95 % 1.6 m (5' 3 ) 61.1 kg (134 lb 11.2 oz) 10/11/22 1900 132/75 -- -- (!) 124 19 90 % -- -- 10/11/22 1830 123/73 -- -- (!) 121 18 91 % -- -- 10/11/22 1800 123/75 -- -- (!) 126 17 90 % -- -- 10/11/22 1630 130/79 -- -- (!) 130 15 92 % -- -- 10/11/22 1600 121/71 -- -- (!) 137 15 92 % -- -- 10/11/22 1545 124/86 -- -- (!) 134 14 92 % -- -- 10/11/22 1505 (!) 175/83 -- -- -- -- -- -- -- 10/11/22 1445 (!) 140/69 -- -- -- -- -- -- -- 10/11/22 1435 (!) 140/69 -- -- (!) 114 -- -- -- -- 10/11/22 1405 (!) 181/89 -- -- 93 10 99 % -- -- 10/11/22 1355 (!) 164/87 -- -- 94 10 94 % -- -- 10/11/22 1253 (!) 143/87 -- -- (!) 118 16 94 % -- -- 10/11/22 1231 (!) 140/103 38.1 C (100.5 F) Temporal (!) 133 18 96 % -- -- Physical Exam: Physical Exam Vitals and nursing note reviewed. Constitutional: General: She is not in acute distress. Appearance: She is normal weight. She is ill-appearing. She is not toxic-appearing or diaphoretic. Comments: Patient lying in bed, NAD. Responds appropriately. Conversant. On room air. HENT: Head: Atraumatic. Right Ear: External ear normal. Left Ear: External ear normal. Nose: Nose normal. Mouth/Throat: Mouth: Mucous membranes are moist. Pharynx: Oropharynx is clear. No oropharyngeal exudate. Eyes: General: Right eye: No discharge. Left eye: No discharge. Extraocular Movements: Extraocular movements intact. Cardiovascular: Rate and Rhythm: Normal rate and regular rhythm. Pulses: Normal pulses. Heart sounds: Normal heart sounds. No murmur heard. Pulmonary: Effort: Pulmonary effort is normal. No respiratory distress. Breath sounds: Normal breath sounds. No wheezing or rhonchi. Abdominal: General: Abdomen is flat. Bowel sounds are normal. There is no distension. Palpations: Abdomen is soft. Tenderness: There is abdominal tenderness. There is right CVA tenderness. Comments: Right sided abd and flank tenderness Musculoskeletal: General: Normal range of motion. Cervical back: Normal range of motion. No rigidity. Right lower leg: No edema. Left lower leg: No edema. Skin: General: Skin is warm and dry. Coloration: Skin is not jaundiced. Findings: No erythema, lesion or rash. Neurological: General: No focal deficit present. Mental Status: She is alert and oriented to person, place, and time. Mental status is at baseline. Motor: No weakness. Psychiatric: Mood and Affect: Mood normal. Behavior: Behavior normal. Thought Content: Thought content normal. Labs: Recent Labs 10/11/22 1254 10/12/22 0615 NA 136 135 K 4.0 3.7 CL 108* 110* CO2 24 23 BUN 22* 12 CREATININE 0.59 0.58 GLUCOSE 98 77 CALCIUM 8.5 8.2* PROT 6.2* 4.6* BILITOT 0.5 1.3 ALKPHOS 65 186* AST 25 450* ALT 21 510* Recent Labs 10/11/22 1254 WBC 9.0 HGB 12.7 HCT 39.8 PLT 290 LYMPHOPCT 6.9* MONOPCT 4.4 BASOPCT 0.3 NEUTROABS 7.8* Micro: No results for input(s): COVID19 in the last 72 hours. 10/11 COVID/Flu/RSV: negative 10/11 blood cx 2/2: collected 10/01 urine cx: >100K e coli 10/01 blood cx 2/2: NG Lines: PIV Radiography/Echo/Other: 10/11 CT a/p WO contrast 1. No definite acute abdominopelvic process identified. 2. Stable simple appearing hepatic cysts. 3. Status post cholecystectomy. 4. Renal and splenic aneurysms better delineated on prior contrasted examinations. 10/02 CXR Negative chest. Antimicrobials,Start/End Dates: Pip tazo 10/11 - Vancomycin 10/11 - 327 Impression: R flank pain concerning for pyelonephritis in setting of recent e coli pyelonephritis s/p 7-9 days atbs Transaminitis - acute hepatitis panel pending Hx of recurrent UTIs Hx of renal and splenic aneurysms Hepatic cysts Plan: Continue pip tazo pending urine cx results. Will discontinue vancomycin Blood cx ordered and collected Acute hepatitis panel ordered Procal ordered Optimize as able ID to follow Total time 80 minutes on this day of encounter includes counseling, coordinating plan of care, record and documentation review before and after visit including documentation and time not explicitly included on EMR time stamp for accounting for open encounter. MARILU Wright, MESHA Pharmacy Note Vancomycin Consult Non-INTERNET MARKETING INTERN Denny Owens is a 61 y.o. year old female ordered vancomycin for sepsis; consult from Beba Michele NP to manage therapy. Patient Active Problem List Diagnosis Date Noted Sepsis (HCC) 10/11/2022 Renal artery aneurysm (CMS/HCC) (HCC) 05/16/2015 Methenamine CREATININE Date Value Ref Range Status 10/11/2022 0.59 0.52 - 1.04 mg/dL Final 05/11/2022 0.84 0.52 - 1.25 mg/dL Final UREA NITROGEN Date Value Ref Range Status 10/11/2022 22 (H) 7 - 17 mg/dL Final Auto WBC Date Value Ref Range Status 10/11/2022 9.0 3.6 - 10.7 10*3/uL Final Ht Readings from Last 1 Encounters: 05/26/22 1.6 m (5' 3 ) Wt Readings from Last 1 Encounters: 10/01/22 56.7 kg (125 lb) Plan: Will initiate vancomycin 1000 mg IV every 12 hours based on predicted AUC of 557 mg/L.hr . Goal AUC is 400-600 mg/L.hr. Random level will be scheduled for 10-12. Thank you for the consult. Will continue to follow. documented in this encounter [facility] 10-12-2022 Consult note Associated Order (s): IP CONSULT TO INFECTIOUS DISEASES Images from the original note were not included. [facility] Medical [facility] - Infectious Diseases Advanced Practice Provider Consult Note Reason for Consult: Sepsis of unknown source History of Present Illness: This is a 61 yo F with a PMH of arthritis, HTN, renal and splenic aneurysm, recurrent UTIs who presented to [facility] on 10/11 for R flank pain, fevers, nausea and vomiting. Recently presented to the ED for R flank pain and dysuria on 10/01 and was diagnosed with pyelonephritis and sent home with 14 days of cefpodoxime. The patient states she saw her PCP 2 days later and was having complaints of an URI, so her PCP switched her atbs to levofloxacin for 7 days. While taking atbs, her flank pain and dysuria resolved, but quickly came back after her course and she later developed fevers and stomach upset. Denies current fever, chills, nausea, vomiting, diarrhea, urinary symptoms but still has some R flank pain, which has improved since being admitted. UA without pyuria, cx pending. No leukocytosis. Has been afebrile. CT with hepatic cysts, renal and splenic aneurysm, no hydronephrosis. Renal US pending. Does have elevated liver enzymes compared to yesterday. AST at 450, ALT at 510. Past Medical History: Past Medical History: Diagnosis Date Arthritis Asthma Hematuria Hypertension Renal artery aneurysm (CMS/HCC) (HCC) UTI (urinary tract infection) Past Surgical History: Past Surgical History: Procedure Laterality Date BLADDER SURGERY 11/23/2016 hydrodistension BLADDER SUSPENSION CARPAL TUNNEL RELEASE Bilateral SECTION (HISTORICAL) CHOLECYSTECTOMY CYSTOSCOPY with hydrodistention HYSTERECTOMY NECK SURGERY 05/28/2015 ACDF RECTOCELE REPAIR TONSILLECTOMY (HISTORICAL) Current Medications: Current Facility-Administered Medications Medication Dose Route Frequency Provider Last Rate Last Admin acetaminophen (Tylenol) tablet 650 mg 650 mg Oral q6h PRN Beba Ryne, SALES COMMUNICATIONS MANAGER - MINING ENGINEER Or acetaminophen (Tylenol) suppository 650 mg 650 mg Rectal q6h PRN Beba Ryne, SALES COMMUNICATIONS MANAGER - MINING ENGINEER enoxaparin (Lovenox) syringe 40 mg 40 mg SubCUTAneous Daily Beba Ryne, SALES COMMUNICATIONS MANAGER - MINING ENGINEER ketorolac (Toradol) injection 30 mg 30 mg IntraVENous q6h PRN Beba Ryne, SALES COMMUNICATIONS MANAGER - MINING ENGINEER 30 mg at 10/11/222111 lactated Ringer's infusion 100 mL/hr IntraVENous Continuous Beba Ryne, SALES COMMUNICATIONS MANAGER - MINING ENGINEER 100 mL/hr at 10/11/222112 100 mL/hr at 10/11/222112 ondansetron ODT (Zofran-ODT) disintegrating tablet 4 mg 4 mg Oral q8h PRN Beba Ryne, SALES COMMUNICATIONS MANAGER - MINING ENGINEER Or ondansetron (Zofran) injection 4 mg 4 mg IntraVENous q6h PRN Beba Ryne, SALES COMMUNICATIONS MANAGER - MINING ENGINEER oxyCODONE (Roxicodone) immediate release tablet 5 mg 5 mg Oral q6h PRN Beba Ryne, SALES COMMUNICATIONS MANAGER - MINING ENGINEER polyethylene glycol (PEG) 3350 (Miralax) packet 17 g 17 g Oral Daily PRN Beba Ryne, SALES COMMUNICATIONS MANAGER - MINING ENGINEER sodium chloride 0.9 % infusion 5-250 mL/hr IntraVENous PRN Beba Ryne, SALES COMMUNICATIONS MANAGER - MINING ENGINEER sodium chloride 0.9% (NS) flush 10 mL 10 mL IntraVENous 2 times per day Beba Ryne, SALES COMMUNICATIONS MANAGER - MINING ENGINEER 10 mL at 10/11/222111 sodium chloride 0.9% (NS) flush 10 mL 10 mL IntraVENous PRN Beba Ryne, SALES COMMUNICATIONS MANAGER - MINING ENGINEER vancomycin (Vancocin) 1,000 mg in sodium chloride 0.9 % 250 mL IVPB 1,000 mg IntraVENous q12h Beba Ryne, SALES COMMUNICATIONS MANAGER - MINING ENGINEER Stopped at 10/11/222211 Allergies: Allergies Allergen Reactions Methenamine Hives Other reaction(s): Unknown Social History: Social History Socioeconomic History Marital status: Spouse name: Not on file Number of children: Not on file Years of education: Not on file Highest education level: Not on file Occupational History Not on file Tobacco Use Smoking status: Never Smokeless tobacco: Never Substance and Sexual Activity Alcohol use: No Drug use: No Sexual activity: Not on file Other Topics Concern Not on file Social History Narrative Not on file Social Determinants of Health Financial Resource Strain: Not on file Food Insecurity: Not on file Transportation Needs: No Transportation Needs Lack of Transportation (Medical): No Lack of Transportation (Non-Medical): No Physical Activity: Not on file Stress: Not on file Social Connections: Not on file Intimate Partner Violence: Not on file Housing Stability: Unknown Unable to Pay for Housing in the Last Year: No Number of Places Lived in the Last Year: Not on file Unstable Housing in the Last Year: No Family History: Family History Problem Relation Name Age of Onset Diabetes Mother Heart disease Mother Cancer Father Review of Systems: Review of Systems Constitutional: Positive for fever. Negative for activity change, appetite change and chills. HENT: Negative for ear discharge, facial swelling, hearing loss, sore throat, trouble swallowing and voice change. Eyes: Negative for photophobia, discharge, redness, itching and visual disturbance. Respiratory: Negative for apnea, cough, shortness of breath and wheezing. Cardiovascular: Negative for chest pain, palpitations and leg swelling. Gastrointestinal: Positive for nausea and vomiting. Negative for abdominal distention, abdominal pain, blood in stool, constipation and diarrhea. Genitourinary: Positive for dysuria and flank pain. Negative for difficulty urinating, frequency, hematuria and urgency. Musculoskeletal: Negative for arthralgias, back pain, gait problem, joint swelling, neck pain and neck stiffness. Skin: Negative for color change, rash and wound. Neurological: Negative for dizziness, weakness, light-headedness, numbness and headaches. Hematological: Negative for adenopathy. Does not bruise/bleed easily. Psychiatric/Behavioral: Negative for agitation, behavioral problems and confusion. Vitals: Patient Vitals for the past 24 hrs: BP Temp Temp src Pulse Resp SpO2 Height Weight 10/12/22 0809 (!) 149/80 36.9 C (98.5 F) Temporal 75 16 95 % -- -- 10/12/22 0040 116/66 37.1 C (98.8 F) Temporal 72 16 96 % -- -- 10/11/22 1955 126/83 38.1 C (100.5 F) Temporal (!) 115 18 95 % 1.6 m (5' 3 ) 61.1 kg (134 lb 11.2 oz) 10/11/22 1900 132/75 -- -- (!) 124 19 90 % -- -- 10/11/22 1830 123/73 -- -- (!) 121 18 91 % -- -- 10/11/22 1800 123/75 -- -- (!) 126 17 90 % -- -- 10/11/22 1630 130/79 -- -- (!) 130 15 92 % -- -- 10/11/22 1600 121/71 -- -- (!) 137 15 92 % -- -- 10/11/22 1545 124/86 -- -- (!) 134 14 92 % -- -- 10/11/22 1505 (!) 175/83 -- -- -- -- -- -- -- 10/11/22 1445 (!) 140/69 -- -- -- -- -- -- -- 10/11/22 1435 (!) 140/69 -- -- (!) 114 -- -- -- -- 10/11/22 1405 (!) 181/89 -- -- 93 10 99 % -- -- 10/11/22 1355 (!) 164/87 -- -- 94 10 94 % -- -- 10/11/22 1253 (!) 143/87 -- -- (!) 118 16 94 % -- -- 10/11/22 1231 (!) 140/103 38.1 C (100.5 F) Temporal (!) 133 18 96 % -- -- Physical Exam: Physical Exam Vitals and nursing note reviewed. Constitutional: General: She is not in acute distress. Appearance: She is normal weight. She is ill-appearing. She is not toxic-appearing or diaphoretic. Comments: Patient lying in bed, NAD. Responds appropriately. Conversant. On room air. HENT: Head: Atraumatic. Right Ear: External ear normal. Left Ear: External ear normal. Nose: Nose normal. Mouth/Throat: Mouth: Mucous membranes are moist. Pharynx: Oropharynx is clear. No oropharyngeal exudate. Eyes: General: Right eye: No discharge. Left eye: No discharge. Extraocular Movements: Extraocular movements intact. Cardiovascular: Rate and Rhythm: Normal rate and regular rhythm. Pulses: Normal pulses. Heart sounds: Normal heart sounds. No murmur heard. Pulmonary: Effort: Pulmonary effort is normal. No respiratory distress. Breath sounds: Normal breath sounds. No wheezing or rhonchi. Abdominal: General: Abdomen is flat. Bowel sounds are normal. There is no distension. Palpations: Abdomen is soft. Tenderness: There is abdominal tenderness. There is right CVA tenderness. Comments: Right sided abd and flank tenderness Musculoskeletal: General: Normal range of motion. Cervical back: Normal range of motion. No rigidity. Right lower leg: No edema. Left lower leg: No edema. Skin: General: Skin is warm and dry. Coloration: Skin is not jaundiced. Findings: No erythema, lesion or rash. Neurological: General: No focal deficit present. Mental Status: She is alert and oriented to person, place, and time. Mental status is at baseline. Motor: No weakness. Psychiatric: Mood and Affect: Mood normal. Behavior: Behavior normal. Thought Content: Thought content normal. Labs: Recent Labs 10/11/22 1254 10/12/22 0615 NA 136 135 K 4.0 3.7 CL 108* 110* CO2 24 23 BUN 22* 12 CREATININE 0.59 0.58 GLUCOSE 98 77 CALCIUM 8.5 8.2* PROT 6.2* 4.6* BILITOT 0.5 1.3 ALKPHOS 65 186* AST 25 450* ALT 21 510* Recent Labs 10/11/22 1254 WBC 9.0 HGB 12.7 HCT 39.8 PLT 290 LYMPHOPCT 6.9* MONOPCT 4.4 BASOPCT 0.3 NEUTROABS 7.8* Micro: No results for input(s): COVID19 in the last 72 hours. 10/11 COVID/Flu/RSV: negative 10/11 blood cx 2/2: collected 10/01 urine cx: >100K e coli 10/01 blood cx 2/: NG Lines: PIV Radiography/Echo/Other: 10/11 CT a/p WO contrast 1. No definite acute abdominopelvic process identified. 2. Stable simple appearing hepatic cysts. 3. Status post cholecystectomy. 4. Renal and splenic aneurysms better delineated on prior contrasted examinations. 10/02 CXR Negative chest. Antimicrobials,Start/End Dates: Pip tazo 10/11 - Vancomycin 10/11 - Impression: R flank pain concerning for pyelonephritis in setting of recent e coli pyelonephritis s/p 7-9 days atbs Transaminitis - acute hepatitis panel pending Hx of recurrent UTIs Hx of renal and splenic aneurysms Hepatic cysts Plan: Continue pip tazo pending urine cx results. Will discontinue vancomycin Blood cx ordered and collected Acute hepatitis panel ordered Procal ordered Optimize as able ID to follow Total time 80 minutes on this day of encounter includes counseling, coordinating plan of care, record and documentation review before and after visit including documentation and time not explicitly included on EMR time stamp for accounting for open encounter. MARILU Wright, MESHA [facility] 10-11-2022 Consult note Formatting of th is note is different from the original. Pharmacy Note Vancomycin Consult Non-INTERNET MARKETING INTERN Denny Owens is a 61 y.o. year old female ordered vancomycin for sepsis; consult from Beba Michele NP to manage therapy. Patient Active Problem List Diagnosis Date Noted Sepsis ([facility]) 10/11/2022 Renal artery aneurysm (CMS/HCC) (HCC) 05/16/2015 Methenamine CREATININE Date Value Ref Range Status 10/11/2022 0.59 0.52 - 1.04 mg/dL Final 05/11/2022 0.84 0.52 - 1.25 mg/dL Final UREA NITROGEN Date Value Ref Range Status 10/11/2022 22 (H) 7 - 17 mg/dL Final Auto WBC Date Value Ref Range Status 10/11/2022 9.0 3.6 - 10.7 10*3/uL Final Ht Readings from Last 1 Encounters: 05/26/22 1.6 m (5' 3 ) Wt Readings from Last 1 Encounters: 10/01/22 56.7 kg (125 lb) Plan: Will initiate vancomycin 1000 mg IV every 12 hours based on predicted AUC of 557 mg/L.hr . Goal AUC is 400-600 mg/L.hr. Random level will be scheduled for 10-12. Thank you for the consult. Will continue to follow. [facility] 10-11-2022 Emergency department Note Patient transported to via squaring shear operator. Roscoe Payne RN 10/11/221941 [facility] 10-11-2022 Emergency department Note Patient transported to via squaring shear operator. Roscoe Payne RN 10/11/221941 Pt unable to stay above 92% on room air. Placed on 2L via NC at this time. Zara Simpson RN 10/11/22 1906 BP in L arm 138/84 (99), BP in R arm 148/85 (104). Pt reporting a stabbing pain in her RLQ into her back. Zara Simpson RN 10/11/22 1327 Triage note appropriate. Zara Simpson RN 10/11/22 1234 EMERGENCY DEPARTMENT ENCOUNTER Pt Name: Denny Owens Birthdate 1960 Date of evaluation: 10/11/2022 ED Provider: Clarence Pinto MD CHIEF COMPLAINT Chief Complaint Patient presents with Flank Pain HISTORY OF PRESENT ILLNESS (Location/Symptom, Timing/Onset, Context/Setting, Quality, Duration, Modifying Factors, Severity) Note limiting factors. I wore appropriate PPE for the entirety of this encounter. HPI Denny Owens is a 61 y.o. female who presents to the emergency department with chief complaint of for right flank pain. Patient states 2 weeks ago she was diagnosed with kidney infection and given antibiotics, saw her PCP a few days ago and was switched and completed her Levaquin and has been off of it for 2 days. She does take 1 antibiotic nightly chronically for recurrent UTIs per her urologist. States the pain however has not gone away and she has persistent nausea and vomiting and had a fever of 102 overnight. No chest pain shortness of breath. Denies any injury or rash. Prior cholecystectomy and hysterectomy. Denies dysuria hematuria Nursing Notes were reviewed. Limitations to history: None Outside historians: None REVIEW OF SYSTEMS Review of Systems Constitutional: Positive for activity change, appetite change, chills, fatigue and fever. HENT: Negative for ear pain and sore throat. Eyes: Negative for pain and visual disturbance. Respiratory: Negative for cough and shortness of breath. Cardiovascular: Negative for chest pain and palpitations. Gastrointestinal: Positive for abdominal pain, nausea and vomiting. Genitourinary: Positive for flank pain. Negative for dysuria and hematuria. Musculoskeletal: Negative for arthralgias and back pain. Skin: Negative for color change and rash. Neurological: Negative for seizures and syncope. All other systems reviewed and are negative. Pertinent positives and negatives as per HPI. PAST MEDICAL HISTORY Past Medical History: Diagnosis Date Arthritis Asthma Hematuria Hypertension Renal artery aneurysm (CMS/HCC) (HCC) UTI (urinary tract infection) SURGICAL HISTORY Past Surgical History: Procedure Laterality Date BLADDER SURGERY 11/23/2016 hydrodistension BLADDER SUSPENSION CARPAL TUNNEL RELEASE Bilateral SECTION (HISTORICAL) CHOLECYSTECTOMY CYSTOSCOPY with hydrodistention HYSTERECTOMY NECK SURGERY 05/28/2015 ACDF RECTOCELE REPAIR TONSILLECTOMY (HISTORICAL) CURRENT MEDICATIONS Previous Medications ALBUTEROL 108 (90 BASE) MCG/ACT INHALER Inhale 2 puffs every 6 hours as needed. BUDESONIDE-FORMOTEROL (SYMBICORT) 160-4.5 MCG/ACT INHALER Inhale 2 puffs in the morning and 2 puffs before bedtime. CEFPODOXIME (VANTIN) 200 MG TABLET Take 1 tablet (200 mg) by mouth 2 times daily for 14 days. CEPHALEXIN (KEFLEX) 250 MG CAPSULE 250 mg. GABAPENTIN (NEURONTIN) 300 MG CAPSULE 300 mg. IBUPROFEN 800 MG TABLET Take 1 tablet by mouth every 8 hours as needed. LOSARTAN (COZAAR) 25 MG TABLET Take 25 mg by mouth in the morning. VERAPAMIL SR (CALAN SR) 240 MG ER TABLET ALLERGIES Methenamine FAMILY HISTORY Family History Problem Relation Name Age of Onset Diabetes Mother Heart disease Mother Cancer Father SOCIAL HISTORY Social History Socioeconomic History Marital status: Tobacco Use Smoking status: Never Smokeless tobacco: Never Substance and Sexual Activity Alcohol use: No Drug use: No SCREENINGS Tracy Coma Scale Best Eye Response: Spontaneous Best Verbal Response: Oriented Best Motor Response: Follows commands Tracy Coma Scale Score: 15 PHYSICAL EXAM ED Triage Vitals [10/11/22 1231] Temp Heart Rate Resp BP 38.1 C (100.5 F) (!) 133 18 (!) 140/103 SpO2 Temp Source Heart Rate Source Patient Position 96 % Temporal Monitor -- BP Location FiO2 (%) -- -- Physical Exam Vitals and nursing note reviewed. Constitutional: General: She is not in acute distress. Appearance: She is well-developed. HENT: Head: Normocephalic and atraumatic. Eyes: Conjunctiva/sclera: Conjunctivae normal. Cardiovascular: Rate and Rhythm: Normal rate and regular rhythm. Heart sounds: No murmur heard. Pulmonary: Effort: Pulmonary effort is normal. No respiratory distress. Breath sounds: Normal breath sounds. Abdominal: Palpations: Abdomen is soft. Tenderness: There is no abdominal tenderness. Musculoskeletal: General: No swelling. Cervical back: Neck supple. Skin: General: Skin is warm and dry. Capillary Refill: Capillary refill takes less than 2 seconds. Neurological: Mental Status: She is alert. Psychiatric: Mood and Affect: Mood normal. DIAGNOSTIC RESULTS Procedures/EKG: Sinus rhythm normal intervals no ST changes EKG was reviewed by myself. Physician EKG interpretation can be found in [facility] RADIOLOGY (Per Emergency Physician): CT without acute findings Interpretation per the Radiologist below, if available at the time of this note: CT abdomen pelvis wo IV contrast Final Result 1. No definite acute abdominopelvic process identified. 2. Stable simple appearing hepatic cysts. 3. Status post cholecystectomy. 4. Renal and splenic aneurysms better delineated on prior contrasted examinations. Report Dictated on Electronically Signed By: Prince Verdugo Electronically Signed Date/Time: 10/11/2022 3:23 PM EDT ED BEDSIDE ULTRASOUND: Performed by ED Physician - none LABS: Labs Reviewed CBC WITH AUTO DIFFERENTIAL - Abnormal Result Value Auto WBC 9.0 RBC 4.54 Hemoglobin 12.7 Hematocrit 39.8 MCV 87.6 MCH 28.0 MCHC 32.0 RDW 14.8 (*) Platelets 290 MPV 8.0 nRBC 0.0 Neutrophils Relative 87.0 (*) Lymphocytes Relative 6.9 (*) Monocytes Relative 4.4 Eosinophils Relative 1.4 Basophils Relative 0.3 Neutrophils Absolute 7.8 (*) Lymphocytes Absolute 0.6 (*) Monocytes Absolute 0.4 Eosinophils Absolute 0.1 Basophils Absolute 0.0 COMPREHENSIVE METABOLIC PANEL - Abnormal SODIUM 136 POTASSIUM 4.0 CHLORIDE 108 (*) CARBON DIOXIDE 24 ANION GAP 4 UREA NITROGEN 22 (*) CREATININE 0.59 GLUCOSE 98 CALCIUM 8.5 AST (SGOT) 25 ALT 21 ALKALINE PHOSPHATASE 65 ALBUMIN 3.8 BILIRUBIN, TOTAL 0.5 TOTAL PROTEIN 6.2 (*) eGFR >90.0 LIPASE - Normal LIPASE 69 LACTIC ACID, SEPSIS WITH REFLEX IF ELEVATED - Normal LACTIC ACID 0.9 COMPLETE URINALYSIS - Normal Color, Urine Light Yellow Clarity, Urine Clear pH, Urine 6.0 Leukocytes, Urine Negative Nitrite, Urine Negative Protein, Urine Negative Glucose, Urine Normal Bilirubin, Urine Negative Ketones, Urine Negative Urobilinogen, Urine Normal Blood, Urine Negative SPECIFIC GRAVITY OF URINE (NUMERIC) 1.019 BLOOD CULTURE BLOOD CULTURE SARS-COV-2, FLU A/B, AND RSV COMBO COMPLETE URINALYSIS WITH REFLEX TO CULTURE Narrative: The following orders were created for panel order Urinalysis complete with reflex to Culture. Procedure Abnormality Status --------- ------ Complete Urinalysis[[id number]] Normal Final result Please view results for these tests on the individual orders. All other labs were within normal range or not returned as of this dictation. EMERGENCY DEPARTMENT COURSE and DIFFERENTIAL DIAGNOSIS/MDM: Vitals: Vitals: 10/11/22 1445 10/11/22 1505 10/11/22 1545 10/11/22 1600 BP: (!) 140/69 (!) 175/83 124/86 121/71 BP Location: Left arm Left arm Left arm Left arm Patient Position: Sitting Sitting Sitting Sitting Pulse: (!) 134 (!) 137 Resp: 14 15 Temp: TempSrc: SpO2: 92% 92% 61-year-old female here with nausea vomiting fevers right flank pain. Recently treated with antibiotics. She is febrile and tachycardic here meeting SIRS criteria. Differential includes pyelonephritis, sepsis, obstructing kidney stone, appendicitis, bowel obstruction. Plan for CBC CMP lipase urinalysis CT abdomen pelvis without contrast, IV Toradol morphine fluids Zofran, likely admission given concern for sepsis. Diagnoses as of 10/11/22 1613 Sepsis (HCC) The patient presented with chief complaint of flank pain. The differential diagnosis associated with this patient's presentation includes as above. Our workup consisted of ordering/reviewing: As above. I also reviewed external records from Inpatient notes ED visit 10/01/2022 seen for similar symptoms and treated with IV antibiotics and discharged with p.o. antibiotics. Patient is in agreement with this plan. Patient's care was impacted by recurrent uti. Medications sodium chloride 0.9 % bolus 1,000 mL (1,000 mL IntraVENous New Bag 10/11/22 1611) piperacillin-tazobactam (Zosyn) IVPB 4,500 mg (has no administration in time range) ketorolac (Toradol) injection 15 mg (15 mg IntraVENous Given 10/11/22 1303) ondansetron (Zofran) injection 4 mg (4 mg IntraVENous Given 10/11/22 1301) sodium chloride 0.9 % bolus 1,000 mL (0 mL IntraVENous Stopped 10/11/22 1354) morphine injection 4 mg (4 mg IntraVENous Given 10/11/22 1302) HYDROmorphone (Dilaudid) injection 0.5 mg (0.5 mg IntraVENous Given 10/11/22 1405) ondansetron (Zofran) injection 4 mg (4 mg IntraVENous Given 10/11/22 1405) REVAL: Patient has normal white count normal lactic acid no significant renal dysfunction CT abdomen pelvis without acute findings. She however remains tachycardic and febrile. We will put in for Zosyn, blood cultures, COVID flu testing, admit for sepsis and further evaluation under Dr. Castaneda. CRITICAL CARE TIME Total Critical Care time was 32 minutes, excluding separately reportable procedures. There was a high probability of clinically significant/life threatening deterioration in the patient's condition which required my urgent intervention. CONSULTS: None PROCEDURES: Unless otherwise noted below, none Procedures Patients symptoms are consistent with sepsis, severe sepsis, or septic shock (If yes use .sepsiscoremeasure ): yes FINAL IMPRESSION 1. Sepsis (HCC) DISPOSITION Admit 10/11/2022 04:13:40 PM PATIENT REFERRED TO: No follow-up provider specified. DISCHARGE MEDICATIONS: New Prescriptions No medications on file (Comment: Please note this report has been produced using speech recognition software and may contain errors related to that system including errors in grammar, punctuation, and spelling, as well as words and phrases that may be inappropriate. If there are any questions or concerns please feel free to contact the dictating provider for clarification.) Clarence Pinto MD (electronically signed) Emergency Medicine Provider Clarence Pinto MD 10/11/221614 Pt c/o right sided flank pain. Pt states two weeks ago she was diagnosed with a kidney infection and started on antibiotics. At her follow-up with her PCP they switched her antibiotics. Pt says the pain has not gone away. Reports N/V. Pt states she has had a fever of 102-103 denies taking any fever reducing medication documented in this encounter [facility] 10-11-2022 Emergency department Note Pt unable to stay above 92% on room air. Placed on 2L via NC at this time. Zara Simpson RN 10/11/221905 [facility] 10-11-2022 Note Attestation signed by Ana Paula Castaneda MD at 10/11/2022 6:14 PM I have reviewed the documented history, ROS, physical exam, and decision making and agree. Attending History and Physical Admit Date: 10/11/2022 PCP: MARIA ESTHER RODRIGUEZ DO CHIEF COMPLAINT: right flank pain, fever, nausea and vomiting Reason for Admission: sepsis History Obtained From: patient, chart HISTORY OF PRESENT ILLNESS: Denny is a 61 y.o. female with past medical history below who presents with fever, pain in right flank with nausea and vomiting. She thinks it started at 2:30 this morning. She was recently treated for pyelonephritis. She states her PCP changed her antibiotics for Levaquin as she also had a URI and she took the last dose Wednesday. She states she has an extensive history of UTI and sees a urologist outpatient that has her on a prophylactic dose of antibiotics. Denies chest pain, sob, diarrhea, constipation, fevers, or chills. Will admit for further evaluation and management. Past Medical History: Past Medical History: Diagnosis Date Arthritis Asthma Hematuria Hypertension Renal artery aneurysm (CMS/HCC) (HCC) UTI (urinary tract infection) Past Surgical History: Past Surgical History: Procedure Laterality Date BLADDER SURGERY 11/23/2016 hydrodistension BLADDER SUSPENSION CARPAL TUNNEL RELEASE Bilateral SECTION (HISTORICAL) CHOLECYSTECTOMY CYSTOSCOPY with hydrodistention HYSTERECTOMY NECK SURGERY 05/28/2015 ACDF RECTOCELE REPAIR TONSILLECTOMY (HISTORICAL) Social History: Social History Socioeconomic History Marital status: Spouse name: Not on file Number of children: Not on file Years of education: Not on file Highest education level: Not on file Occupational History Not on file Tobacco Use Smoking status: Never Smokeless tobacco: Never Substance and Sexual Activity Alcohol use: No Drug use: No Sexual activity: Not on file Other Topics Concern Not on file Social History Narrative Not on file Social Determinants of Health Financial Resource Strain: Not on file Food Insecurity: Not on file Transportation Needs: Not on file Physical Activity: Not on file Stress: Not on file Social Connections: Not on file Intimate Partner Violence: Not on file Housing Stability: Not on file Family History: Family History Problem Relation Name Age of Onset Diabetes Mother Heart disease Mother Cancer Father Medications Prior to Admission: No current facility-administered medications on file prior to encounter. Current Outpatient Medications on File Prior to Encounter Medication Sig Dispense Refill albuterol 108 (90 Base) MCG/ACT inhaler Inhale 2 puffs every 6 hours as needed. budesonide-formoterol (Symbicort) 160-4.5 MCG/ACT inhaler Inhale 2 puffs in the morning and 2 puffs before bedtime. cefpodoxime (Vantin) 200 MG tablet Take 1 tablet (200 mg) by mouth 2 times daily for 14 days. 28 tablet 0 cephalexin (Keflex) 250 MG capsule 250 mg. gabapentin (Neurontin) 300 MG capsule 300 mg. ibuprofen 800 MG tablet Take 1 tablet by mouth every 8 hours as needed. losartan (Cozaar) 25 MG tablet Take 25 mg by mouth in the morning. verapamil SR (Calan SR) 240 MG ER tablet Allergies: Allergies Allergen Reactions Methenamine Hives Other reaction(s): Unknown REVIEW OF SYSTEMS: Constitutional: positive for fever HEENT: Negative for congestion, postnasal drip and sneezing. Eyes: Negative for itching and visual disturbance. Respiratory: Negative for apnea, cough, choking, chest tightness, shortness of breath, wheezing and stridor. Cardiovascular: Negative for chest pain. Gastrointestinal: positive for nausea and vomiting Genitourinary: Negative for dysuria, frequency. positive for flank pain Musculoskeletal: Negative for myalgias and joint swelling. Skin: Negative for rash. Neurological: Negative for dizziness, tremors, seizures, syncope, facial asymmetry, speech difficulty, weakness, numbness and headaches. Hematological: Negative for adenopathy. Psychiatric/Behavioral: Negative for suicidal ideas, behavioral problems, self-injury and dysphoric mood. Vitals: BP 130/79 (BP Location: Right arm, Patient Position: Sitting) Pulse (!) 130 Temp 38.1 ?C (100.5 ?F) (Temporal) Resp 15 SpO2 92% BMI Classification: Morbidly Obese (>40.0) Pulse Ox: SpO2 Av.1 % Min: 92 % Max: 99 % Supplemental O2: PHYSICAL EXAM: General appearance: ill appearing female lying in bed in mild distress HEENT: Normal cephalic, atraumatic without obvious deformity. Pupils equal, round, and reactive to light. Extra ocular muscles intact. Conjunctivae/corneas clear. Neck: Supple, with full range of motion. Trachea midline. No lymphadenopathy. Respiratory: Normal respira (more content not included)... [facility] 10-11-2022 History and physical note Images from the original note were not included. Attending History and Physical Admit Date: 10/11/2022 PCP: MARIA ESTHER RODRIGUEZ DO CHIEF COMPLAINT: right flank pain, fever, nausea and vomiting Reason for Admission: sepsis History Obtained From: patient, chart HISTORY OF PRESENT ILLNESS: Denny is a 61 y.o. female with past medical history below who presents with fever, pain in right flank with nausea and vomiting. She thinks it started at 2:30 this morning. She was recently treated for pyelonephritis. She states her PCP changed her antibiotics for Levaquin as she also had a URI and she took the last dose Wednesday. She states she has an extensive history of UTI and sees a urologist outpatient that has her on a prophylactic dose of antibiotics. Denies chest pain, sob, diarrhea, constipation, fevers, or chills. Will admit for further evaluation and management. Past Medical History: Past Medical History: Diagnosis Date Arthritis Asthma Hematuria Hypertension Renal artery aneurysm (CMS/HCC) (HCC) UTI (urinary tract infection) Past Surgical History: Past Surgical History: Procedure Laterality Date BLADDER SURGERY 11/23/2016 hydrodistension BLADDER SUSPENSION CARPAL TUNNEL RELEASE Bilateral SECTION (HISTORICAL) CHOLECYSTECTOMY CYSTOSCOPY with hydrodistention HYSTERECTOMY NECK SURGERY 05/28/2015 ACDF RECTOCELE REPAIR TONSILLECTOMY (HISTORICAL) Social History: Social History Socioeconomic History Marital status: Spouse name: Not on file Number of children: Not on file Years of education: Not on file Highest education level: Not on file Occupational History Not on file Tobacco Use Smoking status: Never Smokeless tobacco: Never Substance and Sexual Activity Alcohol use: No Drug use: No Sexual activity: Not on file Other Topics Concern Not on file Social History Narrative Not on file Social Determinants of Health Financial Resource Strain: Not on file Food Insecurity: Not on file Transportation Needs: Not on file Physical Activity: Not on file Stress: Not on file Social Connections: Not on file Intimate Partner Violence: Not on file Housing Stability: Not on file Family History: Family History Problem Relation Name Age of Onset Diabetes Mother Heart disease Mother Cancer Father Medications Prior to Admission: No current facility-administered medications on file prior to encounter. Current Outpatient Medications on File Prior to Encounter Medication Sig Dispense Refill albuterol 108 (90 Base) MCG/ACT inhaler Inhale 2 puffs every 6 hours as needed. budesonide-formoterol (Symbicort) 160-4.5 MCG/ACT inhaler Inhale 2 puffs in the morning and 2 puffs before bedtime. cefpodoxime (Vantin) 200 MG tablet Take 1 tablet (200 mg) by mouth 2 times daily for 14 days. 28 tablet 0 cephalexin (Keflex) 250 MG capsule 250 mg. gabapentin (Neurontin) 300 MG capsule 300 mg. ibuprofen 800 MG tablet Take 1 tablet by mouth every 8 hours as needed. losartan (Cozaar) 25 MG tablet Take 25 mg by mouth in the morning. verapamil SR (Calan SR) 240 MG ER tablet Allergies: Allergies Allergen Reactions Methenamine Hives Other reaction(s): Unknown REVIEW OF SYSTEMS: Constitutional: positive for fever HEENT: Negative for congestion, postnasal drip and sneezing. Eyes: Negative for itching and visual disturbance. Respiratory: Negative for apnea, cough, choking, chest tightness, shortness of breath, wheezing and stridor. Cardiovascular: Negative for chest pain. Gastrointestinal: positive for nausea and vomiting Genitourinary: Negative for dysuria, frequency. positive for flank pain Musculoskeletal: Negative for myalgias and joint swelling. Skin: Negative for rash. Neurological: Negative for dizziness, tremors, seizures, syncope, facial asymmetry, speech difficulty, weakness, numbness and headaches. Hematological: Negative for adenopathy. Psychiatric/Behavioral: Negative for suicidal ideas, behavioral problems, self-injury and dysphoric mood. Vitals: BP 130/79 (BP Location: Right arm, Patient Position: Sitting) Pulse (!) 130 Temp 38.1 C (100.5 F) (Temporal) Resp 15 SpO2 92% BMI Classification: Morbidly Obese (>40.0) Pulse Ox: SpO2 Av.1 % Min: 92 % Max: 99 % Supplemental O2: PHYSICAL EXAM: General appearance: ill appearing female lying in bed in mild distress HEENT: Normal cephalic, atraumatic without obvious deformity. Pupils equal, round, and reactive to light. Extra ocular muscles intact. Conjunctivae/corneas clear. Neck: Supple, with full range of motion. Trachea midline. No lymphadenopathy. Respiratory: Normal respiratory effort at rest on RA. Clear to auscultation, bilaterally without Rales/Wheezes/Rhonchi. Cardiovascular: Regular rate and rhythm with normal S1/S2 without murmurs, rubs or gallops. Abdomen: Soft, tender RLQ, non-distended with normal bowel sounds. No rebound or guarding. +CVA tenderness R Musculoskeletal: No clubbing, cyanosis or edema bilaterally. Full range of motion without deformity, +2 peripheral pulses in all extremities. To exposed Neurologic: Neurovascularly intact without any focal sensory/motor deficits. Cranial nerves: II-XII intact, grossly non-focal. Psychiatric: Alert and oriented, thought content appropriate, normal insight. DATA: CBC: Recent Labs 10/11/22 1254 WBC 9.0 RBC 4.54 HGB 12.7 HCT 39.8 MCV 87.6 RDW 14.8* PLT 290 BMP: Recent Labs 10/11/22 1254 NA 136 K 4.0 CL 108* CO2 24 BUN 22* CREATININE 0.59 GLUCOSE 98 CALCIUM 8.5 ANIONGAP 4 LIVER PROFILE: Recent Labs 10/11/22 1254 AST 25 ALT 21 BILITOT 0.5 ALKPHOS 65 PROT 6.2* PT/INR: No results for input(s): PROTIME, INR in the last 72 hours. CARDIAC ENZYMES: No results for input(s): TROPONINI in the last 72 hours. Procalcitonin: No results found for: PROCAL Urine Culture: Results for orders placed or performed during the hospital encounter of 10/01/22 Urine culture Specimen: Urine, Clean Catch Result Value Ref Range Urine Culture >100,000 CFU/mL Escherichia coli (A) Susceptibility Escherichia coli - BROTH MICRODILUTION Amoxicillin / Clavulanate 4 Susceptible ug/ml Ampicillin >=32 Resistant ug/ml Ampicillin / Sulbactam 4 Susceptible ug/ml Aztreonam <=1 Susceptible ug/ml Cefazolin <=4 Susceptible ug/ml Cefepime <=1 Susceptible ug/ml Ceftriaxone <=1 Susceptible ug/ml Ciprofloxacin <=0.25 Susceptible ug/ml Gentamicin <=1 Susceptible ug/ml Meropenem <=0.25 Susceptible ug/ml Nitrofurantoin <=16 Susceptible ug/ml Piperacillin / Tazobactam <=4 Susceptible ug/ml Trimethoprim / Sulfamethoxazole >=320 Resistant ug/ml COVID-19 PCR: No results for input(s): COVID19 in the last 72 hours. I reviewed: [x] laboratory results [x] radiographic results At the time of today's encounter. Pt was advised of the results. 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 Negative UA with normal ph, urine culture pending , blood cultures pending , continue to treat sepsis with broad coverage abx ~vanc/zosyn, IVF support and tele. Will consult ID, consider urology consult . Concern for renal stone? Right CVA tenderness, CT neg but does show R kidney is large~ US to follow up CT, will strain all urine -PT/OT eval/increase activity -am labs, replace lytes prn -vitals per routine -home meds as ordered -DVT prophylaxis: [x] Lovenox [] Heparin [] SCDs [x] Encourage ambulation [] Already on Anticoagulation Anticipated Discharge - Date - - Location - Home - Pending the following - clinically stable Total time spent (which include face to face and non face to face encounters) : greater than 70 minutes spent reviewing chart for medical history , previous abx use, PCP notes, ED work up, imaging, labs, vitals, formulate plan, bedside assessment of patient Toxic drug monitoring/narrow therapeutic index drug monitoring : # Drug name : # Route administered : # Method of monitoring : Extended Emergency Contact Information Primary Emergency Contact: Harpal Owens [place] Relation: Spouse Code status: No Order -see below for additional orders, further recommendations to follow Orders Placed This Encounter Procedures Blood culture Blood culture COVID-19, Flu A/B, and RSV Combo CT abdomen pelvis wo IV contrast CBC auto differential Comprehensive metabolic panel Lipase Urinalysis complete with reflex to Culture Lactic acid, sepsis, with reflex if elevated Complete Urinalysis Telemetry monitoring for Sepsis ECG 12 lead Admit to inpatient Please forward a copy of this H&P to the patient's PCP. Thank you. Associated attestation - Ana Paula Castaneda MD - 10/11/2022 6:14 PM EDT I have reviewed the documented history, ROS, physical exam, and decision making and agree. [employer] Phone: 10-11-2022 History and physical note Images from the original note were not included. Attending History and Physical Admit Date: 10/11/2022 PCP: MARIA ESTHER RODRIGUEZ DO CHIEF COMPLAINT: right flank pain, fever, nausea and vomiting Reason for Admission: sepsis History Obtained From: patient, chart HISTORY OF PRESENT ILLNESS: Denny is a 61 y.o. female with past medical history below who presents with fever, pain in right flank with nausea and vomiting. She thinks it started at 2:30 this morning. She was recently treated for pyelonephritis. She states her PCP changed her antibiotics for Levaquin as she also had a URI and she took the last dose Wednesday. She states she has an extensive history of UTI and sees a urologist outpatient that has her on a prophylactic dose of antibiotics. Denies chest pain, sob, diarrhea, constipation, fevers, or chills. Will admit for further evaluation and management. Past Medical History: Past Medical History: Diagnosis Date Arthritis Asthma Hematuria Hypertension Renal artery aneurysm (CMS/HCC) ([facility]) UTI (urinary tract infection) Past Surgical History: Past Surgical History: Procedure Laterality Date BLADDER SURGERY 11/23/2016 hydrodistension BLADDER SUSPENSION CARPAL TUNNEL RELEASE Bilateral SECTION (HISTORICAL) CHOLECYSTECTOMY CYSTOSCOPY with hydrodistention HYSTERECTOMY NECK SURGERY 05/28/2015 ACDF RECTOCELE REPAIR TONSILLECTOMY (HISTORICAL) Social History: Social History Socioeconomic History Marital status: Spouse name: Not on file Number of children: Not on file Years of education: Not on file Highest education level: Not on file Occupational History Not on file Tobacco Use Smoking status: Never Smokeless tobacco: Never Substance and Sexual Activity Alcohol use: No Drug use: No Sexual activity: Not on file Other Topics Concern Not on file Social History Narrative Not on file Social Determinants of Health Financial Resource Strain: Not on file Food Insecurity: Not on file Transportation Needs: Not on file Physical Activity: Not on file Stress: Not on file Social Connections: Not on file Intimate Partner Violence: Not on file Housing Stability: Not on file Family History: Family History Problem Relation Name Age of Onset Diabetes Mother Heart disease Mother Cancer Father Medications Prior to Admission: No current facility-administered medications on file prior to encounter. Current Outpatient Medications on File Prior to Encounter Medication Sig Dispense Refill albuterol 108 (90 Base) MCG/ACT inhaler Inhale 2 puffs every 6 hours as needed. budesonide-formoterol (Symbicort) 160-4.5 MCG/ACT inhaler Inhale 2 puffs in the morning and 2 puffs before bedtime. cefpodoxime (Vantin) 200 MG tablet Take 1 tablet (200 mg) by mouth 2 times daily for 14 days. 28 tablet 0 cephalexin (Keflex) 250 MG capsule 250 mg. gabapentin (Neurontin) 300 MG capsule 300 mg. ibuprofen 800 MG tablet Take 1 tablet by mouth every 8 hours as needed. losartan (Cozaar) 25 MG tablet Take 25 mg by mouth in the morning. verapamil SR (Calan SR) 240 MG ER tablet Allergies: Allergies Allergen Reactions Methenamine Hives Other reaction(s): Unknown REVIEW OF SYSTEMS: Constitutional: positive for fever HEENT: Negative for congestion, postnasal drip and sneezing. Eyes: Negative for itching and visual disturbance. Respiratory: Negative for apnea, cough, choking, chest tightness, shortness of breath, wheezing and stridor. Cardiovascular: Negative for chest pain. Gastrointestinal: positive for nausea and vomiting Genitourinary: Negative for dysuria, frequency. positive for flank pain Musculoskeletal: Negative for myalgias and joint swelling. Skin: Negative for rash. Neurological: Negative for dizziness, tremors, seizures, syncope, facial asymmetry, speech difficulty, weakness, numbness and headaches. Hematological: Negative for adenopathy. Psychiatric/Behavioral: Negative for suicidal ideas, behavioral problems, self-injury and dysphoric mood. Vitals: BP 130/79 (BP Location: Right arm, Patient Position: Sitting) Pulse (!) 130 Temp 38.1 C (100.5 F) (Temporal) Resp 15 SpO2 92% BMI Classification: Morbidly Obese (>40.0) Pulse Ox: SpO2 Av.1 % Min: 92 % Max: 99 % Supplemental O2: PHYSICAL EXAM: General appearance: ill appearing female lying in bed in mild distress HEENT: Normal cephalic, atraumatic without obvious deformity. Pupils equal, round, and reactive to light. Extra ocular muscles intact. Conjunctivae/corneas clear. Neck: Supple, with full range of motion. Trachea midline. No lymphadenopathy. Respiratory: Normal respiratory effort at rest on RA. Clear to auscultation, bilaterally without Rales/Wheezes/Rhonchi. Cardiovascular: Regular rate and rhythm with normal S1/S2 without murmurs, rubs or gallops. Abdomen: Soft, tender RLQ, non-distended with normal bowel sounds. No rebound or guarding. +CVA tenderness R Musculoskeletal: No clubbing, cyanosis or edema bilaterally. Full range of motion without deformity, +2 peripheral pulses in all extremities. To exposed Neurologic: Neurovascularly intact without any focal sensory/motor deficits. Cranial nerves: II-XII intact, grossly non-focal. Psychiatric: Alert and oriented, thought content appropriate, normal insight. DATA: CBC: Recent Labs 10/11/22 1254 WBC 9.0 RBC 4.54 HGB 12.7 HCT 39.8 MCV 87.6 RDW 14.8* PLT 290 BMP: Recent Labs 10/11/22 1254 NA 136 K 4.0 CL 108* CO2 24 BUN 22* CREATININE 0.59 GLUCOSE 98 CALCIUM 8.5 ANIONGAP 4 LIVER PROFILE: Recent Labs 10/11/22 1254 AST 25 ALT 21 BILITOT 0.5 ALKPHOS 65 PROT 6.2* PT/INR: No results for input(s): PROTIME, INR in the last 72 hours. CARDIAC ENZYMES: No results for input(s): TROPONINI in the last 72 hours. Procalcitonin: No results found for: PROCAL Urine Culture: Results for orders placed or performed during the hospital encounter of 10/01/22 Urine culture Specimen: Urine, Clean Catch Result Value Ref Range Urine Culture >100,000 CFU/mL Escherichia coli (A) Susceptibility Escherichia coli - BROTH MICRODILUTION Amoxicillin / Clavulanate 4 Susceptible ug/ml Ampicillin >=32 Resistant ug/ml Ampicillin / Sulbactam 4 Susceptible ug/ml Aztreonam <=1 Susceptible ug/ml Cefazolin <=4 Susceptible ug/ml Cefepime <=1 Susceptible ug/ml Ceftriaxone <=1 Susceptible ug/ml Ciprofloxacin <=0.25 Susceptible ug/ml Gentamicin <=1 Susceptible ug/ml Meropenem <=0.25 Susceptible ug/ml Nitrofurantoin <=16 Susceptible ug/ml Piperacillin / Tazobactam <=4 Susceptible ug/ml Trimethoprim / Sulfamethoxazole >=320 Resistant ug/ml COVID-19 PCR: No results for input(s): COVID19 in the last 72 hours. I reviewed: [x] laboratory results [x] radiographic results At the time of today's encounter. Pt was advised of the results. 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 Negative UA with normal ph, urine culture pending , blood cultures pending , continue to treat sepsis with broad coverage abx ~vanc/zosyn, IVF support and tele. Will consult ID, consider urology consult . Concern for renal stone? Right CVA tenderness, CT neg but does show R kidney is large~ US to follow up CT, will strain all urine -PT/OT eval/increase activity -am labs, replace lytes prn -vitals per routine -home meds as ordered -DVT prophylaxis: [x] Lovenox [] Heparin [] SCDs [x] Encourage ambulation [] Already on Anticoagulation Anticipated Discharge - Date - - Location - Home - Pending the following - clinically stable Total time spent (which include face to face and non face to face encounters) : greater than 70 minutes spent reviewing chart for medical history , previous abx use, PCP notes, ED work up, imaging, labs, vitals, formulate plan, bedside assessment of patient Toxic drug monitoring/narrow therapeutic index drug monitoring : # Drug name : # Route administered : # Method of monitoring : Extended Emergency Contact Information Primary Emergency Contact: Harpal Owens [place] Relation: Spouse Code status: No Order -see below for additional orders, further recommendations to follow Orders Placed This Encounter Procedures Blood culture Blood culture COVID-19, Flu A/B, and RSV Combo CT abdomen pelvis wo IV contrast CBC auto differential Comprehensive metabolic panel Lipase Urinalysis complete with reflex to Culture Lactic acid, sepsis, with reflex if elevated Complete Urinalysis Telemetry monitoring for Sepsis ECG 12 lead Admit to inpatient Please forward a copy of this H&P to the patient's PCP. Thank you. Associated attestation - Ana Paula Castaneda MD - 10/11/2022 6:14 PM EDT I have reviewed the documented history, ROS, physical exam, and decision making and agree. documented in this encounter [facility] 10-11-2022 Emergency department Note BP in L arm 138/84 (99), BP in R arm 148/85 (104). Pt reporting a stabbing pain in her RLQ into her back. Zara Simpson RN 10/11/22 1327 [facility] 10-11-2022 Emergency department Note Triage note appropriate. Zara Simpson RN 10/11/22 1234 [facility] 10-11-2022 Emergency department Triage note Pt c/o right sided flank pain. Pt states two weeks ago she was diagnosed with a kidney infection and started on antibiotics. At her follow-up with her PCP they switched her antibiotics. Pt says the pain has not gone away. Reports N/V. Pt states she has had a fever of 102-103 denies taking any fever reducing medication [facility] 10-11-2022 Physician Emergency department Note EMERGENCY DEPARTMENT ENCOUNTER Pt Name: Denny Owens Birthdate 1960 Date of evaluation: 10/11/2022 ED Provider: Clarence Pinto MD CHIEF COMPLAINT Chief Complaint Patient presents with Flank Pain HISTORY OF PRESENT ILLNESS (Location/Symptom, Timing/Onset, Context/Setting, Quality, Duration, Modifying Factors, Severity) Note limiting factors. I wore appropriate PPE for the entirety of this encounter. HPI Denny Owens is a 61 y.o. female who presents to the emergency department with chief complaint of for right flank pain. Patient states 2 weeks ago she was diagnosed with kidney infection and given antibiotics, saw her PCP a few days ago and was switched and completed her Levaquin and has been off of it for 2 days. She does take 1 antibiotic nightly chronically for recurrent UTIs per her urologist. States the pain however has not gone away and she has persistent nausea and vomiting and had a fever of 102 overnight. No chest pain shortness of breath. Denies any injury or rash. Prior cholecystectomy and hysterectomy. Denies dysuria hematuria Nursing Notes were reviewed. Limitations to history: None Outside historians: None REVIEW OF SYSTEMS Review of Systems Constitutional: Positive for activity change, appetite change, chills, fatigue and fever. HENT: Negative for ear pain and sore throat. Eyes: Negative for pain and visual disturbance. Respiratory: Negative for cough and shortness of breath. Cardiovascular: Negative for chest pain and palpitations. Gastrointestinal: Positive for abdominal pain, nausea and vomiting. Genitourinary: Positive for flank pain. Negative for dysuria and hematuria. Musculoskeletal: Negative for arthralgias and back pain. Skin: Negative for color change and rash. Neurological: Negative for seizures and syncope. All other systems reviewed and are negative. Pertinent positives and negatives as per HPI. PAST MEDICAL HISTORY Past Medical History: Diagnosis Date Arthritis Asthma Hematuria Hypertension Renal artery aneurysm (CMS/HCC) (HCC) UTI (urinary tract infection) SURGICAL HISTORY Past Surgical History: Procedure Laterality Date BLADDER SURGERY 11/23/2016 hydrodistension BLADDER SUSPENSION CARPAL TUNNEL RELEASE Bilateral SECTION (HISTORICAL) CHOLECYSTECTOMY CYSTOSCOPY with hydrodistention HYSTERECTOMY NECK SURGERY 05/28/2015 ACDF RECTOCELE REPAIR TONSILLECTOMY (HISTORICAL) CURRENT MEDICATIONS Previous Medications ALBUTEROL 108 (90 BASE) MCG/ACT INHALER Inhale 2 puffs every 6 hours as needed. BUDESONIDE-FORMOTEROL (SYMBICORT) 160-4.5 MCG/ACT INHALER Inhale 2 puffs in the morning and 2 puffs before bedtime. CEFPODOXIME (VANTIN) 200 MG TABLET Take 1 tablet (200 mg) by mouth 2 times daily for 14 days. CEPHALEXIN (KEFLEX) 250 MG CAPSULE 250 mg. GABAPENTIN (NEURONTIN) 300 MG CAPSULE 300 mg. IBUPROFEN 800 MG TABLET Take 1 tablet by mouth every 8 hours as needed. LOSARTAN (COZAAR) 25 MG TABLET Take 25 mg by mouth in the morning. VERAPAMIL SR (CALAN SR) 240 MG ER TABLET ALLERGIES Methenamine FAMILY HISTORY Family History Problem Relation Name Age of Onset Diabetes Mother Heart disease Mother Cancer Father SOCIAL HISTORY Social History Socioeconomic History Marital status: Tobacco Use Smoking status: Never Smokeless tobacco: Never Substance and Sexual Activity Alcohol use: No Drug use: No SCREENINGS Tracy Coma Scale Best Eye Response: Spontaneous Best Verbal Response: Oriented Best Motor Response: Follows commands Wilmot Coma Scale Score: 15 PHYSICAL EXAM ED Triage Vitals [10/11/22 1231] Temp Heart Rate Resp BP 38.1 C (100.5 F) (!) 133 18 (!) 140/103 SpO2 Temp Source Heart Rate Source Patient Position 96 % Temporal Monitor -- BP Location FiO2 (%) -- -- Physical Exam Vitals and nursing note reviewed. Constitutional: General: She is not in acute distress. Appearance: She is well-developed. HENT: Head: Normocephalic and atraumatic. Eyes: Conjunctiva/sclera: Conjunctivae normal. Cardiovascular: Rate and Rhythm: Normal rate and regular rhythm. Heart sounds: No murmur heard. Pulmonary: Effort: Pulmonary effort is normal. No respiratory distress. Breath sounds: Normal breath sounds. Abdominal: Palpations: Abdomen is soft. Tenderness: There is no abdominal tenderness. Musculoskeletal: General: No swelling. Cervical back: Neck supple. Skin: General: Skin is warm and dry. Capillary Refill: Capillary refill takes less than 2 seconds. Neurological: Mental Status: She is alert. Psychiatric: Mood and Affect: Mood normal. DIAGNOSTIC RESULTS Procedures/EKG: Sinus rhythm normal intervals no ST changes EKG was reviewed by myself. Physician EKG interpretation can be found in [facility] RADIOLOGY (Per Emergency Physician): CT without acute findings Interpretation per the Radiologist below, if available at the time of this note: CT abdomen pelvis wo IV contrast Final Result 1. No definite acute abdominopelvic process identified. 2. Stable simple appearing hepatic cysts. 3. Status post cholecystectomy. 4. Renal and splenic aneurysms better delineated on prior contrasted examinations. Report Dictated on Electronically Signed By: Prince Verdugo Electronically Signed Date/Time: 10/11/2022 3:23 PM EDT ED BEDSIDE ULTRASOUND: Performed by ED Physician - none LABS: Labs Reviewed CBC WITH AUTO DIFFERENTIAL - Abnormal Result Value Auto WBC 9.0 RBC 4.54 Hemoglobin 12.7 Hematocrit 39.8 MCV 87.6 MCH 28.0 MCHC 32.0 RDW 14.8 (*) Platelets 290 MPV 8.0 nRBC 0.0 Neutrophils Relative 87.0 (*) Lymphocytes Relative 6.9 (*) Monocytes Relative 4.4 Eosinophils Relative 1.4 Basophils Relative 0.3 Neutrophils Absolute 7.8 (*) Lymphocytes Absolute 0.6 (*) Monocytes Absolute 0.4 Eosinophils Absolute 0.1 Basophils Absolute 0.0 COMPREHENSIVE METABOLIC PANEL - Abnormal SODIUM 136 POTASSIUM 4.0 CHLORIDE 108 (*) CARBON DIOXIDE 24 ANION GAP 4 UREA NITROGEN 22 (*) CREATININE 0.59 GLUCOSE 98 CALCIUM 8.5 AST (SGOT) 25 ALT 21 ALKALINE PHOSPHATASE 65 ALBUMIN 3.8 BILIRUBIN, TOTAL 0.5 TOTAL PROTEIN 6.2 (*) eGFR >90.0 LIPASE - Normal LIPASE 69 LACTIC ACID, SEPSIS WITH REFLEX IF ELEVATED - Normal LACTIC ACID 0.9 COMPLETE URINALYSIS - Normal Color, Urine Light Yellow Clarity, Urine Clear pH, Urine 6.0 Leukocytes, Urine Negative Nitrite, Urine Negative Protein, Urine Negative Glucose, Urine Normal Bilirubin, Urine Negative Ketones, Urine Negative Urobilinogen, Urine Normal Blood, Urine Negative SPECIFIC GRAVITY OF URINE (NUMERIC) 1.019 BLOOD CULTURE BLOOD CULTURE SARS-COV-2, FLU A/B, AND RSV COMBO COMPLETE URINALYSIS WITH REFLEX TO CULTURE Narrative: The following orders were created for panel order Urinalysis complete with reflex to Culture. Procedure Abnormality Status --------- ------ Complete Urinalysis[[id number]] Normal Final result Please view results for these tests on the individual orders. All other labs were within normal range or not returned as of this dictation. EMERGENCY DEPARTMENT COURSE and DIFFERENTIAL DIAGNOSIS/MDM: Vitals: Vitals: 10/11/22 1445 10/11/22 1505 10/11/22 1545 10/11/22 1600 BP: (!) 140/69 (!) 175/83 124/86 121/71 BP Location: Left arm Left arm Left arm Left arm Patient Position: Sitting Sitting Sitting Sitting Pulse: (!) 134 (!) 137 Resp: 14 15 Temp: TempSrc: SpO2: 92% 92% 61-year-old female here with nausea vomiting fevers right flank pain. Recently treated with antibiotics. She is febrile and tachycardic here meeting SIRS criteria. Differential includes pyelonephritis, sepsis, obstructing kidney stone, appendicitis, bowel obstruction. Plan for CBC CMP lipase urinalysis CT abdomen pelvis without contrast, IV Toradol morphine fluids Zofran, likely admission given concern for sepsis. Diagnoses as of 10/11/223 Sepsis (HCC) The patient presented with chief complaint of flank pain. The differential diagnosis associated with this patient's presentation includes as above. Our workup consisted of ordering/reviewing: As above. I also reviewed external records from Inpatient notes ED visit 10/01/2022 seen for similar symptoms and treated with IV antibiotics and discharged with p.o. antibiotics. Patient is in agreement with this plan. Patient's care was impacted by recurrent uti. Medications sodium chloride 0.9 % bolus 1,000 mL (1,000 mL IntraVENous New Bag 10/11/22 1611) piperacillin-tazobactam (Zosyn) IVPB 4,500 mg (has no administration in time range) ketorolac (Toradol) injection 15 mg (15 mg IntraVENous Given 10/11/22 1303) ondansetron (Zofran) injection 4 mg (4 mg IntraVENous Given 10/11/22 1301) sodium chloride 0.9 % bolus 1,000 mL (0 mL IntraVENous Stopped 10/11/22 1354) morphine injection 4 mg (4 mg IntraVENous Given 10/11/22 1302) HYDROmorphone (Dilaudid) injection 0.5 mg (0.5 mg IntraVENous Given 10/11/22 1405) ondansetron (Zofran) injection 4 mg (4 mg IntraVENous Given 10/11/22 1405) REVAL: Patient has normal white count normal lactic acid no significant renal dysfunction CT abdomen pelvis without acute findings. She however remains tachycardic and febrile. We will put in for Zosyn, blood cultures, COVID flu testing, admit for sepsis and further evaluation under Dr. Castaneda. CRITICAL CARE TIME Total Critical Care time was 32 minutes, excluding separately reportable procedures. There was a high probability of clinically significant/life threatening deterioration in the patient's condition which required my urgent intervention. CONSULTS: None PROCEDURES: Unless otherwise noted below, none Procedures Patients symptoms are consistent with sepsis, severe sepsis, or septic shock (If yes use .sepsiscoremeasure ): yes FINAL IMPRESSION 1. Sepsis (HCC) DISPOSITION Admit 10/11/2022 04:13:40 PM PATIENT REFERRED TO: No follow-up provider specified. DISCHARGE MEDICATIONS: New Prescriptions No medications on file (Comment: Please note this report has been produced using speech recognition software and may contain errors related to that system including errors in grammar, punctuation, and spelling, as well as words and phrases that may be inappropriate. If there are any questions or concerns please feel free to contact the dictating provider for clarification.) Clarence Pinto MD (electronically signed) Emergency Medicine Provider Clarence Pinto MD 10/11/22 1618 [facility] 10-05-2022 Miscellaneous Notes Per Pt's request, faxed out of work letter to Pt's work at [phone] documented in this encounter [facility] 10-02-2022 Note HNO ID: [id number] Author: Maria Esther Rodriguez DO Service: ? Author Type: Physician Type: Progress Notes Filed: 10/14/2022 9:45 PM Note Text: [facility] Lucienchani Rodriguez DO [address] [place] [address] Date of Evaluation: 10/02/2022 Patient Name: Denny Owens : 1960 Chief Complaint: Patient presents with: Cough Wheezing: Seen in [facility] care last week, treated with Bactrim and steroids. ER F/U: Seen in [facility] ER for kidney infection, given antibiotic Vantin Nursing Intake: There are no exam notes on file for this visit. Subjective Ms. Owens is a 61 year old female who presents with the following complaint(s): The history is provided by the patient. No speech language pathologist travel was used. Cough This is a recurrent problem. The problem has been gradually worsening. The cough is Productive of sputum. The maximum temperature recorded prior to her arrival was 101 to 101.9 F. Associated symptoms include wheezing. Pertinent negatives include no chest pain, no headaches, no shortness of breath and no eye redness. Wheezing This is a new problem. The current episode started in the past 7 days. Associated symptoms include coughing. Pertinent negatives include no chest pain, headaches or shortness of breath. Review of Systems Constitutional: Negative for fatigue and unexpected weight change. HENT: Negative for nosebleeds. Eyes: Negative for redness and visual disturbance. Respiratory: Positive for cough and wheezing. Negative for apnea and shortness of breath. Cardiovascular: Negative for chest pain, palpitations and leg swelling. Genitourinary: Negative for hematuria. Neurological: Negative for dizziness, weakness, light-headedness, numbness and headaches. Hematological: Does not bruise/bleed easily. Psychiatric/Behavioral: The patient is not nervous/anxious. PAST MEDICAL HISTORY Diagnosis Date Abdominal pain Acute bronchitis due to other specified organisms Acute otitis media Acute upper respiratory infection Allergic rhinitis due to pollen Anemia Blood in urine Body mass index (BMI) 25.0-25.9, adult Cervical disc disorder with myelopathy, high cervical region Cervical radiculitis Cervical spondylosis Cervicalgia Chest pain Constipation Disorder of bursae of shoulder region Disorders of smell Dysuria Essential (primary) hypertension Generalized anxiety disorder Herpes simplex Major depressive disorder, recurrent episode, moderate (HCC) Malaise and fatigue Mild intermittent asthma with acute exacerbation Mixed hyperlipidemia Neck sprain Other fatigue Other insomnia Polyneuropathy, unspecified Primary generalized (osteo)arthritis Psychogenic headache Renal impairment Trigeminal neuralgia Urinary tract infection, site not specified Vertigo Vitamin D deficiency PAST SURGICAL HISTORY Procedure Laterality Date CARPAL TUNNEL SECTION HX x 3 COLONOSCOPY 02/09/2012 CYSTOSCOPY 11/16/2016 HYSTERECTOMY HX FAMILY HISTORY Problem Relation Age of Onset Heart disease Mother Diabetes Mother Social History Tobacco Use Smoking status: Former Smokeless tobacco: Never Tobacco comments: smoked for 9 months as a teenager Vaping Use Vaping Use: Never used Substance Use Topics Alcohol use: Never Drug use: Never Current Outpatient Medications Medication Sig Dispense Refill gabapentin (NEURONTIN) 100 mg capsule TAKE 1 CAPSULE BY MOUTH THREE TIMES DAILY FOR 90 DAYS. 90 capsule 3 linaCLOtide (LINZESS) 72 mcg capsule TAKE 1 CAPSULE BY MOUTH EVERY OTHER DAY TAKE ON EMPTY STOMACH SWALLOW WHOLE DO NOT CRUSH OR CHEW 30 capsule 1 budesonide-formoterol (SYMBICORT) 160-4.5 mcg/actuation inhaler Inhale 2 Puffs as instructed twice daily. 30.6 Each 6 ipratropium-albuterol (DUONEB) 0.5 mg-3 mg(2.5 mg base)/3 mL nebu Inhale 3 mL as instructed every 4 hours while awake. 360 mL 4 verapamil SR (CALAN SR, ISOPTIN SR) 240 mg CR tablet TAKE 1 TABLET BY MOUTH EVERYDAY AT BEDTIME 90 tablet 3 omeprazole (PRILOSEC) 40 mg capsule Take 1 capsule by mouth once daily. 90 capsule 3 gabapentin (NEURONTIN) 800 mg tablet TAKE 1 TABLET BY MOUTH THREE TIMES DAILY 90 tablet 5 magnesium oxide 400 mg magnesium cap Take 1 capsule by mouth once daily. 90 capsule 11 azelastine (ASTELIN) 0.1% nasal spray Use 1 [facility] in each nostril twice daily. 30 mL 11 Albuterol Sulfate 1.25 mg/3 mL nebulizer solution albuterol sulfate 1.25 mg/3 mL solution for nebulization INHALE 3 ML EVERY 4 HOURS BY INHALATION ROUTE NEEDED FOR 30 DAYS. cefpodoxime (VANTIN) 200 mg tablet Take 200 mg by mouth twice daily. albuterol HFA (PROVENTIL HFA, VENTOLIN HFA) 90 mcg/actuation inhaler TAKE 2 APPLICATION (INHALATION) EVERY 4-6 HOURS FOR 7 DAYS predniSONE (DELTASONE) 10 mg tablet Take 3 tablets by mouth for 3 days, then ta (more content not included)... [facility] 10-02-2022 History of Present illness Narrative Images from the original note were not included. [facility] Stuart Rodriguez DO [address] [place] [address] Date of Evaluation: 10/02/2022 Patient Name: Denny Owens : 1960 Chief Complaint: Patient presents with: Cough Wheezing: Seen in [facility] care last week, treated with Bactrim and steroids. ER F/U: Seen in [facility] ER for kidney infection, given antibiotic Vantin Nursing Intake: There are no exam notes on file for this visit. Subjective Ms. Owens is a 61 year old female who presents with the following complaint(s): The history is provided by the patient. No speech language pathologist travel was used. Cough This is a recurrent problem. The problem has been gradually worsening. The cough is Productive of sputum. The maximum temperature recorded prior to her arrival was 101 to 101.9 F. Associated symptoms include wheezing. Pertinent negatives include no chest pain, no headaches, no shortness of breath and no eye redness. Wheezing This is a new problem. The current episode started in the past 7 days. Associated symptoms include coughing. Pertinent negatives include no chest pain, headaches or shortness of breath. Review of Systems Constitutional: Negative for fatigue and unexpected weight change. HENT: Negative for nosebleeds. Eyes: Negative for redness and visual disturbance. Respiratory: Positive for cough and wheezing. Negative for apnea and shortness of breath. Cardiovascular: Negative for chest pain, palpitations and leg swelling. Genitourinary: Negative for hematuria. Neurological: Negative for dizziness, weakness, light-headedness, numbness and headaches. Hematological: Does not bruise/bleed easily. Psychiatric/Behavioral: The patient is not nervous/anxious. PAST MEDICAL HISTORY Diagnosis Date Abdominal pain Acute bronchitis due to other specified organisms Acute otitis media Acute upper respiratory infection Allergic rhinitis due to pollen Anemia Blood in urine Body mass index (BMI) 25.0-25.9, adult Cervical disc disorder with myelopathy, high cervical region Cervical radiculitis Cervical spondylosis Cervicalgia Chest pain Constipation Disorder of bursae of shoulder region Disorders of smell Dysuria Essential (primary) hypertension Generalized anxiety disorder Herpes simplex Major depressive disorder, recurrent episode, moderate (HCC) Malaise and fatigue Mild intermittent asthma with acute exacerbation Mixed hyperlipidemia Neck sprain Other fatigue Other insomnia Polyneuropathy, unspecified Primary generalized (osteo)arthritis Psychogenic headache Renal impairment Trigeminal neuralgia Urinary tract infection, site not specified Vertigo Vitamin D deficiency PAST SURGICAL HISTORY Procedure Laterality Date CARPAL TUNNEL SECTION HX x 3 COLONOSCOPY 02/09/2012 CYSTOSCOPY 11/16/2016 HYSTERECTOMY HX FAMILY HISTORY Problem Relation Age of Onset Heart disease Mother Diabetes Mother Social History Tobacco Use Smoking status: Former Smokeless tobacco: Never Tobacco comments: smoked for 9 months as a teenager Vaping Use Vaping Use: Never used Substance Use Topics Alcohol use: Never Drug use: Never Current Outpatient Medications Medication Sig Dispense Refill gabapentin (NEURONTIN) 100 mg capsule TAKE 1 CAPSULE BY MOUTH THREE TIMES DAILY FOR 90 DAYS. 90 capsule 3 linaCLOtide (LINZESS) 72 mcg capsule TAKE 1 CAPSULE BY MOUTH EVERY OTHER DAY TAKE ON EMPTY STOMACH SWALLOW WHOLE DO NOT CRUSH OR CHEW 30 capsule 1 budesonide-formoterol (SYMBICORT) 160-4.5 mcg/actuation inhaler Inhale 2 Puffs as instructed twice daily. 30.6 Each 6 ipratropium-albuterol (DUONEB) 0.5 mg-3 mg(2.5 mg base)/3 mL nebu Inhale 3 mL as instructed every 4 hours while awake. 360 mL 4 verapamil SR (CALAN SR, ISOPTIN SR) 240 mg CR tablet TAKE 1 TABLET BY MOUTH EVERYDAY AT BEDTIME 90 tablet 3 omeprazole (PRILOSEC) 40 mg capsule Take 1 capsule by mouth once daily. 90 capsule 3 gabapentin (NEURONTIN) 800 mg tablet TAKE 1 TABLET BY MOUTH THREE TIMES DAILY 90 tablet 5 magnesium oxide 400 mg magnesium cap Take 1 capsule by mouth once daily. 90 capsule 11 azelastine (ASTELIN) 0.1% nasal spray Use 1 [facility] in each nostril twice daily. 30 mL 11 Albuterol Sulfate 1.25 mg/3 mL nebulizer solution albuterol sulfate 1.25 mg/3 mL solution for nebulization INHALE 3 ML EVERY 4 HOURS BY INHALATION ROUTE NEEDED FOR 30 DAYS. cefpodoxime (VANTIN) 200 mg tablet Take 200 mg by mouth twice daily. albuterol HFA (PROVENTIL HFA, VENTOLIN HFA) 90 mcg/actuation inhaler TAKE 2 APPLICATION (INHALATION) EVERY 4-6 HOURS FOR 7 DAYS predniSONE (DELTASONE) 10 mg tablet Take 3 tablets by mouth for 3 days, then take 2 tablets by mouth for 3 days, then take 1 tablet by mouth for 3 days. 18 tablet 0 levoFLOXacin (LEVAQUIN) 500 mg tablet Take 1 tablet by mouth once daily for 7 days. 7 tablet 0 magnesium oxide (MAG-OX) 400 mg (241.3 mg magnesium) tablet Take 1 tablet by mouth once daily. (Patient not taking: No sig reported) trimethoprim (PROLOPRIM) 100 mg tablet Take 100 mg by mouth daily at bedtime. (Patient not taking: Reported on 10/02/2022) predniSONE (DELTASONE) 10 mg tablet Take 3 tablets by mouth for 3 days, then take 2 tablets by mouth for 3 days, then take 1 tablet by mouth for 3 days. (Patient not taking: No sig reported) 18 tablet 1 benzonatate (TESSALON PERLES) 100 mg capsule Take 2 capsules by mouth three times daily as needed for cough. (Patient not taking: No sig reported) 30 capsule 1 YUVAFEM 10 mcg vaginal tablet INSERT 1 TABLET VAGINALLY 3 TIMES WEEKLY (Patient not taking: No sig reported) Ascorbate Calcium 500 mg tab Take by mouth. (Patient not taking: No sig reported) cephALEXin (KEFLEX) 250 mg capsule 250 mg. prn (Patient not taking: Reported on 10/02/2022) ipratropium-albuterol (DUONEB) 0.5 mg-3 mg(2.5 mg base)/3 mL nebu Inhale 3 mL as instructed every 4 hours as needed (tightness in chest, coughing, wheezing, shortness of breath). (Patient not taking: No sig reported) 120 Vial 3 phenazopyridine (PYRIDIUM) 200 mg tablet Take 1 tablet by mouth three times daily as needed for Pain. (Patient not taking: No sig reported) 30 tablet 0 No current facility-administered medications for this visit. I have confirmed and edited as necessary the past medical, family and social histories, HPI, and ROS obtained by others. Objective BP 130/84 Pulse 87 Temp 98.5 Ht 5' 3 (1.60m) Wt 128 lb (58.1kg) SpO2 94% BMI 22.68 kg/(m^2). Physical Exam Vitals and nursing note reviewed. Constitutional: General: She is not in acute distress. Appearance: Normal appearance. She is well-developed. She is not ill-appearing. HENT: Head: Normocephalic. Right Ear: Tympanic membrane, ear canal and external ear normal. There is no impacted cerumen. Left Ear: Tympanic membrane, ear canal and external ear normal. There is no impacted cerumen. Nose: Nose normal. Mouth/Throat: Mouth: Mucous membranes are moist. Pharynx: Oropharynx is clear. Uvula midline. No oropharyngeal exudate or posterior oropharyngeal erythema. Eyes: General: Lids are normal. Vision grossly intact. Gaze aligned appropriately. No scleral icterus. Right eye: No discharge. Left eye: No discharge. Extraocular Movements: Extraocular movements intact. Conjunctiva/sclera: Conjunctivae normal. Pupils: Pupils are equal, round, and reactive to light. Neck: Thyroid: No thyroid mass, thyromegaly or thyroid tenderness. Vascular: No carotid bruit. Trachea: Trachea and phonation normal. Cardiovascular: Rate and Rhythm: Normal rate and regular rhythm. Pulses: Normal pulses. Heart sounds: Normal heart sounds. Pulmonary: Effort: Pulmonary effort is normal. Breath sounds: Normal breath sounds. Abdominal: General: Abdomen is flat. Bowel sounds are normal. Palpations: Abdomen is soft. Musculoskeletal: General: Normal range of motion. Right shoulder: Normal. Left shoulder: Normal. Cervical back: Normal, full passive range of motion without pain and neck supple. No tenderness. No spinous process tenderness. Thoracic back: Normal. Lumbar back: Normal. Right knee: Normal. Left knee: Normal. Right lower leg: No edema. Left lower leg: No edema. Lymphadenopathy: Cervical: No cervical adenopathy. Skin: General: Skin is warm and dry. Neurological: General: No focal deficit present. Mental Status: She is alert and oriented to person, place, and time. Mental status is at baseline. Sensory: Sensation is intact. Motor: Motor function is intact. Psychiatric: Attention and Perception: Attention and perception normal. Mood and Affect: Mood normal. Speech: Speech normal. Behavior: Behavior normal. Thought Content: Thought content normal. Judgment: Judgment normal. Data Reviewed: Most recent labs and imaging results. ASSESSMENT/PLAN: 1. Acute pyelonephritis - ICD9: 590.10, ICD10: N10 (primary diagnosis) - Follow up ED - Discontinue Vantin and Start Levaquin to help help with lungs 2. Acute bronchitis, unspecified organism - ICD9: 466.0, ICD10: J20.9 - Start Levaquin - Start Prednisone Taper - PREDNISONE 10 MG TABLET - LEVOFLOXACIN 500 MG TABLET 3. Acute cough - ICD9: 786.2, ICD10: R05.1 - Obtain Chest XR - XR CHEST 2V FRONTAL/LAT [place] [facility], DO Return if symptoms worsen or fail to improve. Attestation: Scribe Statement: I Kathia Winston am scribing for, and in the presence of, Maria Esther Rodriguez DO October 02, 2022 11:18 AM. Physician Statement: I, Maria Esther Rodriguez DO, personally performed the services described in the documentation, as scribed by Kathia Winston in my presence, and it is both accurate and complete October 02, 2022 11:22 AM. documented in this encounter [facility] 09-25-2022 Miscellaneous Notes Pt has an appt scheduled 10/27/2022 @ 4:15 Dr Rodriguez is leaving early that day Left Message with Pt regarding rescheduling the appt documented in this encounter [facility] 09-14-2022 Note HNO ID: [id number] Author: Maria Esther Rodriguez DO Service: ? Author Type: Physician Type: Progress Notes Filed: 09/22/2022 7:08 PM Note Text: [facility] Luciennoemí Rodriguez DO [address] [place] [address] Date of Evaluation: 09/14/2022 Patient Name: Denny Owens : 1960 Chief Complaint: Patient presents with: discolored nails: States some of her finger nails are lifting up and discolored. States had artifical nails on in the past. Artificial nails removed end of July Nursing Intake: There are no exam notes on file for this visit. Subjective Ms. Owens is a 61 year old female who presents with the following complaint(s): Patient presents to follow up after trauma from Artifical nails. Complains of discoloration. Artifical nails have since been removed Review of Systems Constitutional: Positive for fatigue. Negative for unexpected weight change. HENT: Negative for nosebleeds. Eyes: Negative for redness and visual disturbance. Respiratory: Negative for apnea, cough and shortness of breath. Cardiovascular: Negative for chest pain, palpitations and leg swelling. Genitourinary: Negative for hematuria. Neurological: Negative for dizziness, weakness, light-headedness, numbness and headaches. Hematological: Does not bruise/bleed easily. Psychiatric/Behavioral: The patient is not nervous/anxious. PAST MEDICAL HISTORY Diagnosis Date Abdominal pain Acute bronchitis due to other specified organisms Acute otitis media Acute upper respiratory infection Allergic rhinitis due to pollen Anemia Blood in urine Body mass index (BMI) 25.0-25.9, adult Cervical disc disorder with myelopathy, high cervical region Cervical radiculitis Cervical spondylosis Cervicalgia Chest pain Constipation Disorder of bursae of shoulder region Disorders of smell Dysuria Essential (primary) hypertension Generalized anxiety disorder Herpes simplex Major depressive disorder, recurrent episode, moderate (HCC) Malaise and fatigue Mild intermittent asthma with acute exacerbation Mixed hyperlipidemia Neck sprain Other fatigue Other insomnia Polyneuropathy, unspecified Primary generalized (osteo)arthritis Psychogenic headache Renal impairment Trigeminal neuralgia Urinary tract infection, site not specified Vertigo Vitamin D deficiency PAST SURGICAL HISTORY Procedure Laterality Date CARPAL TUNNEL SECTION HX x 3 COLONOSCOPY 02/09/2012 CYSTOSCOPY 11/16/2016 HYSTERECTOMY HX FAMILY HISTORY Problem Relation Age of Onset Heart disease Mother Diabetes Mother Social History Tobacco Use Smoking status: Former Smokeless tobacco: Never Tobacco comments: smoked for 9 months as a teenager Vaping Use Vaping Use: Never used Substance Use Topics Alcohol use: Never Drug use: Never Current Outpatient Medications Medication Sig Dispense Refill trimethoprim (PROLOPRIM) 100 mg tablet Take 100 mg by mouth daily at bedtime. gabapentin (NEURONTIN) 100 mg capsule TAKE 1 CAPSULE BY MOUTH THREE TIMES DAILY FOR 90 DAYS. 90 capsule 3 linaCLOtide (LINZESS) 72 mcg capsule TAKE 1 CAPSULE BY MOUTH EVERY OTHER DAY TAKE ON EMPTY STOMACH SWALLOW WHOLE DO NOT CRUSH OR CHEW 30 capsule 1 budesonide-formoterol (SYMBICORT) 160-4.5 mcg/actuation inhaler Inhale 2 Puffs as instructed twice daily. 30.6 Each 6 ipratropium-albuterol (DUONEB) 0.5 mg-3 mg(2.5 mg base)/3 mL nebu Inhale 3 mL as instructed every 4 hours while awake. 360 mL 4 verapamil SR (CALAN SR, ISOPTIN SR) 240 mg CR tablet TAKE 1 TABLET BY MOUTH EVERYDAY AT BEDTIME 90 tablet 3 omeprazole (PRILOSEC) 40 mg capsule Take 1 capsule by mouth once daily. 90 capsule 3 gabapentin (NEURONTIN) 800 mg tablet TAKE 1 TABLET BY MOUTH THREE TIMES DAILY 90 tablet 5 magnesium oxide 400 mg magnesium cap Take 1 capsule by mouth once daily. 90 capsule 11 azelastine (ASTELIN) 0.1% nasal spray Use 1 [facility] in each nostril twice daily. 30 mL 11 Albuterol Sulfate 1.25 mg/3 mL nebulizer solution albuterol sulfate 1.25 mg/3 mL solution for nebulization INHALE 3 ML EVERY 4 HOURS BY INHALATION ROUTE NEEDED FOR 30 DAYS. magnesium oxide (MAG-OX) 400 mg (241.3 mg magnesium) tablet Take 1 tablet by mouth once daily. (Patient not taking: Reported on 09/14/2022) predniSONE (DELTASONE) 10 mg tablet Take 3 tablets by mouth for 3 days, then take 2 tablets by mouth for 3 days, then take 1 tablet by mouth for 3 days. (Patient not taking: Reported on 09/14/2022) 18 tablet 1 benzonatate (TESSALON PERLES) 100 mg capsule Take 2 capsules by mouth three times daily as needed for cough. (Patient not taking: Reported on 09/14/2022) 30 capsule 1 YUVAFEM 10 mcg vaginal tablet INSERT 1 TABLET VAGINALLY 3 TIMES WEEKLY (Patient not taking: Reported on 09/14/2022) Ascorbate Calcium 500 mg tab Take by mo (more content not included)... [facility] 08-22-2022 Miscellaneous Notes Pt stated she had been going to get her nails done and she have 2 nails that is lifting. With green stuff. Her technical marketing engineer told her to put alcohol down her nail to dry the green stuff out. She stated it on the right and left thumb. Outcome: Pt stated she thought she can speak to SENIOR SQL DBA and get medication order. She decline to complete triage and stated she may go to [facility]. Answer Assessment - Initial Assessment Questions 1. ONSET: Couple a weeks 08/13/2022 2. LOCATION and RADIATION: whole nail lifting on both thumbs 3. SEVERITY: no pain 4. APPEARANCE: right thumb whole finger on the right Protocols used: Finger [id number] documented in this encounter [facility] 07-08-2022 Miscellaneous Notes Pharmacy faxed requesting the following refill Refill(s) Requested: Requested Prescriptions Pending Prescriptions Disp Refills gabapentin (NEURONTIN) 100 mg capsule [Pharmacy Med Name: GABAPENTIN 100 MG CAPSULE] 90 capsule 3 Sig: TAKE 1 CAPSULE BY MOUTH THREE TIMES DAILY FOR 90 DAYS. linaCLOtide (LINZESS) 72 mcg capsule [Pharmacy Med Name: LINZESS 72 MCG CAPSULE] 30 capsule 1 Sig: TAKE 1 CAPSULE BY MOUTH EVERY OTHER DAY TAKE ON EMPTY STOMACH SWALLOW WHOLE DO NOT CRUSH OR CHEW ALLERGIES Allergen Reactions Methenamine Unknown Methenamine Hippura* Dami (home) [phone] (cell) Last Office Visit Date: 06/08/2022 Last [facility] [place] [facility] Visit: 12/17/2021 Future Appointment: Visit date not found The patients preferred pharmacy has been captured for this encounter? yes Request is for script(s) to be escript to pharmacy. Kenisha Ross LPN documented in this encounter [facility] 06-19-2022 Miscellaneous Notes Pt would like to try the inhaled steroid. Please send to [facility] pharmacy [facility] [place] Ramona Metcalf documented in this encounter [facility] 06-08-2022 Note HNO ID: [id number] Author: Maria Esther Rodriguez DO Service: ? Author Type: Physician Type: Progress Notes Filed: 06/17/2022 5:57 PM Note Text: [facility] Family Medicine Stuart Rodriguez DO [address] [place] [address] Date of Evaluation: 06/08/2022 Patient Name: Denny Owens : 1960 Chief Complaint: Patient presents with: Cough: Productive cough since Covid in the spring. Shortness of Breath Wheezing Asthma Nursing Intake: There are no exam notes on file for this visit. Subjective Ms. Owens is a 61 year old female who presents with the following complaint(s): The history is provided by the patient. No speech language pathologist travel was used. Cough This is a recurrent problem. The problem occurs constantly. The problem has not changed since onset.Associated symptoms include shortness of breath and wheezing. Pertinent negatives include no chest pain, no headaches and no eye redness. Shortness of Breath This is a recurrent problem. The problem occurs intermittently. Associated symptoms include wheezing. Pertinent negatives include no chest pain, headaches or leg swelling. Wheezing This is a recurrent problem. The problem occurs intermittently. Associated symptoms include coughing and shortness of breath. Pertinent negatives include no chest pain or headaches. Asthma This is a chronic problem. Associated symptoms include coughing. Pertinent negatives include no chest pain, fatigue, headaches, numbness or weakness. Review of Systems Constitutional: Negative for fatigue and unexpected weight change. HENT: Negative for nosebleeds. Eyes: Negative for redness and visual disturbance. Respiratory: Positive for cough, shortness of breath and wheezing. Negative for apnea. Cardiovascular: Negative for chest pain, palpitations and leg swelling. Genitourinary: Negative for hematuria. Neurological: Negative for dizziness, weakness, light-headedness, numbness and headaches. Hematological: Does not bruise/bleed easily. Psychiatric/Behavioral: The patient is not nervous/anxious. PAST MEDICAL HISTORY Diagnosis Date Abdominal pain Acute bronchitis due to other specified organisms Acute otitis media Acute upper respiratory infection Allergic rhinitis due to pollen Anemia Blood in urine Body mass index (BMI) 25.0-25.9, adult Cervical disc disorder with myelopathy, high cervical region Cervical radiculitis Cervical spondylosis Cervicalgia Chest pain Constipation Disorder of bursae of shoulder region Disorders of smell Dysuria Essential (primary) hypertension Generalized anxiety disorder Herpes simplex Major depressive disorder, recurrent episode, moderate (HCC) Malaise and fatigue Mild intermittent asthma with acute exacerbation Mixed hyperlipidemia Neck sprain Other fatigue Other insomnia Polyneuropathy, unspecified Primary generalized (osteo)arthritis Psychogenic headache Renal impairment Trigeminal neuralgia Urinary tract infection, site not specified Vertigo Vitamin D deficiency PAST SURGICAL HISTORY Procedure Laterality Date CARPAL TUNNEL SECTION HX x 3 COLONOSCOPY 02/09/2012 CYSTOSCOPY 11/16/2016 HYSTERECTOMY HX FAMILY HISTORY Problem Relation Age of Onset Heart disease Mother Diabetes Mother Social History Tobacco Use Smoking status: Former Smokeless tobacco: Never Tobacco comments: smoked for 9 months as a teenager Vaping Use Vaping Use: Never used Substance Use Topics Alcohol use: Never Drug use: Never Current Outpatient Medications Medication Sig Dispense Refill verapamil SR (CALAN SR, ISOPTIN SR) 240 mg CR tablet TAKE 1 TABLET BY MOUTH EVERYDAY AT BEDTIME 90 tablet 3 YUVAFEM 10 mcg vaginal tablet INSERT 1 TABLET VAGINALLY 3 TIMES WEEKLY omeprazole (PRILOSEC) 40 mg capsule Take 1 capsule by mouth once daily. 90 capsule 3 linaCLOtide (LINZESS) 72 mcg capsule Take 1 tablet every other day. Administer on an empty stomach. Swallow whole; DO NOT crush or chew. 15 capsule 3 gabapentin (NEURONTIN) 100 mg capsule TAKE 1 CAPSULE BY MOUTH THREE TIMES DAILY FOR 90 DAYS. 90 capsule 3 gabapentin (NEURONTIN) 800 mg tablet TAKE 1 TABLET BY MOUTH THREE TIMES DAILY 90 tablet 5 Ascorbate Calcium 500 mg tab Take by mouth. magnesium oxide 400 mg magnesium cap Take 1 capsule by mouth once daily. 90 capsule 11 budesonide-formoterol (SYMBICORT) 160-4.5 mcg/actuation inhaler INHALE 2 PUFFS INSTRUCTED TWICE DAILY. 30.6 Each 6 azelastine (ASTELIN) 0.1% nasal spray Use 1 [facility] in each nostril twice daily. 30 mL 11 cephALEXin (KEFLEX) 250 mg capsule 250 mg. prn ipratropium-albuterol (DUONEB) 0.5 mg-3 mg(2.5 mg base)/3 mL nebu Inhale 3 mL as instructed every 4 hours as needed (tightness in chest, coughing, wheezing, shortness of breath). 120 Vial 3 Albuterol Sulfate 1 (more content not included)... [facility] 06-08-2022 History of Present illness Narrative Images from the original note were not included. [facility] Medicine Stuart Rodriguez DO [address] [place] [address] Date of Evaluation: 06/08/2022 Patient Name: Denny Owens : 1960 Chief Complaint: Patient presents with: Cough: Productive cough since Covid in the spring. Shortness of Breath Wheezing Asthma Nursing Intake: There are no exam notes on file for this visit. Subjective Ms. Owens is a 61 year old female who presents with the following complaint(s): The history is provided by the patient. No speech language pathologist travel was used. Cough This is a recurrent problem. The problem occurs constantly. The problem has not changed since onset.Associated symptoms include shortness of breath and wheezing. Pertinent negatives include no chest pain, no headaches and no eye redness. Shortness of Breath This is a recurrent problem. The problem occurs intermittently. Associated symptoms include wheezing. Pertinent negatives include no chest pain, headaches or leg swelling. Wheezing This is a recurrent problem. The problem occurs intermittently. Associated symptoms include coughing and shortness of breath. Pertinent negatives include no chest pain or headaches. Asthma This is a chronic problem. Associated symptoms include coughing. Pertinent negatives include no chest pain, fatigue, headaches, numbness or weakness. Review of Systems Constitutional: Negative for fatigue and unexpected weight change. HENT: Negative for nosebleeds. Eyes: Negative for redness and visual disturbance. Respiratory: Positive for cough, shortness of breath and wheezing. Negative for apnea. Cardiovascular: Negative for chest pain, palpitations and leg swelling. Genitourinary: Negative for hematuria. Neurological: Negative for dizziness, weakness, light-headedness, numbness and headaches. Hematological: Does not bruise/bleed easily. Psychiatric/Behavioral: The patient is not nervous/anxious. PAST MEDICAL HISTORY Diagnosis Date Abdominal pain Acute bronchitis due to other specified organisms Acute otitis media Acute upper respiratory infection Allergic rhinitis due to pollen Anemia Blood in urine Body mass index (BMI) 25.0-25.9, adult Cervical disc disorder with myelopathy, high cervical region Cervical radiculitis Cervical spondylosis Cervicalgia Chest pain Constipation Disorder of bursae of shoulder region Disorders of smell Dysuria Essential (primary) hypertension Generalized anxiety disorder Herpes simplex Major depressive disorder, recurrent episode, moderate (HCC) Malaise and fatigue Mild intermittent asthma with acute exacerbation Mixed hyperlipidemia Neck sprain Other fatigue Other insomnia Polyneuropathy, unspecified Primary generalized (osteo)arthritis Psychogenic headache Renal impairment Trigeminal neuralgia Urinary tract infection, site not specified Vertigo Vitamin D deficiency PAST SURGICAL HISTORY Procedure Laterality Date CARPAL TUNNEL SECTION HX x 3 COLONOSCOPY 02/09/2012 CYSTOSCOPY 11/16/2016 HYSTERECTOMY HX FAMILY HISTORY Problem Relation Age of Onset Heart disease Mother Diabetes Mother Social History Tobacco Use Smoking status: Former Smokeless tobacco: Never Tobacco comments: smoked for 9 months as a teenager Vaping Use Vaping Use: Never used Substance Use Topics Alcohol use: Never Drug use: Never Current Outpatient Medications Medication Sig Dispense Refill verapamil SR (CALAN SR, ISOPTIN SR) 240 mg CR tablet TAKE 1 TABLET BY MOUTH EVERYDAY AT BEDTIME 90 tablet 3 YUVAFEM 10 mcg vaginal tablet INSERT 1 TABLET VAGINALLY 3 TIMES WEEKLY omeprazole (PRILOSEC) 40 mg capsule Take 1 capsule by mouth once daily. 90 capsule 3 linaCLOtide (LINZESS) 72 mcg capsule Take 1 tablet every other day. Administer on an empty stomach. Swallow whole; DO NOT crush or chew. 15 capsule 3 gabapentin (NEURONTIN) 100 mg capsule TAKE 1 CAPSULE BY MOUTH THREE TIMES DAILY FOR 90 DAYS. 90 capsule 3 gabapentin (NEURONTIN) 800 mg tablet TAKE 1 TABLET BY MOUTH THREE TIMES DAILY 90 tablet 5 Ascorbate Calcium 500 mg tab Take by mouth. magnesium oxide 400 mg magnesium cap Take 1 capsule by mouth once daily. 90 capsule 11 budesonide-formoterol (SYMBICORT) 160-4.5 mcg/actuation inhaler INHALE 2 PUFFS INSTRUCTED TWICE DAILY. 30.6 Each 6 azelastine (ASTELIN) 0.1% nasal spray Use 1 [facility] in each nostril twice daily. 30 mL 11 cephALEXin (KEFLEX) 250 mg capsule 250 mg. prn ipratropium-albuterol (DUONEB) 0.5 mg-3 mg(2.5 mg base)/3 mL nebu Inhale 3 mL as instructed every 4 hours as needed (tightness in chest, coughing, wheezing, shortness of breath). 120 Vial 3 Albuterol Sulfate 1.25 mg/3 mL nebulizer solution albuterol sulfate 1.25 mg/3 mL solution for nebulization INHALE 3 ML EVERY 4 HOURS BY INHALATION ROUTE NEEDED FOR 30 DAYS. phenazopyridine (PYRIDIUM) 200 mg tablet Take 1 tablet by mouth three times daily as needed for Pain. 30 tablet 0 predniSONE (DELTASONE) 10 mg tablet Take 3 tablets by mouth for 3 days, then take 2 tablets by mouth for 3 days, then take 1 tablet by mouth for 3 days. 18 tablet 1 levoFLOXacin (LEVAQUIN) 500 mg tablet Take 1 tablet by mouth once daily for 7 days. 7 tablet 0 ipratropium-albuterol (DUONEB) 0.5 mg-3 mg(2.5 mg base)/3 mL nebu Inhale 3 mL as instructed every 4 hours while awake. 360 mL 4 benzonatate (TESSALON PERLES) 100 mg capsule Take 2 capsules by mouth three times daily as needed for cough. 30 capsule 1 No current facility-administered medications for this visit. I have confirmed and edited as necessary the past medical, family and social histories, HPI, and ROS obtained by others. Objective BP 120/78 Pulse 82 Temp 98.2 Resp 24 Ht 5' 3 (1.60m) Wt 126 lb (57.2kg) SpO2 94% BMI 22.33 kg/(m^2). Physical Exam Vitals and nursing note reviewed. Constitutional: General: She is not in acute distress. Appearance: Normal appearance. She is well-developed. She is not ill-appearing. HENT: Head: Normocephalic. Right Ear: Tympanic membrane, ear canal and external ear normal. There is no impacted cerumen. Left Ear: Tympanic membrane, ear canal and external ear normal. There is no impacted cerumen. Nose: Nose normal. Mouth/Throat: Mouth: Mucous membranes are moist. Pharynx: Oropharynx is clear. Uvula midline. No oropharyngeal exudate or posterior oropharyngeal erythema. Eyes: General: Lids are normal. Vision grossly intact. Gaze aligned appropriately. No scleral icterus. Right eye: No discharge. Left eye: No discharge. Extraocular Movements: Extraocular movements intact. Conjunctiva/sclera: Conjunctivae normal. Pupils: Pupils are equal, round, and reactive to light. Neck: Thyroid: No thyroid mass, thyromegaly or thyroid tenderness. Vascular: No carotid bruit. Trachea: Trachea and phonation normal. Cardiovascular: Rate and Rhythm: Normal rate and regular rhythm. Pulses: Normal pulses. Heart sounds: Normal heart sounds. Pulmonary: Effort: Pulmonary effort is normal. Breath sounds: Wheezing present. Abdominal: General: Abdomen is flat. Bowel sounds are normal. Palpations: Abdomen is soft. Musculoskeletal: General: Normal range of motion. Right shoulder: Normal. Left shoulder: Normal. Cervical back: Normal, full passive range of motion without pain and neck supple. No tenderness. No spinous process tenderness. Thoracic back: Normal. Lumbar back: Normal. Right knee: Normal. Left knee: Normal. Right lower leg: No edema. Left lower leg: No edema. Lymphadenopathy: Cervical: No cervical adenopathy. Skin: General: Skin is warm and dry. Neurological: General: No focal deficit present. Mental Status: She is alert and oriented to person, place, and time. Mental status is at baseline. Sensory: Sensation is intact. Motor: Motor function is intact. Psychiatric: Attention and Perception: Attention and perception normal. Mood and Affect: Mood normal. Speech: Speech normal. Behavior: Behavior normal. Thought Content: Thought content normal. Judgment: Judgment normal. Data Reviewed: No new labs ASSESSMENT/PLAN: 1. Recurrent cough - ICD9: 786.2, ICD10: R05.8 (primary diagnosis) - Obtain Chest Xr - Start Tessalon Perles - XR CHEST 2V FRONTAL/LAT - BENZONATATE 100 MG CAPSULE 2. Moderate persistent asthma, uncomplicated - ICD9: 493.90, ICD10: J45.40 - IPRATROPIUM 0.5 MG-ALBUTEROL 3 MG (2.5 MG BASE)/3 ML NEBULIZATION SOLN 3. Wheezing - ICD9: 786.07, ICD10: R06.2 - Start Prednisone - PREDNISONE 10 MG TABLET 4. Acute bronchitis, unspecified organism - ICD9: 466.0, ICD10: J20.9 - Start PO antibiotic - LEVOFLOXACIN 500 MG TABLET Maria Esther Rodriguez DO Return if symptoms worsen or fail to improve. Attestation: Scribe Statement: Nima Winston am scribing for, and in the presence of, Maria Esther Rodriguez DO June 08, 2022 1:42 PM. Physician Statement: I, Maria Esther Rodriguez DO, personally performed the services described in the documentation, as scribed by Kathia Winston in my presence, and it is both accurate and complete June 08, 2022 1:49 PM. documented in this encounter [facility] 05-26-2022 History of Present illness Narrative [facility] V[facility] Surgery Follow-up Office Visit CHIEF COMPLAINT: Chief Complaint Patient presents with Follow-up ([facility]) recall CTA 05/12/22 HISTORY OF PRESENT ILLNESS: Denny Owens is a 61 y.o. 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 Pt here for recall appointment. Pt very tired today. Worked 3rd shift last night and has been dealing with chronic respiratory illness for months. She denies any episodes of lateralizing weakness, facial droop or weakness, aphasia, nor unilateral sudden temporary blindness. Denies any claudication symptoms or rest pain. Denies any slow or nonhealing sores to feet. Denies any abdominal or flank pain. BP well controlled on medications. BP today 128/69 Recent CTA abdomen notes stable renal artery aneurysm and splenic artery aneurysm Past Medical History: Past Medical History: Diagnosis Date Arthritis Asthma Hematuria Hypertension Renal artery aneurysm (CMS/HCC) (HCC) UTI (urinary tract infection) Past Surgical History: Past Surgical History: Procedure Laterality Date BLADDER SURGERY 11/23/2016 hydrodistension BLADDER SUSPENSION CARPAL TUNNEL RELEASE Bilateral CHOLECYSTECTOMY CYSTOSCOPY with hydrodistention HYSTERECTOMY NECK SURGERY 05/28/2015 ACDF RECTOCELE REPAIR Current Medications: Current Outpatient Medications: albuterol 108 (90 Base) MCG/ACT inhaler, Inhale 2 puffs every 6 hours as needed., Disp: , Rfl: budesonide-formoterol (Symbicort) 160-4.5 MCG/ACT inhaler, Inhale 2 puffs in the morning and 2 puffs before bedtime., Disp: , Rfl: cephalexin (Keflex) 250 MG capsule, 250 mg., Disp: , Rfl: gabapentin (Neurontin) 300 MG capsule, 300 mg., Disp: , Rfl: ibuprofen 800 MG tablet, Take 1 tablet by mouth every 8 hours as needed., Disp: , Rfl: verapamil SR (Calan SR) 240 MG ER tablet, , Disp: , Rfl: losartan (Cozaar) 25 MG tablet, Take 25 mg by mouth in the morning., Disp: , Rfl: Allergies: Methenamine Social History: Social History Socioeconomic History Marital status: Spouse name: Not on file Number of children: Not on file Years of education: Not on file Highest education level: Not on file Occupational History Not on file Tobacco Use Smoking status: Never Smokeless tobacco: Never Substance and Sexual Activity Alcohol use: No Drug use: No Sexual activity: Not on file Other Topics Concern Not on file Social History Narrative Not on file Social Determinants of Health Financial Resource Strain: Not on file Food Insecurity: Not on file Transportation Needs: Not on file Physical Activity: Not on file Stress: Not on file Social Connections: Not on file Intimate Partner Violence: Not on file Housing Stability: Not on file Family History: Family History Problem Relation Name Age of Onset Diabetes Mother Heart disease Mother Cancer Father REVIEW OF SYSTEMS: Review of Systems Constitutional: Negative. HENT: Negative. Eyes: Negative. Respiratory: Positive for wheezing (due to asthma). Cardiovascular: Negative. Gastrointestinal: Negative. Endocrine: Negative. Genitourinary: Negative. Musculoskeletal: Positive for back pain and neck pain (due to arthritis). Skin: Negative. Allergic/Immunologic: Negative. Neurological: Negative. Hematological: Negative. Psychiatric/Behavioral: Negative. LABS: Lab Results Component Value Date CREATININE 0.84 05/11/2022 No results found for: WBC, HGB, HCT, MCV, PLT No results found for: INR, PROTIME No results found for: VLDL PHYSICAL EXAM: Vitals: 05/26/22 1407 BP: 128/69 Pulse: 71 Physical Exam Constitutional: Appearance: Normal appearance. Neck: Vascular: No carotid bruit. Cardiovascular: Rate and Rhythm: Normal rate and regular rhythm. Pulses: Carotid pulses are 2+ on the right side and 2+ on the left side. Radial pulses are 2+ on the right side and 2+ on the left side. Dorsalis pedis pulses are 2+ on the right side and 2+ on the left side. Posterior tibial pulses are 2+ on the right side and 2+ on the left side. Heart sounds: No murmur heard. Pulmonary: Effort: Pulmonary effort is normal. No respiratory distress. Breath sounds: Normal breath sounds. Abdominal: General: Abdomen is flat. There is no distension. Palpations: There is no pulsatile mass. Tenderness: There is no abdominal tenderness. There is no guarding. Musculoskeletal: General: Normal range of motion. Cervical back: Normal range of motion and neck supple. Right lower leg: No edema. Left lower leg: No edema. Skin: General: Skin is warm and dry. Neurological: Mental Status: She is alert and oriented to person, place, and time. Psychiatric: Mood and Affect: Mood normal. Behavior: Behavior normal. Imaging CTA abdomen 10/26/22 IMPRESSION: 1.. 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 This however appears similar to multiple previous exams since 2015. This is bilobed with maximum outer diameter measured at 1.6 cm. 2. Atherosclerosis splenic artery with focal mild fusiform dilatation with maximum diameter of 1.1 cm. 3. Pelvic cysts, degenerative changes spine, moderate stool in colon, prior cholecystectomy with top normal size extra hepatic biliary system. Report Dictated on ASSESSMENT/PLAN: Problem List Items Addressed This Visit Circulatory Renal artery aneurysm (CMS/HCC) (HCC) Relevant Orders CTA abdomen angiogram w and/or wo IV contrast Other Visit Diagnoses Pre-procedure lab exam - Primary Relevant Orders Creatinine, Serum Splenic artery aneurysm (CMS/HCC) (HCC) Relevant Orders CTA abdomen angiogram w and/or wo IV contrast 1. Stable follow up of renal artery and splenic artery aneurysm -CTA abdomen -1 year -Discussed importance of maintaining normal blood pressure -Advised at least 30 minutes of safe aerobic activity daily. -Discussed signs and symptoms of aneurysm rupture and the patient understands that they should call 911 and immediately to the emergency department if they develop. Follow-Up: 1 year . documented in this encounter [facility] 05-26-2022 Miscellaneous Notes Addended by: ALLY FROST on: 04/28/2023 02:53 PM Modules accepted: Orders documented in this encounter [facility] 05-26-2022 Note Addended by: ALLY FROST on: 04/28/2023 02:53 PM Modules accepted: Orders [facility] 04-23-2022 Miscellaneous Notes Patient advised Miralasx or metamucil daily. Spoke with patient to clarify message below and she said she has been taking the Linzess every other day and in the beginning she thought it was working but not now. She said it is to expensive as well. Didn't know if there was something else she could try. Please advise. ----- Message from Trice Soto sent at 04/21/2022 2:58 PM EDT ----- Regarding: michael/ stuart/ medication problem .Subject Line Format: Medicine / [Provider Name] / [Issue] Patient has been identified by name and Date of (Y/N): y Patient: Denny Owens Date of : 1960 Provider for this encounter: Maria Esther Rodriguez DO Reason for the call/escalation: patient stated she started a new medication and said it is not working. She is supposed to be taking it every other day and was wondering if she could try to take it everyday for a better result. She also would like to know if there is something cheaper that does the same thing because it is very expensive Was Patient Referred to [facility]/Seek Emergency Treatment (Y/N): n Did Patient Agree (Y/N): na Was An Attempt Made To Transfer The Patient To The Office (Y/N): n Were You Able To Reach Someone At The Office (Y/N): na If Yes - Patient Was Transferred To (Caregivers Name): na If No - Which [facility] Leadership Chassis Engineer Did You Speak With Regarding This Patient: na Was an appointment scheduled (Y/N): n Reason patient was requesting visit (RFV/signs and symptoms/diagnosis) : medication not working Person calling if other than patient: n Return call to if other than patient: n Best contact number: [phone] Thank you, Trice Soto April 21, 2022 2:59 PM documented in this encounter [facility] 03-18-2022 Instructions Kathia Winston - 03/18/2022 11:06 AM EDT Images from the original note were not included. Start 2 tablespoons of Milk of Magnesia Get Fleets if needed after. Constipation Constipation can be an unpleasant topic to talk about. Most people have experienced constipation at some point in their life. Though typically not serious, constipation can be both painful and frustrating. What is constipation? Constipation occurs when bowel movements become difficult or less frequent than normal. The frequency or time between bowel movements ranges widely from person to person. Some people have bowel movements several times a day while others only one to two times a week. Going longer than three days without a bowel movement is too long. After three days, the stool becomes harder and more difficult to pass. What causes constipation? Constipation is most commonly caused by inadequate fiber in the diet or a disruption of the regular diet or routine. Chronic constipation may be due to a poor diet, dehydration, certain medications (such as antidepressants, strong pain medications), stress, or the pressure of other activities that force you to ignore the urge to empty the bowel. Various medical conditions can also cause or aggravate constipation. Some of the more common medical conditions that cause constipation include endocrine problems, such as decreased function of the thyroid gland or diabetes. Colorectal cancer is another medical condition that can cause constipation but it usually also accompanied by other symptoms including blood in the stool and weight loss. Common causes of constipation include the following: A diet low in fiber Not drinking enough water Lack of exercise Travel or another change in routine Eating large amounts of milk or cheese Stress or resisting the urge to have a bowel movement Medications strong pain medicines such as narcotics antidepressants antacids containing calcium or aluminum such as TUMS iron pills allergy medications such as antihistamines certain blood pressure medicines psychiatric medications herbal supplements Irritable bowel syndrome (IBS) Neurologic disorders including spinal cord injury and multiple sclerosis (MS) Slow transit of the colon How is constipation evaluated? Most people do not need extensive testing to evaluate constipation. Only a small number of patients with constipation have a serious underlying medical problem (such as poor function of the thyroid gland, diabetes, or colorectal cancer). If you have constipation that has persisted for more than two weeks, you should see a doctor to determine if you need further evaluation. For a patient who has colorectal cancer, early detection and treatment may be life-saving. Standard evaluation for constipation includes performing blood tests and examining the colon by colonoscopy, particularly for patients older than 50 years.. Other tests include colonic transit studies (time it takes for stools to move through the colon) and anal manometry (measures pressure and muscle function in the rectum and anus). Most patients with serious constipation, and without any obvious illness to explain their symptoms, suffer from one of two problems: Colonic inertia (also called lazy colon): a condition in which the colon contracts poorly and retains stool. This can be determined by colon transit studies. Obstructed defecation: a condition in which the colon contracts normally, but the patient is unable to expel stool from the rectum. This condition can be confirmed by a test called anal manometry. How can I prevent constipation? Eat a well-balanced diet with plenty of fiber. Good sources of fiber are fruits, vegetables, legumes, and whole-grain breads and cereals. Fiber and water help the colon pass stool. Most of the fiber in fruits is found in the skins, such as in apples. Fruits with seeds you can eat, like strawberries, have the most fiber. Bran is a great source of fiber: eat bran cereal or add bran cereal to other foods, like soup and yogurt. Drink eight 8-ounce glasses of water a day. (Note: Milk can cause constipation in some people.) Liquids that contain caffeine, such as coffee and soft drinks, have a dehydrating effect and may need to be avoided until your bowel habits return to normal. Exercise regularly. Move your bowels when you feel the urge. How is constipation treated? Drink two to four extra glasses of water a day. Try warm liquids, especially in the morning. Add fruits and vegetables to your diet. Eat prunes and/or bran cereal. Add supplemental fiber to your diet (there are several types, such as Metamucil, Citrucel, and Benefiber). If needed, use a very mild stool softener or laxative (such as colace [docusate] or Milk of Magnesia). Do not use laxatives for more than two weeks without calling your health care provider, as laxative overuse can aggravate your symptoms. When should I call my health care provider? Call your health care provider if: Constipation is a new problem for you. You have blood in your stool. You are losing weight unintentionally. You have severe pain with bowel movements. Your constipation has lasted more than three weeks. References: National [employer]est[employer] Information [employer]aringhouse. Constipation Accessed 04/15/2016. [employer]. Understanding Constipation. Accessed 04/15/2016. Copyright 6503-4235 [facility]. All rights reserved This information is provided by the [facility] and is not intended to replace the medical advice of your doctor or health care provider. Please consult your health care provider for advice about a specific medical condition. For additional health information, please contact the Center for Consumer Health Information at the [facility] or toll-free extension [phone]. If you prefer, you may visit [email or web address] or [email or web address]. This document was last reviewed on: 2015 index#[id number] documented in this encounter [facility] 03-18-2022 History of Present illness Narrative Images from the original note were not included. [facility] [address] [place] [address] Date of Evaluation: 03/18/2022 Patient Name: Denny Owens : 1960 Chief Complaint: Patient presents with: Abdominal Pain Constipation Gas review depression screening Nursing Intake: There are no exam notes on file for this visit. Subjective Ms. Owens is a 61 year old female who presents with the following complaint(s): The history is provided by the patient. No speech language pathologist travel was used. Abdominal Pain This is a recurrent problem. The pain is located in the generalized abdominal region and epigastric region. The quality of the pain is aching and cramping. Associated symptoms include constipation. Pertinent negatives include hematuria and headaches. Constipation This is a recurrent problem. The current episode started more than 1 week ago. Associated symptoms include abdominal pain. Review of Systems Constitutional: Negative for fatigue and unexpected weight change. HENT: Negative for nosebleeds. Eyes: Negative for redness and visual disturbance. Respiratory: Negative for apnea, cough and shortness of breath. Cardiovascular: Negative for chest pain, palpitations and leg swelling. Gastrointestinal: Positive for abdominal pain and constipation. Genitourinary: Negative for hematuria. Neurological: Negative for dizziness, weakness, light-headedness, numbness and headaches. Hematological: Does not bruise/bleed easily. Psychiatric/Behavioral: The patient is not nervous/anxious. PAST MEDICAL HISTORY Diagnosis Date Abdominal pain Acute bronchitis due to other specified organisms Acute otitis media Acute upper respiratory infection Allergic rhinitis due to pollen Anemia Blood in urine Body mass index (BMI) 25.0-25.9, adult Cervical disc disorder with myelopathy, high cervical region Cervical radiculitis Cervical spondylosis Cervicalgia Chest pain Constipation Disorder of bursae of shoulder region Disorders of smell Dysuria Essential (primary) hypertension Generalized anxiety disorder Herpes simplex Major depressive disorder, recurrent episode, moderate (HCC) Malaise and fatigue Mild intermittent asthma with acute exacerbation Mixed hyperlipidemia Neck sprain Other fatigue Other insomnia Polyneuropathy, unspecified Primary generalized (osteo)arthritis Psychogenic headache Renal impairment Trigeminal neuralgia Urinary tract infection, site not specified Vertigo Vitamin D deficiency PAST SURGICAL HISTORY Procedure Laterality Date CARPAL TUNNEL SECTION HX x 3 COLONOSCOPY 02/09/2012 CYSTOSCOPY 11/16/2016 HYSTERECTOMY HX FAMILY HISTORY Problem Relation Age of Onset Heart disease Mother Diabetes Mother Social History Tobacco Use Smoking status: Former Smokeless tobacco: Never Tobacco comments: smoked for 9 months as a teenager Vaping Use Vaping Use: Never used Substance Use Topics Alcohol use: Never Drug use: Never Current Outpatient Medications Medication Sig Dispense Refill YUVAFEM 10 mcg vaginal tablet INSERT 1 TABLET VAGINALLY 3 TIMES WEEKLY verapamil SR (CALAN SR, ISOPTIN SR) 240 mg CR tablet TAKE 1 TABLET BY MOUTH EVERYDAY AT BEDTIME 90 tablet 0 gabapentin (NEURONTIN) 100 mg capsule TAKE 1 CAPSULE BY MOUTH THREE TIMES DAILY FOR 90 DAYS. 90 capsule 3 gabapentin (NEURONTIN) 800 mg tablet TAKE 1 TABLET BY MOUTH THREE TIMES DAILY 90 tablet 5 Ascorbate Calcium 500 mg tab Take by mouth. magnesium oxide 400 mg magnesium cap Take 1 capsule by mouth once daily. 90 capsule 11 budesonide-formoterol (SYMBICORT) 160-4.5 mcg/actuation inhaler INHALE 2 PUFFS INSTRUCTED TWICE DAILY. 30.6 Each 6 azelastine (ASTELIN) 0.1% nasal spray Use 1 [facility] in each nostril twice daily. 30 mL 11 cephALEXin (KEFLEX) 250 mg capsule 250 mg. prn ipratropium-albuterol (DUONEB) 0.5 mg-3 mg(2.5 mg base)/3 mL nebu Inhale 3 mL as instructed every 4 hours as needed (tightness in chest, coughing, wheezing, shortness of breath). 120 Vial 3 Albuterol Sulfate 1.25 mg/3 mL nebulizer solution albuterol sulfate 1.25 mg/3 mL solution for nebulization INHALE 3 ML EVERY 4 HOURS BY INHALATION ROUTE NEEDED FOR 30 DAYS. phenazopyridine (PYRIDIUM) 200 mg tablet Take 1 tablet by mouth three times daily as needed for Pain. 30 tablet 0 omeprazole (PRILOSEC) 40 mg capsule Take 1 capsule by mouth once daily. 90 capsule 3 linaCLOtide (LINZESS) 72 mcg capsule Take 1 tablet every other day. Administer on an empty stomach. Swallow whole; DO NOT crush or chew. 15 capsule 3 No current facility-administered medications for this visit. I have confirmed and edited as necessary the past medical, family and social histories, HPI, and ROS obtained by others. Objective BP 136/82 Pulse 77 Temp 97.4 Ht 5' 3 (1.60m) Wt 132 lb (59.9kg) SpO2 94% BMI 23.39 kg/(m^2). Physical Exam Vitals and nursing note reviewed. Constitutional: General: She is not in acute distress. Appearance: Normal appearance. She is well-developed. She is not ill-appearing. HENT: Head: Normocephalic. Right Ear: Tympanic membrane, ear canal and external ear normal. There is no impacted cerumen. Left Ear: Tympanic membrane, ear canal and external ear normal. There is no impacted cerumen. Nose: Nose normal. Mouth/Throat: Mouth: Mucous membranes are moist. Pharynx: Oropharynx is clear. Uvula midline. No oropharyngeal exudate or posterior oropharyngeal erythema. Eyes: General: Lids are normal. Vision grossly intact. Gaze aligned appropriately. No scleral icterus. Right eye: No discharge. Left eye: No discharge. Extraocular Movements: Extraocular movements intact. Conjunctiva/sclera: Conjunctivae normal. Pupils: Pupils are equal, round, and reactive to light. Neck: Thyroid: No thyroid mass, thyromegaly or thyroid tenderness. Vascular: No carotid bruit. Trachea: Trachea and phonation normal. Cardiovascular: Rate and Rhythm: Normal rate and regular rhythm. Pulses: Normal pulses. Heart sounds: Normal heart sounds. Pulmonary: Effort: Pulmonary effort is normal. Breath sounds: Normal breath sounds. Abdominal: General: Abdomen is flat. Bowel sounds are normal. Palpations: Abdomen is soft. Musculoskeletal: General: Normal range of motion. Right shoulder: Normal. Left shoulder: Normal. Cervical back: Normal, full passive range of motion without pain and neck supple. No tenderness. No spinous process tenderness. Thoracic back: Normal. Lumbar back: Normal. Right knee: Normal. Left knee: Normal. Right lower leg: No edema. Left lower leg: No edema. Lymphadenopathy: Cervical: No cervical adenopathy. Skin: General: Skin is warm and dry. Neurological: General: No focal deficit present. Mental Status: She is alert and oriented to person, place, and time. Mental status is at baseline. Sensory: Sensation is intact. Motor: Motor function is intact. Psychiatric: Attention and Perception: Attention and perception normal. Mood and Affect: Mood normal. Speech: Speech normal. Behavior: Behavior normal. Thought Content: Thought content normal. Judgment: Judgment normal. Data Reviewed: No new labs ASSESSMENT/PLAN: 1. GERD without esophagitis - ICD9: 530.81, ICD10: K21.9 (primary diagnosis) - Start Omeprazole - OMEPRAZOLE 40 MG CAPSULE,DELAYED RELEASE 2. Chronic constipation - ICD9: 564.00, ICD10: K59.09 - Start Linzess - LINACLOTIDE 72 MCG CAPSULE 3. Irritable bowel syndrome with constipation - ICD9: 564.1, ICD10: K58.1 Return if symptoms worsen or fail to improve. Maria Esther Rodriguez DO Attestation: Scribe Statement: Nima Winston am scribing for, and in the presence of, Maria Esther Rodriguez DO March 18, 2022 11:00 AM. Physician Statement: I, Maria Esther Rodriguez DO, personally performed the services described in the documentation, as scribed by Kathia Winston in my presence, and it is both accurate and complete March 18, 2022 11:09 AM. documented in this encounter [facility] 03-04-2022 Miscellaneous Notes Pharmacy faxed requesting the following refill Refill(s) Requested: Requested Prescriptions Pending Prescriptions Disp Refills verapamil SR (CALAN SR, ISOPTIN SR) 240 mg CR tablet [Pharmacy Med Name: VERAPAMIL ER 240 MG TABLET] 90 tablet 0 Sig: TAKE 1 TABLET BY MOUTH EVERYDAY AT BEDTIME ALLERGIES Allergen Reactions Methenamine Hippura* Hives (home) [phone] (cell) Last Office Visit Date: 10/08/2021 Last [facility] [place] [facility] Visit: 12/17/2021 Future Appointment: Visit date not found The patients preferred pharmacy has been captured for this encounter? yes Request is for script(s) to be escript to pharmacy. Pallavi Velasquez documented in this encounter [facility] 12-19-2021 Miscellaneous Notes Patient called in with asking about where to get a Covid test. Advised patient that she could get tested at a pharmacy. Patient understood and will update the office with her results. documented in this encounter [facility] 11-05-2021 Miscellaneous Notes macrobid sent documented in this encounter [facility] 10-08-2021 History of Present illness Narrative Images from the original note were not included. [facility] Stuart Rodriguez DO [address] [place] [address] Date of Evaluation: 10/08/2021 Patient Name: Denny Owens : 1960 Chief Complaint: Patient presents with: Hypertension: follow up Nursing Intake: There are no exam notes on file for this visit. Subjective Ms. Owens is a 60 year old female who presents with the following complaint(s): The history is provided by the patient. No speech language pathologist travel was used. Hypertension This is a chronic problem. The current episode started more than 1 year ago. Pertinent negatives include no chest pain, headaches, palpitations or shortness of breath. Cough This is a recurrent problem. The current episode started more than 1 week ago (Since COVID 19). The problem occurs constantly. The problem has not changed since onset.The cough is productive of sputum. There has been no fever. Pertinent negatives include no chest pain, no headaches, no shortness of breath and no eye redness. Hypercholesterolemia This is a chronic problem. The current episode started more than 1 year ago. Pertinent negatives include no chest pain or shortness of breath. Musculoskeletal Problem This is a chronic (Generalized pain to multiple joints ) problem. The problem occurs daily. The problem has been gradually worsening. Associated symptoms include arthralgias, coughing, joint swelling and numbness (with tingling ). Pertinent negatives include no chest pain, fatigue, headaches or weakness. Review of Systems Constitutional: Negative for fatigue and unexpected weight change. HENT: Negative for nosebleeds. Eyes: Negative for redness and visual disturbance. Respiratory: Positive for cough. Negative for apnea and shortness of breath. Cardiovascular: Negative for chest pain, palpitations and leg swelling. Genitourinary: Negative for hematuria. Musculoskeletal: Positive for arthralgias and joint swelling. Neurological: Positive for numbness (with tingling ). Negative for dizziness, weakness, light-headedness and headaches. Hematological: Does not bruise/bleed easily. Psychiatric/Behavioral: The patient is not nervous/anxious. PAST MEDICAL HISTORY Diagnosis Date Abdominal pain Acute bronchitis due to other specified organisms Acute otitis media Acute upper respiratory infection Allergic rhinitis due to pollen Anemia Blood in urine Body mass index (BMI) 25.0-25.9, adult Cervical disc disorder with myelopathy, high cervical region Cervical radiculitis Cervical spondylosis Cervicalgia Chest pain Constipation Disorder of bursae of shoulder region Disorders of smell Dysuria Essential (primary) hypertension Generalized anxiety disorder Herpes simplex Major depressive disorder, recurrent episode, moderate (HCC) Malaise and fatigue Mild intermittent asthma with acute exacerbation Mixed hyperlipidemia Neck sprain Other fatigue Other insomnia Polyneuropathy, unspecified Primary generalized (osteo)arthritis Psychogenic headache Renal impairment Trigeminal neuralgia Urinary tract infection, site not specified Vertigo Vitamin D deficiency PAST SURGICAL HISTORY Procedure Laterality Date CARPAL TUNNEL SECTION HX x 3 COLONOSCOPY 02/09/2012 CYSTOSCOPY 11/16/2016 HYSTERECTOMY HX FAMILY HISTORY Problem Relation Age of Onset Heart disease Mother Diabetes Mother Social History Tobacco Use Smoking status: Former Smoker Smokeless tobacco: Never Used Tobacco comment: smoked for 9 months as a teenager Vaping Use Vaping Use: Never used Substance Use Topics Alcohol use: Never Drug use: Never Current Medications Ascorbate Calcium 500 mg tab Take by mouth. estradiol (ESTRACE) 0.01 % (0.1 mg/gram) vaginal cream famotidine (PEPCID) 20 mg tablet Take by mouth. loratadine-pseudoephedrine ER (CLARITIN-D 12) 5-120 mg per tablet Take by mouth. ibuprofen (MOTRIN) 800 mg tablet Take 1 tablet by mouth every 8 hours as needed. magnesium oxide 400 mg magnesium cap Take 1 capsule by mouth once daily. budesonide-formoterol (SYMBICORT) 160-4.5 mcg/actuation inhaler INHALE 2 PUFFS INSTRUCTED TWICE DAILY. gabapentin (NEURONTIN) 800 mg tablet TAKE 1 TABLET BY MOUTH THREE TIMES DAILY verapamil SR (CALAN SR, ISOPTIN SR) 240 mg CR tablet Take 1 tablet by mouth daily at bedtime. azelastine (ASTELIN) 0.1% nasal spray Use 1 [facility] in each nostril twice daily. cephALEXin (KEFLEX) 250 mg capsule 1 TABLET ORALLY ONCE PER DAY FOR 90 DAYS TAKE BEFORE BED ipratropium-albuterol (DUONEB) 0.5 mg-3 mg(2.5 mg base)/3 mL nebu Inhale 3 mL as instructed every 4 hours as needed (tightness in chest, coughing, wheezing, shortness of breath). Albuterol Sulfate 1.25 mg/3 mL nebulizer solution albuterol sulfate 1.25 mg/3 mL solution for nebulization INHALE 3 ML EVERY 4 HOURS BY INHALATION ROUTE NEEDED FOR 30 DAYS. phenazopyridine (PYRIDIUM) 200 mg tablet Take 1 tablet by mouth three times daily as needed for Pain. predniSONE (DELTASONE) 20 mg tablet Take 1 tablet by mouth once daily. I have confirmed and edited as necessary the past medical, family and social histories, HPI, and ROS obtained by others. Objective BP 130/78 Pulse 83 Temp 97.6 Ht 5' 3 (1.60m) Wt 130 lb (59.0kg) SpO2 93% BMI 23.03 kg/(m^2). Physical Exam Vitals and nursing note reviewed. Constitutional: General: She is not in acute distress. Appearance: Normal appearance. She is well-developed. She is not ill-appearing. HENT: Head: Normocephalic. Right Ear: Tympanic membrane, ear canal and external ear normal. There is no impacted cerumen. Left Ear: Tympanic membrane, ear canal and external ear normal. There is no impacted cerumen. Nose: Nose normal. Mouth/Throat: Mouth: Mucous membranes are moist. Pharynx: Oropharynx is clear. Uvula midline. No oropharyngeal exudate or posterior oropharyngeal erythema. Eyes: General: Lids are normal. Vision grossly intact. Gaze aligned appropriately. No scleral icterus. Right eye: No discharge. Left eye: No discharge. Extraocular Movements: Extraocular movements intact. Conjunctiva/sclera: Conjunctivae normal. Pupils: Pupils are equal, round, and reactive to light. Neck: Thyroid: No thyroid mass, thyromegaly or thyroid tenderness. Vascular: No carotid bruit. Trachea: Trachea and phonation normal. Cardiovascular: Rate and Rhythm: Normal rate and regular rhythm. Pulses: Normal pulses. Heart sounds: Normal heart sounds. Pulmonary: Effort: Pulmonary effort is normal. Breath sounds: Normal breath sounds. Abdominal: General: Abdomen is flat. Bowel sounds are normal. Palpations: Abdomen is soft. Musculoskeletal: General: Normal range of motion. Right shoulder: Normal. Left shoulder: Normal. Cervical back: Normal, full passive range of motion without pain and neck supple. No tenderness. No spinous process tenderness. Thoracic back: Normal. Lumbar back: Normal. Right knee: Normal. Left knee: Normal. Right lower leg: No edema. Left lower leg: No edema. Lymphadenopathy: Cervical: No cervical adenopathy. Skin: General: Skin is warm and dry. Neurological: General: No focal deficit present. Mental Status: She is alert and oriented to person, place, and time. Mental status is at baseline. Cranial Nerves: Cranial nerves are intact. Sensory: Sensation is intact. Motor: Motor function is intact. Psychiatric: Attention and Perception: Attention and perception normal. Mood and Affect: Mood normal. Speech: Speech normal. Behavior: Behavior normal. Thought Content: Thought content normal. Judgment: Judgment normal. Data Reviewed: No new labs ASSESSMENT/PLAN: 1. Essential (primary) hypertension - ICD9: 401.9, ICD10: I10 (primary diagnosis) - good control - Continue current medication(s) - Recommended regular aerobic exercise. - Recommend home blood pressure monitoring, to bring results in on next visit - Goal of BP <130/80 2. Hyperlipidemia, mixed - ICD9: 272.2, ICD10: E78.2 - suboptimal control - Encouraged following a low fat, low cholesterol diet. - Discussed the benefits of regular aerobic exercise and weight loss. 3. Arthritis - ICD9: 716.90, ICD10: M19.90 - Worsening - Check Blood work - MIGUEL A BLOOD - ANTI-STREPTOLYSIN AB - RHEUMATOID FACTOR BL - SED RATE WESTERGREN - URIC ACID BLOOD 4. Neuropathy - ICD9: 355.9, ICD10: G62.9 - Worsening - Increase Gabapentin to 900mg TID - GABAPENTIN 100 MG CAPSULE - GABAPENTIN 800 MG TABLET 5. Post-COVID chronic cough - ICD9: 786.2, 139.8, ICD10: R05.3, U09.9 6. Special screening examination for viral disease - ICD9: V73.99, ICD10: Z11.59 - HEP C AB IA W/CONF SCRN 7. Screening for HIV (human immunodeficiency virus) - ICD9: V73.89, ICD10: Z11.4 - HIV 1 2 COMBO(AG/AB),WITH REFLEX TO DIFFERENTIATION Maria Esther Rodriguez DO Return if symptoms worsen or fail to improve. Attestation: Scribe Statement: Nima Winston am scribing for, and in the presence of, Maria Esther Rodriguez DO October 08, 2021 9:46 AM. Physician Statement: I, Maria Esther Rodriguez DO, personally performed the services described in the documentation, as scribed by Kathia [address] in my presence, and it is both accurate and complete October 08, 2021 9:49 AM. documented in this encounter [facility] 10-06-2021 Miscellaneous Notes Spoke to patient regarding refill request. Per pt chart it states that she is allergic to the medication. Pt states that she never had reaction to medication. She has been taking this medication up til approx four days ago without an issue. I told patient I will update her chart and send refill request over to doctor for approval. Pt verbalized understanding. documented in this encounter [facility] documented as of this encounter (statuses as of 10/06/2021) [facility]12-20-2021 History of Past illness Narrative* Problem Noted Date Resolved Date Muscle weakness 07/07/2021 08/12/2021 documented as of this encounter (statuses as of 10/16/2021) [facility] History of Past illness Narrative* Problem Noted Date Resolved Date Muscle weakness 07/07/2021 08/12/2021 documented as of this encounter (statuses as of 11/26/2021) [facility] History of Past illness Narrative* Problem Noted Date Resolved Date Muscle weakness 07/07/2021 08/12/2021 documented as of this encounter (statuses as of 12/19/2021) [facility] History of Past illness Narrative* Problem Noted Date Resolved Date Muscle weakness 07/07/2021 08/12/2021 documented as of this encounter (statuses as of 03/05/2022) [facility] History of Past illness Narrative* Problem Noted Date Resolved Date Muscle weakness 07/07/2021 08/12/2021 documented as of this encounter (statuses as of 03/30/2022) [facility] History of Past illness Narrative* Problem Noted Date Resolved Date Muscle weakness 07/07/2021 08/12/2021 documented as of this encounter (statuses as of 04/23/2022) [facility] History of Past illness Narrative* Problem Noted Date Resolved Date Muscle weakness 07/07/2021 08/12/2021 documented as of this encounter (statuses as of 06/17/2022) [facility] History of Past illness Narrative* Problem Noted Date Resolved Date Muscle weakness 07/07/2021 08/12/2021 documented as of this encounter (statuses as of 06/23/2022) [facility] History of Past illness Narrative* Problem Noted Date Resolved Date Muscle weakness 07/07/2021 08/12/2021 documented as of this encounter (statuses as of 07/10/2022) [facility] History of Past illness Narrative* Problem Noted Date Resolved Date Muscle weakness 07/07/2021 08/12/2021 documented as of this encounter (statuses as of 08/22/2022) [facility] History of Past illness Narrative* Problem Noted Date Resolved Date Muscle weakness 07/07/2021 08/12/2021 documented as of this encounter (statuses as of 09/25/2022) [facility] History of Past illness Narrative* Problem Noted Date Resolved Date Muscle weakness 07/07/2021 08/12/2021 documented as of this encounter (statuses as of 10/05/2022) [facility] History of Past illness Narrative* Problem Noted Date Resolved Date Muscle weakness 07/07/2021 08/12/2021 documented as of this encounter (statuses as of 10/15/2022) [facility] History of Past illness Narrative* Problem Noted Date Resolved Date Muscle weakness 07/07/2021 08/12/2021 documented as of this encounter (statuses as of 10/22/2022) [facility] History of Past illness Narrative* Problem Noted Date Resolved Date Muscle weakness 07/07/2021 08/12/2021 documented as of this encounter (statuses as of 10/23/2022) [facility] of Past illness Narrative* Problem Noted Date Resolved Date Muscle weakness 07/07/2021 08/12/2021 documented as of this encounter (statuses as of 10/24/2022) [facility] of Past illness Narrative* Problem Noted Date Resolved Date Muscle weakness 07/07/2021 08/12/2021 documented as of this encounter (statuses as of 10/27/2022) [facility] History of Past illness Narrative* Problem Noted Date Resolved Date Muscle weakness 07/07/2021 08/12/2021 documented as of this encounter (statuses as of 10/27/2022) [facility] History of Past illness Narrative* Problem Noted Date Resolved Date Muscle weakness 07/07/2021 08/12/2021 documented as of this encounter (statuses as of 10/29/2022) [facility] History of Past illness Narrative* Problem Noted Date Resolved Date Muscle weakness 07/07/2021 08/12/2021 documented as of this encounter (statuses as of 11/20/2022) [facility] History of Past illness Narrative* Problem Noted Date Resolved Date Muscle weakness 07/07/2021 08/12/2021 documented as of this encounter (statuses as of 01/11/2023) [facility] History of Past illness Narrative* Problem Noted Date Resolved Date Muscle weakness 07/07/2021 08/12/2021 documented as of this encounter (statuses as of 01/14/2023) [facility] History of Past illness Narrative* Problem Noted Date Resolved Date Muscle weakness 07/07/2021 08/12/2021 documented as of this encounter (statuses as of 01/16/2023) [facility] History of Past illness Narrative* Problem Noted Date Resolved Date Muscle weakness 07/07/2021 08/12/2021 documented as of this encounter (statuses as of 01/21/2023) [facility] History of Past illness Narrative* Problem Noted Date Diagnosed Date Resolved Date Muscle weakness 07/07/2021 08/12/2021 documented as of this encounter (statuses as of 01/25/2023) [facility] History of Past illness Narrative* Problem Noted Date Diagnosed Date Resolved Date Muscle weakness 07/07/2021 08/12/2021 documented as of this encounter (statuses as of 02/03/2023) [address]20-2021 History of Past illness Narrative* Problem Noted Date Diagnosed Date Resolved Date Muscle weakness 07/07/2021 08/12/2021 documented as of this encounter (statuses as of 03/03/2023) [facility] History of Past illness Narrative* Problem Noted Date Diagnosed Date Resolved Date Muscle weakness 07/07/2021 08/12/2021 documented as of this encounter (statuses as of 03/17/2023) [facility] History of Past illness Narrative* Problem Noted Date Diagnosed Date Resolved Date Muscle weakness 07/07/2021 08/12/2021 documented as of this encounter (statuses as of 03/30/2023) [facility] History of Past illness Narrative* Problem Noted Date Diagnosed Date Resolved Date Muscle weakness 07/07/2021 08/12/2021 documented as of this encounter (statuses as of 04/11/2023) [facility] History of Past illness Narrative* Problem Noted Date Diagnosed Date Resolved Date Muscle weakness 07/07/2021 08/12/2021 documented as of this encounter (statuses as of 04/23/2023) [facility] History of Past illness Narrative* Problem Noted Date Diagnosed Date Resolved Date Muscle weakness 07/07/2021 08/12/2021 documented as of this encounter (statuses as of 04/27/2023) [facility] History of Past illness Narrative* Problem Noted Date Diagnosed Date Resolved Date Muscle weakness 07/07/2021 08/12/2021 documented as of this encounter (statuses as of 04/28/2023) [facility] History of Past illness Narrative* Problem Noted Date Diagnosed Date Resolved Date Muscle weakness 07/07/2021 08/12/2021 documented as of this encounter (statuses as of 04/28/2023) [facility] History of Past illness Narrative* Problem Noted Date Diagnosed Date Resolved Date Muscle weakness 07/07/2021 08/12/2021 documented as of this encounter (statuses as of 05/18/2023) [facility] History of Past illness Narrative* Problem Noted Date Diagnosed Date Resolved Date Muscle weakness 07/07/2021 08/12/2021 documented as of this encounter (statuses as of 05/28/2023) [facility] History of Past illness Narrative* Problem Noted Date Diagnosed Date Resolved Date Muscle weakness 07/07/2021 08/12/2021 documented as of this encounter (statuses as of 05/28/2023) [facility] History of Past illness Narrative* Problem Noted Date Diagnosed Date Resolved Date Muscle weakness 07/07/2021 08/12/2021 documented as of this encounter (statuses as of 06/14/2023) [facility] History of Past illness Narrative* Problem Noted Date Diagnosed Date Resolved Date Muscle weakness 07/07/2021 08/12/2021 documented as of this encounter (statuses as of 06/30/2023) [facility] note* Diagnosis Renal artery aneurysm (HCC) Aneurysm of renal artery documented in this encounter [facility] Work Phone: Evaluation note* Diagnosis Essential (primary) hypertension- Primary Unspecified essential hypertension Hyperlipidemia, mixed Mixed hyperlipidemia Arthritis Arthropathy, unspecified, site unspecified Neuropathy 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 Special screening examination for viral disease Special screening examination for unspecified viral disease Screening for HIV (human immunodeficiency virus) Special screening examination for other specified viral diseases [facility] Diagnosis Essential (primary) hypertension Unspecified essential hypertension [facility] Diagnosis GERD without esophagitis- Primary Esophageal reflux Chronic constipation Unspecified constipation Irritable bowel syndrome with constipation Irritable bowel syndrome [facility] Diagnosis Renal artery aneurysm (HCC) Aneurysm of renal artery documented in this encounter [facility] Work Phone: Evaluation note* Diagnosis Renal artery aneurysm (HCC) Aneurysm of renal artery documented in this encounter [facility] Work Phone: Evaluation note* Diagnosis Recurrent cough- Primary Cough Moderate persistent asthma, uncomplicated Unspecified asthma Wheezing Acute bronchitis, unspecified organism [facility] Diagnosis Moderate persistent asthma, uncomplicated Unspecified asthma [facility] Diagnosis Neuropathy Mononeuritis of unspecified site Chronic constipation Unspecified constipation documented in this encounter [facility] note* Diagnosis Acute pyelonephritis- Primary Acute pyelonephritis without lesion of renal medullary necrosis Acute bronchitis, unspecified organism Acute cough documented in this encounter [facility] note* Diagnosis Sepsis (HCC)- Primary Sepsis (HCC) documented in this encounter [facility] note* Diagnosis Moderate persistent asthma, uncomplicated Unspecified asthma documented in this encounter [facility] note* Diagnosis Neuropathy Mononeuritis of unspecified site documented in this encounter [facility] note* Diagnosis Elevated liver enzymes- Primary Other nonspecific abnormal serum enzyme levels Anemia, unspecified type Recurrent abdominal pain Abdominal pain, unspecified site documented in this encounter [facility] note* Diagnosis Acute cough- Primary Acute cough documented in this encounter [facility] note* Diagnosis Chronic constipation- Primary Unspecified constipation documented in this encounter [facility] note* Diagnosis Left leg pain Pain in limb Left leg swelling Swelling of limb documented in this encounter [facility] note* Diagnosis Chronic constipation Unspecified constipation documented in this encounter [facility] note* Diagnosis Phlebitis- Primary Phlebitis and thrombophlebitis of unspecified site Left leg pain Pain in limb Left leg swelling Swelling of limb documented in this encounter [facility] note* Diagnosis Phlebitis- Primary Phlebitis and thrombophlebitis of unspecified site documented in this encounter [facility] note* Diagnosis GERD without esophagitis Esophageal reflux documented in this encounter [facility] note* Diagnosis Chronic constipation- Primary Unspecified constipation documented in this encounter [facility] note* Diagnosis GERD without esophagitis Esophageal reflux documented in this encounter [facility] note* Diagnosis Arthritis, lumbar spine- Primary Lumbosacral spondylosis without myelopathy Back spasm Other symptoms referable to back Toe pain, left Pain in limb documented in this encounter [facility] note* Diagnosis GERD without esophagitis Esophageal reflux documented in this encounter [facility] note* Diagnosis Irritable bowel syndrome with constipation Irritable bowel syndrome documented in this encounter [facility] note* Diagnosis Pharyngeal dysphagia Dysphagia, pharyngeal phase documented in this encounter [facility] note* Diagnosis Pre-procedure lab exam- Primary Pre-procedural laboratory examination Renal artery aneurysm (HCC) Aneurysm of renal artery 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 note* Diagnosis Encounter for screening mammogram for malignant neoplasm of breast documented in this encounter 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 note* Diagnosis Irritable bowel syndrome with constipation- Primary Irritable bowel syndrome Pharyngeal dysphagia Dysphagia, pharyngeal phase documented in this encounter [facility] for referral (narrative)* Diagnostic Procedure Only (Urgent) - Closed Specialty Diagnoses / Procedures Referred By Contac t Referred To Contact US IMAGING Diagnoses Left leg pain Left leg swelling Procedures US DVT LOWER LEFT DUP-SCAN XTR VEINS UNILATERAL/LIMITED STUDY Maria Esther Rodriguez DO [address] [place] [address] Us Imaging Referral ID Status Reason Start Date Expiration Date V isits Requested Visits Authorized [id number] Closed Auto-Generate d Referral 01/14/2023 02/13/2024 1 1 [facility] for referral (narrative)* Diagnostic Procedure Only (Urgent) - Closed Specialty Diagnoses / Procedures Referred By Contac t Referred To Contact US IMAGING Diagnoses Left leg pain Left leg swelling Procedures US DVT LOWER LEFT DUP-SCAN XTR VEINS UNILATERAL/LIMITED STUDY Maria Esther Rodriguez, [address] [place] [address] Us Imaging Referral ID Status Reason Start Date Expiration Date V isits Requested Visits Authorized [id number] Closed Auto-Generate d Referral 01/14/2023 02/13/2024 1 1 [facility] for referral (narrative)* Diagnostic Procedure Only (Routine) - Closed Specialty Diagnoses / Procedures Referred By Contac t Referred To Contact XR IMAGING Diagnoses Pharyngeal dysphagia Procedures XR ESOPHAGRAM RADIOLOGIC EXAM ESOPHAGUS SINGLE CONTRAST STUDY Pao Rosa PA-C [address] [place] [address] [place] [address] Referral ID Status Reason Start Date Expiration Date V isits Requested Visits Authorized [id number] Closed Auto-Generate d Referral 04/20/2023 05/19/2024 1 1 [facility] for referral (narrative)* Diagnostic Procedure Only (Routine) - Pending Review Specialty Diagnoses / Procedures Referred By Contac t Referred To Contact XR IMAGING Diagnoses Irritable bowel syndrome with constipation Procedures XR ABDOMEN 1V SUPINE RADIOLOGIC EXAM ABDOMEN 1 VIEW Enid Milligan PA-C [address] [place] [address] [place] [address] Referral ID Status Reason Start Date Expiration Date Visits Requested Visits Authorized [id number] Pending Review Auto-Generat ed Referral 07/28/2024 1 1 [facility] for visit Narrative* Diagnostic Procedure Only (Urgent) - Closed Specialty Diagnoses / Procedures Referred By Contac t Referred To Contact US IMAGING Diagnoses Left leg pain Left leg swelling Procedures US DVT LOWER LEFT DUP-SCAN XTR VEINS UNILATERAL/LIMITED STUDY Maria Esther Rodriguez DO [address] [place] [address] Us Imaging Referral ID Status Reason Start Date Expiration Date V isits Requested Visits Authorized [id number] Closed Auto-Generate d Referral 01/14/2023 02/13/2024 1 1 [facility] for visit Narrative* Diagnostic Procedure Only (Routine) - Closed Specialty Diagnoses / Procedures Referred By Contac t Referred To Contact XR IMAGING Diagnoses Irritable bowel syndrome with constipation Procedures XR ABDOMEN 1V SUPINE RADIOLOGIC EXAM ABDOMEN 1 VIEW Pao Rosa PA-C [address] [facility] [place] [address] [place] [address] Referral ID Status Reason Start Date Expiration Date V isits Requested Visits Authorized [id number] Closed Auto-Generate d Referral 04/20/2023 05/19/2024 1 1 [facility] Diagnostic Procedure Only (Routine) - Closed Specialty Diagnoses / Procedures Referred By Contac t Referred To Contact XR IMAGING Diagnoses Pharyngeal dysphagia Procedures XR ESOPHAGRAM RADIOLOGIC EXAM ESOPHAGUS SINGLE CONTRAST STUDY aPo Rosa PA-C [address] [facility] [place] [address] [place] [address] Referral ID Status Reason Start Date Expiration Date V isits Requested Visits Authorized [id number] Closed Auto-Generate d Referral 04/20/2023 05/19/2024 1 1 [facility] Reason for Referral Status Reason Specialty Diagnoses / Procedures Referred By Contact Referred To Contact Pending Review Radiology Diagnoses Renal artery aneurysm (HCC) Procedures VL Renal Arterial Duplex Complete Betina Sifuentes MD [address] [facility] [address] [place] [address] Status Reason Specialty Diagnoses / Procedures Referre d By Contact Referred To Contact Open Radiology Diagnoses Renal artery aneurysm (HCC) Procedures VL Renal Arterial Duplex Complete Betina Sifuentes MD [address] [facility] [address] [place] [address] Specialty Diagnoses / Procedures Referred By Contac t Referred To Contact Radiology Diagnoses Renal artery aneurysm (HCC) Procedures CTA Abdomen W WO Contrast Betina Sifuentes MD [address] [facility] [address] [place] [address] Referral ID Status Reason Start Date Expiration Date V isits Requested Visits Authorized [id number] Authorized 05/06/2022 06/04/2022 1 1 Specialty Diagnoses / Procedures Referred By Contac t Referred To Contact Gastroenterology Diagnoses Elevated liver enzymes Recurrent abdominal pain Procedures CONSULT TO GASTROENTEROLOGY OFFICE/OUTPATIENT NEW HIGH MDM 60-74 MINUTES Michael [place] Suleiman, [address] [place] [address] Referral ID Status Reason Start Date Expiration Date Visits Requested Visits Authorized [id number] Authorized PCP Requested Referral 10/20/2022 10/20/2023 1 1 Specialty Diagnoses / Procedures Referred By Contac t Referred To Contact Radiology Diagnoses 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) Procedures CTA abdomen angiogram w and/or wo IV contrast Nura Jain APRN - MINING ENGINEER [address] [place] [phone] Referral ID Status Reason Start Date Expiration Date Visits Re quested Visits Authorized [id number] Closed 05/26/2022 11/22/2022 1 1 Specialty Diagnoses / Procedures Referred By Contac t Referred To Contact Radiology Diagnoses 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) Procedures CTA abdomen angiogram w and/or wo IV contrast Nura Jain APRN - MINING ENGINEER [address] [place] [id number] [facility] [address] [facility] [address] [place] [address] Referral ID Status Reason Start Date Expiration Date Visits Re quested Visits Authorized [id number] Closed 05/26/2022 05/26/2023 1 1 Specialty Diagnoses / Procedures Referred By Contac t Referred To Contact Radiology Diagnoses 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) Procedures CTA abdomen pelvis angiogram w and/or wo IV contrast Betina Sifuentes MD [address] [place] [id number] Referral ID Status Reason Start Date Expiration Date V isits Requested Visits Authorized [id number] Pending Review 06/01/2023 05/31/2024 1 1 Assessments Diagnosis Renal artery aneurysm (HCC) Aneurysm of renal artery Advance Directives No Advanced Directives Records FoundDocuments on File Type Date Recorded Patient Business Analyst Project Manager Expl anation Advance Directives and Living Will Power of Senior Fund Accountant Latest Code Status on File Code Status Date Activated Date Inactivated Comments Full Code 11/23/2016 6:27 AM 11/23/2016 12:36 PM Documents on File Type Date Recorded Patient Business Analyst Project Manager Expl anation Advance Directives and Living Will Power of Senior Fund Accountant Latest Code Status on File Code Status Date Activated Date Inactivated Comments Full Code 11/23/2016 6:27 AM 11/23/2016 12:36 PM Documents on File Type Date Recorded Patient Business Analyst Project Manager Expl anation ACP-Advance Directive ACP-Power of Senior Fund Accountant Documents on File Type Date Recorded Patient Business Analyst Project Manager Expl anation ACP-Advance Directive ACP-Power of Senior Fund Accountant Latest Code Status on File Code Status Date Activated Date Inactivated Comments Full Code 10/11/2022 8:18 PM 10/15/2022 4:15 PM Latest Code Status on File Code Status Date Activated Date Inactivated Comments Full Code 10/11/2022 8:18 PM 10/15/2022 4:15 PM Summary Purpose Family History No Family History Records FoundNo Family History Records FoundNo Family History Records FoundNo Family History Records FoundNo Family History Records Found Additional Source Comments Source Comments (unrecognize d section and content) In the event this informatio n is protected by the Federal Confidentiality of Alcohol and Drug Abuse Patient Records regulations: The Federal rules restrict any use of the information to criminally investigate or prosecute any alcohol or drug abuse patient.[facility] event this information is protected by the Federal Confidentiality of Alcohol and Drug Abuse Patient Records regulations: The Federal rules restrict any use of the information to criminally investigate or prosecute any alcohol or drug abuse patient.[facility] event this information is protected by the Federal Confidentiality of Alcohol and Drug Abuse Patient Records regulations: The Federal rules restrict any use of the information to criminally investigate or prosecute any alcohol or drug abuse patient.[facility] event this information is protected by the Federal Confidentiality of Alcohol and Drug Abuse Patient Records regulations: The Federal rules restrict any use of the information to criminally investigate or prosecute any alcohol or drug abuse patient.[facility] event this information is protected by the Federal Confidentiality of Alcohol and Drug Abuse Patient Records regulations: The Federal rules restrict any use of the information to criminally investigate or prosecute any alcohol or drug abuse patient.[facility] HospitalIn the event this information is protected by the Federal Confidentiality of Alcohol and Drug Abuse Patient Records regulations: The Federal rules restrict any use of the information to criminally investigate or prosecute any alcohol or drug abuse patient.[facility] HospitalIn the event this information is protected by the Federal Confidentiality of Alcohol and Drug Abuse Patient Records regulations: The Federal rules restrict any use of the information to criminally investigate or prosecute any alcohol or drug abuse patient.[facility] HospitalIn the event this information is protected by the Federal Confidentiality of Alcohol and Drug Abuse Patient Records regulations: The Federal rules restrict any use of the information to criminally investigate or prosecute any alcohol or drug abuse patient.[facility] HospitalIn the event this information is protected by the Federal Confidentiality of Alcohol and Drug Abuse Patient Records regulations: The Federal rules restrict any use of the information to criminally investigate or prosecute any alcohol or drug abuse patient.[facility] HospitalIn the event this information is protected by the Federal Confidentiality of Alcohol and Drug Abuse Patient Records regulations: The Federal rules restrict any use of the information to criminally investigate or prosecute any alcohol or drug abuse patient.[facility] HospitalIn the event this information is protected by the Federal Confidentiality of Alcohol and Drug Abuse Patient Records regulations: The Federal rules restrict any use of the information to criminally investigate or prosecute any alcohol or drug abuse patient.[facility] HospitalIn the event this information is protected by the Federal Confidentiality of Alcohol and Drug Abuse Patient Records regulations: The Federal rules restrict any use of the information to criminally investigate or prosecute any alcohol or drug abuse patient.[facility] HospitalIn the event this information is protected by the Federal Confidentiality of Alcohol and Drug Abuse Patient Records regulations: The Federal rules restrict any use of the information to criminally investigate or prosecute any alcohol or drug abuse patient.[facility] HospitalIn the event this information is protected by the Federal Confidentiality of Alcohol and Drug Abuse Patient Records regulations: The Federal rules restrict any use of the information to criminally investigate or prosecute any alcohol or drug abuse patient.[facility] HospitalIn the event this information is protected by the Federal Confidentiality of Alcohol and Drug Abuse Patient Records regulations: The Federal rules restrict any use of the information to criminally investigate or prosecute any alcohol or drug abuse patient.[facility] HospitalIn the event this information is protected by the Federal Confidentiality of Alcohol and Drug Abuse Patient Records regulations: The Federal rules restrict any use of the information to criminally investigate or prosecute any alcohol or drug abuse patient.[facility] HospitalIn the event this information is protected by the Federal Confidentiality of Alcohol and Drug Abuse Patient Records regulations: The Federal rules restrict any use of the information to criminally investigate or prosecute any alcohol or drug abuse patient.[facility] HospitalIn the event this information is protected by the Federal Confidentiality of Alcohol and Drug Abuse Patient Records regulations: The Federal rules restrict any use of the information to criminally investigate or prosecute any alcohol or drug abuse patient.[facility] HospitalIn the event this information is protected by the Federal Confidentiality of Alcohol and Drug Abuse Patient Records regulations: The Federal rules restrict any use of the information to criminally investigate or prosecute any alcohol or drug abuse patient.[facility] HospitalIn the event this information is protected by the Federal Confidentiality of Alcohol and Drug Abuse Patient Records regulations: The Federal rules restrict any use of the information to criminally investigate or prosecute any alcohol or drug abuse patient.[facility] HospitalIn the event this information is protected by the Federal Confidentiality of Alcohol and Drug Abuse Patient Records regulations: The Federal rules restrict any use of the information to criminally investigate or prosecute any alcohol or drug abuse patient.[facility] HospitalIn the event this information is protected by the Federal Confidentiality of Alcohol and Drug Abuse Patient Records regulations: The Federal rules restrict any use of the information to criminally investigate or prosecute any alcohol or drug abuse patient.[facility] HospitalIn the event this information is protected by the Federal Confidentiality of Alcohol and Drug Abuse Patient Records regulations: The Federal rules restrict any use of the information to criminally investigate or prosecute any alcohol or drug abuse patient.[facility] HospitalIn the event this information is protected by the Federal Confidentiality of Alcohol and Drug Abuse Patient Records regulations: The Federal rules restrict any use of the information to criminally investigate or prosecute any alcohol or drug abuse patient.[facility] HospitalIn the event this information is protected by the Federal Confidentiality of Alcohol and Drug Abuse Patient Records regulations: The Federal rules restrict any use of the information to criminally investigate or prosecute any alcohol or drug abuse patient.[facility] HospitalIn the event this information is protected by the Federal Confidentiality of Alcohol and Drug Abuse Patient Records regulations: The Federal rules restrict any use of the information to criminally investigate or prosecute any alcohol or drug abuse patient.[facility] HospitalIn the event this information is protected by the Federal Confidentiality of Alcohol and Drug Abuse Patient Records regulations: The Federal rules restrict any use of the information to criminally investigate or prosecute any alcohol or drug abuse patient.[facility] HospitalIn the event this information is protected by the Federal Confidentiality of Alcohol and Drug Abuse Patient Records regulations: The Federal rules restrict any use of the information to criminally investigate or prosecute any alcohol or drug abuse patient.[facility] HospitalIn the event this information is protected by the Federal Confidentiality of Alcohol and Drug Abuse Patient Records regulations: The Federal rules restrict any use of the information to criminally investigate or prosecute any alcohol or drug abuse patient.[facility] HospitalIn the event this information is protected by the Federal Confidentiality of Alcohol and Drug Abuse Patient Records regulations: The Federal rules restrict any use of the information to criminally investigate or prosecute any alcohol or drug abuse patient.[facility] HospitalIn the event this information is protected by the Federal Confidentiality of Alcohol and Drug Abuse Patient Records regulations: The Federal rules restrict any use of the information to criminally investigate or prosecute any alcohol or drug abuse patient.[facility] HospitalIn the event this information is protected by the Federal Confidentiality of Alcohol and Drug Abuse Patient Records regulations: The Federal rules restrict any use of the information to criminally investigate or prosecute any alcohol or drug abuse patient.[facility] HospitalIn the event this information is protected by the Federal Confidentiality of Alcohol and Drug Abuse Patient Records regulations: The Federal rules restrict any use of the information to criminally investigate or prosecute any alcohol or drug abuse patient.[facility] HospitalIn the event this information is protected by the Federal Confidentiality of Alcohol and Drug Abuse Patient Records regulations: The Federal rules restrict any use of the information to criminally investigate or prosecute any alcohol or drug abuse patient.[facility] HospitalIn the event this information is protected by the Federal Confidentiality of Alcohol and Drug Abuse Patient Records regulations: The Federal rules restrict any use of the information to criminally investigate or prosecute any alcohol or drug abuse patient.[facility] HospitalIn the event this information is protected by the Federal Confidentiality of Alcohol and Drug Abuse Patient Records regulations: The Federal rules restrict any use of the information to criminally investigate or prosecute any alcohol or drug abuse patient.[facility] HospitalIn the event this information is protected by the Federal Confidentiality of Alcohol and Drug Abuse Patient Records regulations: The Federal rules restrict any use of the information to criminally investigate or prosecute any alcohol or drug abuse patient.[facility] HospitalIn the event this information is protected by the Federal Confidentiality of Alcohol and Drug Abuse Patient Records regulations: The Federal rules restrict any use of the information to criminally investigate or prosecute any alcohol or drug abuse patient.[facility] HospitalIn the event this information is protected by the Federal Confidentiality of Alcohol and Drug Abuse Patient Records regulations: The Federal rules restrict any use of the information to criminally investigate or prosecute any alcohol or drug abuse patient.[facility] HospitalIn the event this information is protected by the Federal Confidentiality of Alcohol and Drug Abuse Patient Records regulations: The Federal rules restrict any use of the information to criminally investigate or prosecute any alcohol or drug abuse patient.[facility] HospitalIn the event this information is protected by the Federal Confidentiality of Alcohol and Drug Abuse Patient Records regulations: The Federal rules restrict any use of the information to criminally investigate or prosecute any alcohol or drug abuse patient.[facility] HospitalIn the event this information is protected by the Federal Confidentiality of Alcohol and Drug Abuse Patient Records regulations: The Federal rules restrict any use of the information to criminally investigate or prosecute any alcohol or drug abuse patient.[facility] HospitalIn the event this information is protected by the Federal Confidentiality of Alcohol and Drug Abuse Patient Records regulations: The Federal rules restrict any use of the information to criminally investigate or prosecute any alcohol or drug abuse patient.[facility] INFORMATION SOURCE (unrecogn ized section and content) DATE CREATED AUTHOR AUTHOR'S ORGANIZ ATION 05/14/2022 [facility] DATE CREATED AUTHOR AUTHOR'S ORGANIZ ATION 06/04/2023 [facility] DATE CREATED AUTHOR AUTHOR'S ORGANIZ ATION 06/25/2023 [email or web address] [place] [employer] DATE CREATED AUTHOR AUTHOR'S ORGANIZ ATION 07/14/2023 [facility] Reason for Visit (unrecogniz ed section and content) Reason Comments Hypertension follow up Reason Comments Results Orders Reason Comments Patient Question Covid test Reason Comments Refill Request Reason Comments Abdominal Pain Constipation Gas review depression screening Reason Comments Medication Problem Reason Comments Cough Productive cough sin ce Covid in the spring. Shortness of Breath Wheezing Asthma Reason Comments Nail Fungus Reason Comments Appointment Needs rescheduled Reason Comments FAX Reason Comments Cough Wheezing [facility], treated with Bactrim and steroids. ER F/U Seen in [facility] for kidney infection, given antibiotic Vantin Reason Comments Flank Pain Specialty Diagnoses / Procedures Referred By Kimberly zuniga Referred To Contact Diagnoses Sepsis (HCC) Procedures A41.9 Ana Paula Castaneda MD [address] [place] [address] [facility] 2e Telemetry [address] [place] [address] Referral ID Status Reason Start Date Expiration Date Visits Re quested Visits Authorized [id number] 1 1 Reason Onset Date Comments Hospital Follow-up 10/18/2022 Reason Comments FMLA Paperwork Reason Onset Date Comments Virtualist 10/24/2022 Reason Onset Date Comments Medication Problem 10/24/2022 Reason Comments ER F/U Reason Comments Patient Question Reason Comments Appointment Reason Onset Date Comments Refill Request 01/21/2023 Reason Comments Swelling Left leg - noticed o n Sat Reason Comments Recheck Elevated liver enzym es, Labs done at [facility], Abdominal Pain, constipation Reason Comments Back Pain Lower back x 2 month s Toe Pain (Toe) Toe on left foot jihan nful needs a paper for work Reason Comments Insurance Authorization Reason Comments Med Change Request Reason Comments Follow-up ([facility]) recall CT A 05/12/22 Specialty Diagnoses / Procedures Referred By Kimberly zuniga Referred To Contact Radiology Diagnoses 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) Procedures CTA abdomen angiogram w and/or wo IV contrast Nura Jain, SALES COMMUNICATIONS MANAGER - MINING ENGINEER [address] [facility] [address] [place] [address] [facility] [address] [facility] [address] [place] [address] Referral ID Status Reason Start Date Expiration Date Visits Re quested Visits Authorized [id number] Closed 05/26/2022 05/26/2023 1 1 Reason Comments Follow-up recall CTA abdomen 1 07/26/22 Reason Comments Recheck Constipation Care Teams (unrecognized sec tion and content) Chassis Engineer Relationship Specialty Start Date End Date Maria Esther Rodriguez DO [address] [facility] [address] [place], [place] [id number] PCP - General Family Practice 06/10/20 Chassis Engineer Relationship Specialty Start Date End Date Maria Esther Rodriguez, DO [address] [place] [address] PCP - General Family Practice 06/10/20 Chassis Engineer Relationship Specialty Start Date End Date Maria Esther Rodriguez, DO [address] [place] [address] PCP - General Family Practice 06/10/20 Chassis Engineer Relationship Specialty Start Date End Date Maria Esther Rodriguez, DO [address] [place] [address] PCP - General Family Practice 06/10/20 Chassis Engineer Relationship Specialty Start Date End Date Maria Esther Rodriguez, DO [address] [place] [address] PCP - General Family Practice 06/10/20 Chassis Engineer Relationship Specialty Start Date End Date Maria Esther Rodriguez, DO [address] [place] [address] PCP - General Family Medicine 06/10/20 Chassis Engineer Relationship Specialty Start Date End Date Maria Esther Rodriguez, [address] [place] [address] PCP - General 12/20/14 Chassis Engineer Relationship Specialty Start Date End Date Maria Esther Rodriguez DO [address] [place] [address] PCP - General 12/20/14 Chassis Engineer Relationship Specialty Start Date End Date Maria Esther Rodriguez, DO [address] [place] [address] PCP - General Family Medicine 06/10/20 Chassis Engineer Relationship Specialty Start Date End Date Maria Esther Rodriguez, DO [address] [place] [address] PCP - General Family Medicine 06/10/20 Chassis Engineer Relationship Specialty Start Date End Date Maria Esther Rodriguez, DO [address] [place] [address] PCP - General Family Medicine 06/10/20 Chassis Engineer Relationship Specialty Start Date End Date Maria Esther Rodriguez, DO [address] [place] [address] PCP - General Family Medicine 06/10/20 Chassis Engineer Relationship Specialty Start Date End Date Maria Esther Rodriguez, DO [address] [place] [address] PCP - General Family Medicine 06/10/20 Chassis Engineer Relationship Specialty Start Date End Date Maria Esther Rodriguez, DO [address] [place] [address] PCP - General Family Medicine 06/10/20 Chassis Engineer Relationship Specialty Start Date End Date Maria Esther Rodriguez, DO [address] [place] [address] PCP - General Family Medicine 06/10/20 Chassis Engineer Relationship Specialty Start Date End Date Maria Esther Rodriguez, [address] [place] [address] PCP - General 12/20/14 Nura Jain APRN - MINING ENGINEER [address] [address] Nurse Practitioner Nurse Practitioner 05/26/22 Chassis Engineer Relationship Specialty Start Date End Date Maria Esther Rodriguez DO [address] [place] [address] PCP - General 12/20/14 Nura Jain APRN - MINING ENGINEER [address] [facility] [address] [place] [address] Nurse Practitioner Nurse Practitioner 05/26/22 Chassis Engineer Relationship Specialty Start Date End Date Maria Esther Rodriguez, [address] [place] [address] PCP - General Family Medicine 06/10/20 Chassis Engineer Relationship Specialty Start Date End Date Maria Esther Rodriguez, [address] [place] [address] PCP - General Family Medicine 06/10/20 Chassis Engineer Relationship Specialty Start Date End Date Maria Esther Rodriguez, [address] [place] [address] PCP - General Family Medicine 06/10/20 Chassis Engineer Relationship Specialty Start Date End Date Maria Esther Rodriguez, [address] [place] [address] PCP - General Family Medicine 06/10/20 Chassis Engineer Relationship Specialty Start Date End Date Maria Esther Rodriguez DO [address] [place] [address] PCP - General 12/20/14 Nura Jain APRN - MINING ENGINEER [address] [address] Nurse Practitioner Nurse Practitioner 05/26/22 Chassis Engineer Relationship Specialty Start Date End Date Maria Esther Rodriguez, DO [address] [place] [address] PCP - General Family Medicine 06/10/20 Chassis Engineer Relationship Specialty Start Date End Date Maria Esther Rodriguez DO [address] [place] [address] PCP - General Family Medicine 06/10/20 Chassis Engineer Relationship Specialty Start Date End Date Maria Esther Rodriguez DO [address] [place] [address] PCP - General Family Medicine 06/10/20 Chassis Engineer Relationship Specialty Start Date End Date Maria Esther Rodriguez DO [address] [place] [address] PCP - General Family Medicine 06/10/20 Chassis Engineer Relationship Specialty Start Date End Date Maria Esther Rodriguez DO [address] [place] [address] PCP - General Family Medicine 06/10/20 Chassis Engineer Relationship Specialty Start Date End Date Maria Esther Rodriguez DO [address] [place] [address] PCP - General Family Medicine 06/10/20 Chassis Engineer Relationship Specialty Start Date End Date Maria Esther Rodriguez DO [address] [place] [address] PCP - General Family Medicine 06/10/20 Chassis Engineer Relationship Specialty Start Date End Date Maria Esther Rodriguez DO [address] [place] [address] PCP - General Family Medicine 06/10/20 Chassis Engineer Relationship Specialty Start Date End Date Maria Esther Rodriguez DO [address] [place] [address] PCP - General Family Medicine 06/10/20 Chassis Engineer Relationship Specialty Start Date End Date Maria Esther Rodriguez DO [address] [place] [address] PCP - General Family Medicine 06/10/20 Chassis Engineer Relationship Specialty Start Date End Date Maria Esther Rodriguez DO [address] [place] [address] PCP - General Family Medicine 06/10/20 Chassis Engineer Relationship Specialty Start Date End Date Maria Esther Rodriguez DO [address] [place] [address] PCP - General 12/20/14 Nura Jain APRN - MINING ENGINEER [address] [place] [address] Nurse Practitioner Nurse Practitioner 05/26/22 Chassis Engineer Relationship Specialty Start Date End Date Maria Esther Rodriguez [address] [place] [address] PCP - General Family Medicine 06/10/20 Chassis Engineer Relationship Specialty Start Date End Date Maria Esther Rodriguez [address] [place] [address] PCP - General 12/20/14 Nura Jain APRN - MINING ENGINEER [address] [place] [address] Nurse Practitioner Nurse Practitioner 05/26/22 Chassis Engineer Relationship Specialty Start Date End Date Michael Maria Esther Suleiman [address] [place] [address] PCP - General Family Medicine 06/10/20 Chassis Engineer Relationship Specialty Start Date End Date Maria Esther Rodriguez [address] [place] [address] PCP - General 12/20/14 Nura Jain APRN - MINING ENGINEER [address] [place] [address] Nurse Practitioner Nurse Practitioner 05/26/22 Chassis Engineer Relationship Specialty Start Date End Date Maria Esther Rodriguez [address] [place] [address] PCP - General 12/20/14 Nura Jain APRN - MINING ENGINEER [address] [place] [address] Nurse Practitioner Nurse Practitioner 05/26/22 Chassis Engineer Relationship Specialty Start Date End Date Maria Esther Rodriguez SuleimanDO [address] [place] [address] PCP - General Family Medicine 06/10/20 Chassis Engineer Relationship Specialty Start Date End Date Michael Maria EstherDO [address] [place] [address] PCP - General 12/20/14 Nura Jain APRN - MINING ENGINEER [address] [place] [address] Nurse Practitioner Nurse Practitioner 05/26/22 Chassis Engineer Relationship Specialty Start Date End Date Maria Esther Rodriguez DO [address] [place] [address] PCP - General Family Medicine 06/10/20 Scheduled Active and Recently Administ ered Medications (unrecognized section and content) PRN Medication Order 10/13/2022 10/14/2022 10/15/2022 acetaminophen (Tylenol) suppository 650 mg(Linked Group 1) 650 mg, Rectal, Every 6 hours PRN, mild pain (1-3), fever, For temp greater than 100.4 F (38 C), Starting on 10/11/22 at 2017, Administer if oral route cannot be used. Maximum dose of acetaminophen is 4000 mg from all sources in 24 hours. acetaminophen (Tylenol) tablet 650 mg(Linked Group 1) 650 mg, Oral, Every 6 hours PRN, mild pain (1-3), fever, For temp greater than 100.4 F (38 C), Starting on 10/11/22 at 2018, Maximum dose of acetaminophen is 4000 mg from all sources in 24 hours. albuterol 108 (90 Base) MCG/ACT inhaler 2 puff 2 puff, Inhalation, Every 6 hours PRN, shortness of breath, wheezing, Starting on 10/13/22 at 0959 ketorolac (Toradol) injection 30 mg 30 mg, IntraVENous, Every 6 hours PRN, moderate pain (4-6), Starting on 10/11/22 at 2018, For 5 days ondansetron (Zofran) injection 4 mg(Linked Group 2) 4 mg, IntraVENous, Every 6 hours PRN, nausea, vomiting, Starting on 10/11/22 at 2018, 1st Line. Give IV if patient is unable to take orally. If inadequate response within 60 minutes, proceed to next-line agent or contact provider if no further options ordered. 1638 (See Alternative - Provider: Uma Perry RN) ondansetron ODT (Zofran-ODT) disintegrating tablet 4 mg(Linked Group 2) 4 mg, Oral, Every 8 hours PRN, nausea, vomiting, Starting on 10/11/22 at 2018, 1st Line. If inadequate response within 60 minutes, proceed to next-line agent or contact provider if no further options ordered. Patient should allow tablet to dissolve on tongue. Do not remove from blister pack until just before administering. 1638 (Given - Provider: Uma Perry RN) oxyCODONE (Roxicodone) immediate release tablet 5 mg 5 mg, Oral, Every 6 hours PRN, severe pain (7-10), Starting on 10/11/22 at 2017 1209 (Given - Provider: Uma Perry RN) 1217 (Given - Provider: Olga Barragan, RN) 1007 (Given - Provider: Olga Barragan, RN) polyethylene glycol (PEG) 3350 (Miralax) packet 17 g 17 g, Oral, Daily PRN, constipation, Starting on 10/11/22 at 2017, 1st line for treatment of constipation - give scheduled if no bowel movement in past 24 hours. sodium chloride 0.9 % infusion 5-250 mL/hr, IntraVENous, PRN, if patient receiving piggyback infusions and maintenance fluids are not ordered OR KVO fluids to protect IV site / prevent frequent line interruptions/ long duration, Starting on 10/11/22 at 2017, For piggyback infusion, administer at same rate as piggyback for a total of 25 mL. Enter 25 mL into dose field and piggyback rate into rate field of order. If piggyback is infusing at a rate less than 100 mL/hr, enter 25 mL into dose field and 100 mL/hr into rate field of order. For KVO fluids, enter rate of 20 mL/hr or less into rate field of order. sodium chloride 0.9% (NS) flush 10 mL 10 mL, IntraVENous, PRN, line care, Starting on Wed10/11/22 at 2017, After every IV line use Linked Groups Order Group 1: acetaminophen (Tylenol) tablet 650 mgJump to med 650 mg, Oral, Every 6 hours PRN, mild pain (1-3), fever, For temp greater than 100.4 F (38 C), Starting on 10/11/22 at 2017
Maximum dose of acetaminophen is 4000 mg from all sources in 24 hours.
Or acetaminophen (Tylenol) suppository 650 mgJump to med 650 mg, Rectal, Every 6 hours PRN, mild pain (1-3), fever, For temp greater than 100.4 F (38 C), Starting on 10/11/22 at 2017
Administer if oral route cannot be used. Maximum dose of acetaminophen is 4000 mg from all sources in 24 hours.
Group 2: ondansetron ODT (Zofran-ODT) disintegrating tablet 4 mgJump to med 4 mg, Oral, Every 8 hours PRN, nausea, vomiting, Starting on 10/11/22 at 2018
1st Line. If inadequate response within 60 minutes, proceed to next-line agent or contact provider if no further options ordered. Patient should allow tablet to dissolve on tongue. Do not remove from blister pack until just before administering.
Or ondansetron (Zofran) injection 4 mgJump to med 4 mg, IntraVENous, Every 6 hours PRN, nausea, vomiting, Starting on 10/11/22 at 2018
1st Line. Give IV if patient is unable to take orally. If inadequate response within 60 minutes, proceed to next-line agent or contact provider if no further options ordered.
FOR RECORDS PERTAINING TO PATIENTS WHO ARE OR HAVE BEEN ENROLLED IN A CHEMICAL DEPENDENCY/SUBSTANCEABUSE PROGRAM, SOME INFORMATION MAY BE OMITTED. This clinical summary was aggregated from multiple sources. Caution should be exercised in using it in the provision of clinical care. This summary normalizes information from multiple sources, and as a consequence, information in this document may materially change the coding, format and clinical context of patient data. In addition, data may be omitted in some cases. CLINICAL DECISIONS SHOULD BE BASED ON THE PRIMARY CLINICAL RECORDS. [employer] [facility] provides no warranty or guarantee of the accuracy or completeness of information in this document.
== END | disposition home or self-care (01) ==
PROVIDERS: PCP Family Medicine; Visit Provider Physician Assistant Surgical
DX: N39.0 Urinary tract infection, site not specified (principal)
CPT/HCPCS: 87077; 87086; 87088; 87186

== ENCOUNTER → 2025-05-02 | Outpatient (CLI) | payer MEDICARE, SELFPAY | END | disposition home or self-care (01) | PROVIDERS: PCP Family Medicine; Referring Provider Physician Assistant Surgical; Visit Provider Physician Assistant Surgical | DX: R30.0 Dysuria (principal) | CPT/HCPCS: 87086; 87088 ==